=== PATIENT | female | born 1945 | race African-American/Black ===

== ENCOUNTER 2018-03-06 11:39 | Emergency (ER) | payer OTHER ==
[2018-03-06 12:44] LABS: Absolute Lymphocytes (CBC) 1.6 K/uL (0.7-4.9); Absolute Monocytes 0.7 K/uL (0.1-1.3); Basophils % 0.6 % (0-1.3); Eosinophils % 3.5 % (0-4.4); Lymphocytes % 23.9 % (15.3-44.8); Monocytes % 10.2 % (3.3-12.3)
[2018-03-06 13:08] LABS: ALT/SGPT 16 U/L (12-78); AST/SGOT 17 U/L (15-37); Albumin 3.7 g/dL (3.4-5.0); Alkaline Phosphatase 89 U/L (45-117); BUN Blood Urea Nitrogen 9 mg/dL (7-18); Bicarbonate 26 mmol/L (21-32); Bilirubin Direct < 0.1 mg/dL (0-0.2); Bilirubin Total 0.2 mg/dL (0.2-1.0); Glucose Level 124 mg/dL (74-106); Lipase 131 U/L (73-393); Potassium 3.3 mmol/L (3.5-5.1); Protein, Total 7.4 g/dL (6.4-8.2); Sodium Level 142 mmol/L (136-145)
[2018-03-06 13:52] LABS: Urine Blood NEGATIVE (NEG); Urine Glucose NEGATIVE (NEG); Urine Protein TRACE (NEG)
[2018-03-06 14:03] LABS: Urine Amorphous Sediment 2+ /HPF (NONE SEEN); Urine Bacteria NONE SEEN /HPF (<20); Urine Culture Reflex Order NOT NEEDED; Urine Mucus MOD /HPF (NONE SEEN); Urine RBC NONE SEEN /HPF (NONE SEEN)
--- NOTE | 2018-03-06 14:09 | EDPHYS ---
Physician Documentation [facility] Name: Caroline Cortes Age: 72 yrs Sex: Female : 1945 Arrival Date: 03/06/2018 Time: 11:44 Bed 8 Private MD: ED Physician Wes Ballesteros HPI: 03/06 12:58 This 72 yrs old Black Female presents to ER via Ambulatory with complaints of warm rn feeling. 12:58 Reports began yesterday with a "warm feeling throughout" her body, no pain, no rn headache, daughter reports seems anxious. Also has history of low sodium, her doctor took her off HCTZ and her salt pills, has been doing ok. + hx of stress and anxiety. NO trauma. No fever/cough/sob. . Historical: - Allergies: 11:52 No Known Allergies; aj1 - Home Meds: 11:52 paroxetine HCl 10 mg oral tab 1 tab once daily [Active]; gabapentin 300 mg oral cap 1 aj1 cap once daily [Active]; amlodipine 10 mg tab 1 tab once daily [Active]; citalopram 10 mg tab 1 tab once daily [Active]; losartan 25 mg oral tab 1 tab once daily [Active]; metformin 500 mg Oral tr24 1 tab once daily [Active]; - PMHx: 11:52 Hypertension; Diabetes - NIDDM; Anxiety; hyponatremia; aj1 - Immunization history:: Flu vaccine is not up to date. - Social history:: Smoking status: Patient/guardian denies using tobacco. - Ebola Screening: : Patient denies travel to an Ebola-affected area in the 21 days before illness onset. ROS: 13:08 Constitutional: Negative for fever, chills, and weight loss, Eyes: Negative for injury, rn pain, redness, and discharge, Neck: Negative for injury, pain, and swelling, Cardiovascular: Negative for chest pain, palpitations, and edema, Respiratory: Negative for shortness of breath, cough, wheezing, and pleuritic chest pain, Abdomen/GI: Negative for abdominal pain, nausea, vomiting, diarrhea, and constipation, MS/Extremity: Negative for injury and deformity, Skin: Negative for injury, rash, and discoloration, Neuro: Negative for headache, weakness, numbness, tingling, and seizure. Exam: 13:08 Constitutional: This is a well developed, well nourished patient who is awake, alert, rn and in no acute distress. Head/Face: Normocephalic, atraumatic. Eyes: Pupils equal round and reactive to light, extra-ocular motions intact. Lids and lashes normal. Conjunctiva and sclera are non-icteric and not injected. Cornea within normal limits. Periorbital areas with no swelling, redness, or edema. ENT: MMM Cardiovascular: Regular rate and rhythm. No pulse deficits. Respiratory: Lungs have equal breath sounds bilaterally, clear to auscultation. No increased work of breathing, no retractions or nasal flaring. Abdomen/GI: soft, non-tender Skin: Warm, dry with normal turgor. Normal color with no rashes, no lesions, and no evidence of cellulitis. MS/ Extremity: Pulses equal, no cyanosis. Neurovascular intact. Full, normal range of motion. Equal circumference. Neuro: Awake and alert, GCS 15, oriented to person, place, time, and situation. Cranial nerves II-XII grossly intact. Motor strength 5/5 in all extremities. Sensory grossly intact. Cerebellar exam normal. Normal gait. Vital Signs: 11:52 BP 134 / 78; Pulse 76; Resp 18; Temp 98.2; Pulse Ox 99% on R/A; Weight 71.21 kg (R); aj1 Height 5 ft. 1 in. (154.94 cm) (R); Pain 0/10; 11:52 Body Mass Index 29.66 (71.21 kg, 154.94 cm) aj1 MDM: 11:53 Patient medically screened. rn 14:06 Differential Diagnosis hyponatremia, UTI, dehydration, stress reaction, anxiety. Data rn reviewed: vital signs, nurses notes, lab test result(s), and as a result, I will discharge patient. Counseling: I had a detailed discussion with the patient and/or guardian regarding: the historical points, exam findings, and any diagnostic results supporting the discharge/admit diagnosis, lab results, the need for outpatient follow up, to return to the emergency department if symptoms worsen or persist or if there are any questions or concerns that arise at home. Special discussion: I discussed with the patient/guardian in detail that at this point there is no indication for admission to the hospital. It is understood, however, that if the symptoms persist or worsen the patient needs to return immediately for re-evaluation. 03/06 11:55 Order name: Urine Microscopic Only rn 03/06 11:55 Order name: Urine Microscopic Only EDMS 03/06 12:08 Order name: CBC with Diff; Complete Time: 13:25 rn 03/06 12:08 Order name: Basic Metabolic Panel; Complete Time: 13:25 rn 03/06 12:08 Order name: LFT's; Complete Time: 13:25 rn 03/06 12:08 Order name: Lipase; Complete Time: 13:25 rn 03/06 11:55 Order name: Urine Dipstick-Ancillary (obtain specimen); Complete Time: 13:42 rn 03/06 12:08 Order name: IV Start; Complete Time: 12:37 rn 03/06 13:41 Order name: Urine Dipstick--Ancillary (enter results) ms Administered Medications: No medications were administered Disposition: 03/06/18 14:08 Discharged to Home. Impression: Anxiety disorder, unspecified, Person with feared health complaint in whom no diagnosis is made. - Condition is Stable. - Medication Reconciliation Form, Thank You Letter, Antibiotic Education, Prescription Opioid Use form. - Follow up: Private Physician; When: As needed; Reason: Recheck today's complaints, Re-evaluation by your physician. - Problem is new. - Symptoms have improved. Signatures: Dispatcher [employer] Melanie Arce RN RN aj1 Ariadne Baptiste ms, Roman, MD MD furniture arranger: (The following items were deleted from the chart) 14:36 14:08 03/06/2018 14:08 Discharged to Home. Impression: Anxiety disorder, unspecified; ms Person with feared health complaint in whom no diagnosis is made. Condition is Stable. Forms are Medication Reconciliation Form, Thank You Letter, Antibiotic Education, Prescription Opioid Use. Follow up: Private Physician; When: As needed; Reason: Recheck today's complaints, Re-evaluation by your physician. Problem is new. Symptoms have improved. rn
--- NOTE | 2018-03-06 14:09 | ER ---
Nurse's Notes [facility] Name: Caroline Cortes Age: 72 yrs Sex: Female : 1945 Arrival Date: 03/06/2018 Time: 11:44 Bed 8 Private MD: Diagnosis: Anxiety disorder, unspecified;Person with feared health complaint in whom no diagnosis is made Presentation: 03/06 11:47 Presenting complaint: Patient states: "I feel jittery and I feel hot inside." Patient aj1 also reports anxiety and states that she feels "a little foggy" when she is feeling anxious. Patient's daughter state that she is concerned because she was taking salt tablets because her sodium levels were low, but recently they were back to normal so she stopped taking them about 2 weeks ago, and she is concerned that her sodium level may be low again. Transition of care: patient was not received from another setting of care. Onset of symptoms was March 05, 2018. Risk Assessment: Do you want to hurt yourself or someone else? Patient reports no desire to harm self or others. Initial Sepsis Screen: Does the patient meet any 2 criteria? No. Patient's initial sepsis screen is negative. Does the patient have a suspected source of infection? No. Patient's initial sepsis screen is negative. Care prior to arrival: None. 11:47 Method Of Arrival: Ambulatory aj 11:47 Acuity: SUSAN 3 aj1 Triage Assessment: 11:52 General: Appears in no apparent distress. comfortable, Behavior is calm, cooperative, aj1 appropriate for age. Pain: Denies pain. Neuro: Level of Consciousness is awake, alert, obeys commands. Cardiovascular: Patient's skin is warm and dry. Respiratory: Airway is patent Respiratory effort is even, unlabored, Respiratory pattern is regular, symmetrical. Historical: - Allergies: 11:52 No Known Allergies; aj1 - Home Meds: 11:52 paroxetine HCl 10 mg oral tab 1 tab once daily [Active]; gabapentin 300 mg oral cap 1 aj1 cap once daily [Active]; amlodipine 10 mg tab 1 tab once daily [Active]; citalopram 10 mg tab 1 tab once daily [Active]; losartan 25 mg oral tab 1 tab once daily [Active]; metformin 500 mg Oral tr24 1 tab once daily [Active]; - PMHx: 11:52 Hypertension; Diabetes - NIDDM; Anxiety; hyponatremia; aj1 - Immunization history:: Flu vaccine is not up to date. - Social history:: Smoking status: Patient/guardian denies using tobacco. - Ebola Screening: : Patient denies travel to an Ebola-affected area in the 21 days before illness onset. Screenin:08 Abuse screen: Denies threats or abuse. Denies injuries from another. Nutritional sg screening: No deficits noted. Tuberculosis screening: No symptoms or risk factors identified. Never had TB. Fall Risk None identified. Assessment: 12:10 Reassessment: Patient and/or family updated on plan of care and expected duration. Pain sg level reassessed. Patient is alert, oriented x 3, equal unlabored respirations, skin warm/dry/pink. Neuro: Level of Consciousness is awake, alert, obeys commands, Oriented to person, place, time, situation, Toolroom Keeper are equal bilaterally Moves all extremities. Full function Speech is normal, Facial symmetry appears normal, Pupils are PERRLA. 13:05 General: Appears in no apparent distress. comfortable, well groomed, well developed, sg well nourished, Behavior is calm, cooperative, appropriate for age. Pain: Denies pain. Neuro: Level of Consciousness is awake, alert, obeys commands, Oriented to person, place, time, situation, Toolroom Keeper are equal bilaterally Moves all extremities. Full function Gait is steady, Speech is normal, Facial symmetry appears normal, Pupils are PERRLA, Intact reports feeling warm inside her body. Cardiovascular: Patient's skin is warm and dry. Chest pain is denied. Respiratory: Airway is patent Respiratory effort is even, unlabored, Respiratory pattern is regular, symmetrical. GI: Abdomen is round non-distended, Reports normal bowel habits, tolerance of fluids, tolerance of food. : No signs and/or symptoms were reported regarding the genitourinary system. EENT: No signs and/or symptoms were reported regarding the EENT system. Derm: Skin is intact, is healthy with good turgor, Skin is dry, Skin is normal, Skin temperature is warm. Musculoskeletal: No signs and/or symptoms reported regarding the musculoskeletal system. Vital Signs: 11:52 BP 134 / 78; Pulse 76; Resp 18; Temp 98.2; Pulse Ox 99% on R/A; Weight 71.21 kg (R); aj1 Height 5 ft. 1 in. (154.94 cm) (R); Pain 0/10; 11:52 Body Mass Index 29.66 (71.21 kg, 154.94 cm) aj ED Course: 11:44 Patient arrived in ED. mr 11:50 Triage completed. aj1 11:52 Arm band placed on Patient placed in an exam room. aj1 11:53 Wes Ballesteros MD is Attending Physician. rn 12:15 Warm blanket given. Head of bed elevated. sg 12:24 Leidy Rodas RN is Primary Nurse. ph 12:37 Initial lab(s) drawn, by nv, sent to lab. Inserted saline lock: 20 gauge in right em1 forearm, using aseptic technique. Blood collected. 12:58 Adan Spear RN is Primary Nurse. sg 13:08 Patient has correct armband on for positive identification. Call light in reach. Side sg rails up X2. quality assurance monitor body on. Pulse ox on. NIBP on. 14:30 No provider procedures requiring assistance completed. IV discontinued, intact, sg bleeding controlled, No redness/swelling at site. Pressure dressing applied. Administered Medications: No medications were administered Outcome: 14:08 Discharge ordered by MD. rn 14:30 Discharged to home ambulatory, with family. sg 14:30 Condition: good 14:30 Discharge instructions given to patient, Instructed on discharge instructions, follow up and referral plans. safety practices, Demonstrated understanding of instructions, follow-up care. 14:36 Patient left the ED. ms Signatures: Melanie Meehan RN RN [facility] Adan Spear RN RN sg Rivera, Caroline mr BaptisteAriadne ms Wes Ballesteros MD MD rn Martinez, Eric [facility] Leidy Rodas RN RN ph
== END 2018-03-06 14:36 | disposition home or self-care (01) ==
LOC: ER 11:39
DX: Z71.1 Person with feared health complaint in whom no diagnosis is made (principal); I10 Essential (primary) hypertension; E11.9 Type 2 diabetes mellitus without complications; E87.1 Hypo-osmolality and hyponatremia
CPT/HCPCS: 36415; 80048; 80076; 81003; 81015; 83690; 85025; 99284

== ENCOUNTER 2018-11-08 11:48 | Observation (INO) | payer OTHER ==
[2018-11-08 12:41] VITALS: BMI 29.0
[2018-11-08] MEDS ORDERED: ALBUTEROL 2.5 MG/3 ML NEB SOL IH PRN (13:17)
[2018-11-08 13:39] LABS: Absolute Lymphocytes (CBC) 1.6 K/uL (0.7-4.9); Basophils % 0.5 % (0-1.3); Hematocrit 24.9 % (36.0-45.0); Lymphocytes % 15.3 % (15.3-44.8); MPV 7.7 fL (7.6-11.3); RBC Red Blood Cell Count 2.96 M/uL (3.86-4.86)
[2018-11-08] MEDS ORDERED: POLYETHYL GLY 3350 17 GM/DOSE PO PRN (14:00)
[2018-11-08] MEDS ORDERED: ONDANSETRON 4 MG/2 ML VIAL IV PRN (14:00)
[2018-11-08] MEDS ORDERED: DIPHENHYDRAMINE 25 MG TAB/CAP PO PRN (14:00)
[2018-11-08] MEDS ORDERED: ONDANSETRON 4 MG (ODT) TAB PO PRN (14:00)
[2018-11-08] MEDS ORDERED: VANCOMYCIN 1.75 GM in NA CHLORIDE 0.9% 500 ML IVPB ONE (14:00)
[2018-11-08] MEDS ORDERED: NACHLORIDE 0.45% 1,000 ML IV SCH (14:00)
[2018-11-08] MEDS ORDERED: LOPERAMIDE HCL 2 MG CAPSULE PO PRN (14:00)
[2018-11-08 14:07] LABS: Blood Morphology Comment NOT SEEN (NOT SEEN); Platelet Estimate ADEQ; Urine White Blood Cell Casts OK
[2018-11-08 14:48] LABS: ALT/SGPT 27 U/L (12-78); AST/SGOT 27 U/L (15-37); Albumin 3.4 g/dL (3.4-5.0); Alkaline Phosphatase 77 U/L (45-117); BUN Blood Urea Nitrogen 16 mg/dL (7-18); Bicarbonate 24 mmol/L (21-32); Bilirubin Direct 0.3 mg/dL (0-0.2); Bilirubin Total 0.7 mg/dL (0.2-1.0); Glucose Level 126 mg/dL (74-106); Magnesium 1.9 mg/dL (1.8-2.4); Phosphorus 2.8 mg/dL (2.5-4.9); Potassium 3.7 mmol/L (3.5-5.1); Protein, Total 6.5 g/dL (6.4-8.2); Sodium Level 131 mmol/L (136-145); Thyroid Stimulating Hormone 0.662 uIU/mL (0.360-3.740)
[2018-11-08] MEDS: ACETAMINOPHEN 325 MG TABLET PO PRN ×2 (14:58→22:15)
[2018-11-08] MEDS ORDERED: PIPER/TAZO/NS 3.375gm 3.375 GM/100 ML BAG IV SCH (15:00)
[2018-11-08 15:38] LABS: Urine Appearance CLEAR; Urine Bilirubin NEGATIVE (NEG); Urine Blood TRACE (NEG); Urine Color YELLOW; Urine Glucose NEGATIVE (NEG); Urine Protein NEGATIVE (NEG)
[2018-11-08] MEDS: IPRATROPIUM BROM 0.5MG/2.5ML IH SCH ×2 (15:44→20:00)
[2018-11-08] MEDS: LEVALBUTEROL 1.25 MG/3 ML NEB IH SCH ×2 (15:44→20:00)
--- NOTE | 2018-11-08 15:48 | RAD REPORT ---
EXAM DESCRIPTION: CT - Chest For Pe Angio - 11/08/2018 3:28 pm CLINICAL HISTORY: Chest pain COMPARISON: None. TECHNIQUE: Dynamically enhanced axial 3 mm thick images of the chest were obtained during administra tion of <100> mL Isovue 370 IV contrast. Coronal and oblique reconstruction images were generated and reviewed. Exam utilizes a protocol for optimal evaluation of pulmonary arterial tree. Maximum intensity projections 3D imaging was utilized All CT scans are performed using dose optimization technique as appropriate and may include automated exposure control or mA/KV adjustment according to patient size. FINDINGS: Thrombus is present within segmental and subsegmental right upper lobe, right middle and right lower lobe pulmonary arteries. No thrombus is seen within the main pulmonary and left pulmonary arteries. No thrombus within the main pulmonary and left pulmonary arteries. . A thoracic aortic aneurysm is not noted. Moderate left pleural effusion with left basilar atelectasis A small pericardial effusion . Postsurgical changes are present IMPRESSION: Right pulmonary emboli Moderate left pleural effusion with atelectasis Dr Smith notified 3:40 p.m. November 08, 2018 .
[2018-11-08 16:02] LABS: Urine Microscopic Reflex ORDER UMIC
[2018-11-08 16:03] LABS: Urine Bacteria <20 /HPF (<20); Urine Culture Reflex Order REFLEXED; Urine RBC <5 /HPF (NONE SEEN)
[2018-11-08 16:09] VITALS: O2SAT 98
[2018-11-08] MEDS: METHYLPREDNISOLONE 40 MG INJ IV SCH (17:54)
[2018-11-08] MEDS: RIVAROXABAN 15 MG TABLET PO SCH (17:54)
[2018-11-08] MEDS ORDERED: VANCOMYCIN 1.25 GM in NA CHLORIDE 0.9% 250 ML IVPB SCH (18:00)
[2018-11-08] MEDS ORDERED: GABAPENTIN 300 MG CAP PO SCH (21:00)
[2018-11-08] MEDS ORDERED: MIRTAZAPINE 15 MG TAB PO SCH (21:00)
[2018-11-08] MEDS ORDERED: ATORVASTATIN 40 MG TAB PO SCH (21:00)
[2018-11-08] MEDS ORDERED: GLUCAGON 1 MG/VIAL IM PRN (21:06)
[2018-11-08] MEDS ORDERED: D50W 25 GM/50 ML SYRINGE IV PRN (21:06)
[2018-11-08 21:08] LABS: MPV 7.6 fL (7.6-11.3)
[2018-11-08 21:09] LABS: Platelet Estimate ADEQ
[2018-11-08] MEDS: METOPROLOL TAR 50 MG TAB PO SCH (21:25)
[2018-11-08] MEDS: METFORMIN ER 500 MG TAB PO SCH (21:25)
[2018-11-08] MEDS: SERTRALINE HCL 50 MG TAB PO SCH (21:26)
[2018-11-08] MEDS: INSULIN -REGULAR HUMAN 50 UNIT/0.5 ML ML SQ SCH (21:26)
[2018-11-09] MEDS: METHYLPREDNISOLONE 40 MG INJ IV SCH ×2 (00:12→05:47)
[2018-11-09] MEDS: IPRATROPIUM BROM 0.5MG/2.5ML IH SCH ×2 (02:00→08:00)
[2018-11-09] MEDS: LEVALBUTEROL 1.25 MG/3 ML NEB IH SCH ×2 (02:00→08:00)
[2018-11-09 04:31] LABS: Absolute Lymphocytes (CBC) 0.7 K/uL (0.7-4.9); Basophils % 0.1 % (0-1.3); Hematocrit 25.7 % (36.0-45.0); Lymphocytes % 8.7 % (15.3-44.8); MPV 7.7 fL (7.6-11.3); RBC Red Blood Cell Count 3.08 M/uL (3.86-4.86)
[2018-11-09 04:33] LABS: Magnesium 2.4 mg/dL (1.8-2.4); Potassium 4.5 mmol/L (3.5-5.1)
[2018-11-09 05:06] LABS: Blood Morphology Comment NOTED (NOT SEEN); Platelet Estimate ADEQ
[2018-11-09 05:07] LABS: Polychromasia 1+
[2018-11-09] MEDS: INSULIN -REGULAR HUMAN 50 UNIT/0.5 ML ML SQ SCH (07:30)
[2018-11-09] MEDS: METFORMIN ER 500 MG TAB PO SCH (08:22)
[2018-11-09] MEDS: RIVAROXABAN 15 MG TABLET PO SCH (08:22)
[2018-11-09] MEDS: SERTRALINE HCL 50 MG TAB PO SCH (08:24)
[2018-11-09] MEDS: METOPROLOL TAR 50 MG TAB PO SCH (08:24)
[2018-11-09 08:25] VITALS: BP 158/86
[2018-11-09] MEDS ORDERED: POTASSIUM CL SA 10 MEQ TAB PO SCH (09:00)
[2018-11-09] MEDS ORDERED: CLOPIDOGREL 75 MG TABLET PO SCH (09:00)
[2018-11-09] MEDS ORDERED: LOSARTAN POTASSIUM 50 MG TABLET PO SCH (09:00)
[2018-11-09] MEDS ORDERED: FUROSEMIDE 40 MG TABLET PO SCH (09:00)
[2018-11-09] MEDS ORDERED: PANTOPRAZOLE 40MG TABLET PO SCH (09:00)
[2018-11-09] MEDS ORDERED: ENOXAPARIN 40 MG/0.4 ML SQ SCH (09:00)
[2018-11-09 09:38] VITALS: TEMP 98.7
[2018-11-09] MEDS ORDERED: VANCOMYCIN 1.25 GM in NA CHLORIDE 0.9% 250 ML IVPB SCH (14:00)
--- NOTE | 2018-11-09 21:50 | P.DS ---
Admission Date: 11/08/18 Discharge Date: 11/09/18 Disposition: ROUTINE DISCHARGE Discharge Condition: FAIR Hospital Course: MRS. DENISE WAS SLIGHTLY DYSPNEIC AND HAS L SIDE MOD PL. EFFUSION. SHE ALSO HAS PE ON CT SCAN THAT IS MODERATE. SHE IS CLINICALLY STABLE TO BE HOME. SHE IS GIVEN XARELTO BID FOR PE AND AFTER 3 WEEKS I WILL CHANGE TO 20 MG DAILY. Vital Signs/Physical Exam: Temp Pulse Resp BP Pulse Ox 98.7 F 79 18 158/86 H 97 11/09/18 08:00 11/09/18 08:24 11/09/18 08:00 11/09/18 08:24 11/09/18 08:00 Laboratory Data at Discharge: WBC 8.6 K/uL (4.3-10.9) D 11/09/18 03:34 Hgb 8.8 g/dL (12.0-15.0) L 11/09/18 03:34 Hct 25.7 % (36.0-45.0) L 11/09/18 03:34 Plt Count 296 K/uL (152-406) 11/09/18 03:34 APTT 26.4 SECONDS (24.3-36.9) 11/08/18 13:20 Sodium 139 mmol/L (136-145) 11/09/18 03:34 Potassium 4.5 mmol/L (3.5-5.1) 11/09/18 03:34 BUN 16 mg/dL (7-18) 11/09/18 03:34 Creatinine 0.86 mg/dL (0.55-1.3) 11/09/18 03:34 Glucose 142 mg/dL (74-106) H 11/09/18 03:34 Phosphorus 2.8 mg/dL (2.5-4.9) 11/08/18 13:20 Magnesium 2.4 mg/dL (1.8-2.4) D 11/09/18 03:34 Total Bilirubin 0.7 mg/dL (0.2-1.0) 11/08/18 13:20 AST 27 U/L (15-37) 11/08/18 13:20 ALT 27 U/L (12-78) 11/08/18 13:20 Alkaline Phosphatase 77 U/L (45-117) 11/08/18 13:20 Home Medications: Atorvastatin Calcium 1 tab PO BEDTIME 11/08/18 Clopidogrel Bisulfate [Plavix*] 1 tab PO DAILY 11/08/18 Furosemide 1 tab PO DAILY 11/08/18 Gabapentin 1 cap PO BEDTIME 11/08/18 Losartan Potassium 1 tab PO DAILY 11/08/18 Metformin ER [Glucophage ER*] 1 tab PO BID 11/08/18 Metoprolol Tartrate 1 tab PO Q12H 11/08/18 Mirtazapine 1 tab PO BEDTIME 11/08/18 Pantoprazole Sodium 1 tab PO DAILY 11/08/18 Potassium Chloride 1 tab PO DAILY 11/08/18 Sertraline [Zoloft*] 1 tab PO BID 11/08/18 Rivaroxaban [Xarelto*] 15 mg PO BIDWM #40 tablet 11/09/18 New Medications: Rivaroxaban [Xarelto*] 15 mg PO BIDWM #40 tablet Diet: AHA Followup: Clyde Smith MD [Primary Care Provider] - (call to schedule appointment)
== END 2018-11-09 10:20 | disposition home or self-care (01) ==
LOC: 4TH 11:48 → INTOOBSV 11:48
PROVIDERS: ADMIT Internal Medicine; ATTEND Internal Medicine
DX: I26.99 Other pulmonary embolism without acute cor pulmonale (principal); J90 Pleural effusion, not elsewhere classified
CPT/HCPCS: 87088; 87070; 85025 ×2; 87086; 80048 ×2; 36415 ×2; 83735 ×2; 87205; 84100; 85049; 82962 ×3; 80076; 85730; 84443; 87077; 87186; 82607; 82306; 71275; 94640; Q9967; G0379; J2920 ×3; G0378 ×3; 81003; 81015; J2543

== ENCOUNTER 2018-11-10 17:24 | Observation (INO) | payer OTHER ==
[2018-11-10] MEDS ORDERED: ALBUTEROL 2.5 MG/3 ML NEB SOL IH PRN (17:53)
[2018-11-10] MEDS ORDERED: DIPHENHYDRAMINE 25 MG TAB/CAP PO PRN (18:00)
[2018-11-10] MEDS ORDERED: POLYETHYL GLY 3350 17 GM/DOSE PO PRN (18:00)
[2018-11-10] MEDS ORDERED: ONDANSETRON 4 MG/2 ML VIAL IV PRN (18:00)
[2018-11-10] MEDS ORDERED: ONDANSETRON 4 MG (ODT) TAB PO PRN (18:00)
[2018-11-10] MEDS ORDERED: PNEUMOCOCCAL VACCINE 0.5 ML IMVAC ONE (18:00)
[2018-11-10] MEDS ORDERED: LOPERAMIDE HCL 2 MG CAPSULE PO PRN (18:00)
[2018-11-10] MEDS ORDERED: INFLUENZA VACCINE (for 3y+) 0.5 ML DOSE IMVAC ONE (18:00)
[2018-11-10 19:05] LABS: Absolute Lymphocytes (CBC) 2.7 K/uL (0.7-4.9); Basophils % 0.6 % (0-1.3); Lymphocytes % 19.5 % (15.3-44.8); MPV 7.3 fL (7.6-11.3); RBC Red Blood Cell Count 3.19 M/uL (3.86-4.86)
[2018-11-10 19:47] LABS: Albumin 3.6 g/dL (3.4-5.0); Bilirubin Direct 0.2 mg/dL (0-0.2); Bilirubin Total 0.6 mg/dL (0.2-1.0); Magnesium 2.2 mg/dL (1.8-2.4); Phosphorus 2.6 mg/dL (2.5-4.9); Protein, Total 7.2 g/dL (6.4-8.2); Thyroid Stimulating Hormone 0.298 uIU/mL (0.360-3.740)
[2018-11-10] MEDS: LEVALBUTEROL 1.25 MG/3 ML NEB IH SCH (20:00)
[2018-11-10] MEDS: IPRATROPIUM BROM 0.5MG/2.5ML IH SCH (20:00)
[2018-11-10 20:19] LABS: Protime INR 2.21
[2018-11-10 20:22] LABS: Anisocytosis 1+; Blood Morphology Comment NOT SEEN (NOT SEEN); Platelet Estimate INCR
[2018-11-10 20:23] LABS: Ovalocytes 1+
[2018-11-10] MEDS: FUROSEMIDE 20 MG/ 2ML VIAL IV SCH (22:04)
[2018-11-10] MEDS ORDERED: D50W 25 GM/50 ML SYRINGE IV PRN (22:29)
[2018-11-10] MEDS ORDERED: GLUCAGON 1 MG/VIAL IM PRN (22:29)
[2018-11-10] MEDS ORDERED: RIVAROXABAN 10 MG TABLET ONE (23:10)
[2018-11-10] MEDS ORDERED: GABAPENTIN 300 MG CAP ONE (23:11)
[2018-11-10] MEDS ORDERED: MELOXICAM 7.5 MG TAB ONE (23:11)
[2018-11-10] MEDS ORDERED: SERTRALINE HCL 50 MG TAB ONE (23:11)
[2018-11-10] MEDS: METOPROLOL TAR 50 MG TAB PO SCH (23:30)
[2018-11-10] MEDS: ACETAMINOPHEN 325 MG TABLET PO PRN (23:30)
[2018-11-10 23:52] LABS: Urine Appearance CLEAR; Urine Bilirubin NEGATIVE (NEG); Urine Blood 1+ (NEG); Urine Color YELLOW; Urine Glucose NEGATIVE (NEG); Urine Protein NEGATIVE (NEG); Urine pH 6.5 (5.0-7.0)
[2018-11-10 23:56] LABS: Urine Microscopic Reflex ORDER UMIC
[2018-11-11 00:12] LABS: UR MICROALBUMIN 0.7 mg/dL (< 1.9)
[2018-11-11 00:22] LABS: Urine Bacteria <20 /HPF (<20); Urine Culture Reflex Order REFLEXED; Urine RBC <5 /HPF (NONE SEEN)
[2018-11-11] MEDS: IPRATROPIUM BROM 0.5MG/2.5ML IH SCH ×3 (02:00→13:35)
[2018-11-11] MEDS: LEVALBUTEROL 1.25 MG/3 ML NEB IH SCH ×3 (02:00→13:35)
[2018-11-11 06:06] VITALS: BMI 29.6
[2018-11-11 06:26] LABS: Absolute Lymphocytes (CBC) 2.9 K/uL (0.7-4.9); Basophils % 0.6 % (0-1.3); Hematocrit 25.2 % (36.0-45.0); Lymphocytes % 22.9 % (15.3-44.8); MPV 6.9 fL (7.6-11.3); RBC Red Blood Cell Count 3.01 M/uL (3.86-4.86)
[2018-11-11 06:34] LABS: Magnesium 2.3 mg/dL (1.8-2.4); Potassium 3.8 mmol/L (3.5-5.1)
[2018-11-11] MEDS: INSULIN -REGULAR HUMAN 50 UNIT/0.5 ML ML SQ SCH ×3 (07:30→16:30)
[2018-11-11] MEDS ORDERED: RIVAROXABAN 15 MG TABLET PO SCH (08:00)
[2018-11-11] MEDS ORDERED: POTASSIUM 25 MEQ EFFERV TAB PO ONE ×2 (09:00)
[2018-11-11] MEDS ORDERED: POTASSIUM CL SA 10 MEQ TAB PO SCH (09:00)
--- NOTE | 2018-11-11 09:40 | ECHO ---
HEIGHT: 5 ft 1 in WEIGHT: 157 lb 0 oz DATE OF STUDY: 11/11/[address]: Clyde Smith MD 2-DIMENSIONAL: YES M.MODE: YES DOPPLER: YES COLOR FLOW: YES TDS: PORTABLE: DEFINITY: BUBBLE STUDY: DIAGNOSIS: DYSPNEA CARDIAC HISTORY: CATHERIZATION: SURGERY: PROSTHETIC VALVE: PACEMAKER: MEASUREMENTS (cm) DIASTOLIC (NORMALS) SYSTOLIC (NORMALS) IVSd 1.3 (0.6-1.2) LA Diam (1.9-4.0) LVEF 60-69% LVIDd 3.3 (3.5-5.7) LVIDs 1.6 (2.0-3.5) %FS 51% LVPWd 1.2 (0.6-1.2) Ao Diam 3.1 (2.0-3.7) 2 DIMENSIONAL ASSESSMENT: RIGHT ATRIUM: NORMAL LEFT ATRIUM: DILATED RIGHT VENTRICLE: NORMAL LEFT VENTRICLE: LEFT VENTRICULAR HYPERTROPHY TRICUSPID VALVE: NORMAL MITRAL VALVE: NORMAL PULMONIC VALVE: NORMAL AORTIC VALVE: NORMAL PERICARDIAL EFFUSION: NONE AORTIC ROOT: NORMAL LEFT VENTRICULAR WALL MOTION: NORMAL DOPPLER/COLOR FLOW: PHYSIOLOGICAL TRICUSPID REGURGITATION. NORMAL RIGHT VENTRICULAR SYSTOLIC PRESSURE. IMPAIRED LEFT VENTRICULAR RELAXATION. COMMENTS: NORMAL LEFT VENTRICULAR EJECTION FRACTION. DILATED LEFT ATRIUM. LEFT VENTRICULAR HYPERTROPHY. IMPAIRED LEFT VENTRICULAR RELAXATION. TECHNOLOGIST: SUSIE SILVA
[2018-11-11] MEDS: FUROSEMIDE 20 MG/ 2ML VIAL IV SCH (10:13)
[2018-11-11] MEDS: METOPROLOL TAR 50 MG TAB PO SCH (10:13)
[2018-11-11] MEDS: ACETAMINOPHEN 325 MG TABLET PO PRN (10:19)
--- NOTE | 2018-11-11 12:11 | RAD REPORT ---
EXAM DESCRIPTION: RAD CHEST TWO-VIEW CLINICAL HISTORY: Pleural effusion, shortness of breath. COMPARISON: Ct chest November 08, 2018, Two-view chest November 08, 2018 TECHNIQUE: PA and lateral views of the chest were obtained. FINDINGS: A moderately large left pleural effusion and left base atelectasis are stable. Cardiac silhouette remains enlarged. No new right lung field or upper left lung field finding. Upper lobe vasculature is within normal limits. No acute bone finding since prior imaging. No pneumothorax. No acute aortic finding. IMPRESSION: Moderately enlarged left pleural effusion and left base atelectasis stable from November 08, 2018 imaging.
[2018-11-11] MEDS ORDERED: ALPRAZOLAM 0.25 MG TABLET PO PRN (13:20)
[2018-11-11 16:07] VITALS: O2SAT 94
[2018-11-11 16:31] VITALS: BP 106/58; TEMP 97.3
[2018-11-11] MEDS ORDERED: MIRTAZAPINE 15 MG TAB PO SCH (21:00)
[2018-11-11] MEDS ORDERED: SERTRALINE HCL 50 MG TAB PO SCH (21:00)
[2018-11-11] MEDS ORDERED: GABAPENTIN 300 MG CAP PO SCH (21:00)
--- NOTE | 2018-11-11 21:15 | P.DS ---
Admission Date: 11/10/18 Discharge Date: 11/11/18 Disposition: ROUTINE DISCHARGE Discharge Condition: FAIR Brief History of Present Illness: MS. DENISE IS VERY COMOFORTABLE. SHE HAS NO DYSPNEA TODAY. ONCE FAMILY CALLED SHE HAD PANIC ATTACK BUT LATER FOUND SHE HAD GAS, GOOD BM AND ALL SYMPTOMS WENT AWAY. SHE IS GIVEN XANAX PRN IN CASE SHE GETS ANXIOUS. SHE IS GIVEN LEVAQUIN SHE HAS MILD HIGH WBC THAT MAY OR MAY NOT BE INFECTION. SHE WILL SEE HER SURGEON SOON. Vital Signs/Physical Exam: Temp Pulse Resp BP Pulse Ox 97.3 F 75 18 106/58 L 95 11/11/18 16:00 11/11/18 16:00 11/11/18 16:00 11/11/18 16:00 11/11/18 16:00 Laboratory Data at Discharge: WBC 12.7 K/uL (4.3-10.9) H 11/11/18 05:56 Hgb 8.7 g/dL (12.0-15.0) L 11/11/18 05:56 Hct 25.2 % (36.0-45.0) L 11/11/18 05:56 Plt Count 431 K/uL (152-406) H 11/11/18 05:56 PT 25.3 SECONDS (9.5-12.5) H 11/10/18 19:51 INR 2.21 11/10/18 19:51 APTT 34.0 SECONDS (24.3-36.9) 11/10/18 19:51 Sodium 138 mmol/L (136-145) 11/11/18 05:56 Potassium 3.8 mmol/L (3.5-5.1) 11/11/18 05:56 BUN 22 mg/dL (7-18) H 11/11/18 05:56 Creatinine 0.87 mg/dL (0.55-1.3) 11/11/18 05:56 Glucose 111 mg/dL (74-106) H 11/11/18 05:56 Phosphorus 2.6 mg/dL (2.5-4.9) 11/10/18 18:40 Magnesium 2.3 mg/dL (1.8-2.4) 11/11/18 05:56 Total Bilirubin 0.6 mg/dL (0.2-1.0) 11/10/18 18:40 AST 35 U/L (15-37) 11/10/18 18:40 ALT 36 U/L (12-78) 11/10/18 18:40 Alkaline Phosphatase 92 U/L (45-117) 11/10/18 18:40 Home Medications: Atorvastatin Calcium 1 tab PO BEDTIME 11/08/18 Clopidogrel Bisulfate [Plavix*] 1 tab PO DAILY 11/08/18 Furosemide 1 tab PO DAILY 11/08/18 Gabapentin 1 cap PO BEDTIME 11/08/18 Losartan Potassium 1 tab PO DAILY 11/08/18 Metformin ER [Glucophage ER*] 1 tab PO BID 11/08/18 Metoprolol Tartrate 1 tab PO Q12H 11/08/18 Mirtazapine 1 tab PO BEDTIME 11/08/18 Pantoprazole Sodium 1 tab PO DAILY 11/08/18 Potassium Chloride 1 tab PO DAILY 11/08/18 Sertraline [Zoloft*] 1 tab PO BID 11/08/18 Rivaroxaban [Xarelto*] 15 mg PO BIDWM #40 tablet 11/09/18 ALPRAZolam [Xanax] 0.25 mg PO Q8HP PRN #40 tab 11/11/18 levoFLOXacin [Levaquin] 250 mg PO DAILY #7 tab 11/11/18 New Medications: ALPRAZolam [Xanax] 0.25 mg PO Q8HP PRN #40 tab PRN Reason: Anxiety levoFLOXacin [Levaquin] 250 mg PO DAILY #7 tab Patient Discharge Instructions: TAKE XANAX NEEDED FOR ANXIETY ATTACK. LEVAQUIN FOR 7 DAYS. GO SEE SURGEON ON WEDNESDAY. TAKE XARELTO LIKE YOU HAVE BEEN. Followup: Clyde Smith MD [Primary Care Provider] - If your Condition Changes
--- NOTE | 2018-11-12 17:04 | RAD REPORT ---
EXAM DESCRIPTION: US - Abdomen Exam Complete - 11/11/2018 7:03 pm CLINICAL HISTORY: ABD PAIN COMPARISON: Chest For Pe Angio dated 11/08/2018 FINDINGS: Gallbladder size is normal. Multiple gallstones are present filling the lumen of the gallb ladder. No wall thickening or pericholecystic fluid. Common bile duct is normal with no common duct s tone identified. The liver and spleen show no suspicious findings. The pancreas is normal. No hydronephrosis or suspicious mass in either kidney. Proximal aorta is partially obscured. Distal aorta shows no dilatation. No IVC abnormality. No ascite s or bulky lymphadenopathy. IMPRESSION: Multi stone cholelithiasis without evidence for acute cholecystitis. No duct stone or biliary tree dilatation. Due to prolonged technical difficulties with the PACs game programmer systems, final written report was delayed.
== END 2018-11-11 17:45 | disposition home or self-care (01) ==
LOC: 4TH 17:24
PROVIDERS: ADMIT Internal Medicine; ATTEND Internal Medicine
DX: F41.0 Panic disorder [episodic paroxysmal anxiety] (principal); D72.829 Elevated white blood cell count, unspecified; I10 Essential (primary) hypertension; E11.9 Type 2 diabetes mellitus without complications
CPT/HCPCS: 93306; 87088; 85025 ×2; 87086; 80048 ×2; 36415 ×2; 83735 ×2; 84100; 85610; 82962 ×4; 80076; 85730; 84443; 87077 ×2; 87186 ×2; 83036; 82570; 82607; 82306; 83880; 82043; 71046; 76700; 94640; G0379; J1940 ×2; G0378 ×3; 81003; 81015

== ENCOUNTER 2019-10-13 15:46 | Observation (INO) | payer OTHER ==
--- OUTSIDE RECORDS SUMMARY | 2019-10-13 15:50 | XMS REPORT | Continuity of Care Document ---
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 ACUTE HYPONATREMIA, Active 01/17/20 [facility] TREMOR, LEG CRAMPING [address] [place] [address] ANXIETY Active 01/17/20 [facility] 18 [place] Anemia, unspecified 08/10/2018 [facility] Hypocalcemia 08/10/2018 [facility] Type 2 diabetes 08/10/2018 [facility] mellitus without complications Other disorders of 08/10/2018 [facility] electrolyte and fluid balance, not elsewhere classified Anxiety disorder, 08/10/2018 [facility] unspecified Essential (primary) 08/10/2018 [facility] hypertension Adverse effect of 08/10/2018 [facility] carbonic-anhydrase inhibitors, benzothiadiazides and other diuretics, initial encounter Adverse effect of 08/10/2018 [facility] selective serotonin reuptake inhibitors, initial encounter Cough 08/10/2018 [facility] nd Cramp and spasm 08/10/2018 [facility] Tremor, unspecified 08/10/2018 [facility] half-way (current) 08/10/2018 [facility] use of insulin HYPO-OSMOLALITY AND Active [facility] HYPONATREMIA Cy TREMOR, UNSPECIFIED Active [facility] CRAMP AND SPASM Active Albino rial Cy UNSTABLE ANGINA Active [place] DEHYDRATION Active [facility] Medications Medication Details Route Status Patient Ordering Order Source Instructions Provider Date thrombin topical Notes: "blood Inactive [place] human 5000 intl product 2019 [place] units powder for derivative" reconstitution Melatonin Notes: (Same No Longer Bridgette cesar as: Melatonin) Active [address] [facility] amLODIPine 5 mg 5 mg = 1 tab, Active [place] oral tablet PO, Daily, 0 2019 [place] Refill(s) atorvastatin 40 mg 40 mg = 1 tab, Active [place] oral tablet PO, Bedtime, # 2019 [place] 30 tab, 0 Refill(s), Pharmacy: [facility] clopidogrel 75 mg 75 mg = 1 tab, Active [place] oral tablet PO, Daily, # 30 [place] tab, 0 Refill(s), Pharmacy: [facility] metoprolol 12.5 mg = 0.5 Active [place] tartrate 25 mg tab, PO, Q12H, 2018 [place] oral tablet # 30 tab, 0 Refill(s), Pharmacy: [facility] Plavix Notes: (Same No Longer [place] As: Plavix) Active [address] [facility] Norvasc Notes: (Same No Longer Sugar as: Norvasc) Active [address] [facility] metoprolol Notes: (Same No Longer Sug ar tartrate as: Lopressor) Active [address] [facility] atorvastatin Notes: (Same No Longer S ugar as: Lipitor) Active [address] [facility] Saline Flush 0.9% Notes: (Same No Longer Sugar as: BD Active [address] [facility] Posiflush) Ondansetron Notes: (Same No Longer [place] as: Zofran) Active [address] [facility] MEDICATION WASTE Product Size: 4 mg Product Wasted: ___ mg atorvastatin Notes: (Same Inactive [place] as: Lipitor) [address] [facility] Sodium Chloride 250 mL, 250 No Longer [place] 0.9% (Bolus) IV ml/hr, Infuse Active 2018 [place] Over: 1 hr, Route: IV, 250, Drug form: INJ, ONCALL, Priority: Routine, Dosing Weight 70.938 kg, Start date: 10/14/18 10:00:00 CDT, Duration: 1 doses or times, 0 Sodium Chloride 750 mL, Rate: No Longer Sugar 0.9% IV 750 mL 75 ml/hr, Active [address] [facility] Infuse over: 10 hr, Route: IV, Dosing Weight 70.938 kg, Total Volume: 750, Start date: 10/14/18 9:42:00 CDT, Duration: 24 hr, Stop date: 10/15/18 9:41:00 CDT, 1.77, m2, 0 Saline Flush 0.9% Notes: (Same No Longer [place] as: BD Active 2019 [place] Posiflush) Aspirin 81 MG Notes: Do not No Longer [place] Enteric Coated crush or chew. Active 2018 [place] Tablet (Same As: Ecotrin) Sertraline Notes: (Same No Longer Sug ar as: Zoloft) Active 2018 [place] gabapentin 300 MG Notes: (Same No Longer [place] Oral Capsule as: Neurontin) Active 2018 [place] Saline Flush 0.9% Notes: (Same No Longer [place] as: BD Active 2018 [place] Posiflush) Amlodipine Notes: (Same No Longer Sug ar as: Norvasc) Active 2018 [place] Enoxaparin Notes: Nurse to Inactive S julieth ensure 2019 [place] documentation of patient education per anticoagulation policy. (Same as: Lovenox) Dextrose 50% 12.5 gm, 25 mL, No Longer H [place] Syringe Route: IVP, Active 2018 [place] Drug Form: INJ, Dosing Weight 70.938, kg, PRN, PRN Blood Glucose Results, Start date: 10/14/18 4:39:00 CDT, Duration: 30 day, Stop date: 11/13/18 4:38:00 CDT, 0 Glucagon 1 mg, Route: No Longer [place] IM, Drug form: Active 2018 [place] PDR/INJ, PRN, Dosing Weight 70.938, kg, PRN Blood Glucose Results, Start date: 10/14/18 4:39:00 CDT, Duration: 30 day, Stop date: 11/13/18 4:38:00 CDT, 0 Insulin Lispro Notes: (Same No Longer [place] as: Humalog) Active 2018 [place] Roll in palms of hands gently; Do not shake vigorously. WASTE: F/P - Black; E - Municipal Trash Bin Stable for 28 days at room temperature. Expires in days from D ate Acetaminophen Notes: Do not No Longer [place] exceed 4 Active 2018 [place] gm/day. (Same as: Tylenol) Morphine 2 mg, 1 mL, No Longer Sugar Route: IVP, Active [address] [facility] Drug form: SOLN, Q4H, Dosing Weight 70.938, kg, PRN Pain Score 7-10, Start date: 10/14/18 4:38:00 CDT, Duration: 30 day, Stop date: 11/13/18 4:37:00 CDT, 0 Ondansetron 2 Notes: (Same No Longer [place] MG/ML Injectable as: Zofran) Active 2018 [facility] [Zofran] MEDICATION WASTE Product Size: 4 mg Product Wasted: ___ mg Hydralazine Notes: (Same No Longer [place] as: Apresoline) Active 2018 [place] Push over 5 minutes Dextrose 5% with 1,000 mL, Rate: No Longer 10/14 [place] 0.45% NaCl IV 100 ml/hr, Active 2018 [place] 1,000 mL Infuse over: 10 hr, Route: IV, Dosing Weight 70.938 kg, Total Volume: 1,000, Start date: 10/14/18 4:36:00 CDT, Duration: 30 day, Stop date: 11/13/18 4:35:00 CDT, 1.77, m2, 0 Nitroglycerin Notes: (Same No Longer [place] as:Nitroquick, Active 2018 [place] Nitrostat) "Do Not Crush" Sublingual tablet Saline Flush 0.9% Notes: (Same No Longer [place] as: BD Active 2018 [place] Posiflush) clopidogrel Notes: ( Same Inactive [place] as: Plavix) 2019 [place] Metformin 500 mg = 1 tab, Active [place] ar hydrochloride 500 PO, Daily, take 2019 [place] MG Oral Tablet with a meal, # 30 tab, 1 Refill(s) amLODIPine 10 mg 10 mg = 1 tab, No Longer [place] oral tablet PO, Daily, # 30 Active 2018 [place] tab, 0 Refill(s) gabapentin 300 MG 300 mg = 1 cap, Active [place] Oral Capsule PO, Daily, 0 2019 [place] Refill(s) sertraline 50 mg 50 mg = 1 tab, Active [place] oral tablet PO, Daily, # 30 2019 [place] tab, 0 Refill(s) losartan 25 mg 25 mg = 1 tab, No Longer [place] oral tablet PO, Daily, # 30 Active 2019 [place] tab, 0 Refill(s) Sodium Chloride 2 gm = 2 tab, Active 1000 MG Oral PO, BID, # 120 2018 [place] Tablet tab, 0 Refill(s) losartan 100 mg 100 mg = 1 tab, Inactive oral tablet PO, Daily, # 30 2018 [place] tab, 2 Refill(s) Sodium Chloride 2 gm, 2 tab, Inactive 1000 MG Oral Route: PO, Drug 2018 [place] Tablet form: TAB, BID, Dosing Weight 75.2, kg, Start date: 01/21/18 9:00:00 STAFFING ASSOCIATE, Duration: 30 day, Stop date: 02/19/18 17:00:00 STAFFING ASSOCIATE Benadryl 25 mg, 1 tab, Inactive Route: PO, Drug 2018 [place] form: TAB, ONCE, Dosing Weight 75.2, kg, Start date: 01/20/18 20:22:00 STAFFING ASSOCIATE, Stop date: 01/20/18 20:22:00 STAFFING ASSOCIATE Artificial Tears Notes: (Same No Longer as: Puralube) Active 2018 [place] Amlodipine Notes: (Same No Longer as: Norvasc) Active 2018 [place] Aspirin 81 MG Notes: Do not No Longer Enteric Coated crush or chew. Active 2018 [place] Tablet (Same As: Ecotrin) Sodium Chloride 1 gm, 1 tab, No Longer H 1000 MG Oral Route: PO, Drug Active 2018 [place] Tablet form: TAB, Q8H, Dosing Weight 75.2, kg, Start date: 01/20/18 0:00:00 STAFFING ASSOCIATE, Duration: 30 day, Stop date: 02/18/18 16:00:00 STAFFING ASSOCIATE Insulin Lispro Notes: (Same No Longer as: Humalog ) Active 2018 [place] Roll in palms of hands gently; Do not shake `vigorously. "Single Patient Use Only " WASTE: F/P - Black; E - Municipal Trash Bin Stable for 28 days at room temperature. Expires in days from D ate Glucagon 1 mg, Route: No Longer IM, Drug form: Active 2018 [place] PDR/INJ, PRN, Dosing Weight 75.2, kg, PRN Blood Glucose Results, Start date: 01/19/18 20:10:00 STAFFING ASSOCIATE, Duration: 30 day, Stop date: 02/18/18 20:09:00 STAFFING ASSOCIATE Dextrose 50% 12.5 gm, 25 mL, No Longer 01/20/ H Syringe Route: IVP, Active 2018 [place] Drug Form: INJ, Dosing Weight 75.2, kg, PRN, PRN Blood Glucose Results, Start date: 01/19/18 20:10:00 STAFFING ASSOCIATE, Duration: 30 day, Stop date: 02/18/18 20:09:00 STAFFING ASSOCIATE D5W 300 mL 300 mL, Rate: Inactive 300 ml/hr, 2018 [place] Infuse over: 1 hr, Route: IV, Dosing Weight 75.2 kg, Total Volume: 300, Start date: 01/19/18 8:13:00 STAFFING ASSOCIATE, Duration: 1 doses or times, Stop date: 01/19/18 9:12:00 STAFFING ASSOCIATE, 1.83, m2 D50W (bolus) IV 150 gm, 300 mL, Inactive Route: IV, Drug 2018 [place] Form: INJ, Dosing Weight 75.2, kg, ONCE, NOW, Start date: 01/19/18 8:01:00 STAFFING ASSOCIATE, Stop date: 01/19/18 8:01:00 STAFFING ASSOCIATE sodium chloride 1 2 gm, 2 tab, No Longer gm oral tablet Route: PO, Drug Active 2017 [place] form: TAB, Q6H, Dosing Weight 75.2, kg, Start date: 01/18/18 21:00:00 STAFFING ASSOCIATE, Duration: 30 day, Stop date: 02/17/18 21:00:00 STAFFING ASSOCIATE Benzocaine 15 MG / Notes: Same as: No Longer Menthol 3.6 MG Cepacol Active 2018 [place] Lozenge [Cepacol Sore Throat Pain Relief 15/3.6] Sodium Chloride 2 gm, 2 tab, Inactive 1000 MG Oral Route: PO, Drug 2017 [place] Tablet form: TAB, Q6H, Dosing Weight 75.2, kg, Start date: 01/18/18 12:00:00 STAFFING ASSOCIATE, Duration: 30 day, Stop date: 02/17/18 6:00:00 STAFFING ASSOCIATE Sodium Chloride 3% Notes: Inactive (Hypertonic) IV "Administer by 2018 [place] 250 mL central venous catheter or a peripherally inserted central catheter (PICC) line. 3% Sodium Chloride may be infused via peripheral administration into large vein (antecubital) only in the case of emergency for short term use until a central line can be inserted" (Same as: Hypertonic Saline 3%) concentration = 0.513 mEq/mL Zofran Notes: (Same No Longer as: Zofran) Active 2017 [place] MEDICATION WASTE Product Size: 4 mg Product Wasted: ___ mg Melatonin Notes: (Same No Longer as: Melatonin) Active 2017 [place] Sodium Chloride 3% 100 mL, IV, 180 No Longer IV ml/hr, ONCE, Active 2017 [place] Start date: 01/17/18 17:30:00 STAFFING ASSOCIATE, 100 ml Sodium Chloride 3% Notes: Inactive (Hypertonic) IV concentration = 2017 [place] 100 mL 0.513 mEq/mL heparin Notes: porcine No Longer heparin Active 2017 [place] Sodium Chloride 3% Notes: Inactive (Hypertonic) IV "Administer by 2017 [place] 150 mL central venous catheter or a peripherally inserted central catheter (PICC) line. 3% Sodium Chloride may be infused via peripheral administration into large vein (antecubital) only in the case of emergency for short term use until a central line can be inserted" (Same as: Hypertonic Saline 3%) concentration = 0.513 mEq/mL Ativan Notes: (Same No Longer as: Ativan) Active 2017 [place] Hydralazine 50 mg, 1 tab, Inactive Hydrochloride 50 Route: PO, Drug 2018 [place] MG Oral Tablet form: TAB, Q8H, Dosing Weight 75.2, kg, Priority: NOW, Start date: 01/17/18 12:24:00 STAFFING ASSOCIATE, Duration: 30 day, Stop date: 02/16/18 8:00:00 STAFFING ASSOCIATE Sodium Chloride 2 gm, 2 tab, No Longer 12/10/ H 1000 MG Oral Route: PO, Drug Active 2017 [place] Tablet form: TAB, Q8H, Dosing Weight 75.2, kg, Priority: NOW, Start date: 01/17/18 10:00:00 STAFFING ASSOCIATE, Duration: 30 day, Stop date: 02/16/18 8:00:00 STAFFING ASSOCIATE normal saline 0.9% 1,000 mL, Rate: Inactive 01/08 0/ MH IV 1,000 mL 100 ml/hr, 2018 [place] Infuse over: 10 hr, Route: IV, Dosing Weight 75.2 kg, Total Volume: 1,000, Start date: 01/17/18 1:29:00 STAFFING ASSOCIATE, Duration: 30 day, Stop date: 02/16/18 1:29:00 STAFFING ASSOCIATE, 1.83, m2 Hydrochlorothiazid 1 tab, PO, No Longer e 25 MG / Losartan Daily, # 30 Active 2018 [place] Potassium 100 MG tab, 0 Oral Tablet Refill(s) amLODIPine 5 mg 5 mg = 1 tab, Active oral tablet PO, Daily, # 30 2018 [place] tab, 0 Refill(s) Aspirin 81 MG 81 mg = 1 tab, Active Enteric Coated PO, Daily, # 90 2018 [place] Tablet tab, 3 Refill(s) Tylenol Extra 1 tab, PO, PRN, Active Strength PM Rapid 0 Refill(s) 2018 [place] Release citalopram 10 mg 10 mg = 1 tab, No Longer oral tablet PO, Daily, # 30 Active 2018 [place] tab, 0 Refill(s) omeprazole 20 mg 20 mg = 1 cap, Active oral delayed PO, Daily, # 30 2018 [place] release capsule cap, 0 Refill(s) Sulfamethoxazole 1 tab, PO, BID, No Longer 01/17 800 MG / # 14 tab, 0 Active 2018 [place] Trimethoprim 160 Refill(s) MG Oral Tablet Saline Flush 0.9% Notes: (Same No Longer as: BD Active 2018 [place] Posiflush) Calcium Carbonate Notes: (Same No Longer 500 MG Chewable As: Tums) Active 2017 [facility] nd Tablet Calcium Carbonate 500 mg = 200 mg elemental calcium Dose = mg calcium carbonate ( mg elemental calcium) Calcium Gluconate Notes: WASTE: No Longer F/P - Sink; E - Active 2017 [place] GeriJoy Trash Bin Potassium Chloride Notes: (Same No Longer as: K-Dur 20) Active 2017 [place] "Do Not Crush" Give with food and full glass of water For patients unable to swallow tablet, dissolve in one half glass of water. Allow about 2 minutes for the tablets to disintegrate. Stir before giving to prepare slurry and administer. Please exclude Patient’s with feeding tube less than 14 [place] (Dobhoff, J-tube etc) and pediatric and patients. sodium phosphate Notes: Infuse No Longer over 4 hour. Do Active 2017 [place] not infuse phosphorous concurrently in the same line as TPN or IVF that contains calcium. For double lumen central lines, phosphorous may be infused in a separate lumen from TPN. potassium Notes: (Same No Longer phosphate as: K Active 2017 [place] Phosphate.) Do not infuse phosphorous concurrently in the same line as TPN or IVF that contains calcium. For double lumen central lines, phosphorous may be infused in a separate lumen from TPN. 1 mMol phoshate has 1.47 mEq potassium Infuse over 4 hours Magnesium Oxide Notes: (Same No Longer 01/17/ H as: Mag-Ox 400) Active 2017 [place] Magnesium oxide [id number] elemental magnesium Dose=____mg magnesium oxide (___mg elemental magnesium) potassium Notes: (Same No Longer phosphate-sodium as: Phos-NaK) Active 2017 [place] phosphate 250 Each 1.5 gm pkt mg-280 mg-160 mg has 250mg oral powder for phosphorous. reconstitution Mix w/2.5oz water and stir. Magnesium Sulfate Notes: WASTE: No Longer F/P - Sink; E - Active 2017 [place] GeriJoy Trash Bin Saline Flush 0.9% Notes: (Same No Longer as: BD Active 2017 [place] Posiflush) Nystatin 100 Notes: (Same No Longer UNT/MG Topical as:Mycostatin, Active 2017 Abdoulaye p[place]man Powder Nilstat) For external use only. Ativan 0.5 mg, Route: Inactive PO, Drug form: 2018 [place] TAB, ONCE, Dosing Weight 74.545, kg, Start date: 01/16/18 18:20:00 STAFFING ASSOCIATE, Stop date: 01/16/18 18:20:00 STAFFING ASSOCIATE Ativan 1 mg, Route: Inactive PO, Drug form: 2017 [place] TAB, ONCE, Dosing Weight 74.545, kg, Priority: STAT, Start date: 01/16/18 18:19:00 STAFFING ASSOCIATE, Stop date: 01/16/18 18:19:00 STAFFING ASSOCIATE Saline Flush 0.9% Notes: (Same No Longer as: BD Active 2017 [place] Posiflush) Sodium Chloride 1,000 mL, 1000 Inactive 0.9% (Bolus) IV ml/hr, Infuse 2017 Abdoulaye pittman Over: 1 hr, Route: IV, 1,000, Drug form: INJ, ONCE, Priority: STAT, kg, Start date: 01/16/18 18:01:00 STAFFING ASSOCIATE, Stop date: 01/16/18 18:01:00 STAFFING ASSOCIATE Allergies, Adverse Reactions, Alerts Substance Category Reaction Severity Reaction Status Date Comments S ource type Reported No Known Assertion Drug MH Medication allergy [place] Allergies [place] Immunizations Immunization Date Given Site Status Last Comments Source Updated pneumococcal 10/19/2018 Left deltoid completed Jason [place] 13-valent vaccine [place] Results Order Name Results Value Reference Date Interpretation Comments Jessica rce Range CARDIAC Troponin-I 0.08 0.00 - 10/19 [place] ENZYMES 0.40 [place] CHEM PANEL Glucose Lvl 129 70 - 99 10/18 [place] CHEM PANEL BUN 11 7 - 22 10/18 [place] CHEM PANEL Creatinine 0.74 0.50 - 10/18 [place] Lvl 1.40 [place] CHEM PANEL Sodium Lvl 138 135 - 145 10/18 [place] CHEM PANEL Potassium 3.9 3.5 - 5.1 10/18 [place] Lvl [place] CHEM PANEL Chloride Lvl 105 95 - 109 10/18 [place] /2019 [place] CHEM PANEL CO2 26 24 - 32 10/18 MH [place] /[address] [facility] CHEM PANEL Calcium Lvl 8.8 8.5 - 10.5 10/18 [place] ar /[address] [facility] CHEM PANEL eGFR 94 10/18 [facility] Comment: The [facility] eGFR is calculated using the CKD-EPI formula. In most young, healthy individuals the eGFR will be >90 mL/min/1.73m2 . The eGFR declines with age. An eGFR of 60-89 may be normal in some populations, particularly the elderly, for whom the CKD-EPI formula has not been extensively validated. Use of the eGFR is not recommended in the following populations:< br/>
Alyson viduals with unstable creatinine concentration s, including patients and those with serious co-morbid conditions.<b r/>
Patie nts with extremes in muscle mass or diet.

The data above are obtained from the National Kidney Disease Education Program (NKDEP) which additionally recommends that when the eGFR is used in patients with extremes of body mass index for purposes of drug dosing, the eGFR should be multiplied by the estimated BMI. CHEM PANEL AGAP 10.9 10.0 - 09 [place] 20.0 /[address] [facility] HEMATOLOGY Segs 60.8 45.0 - 10 [place] 75.0 /2019 [place] HEMATOLOGY Lymphocytes 23.1 20.0 - 0910 [place] 40.0 /[address] [facility] HEMATOLOGY Monocytes 11.9 2.0 - 12.0 / [place] /2019 [place] HEMATOLOGY Eosinophils 3.6 0.0 - 4.0 / [place] /2019 [place] HEMATOLOGY Basophils 0.6 0.0 - 1.0 /10 [place] /2019 [place] HEMATOLOGY Neutrophils 3.5 1.5 - 8.1 / [place] # /2019 [place] HEMATOLOGY Lymphocytes 1.3 1.0 - 5.5 09/10 [place] # /2019 [place] HEMATOLOGY Monocytes # 0.7 0.0 - 0.8 /10 [place] /2019 [place] HEMATOLOGY Eosinophils 0.2 0.0 - 0.5 /10 [place] # /2019 [place] HEMATOLOGY WBC 5.8 3.7 - 10.4 09/10 [place] /2019 [place] HEMATOLOGY RBC 3.21 4.20 - 09/10 [place] 5.40 /2019 [place] HEMATOLOGY Hgb 9.0 12.0 - / MH [place] 16.0 /2019 [place] HEMATOLOGY Hct 26.5 36.0 - / MH [place] 48.0 /2019 [place] HEMATOLOGY MCV 82.7 80.0 - /10 MH [place] 98.0 /2018 [place] HEMATOLOGY MCH 28.1 27.0 - 09 MH [place] 31.0 /2018 [place] HEMATOLOGY MCHC 34.0 32.0 - 10/18 MH [place] 36.0 /2018 [place] HEMATOLOGY RDW 19.2 11.5 - 10 MH [place] 14.5 /2019 [place] HEMATOLOGY Platelet 196 133 - 450 09/ MH [place] /2019 [place] HEMATOLOGY MPV 8.0 7.4 - 10.4 09/ MH [place] /2019 [place] ELECTROLYTE AGAP 10.2 10.0 - 10/17 MH [place] S 20.0 [place] ELECTROLYTE Glucose Lvl 106 70 - 99 10/17 [place] S [place] ELECTROLYTE BUN 10 7 - 22 10/17 [place] S [place] ELECTROLYTE Creatinine 0.78 0.50 - 10/17 [place] S Lvl 1.40 [place] ELECTROLYTE Sodium Lvl 140 135 - 145 10/17 [place] ELECTROLYTE Potassium 4.2 3.5 - 5.1 10/17 [place] S Lvl /2018 [place] ELECTROLYTE Chloride Lvl 107 95 - 109 10/17 [place] S [place] ELECTROLYTE CO2 27 24 - 32 10/17 [place] S /2018 [place] ELECTROLYTE Calcium Lvl 9.2 8.5 - 10.5 10/17 [place] S [place] ELECTROLYTE eGFR 88 10/17 Result [place] S Comment: The [place] eGFR is calculated using the CKD-EPI formula. In most young, healthy individuals the eGFR will be >90 mL/min/1.73m2 . The eGFR declines with age. An eGFR of 60-89 may be normal in some populations, particularly the elderly, for whom the CKD-EPI formula has not been extensively validated. Use of the eGFR is not recommended in the following populations:< br/>
Alyson viduals with unstable creatinine concentration s, including patients and those with serious co-morbid conditions.<b r/>
Patie nts with extremes in muscle mass or diet.

The data above are obtained from the National Kidney Disease Education Program (NKDEP) which additionally recommends that when the eGFR is used in patients with extremes of body mass index for purposes of drug dosing, the eGFR should be multiplied by the estimated BMI. HEMATOLOGY WBC 6.7 3.7 - 10.4 09/09 MH [place] /2019 [place] HEMATOLOGY RBC 3.33 4.20 - 09/ [place] 5.40 /2018 [place] HEMATOLOGY Hgb 9.4 12.0 - 09 MH [place] 16.0 /2019 [place] HEMATOLOGY Hct 28.0 36.0 - 09/09 [place] 48.0 /2019 [place] HEMATOLOGY MCV 84.1 80.0 - 09/09 [place] 98.0 /2019 [place] HEMATOLOGY MCH 28.1 27.0 - 09/09 [place] 31.0 /2019 [place] HEMATOLOGY MCHC 33.5 32.0 - 09/09 [place] 36.0 /2018 [place] HEMATOLOGY RDW 19.0 11.5 - 09 [place] 14.5 /2019 [place] HEMATOLOGY Platelet 185 133 - 450 10/17 /2018 [place] HEMATOLOGY MPV 8.1 7.4 - 10.4 10/17 [place] /2018 [place] HEMATOLOGY Segs 68.8 45.0 - 09/09 [place] 75.0 /2019 [place] HEMATOLOGY Lymphocytes 17.8 20.0 - 09 [place] 40.0 /2018 [place] HEMATOLOGY Monocytes 10.4 2.0 - 12.0 / [place] /2018 [place] HEMATOLOGY Eosinophils 2.6 0.0 - 4.0 / [place] /2018 [place] HEMATOLOGY Basophils 0.4 0.0 - 1.0 / /2018 [place] HEMATOLOGY Neutrophils 4.6 1.5 - 8.1 10/17 [place] # /2019 [place] HEMATOLOGY Lymphocytes 1.2 1.0 - 5.5 10/17 [place] # /2019 [place] HEMATOLOGY Monocytes # 0.7 0.0 - 0.8 09/ [place] /2019 [place] HEMATOLOGY Eosinophils 0.2 0.0 - 0.5 / [place] # /2018 [place] HEMATOLOGY Hgb 9.6 12.0 - 0908 [place] 16.0 /2019 [place] HEMATOLOGY Hct 28.6 36.0 - 09/08 [place] 48.0 /2019 [place] ELECTROLYTE AGAP 11.8 10.0 - 09 [place] S 20.0 /2018 [place] ELECTROLYTE Glucose Lvl 94 70 - 99 09 [place] S [place] ELECTROLYTE BUN 10 7 - 22 10/15 [place] S [place] ELECTROLYTE Creatinine 0.90 0.50 - 10/15 [place] S Lvl 1.40 /2018 [place] ELECTROLYTE Sodium Lvl 141 135 - 145 10/15 [place] ELECTROLYTE Potassium 3.8 3.5 - 5.1 10/15 [place] S Lvl /2018 [place] ELECTROLYTE Chloride Lvl 110 95 - 109 10/15 [place] S [place] ELECTROLYTE CO2 23 24 - 32 10/15 [place] S [place] ELECTROLYTE Calcium Lvl 8.6 8.5 - 10.5 10/15 [place] ELECTROLYTE eGFR 75 10/15 Result [place] S Comment: The [place] eGFR is calculated using the CKD-EPI formula. In most young, healthy individuals the eGFR will be >90 mL/min/1.73m2 . The eGFR declines with age. An eGFR of 60-89 may be normal in some populations, particularly the elderly, for whom the CKD-EPI formula has not been extensively validated. Use of the eGFR is not recommended in the following populations:< br/>
Alyson viduals with unstable creatinine concentration s, including patients and those with serious co-morbid conditions.<b r/>
Patie nts with extremes in muscle mass or diet.

The data above are obtained from the National Kidney Disease Education Program (NKDEP) which additionally recommends that when the eGFR is used in patients with extremes of body mass index for purposes of drug dosing, the eGFR should be multiplied by the estimated BMI. HEMATOLOGY Segs 59.7 45.0 - 10/15 [place] 75.0 [place] HEMATOLOGY Lymphocytes 25.7 20.0 - 10/15 [place] 40.0 2019 [place] HEMATOLOGY Monocytes 11.3 2.0 - 12.0 10/15 [place] HEMATOLOGY Eosinophils 2.7 0.0 - 4.0 10/15 [place] /2018 [place] HEMATOLOGY Basophils 0.6 0.0 - 1.0 10/15 [place] HEMATOLOGY Neutrophils 3.5 1.5 - 8.1 10/15 [place] # /2018 [place] HEMATOLOGY Lymphocytes 1.5 1.0 - 5.5 10/15 [place] # /2019 [place] HEMATOLOGY Monocytes # 0.7 0.0 - 0.8 09/ MH [place] /2018 [place] HEMATOLOGY Eosinophils 0.2 0.0 - 0.5 / [place] # /2018 [place] HEMATOLOGY WBC 5.9 3.7 - 10.4 / MH [place] /2019 [place] HEMATOLOGY RBC 3.72 4.20 - / MH [place] 5.40 /2018 [place] HEMATOLOGY MCV 82.8 80.0 - / [facility] [place] 98.0 /2018 [place] HEMATOLOGY MCH 27.6 27.0 - 09 [place] 31.0 /2018 [place] HEMATOLOGY MCHC 33.3 32.0 - 09 [facility] [place] 36.0 /2018 [place] HEMATOLOGY RDW 19.6 11.5 - 09 [place] 14.5 /2018 [place] HEMATOLOGY Platelet 196 133 - 450 10/15 [facility] [place] /2018 [place] HEMATOLOGY MPV 7.8 7.4 - 10.4 10/15 [place] /2018 [place] CARDIAC CK MB Index 1.1 0.0 - 2.5 10/14 [facility] [place] ENZYMES /2018 [place] CARDIAC Troponin-I 0.13 0.00 - 09 [place] ENZYMES 0.40 /2018 [place] CARDIAC Total CK 174 12 - 191 10/14 [facility] [place] ENZYMES /2019 [place] CARDIAC CK MB 1.9 0.5 - 3.6 10/14 [facility] [place] ENZYMES /2019 [place] CARDIAC Troponin-I 0.13 0.00 - 10/14 [place] ENZYMES 0.40 /2018 [place] CARDIAC Total CK 178 12 - 191 10/14 [facility] [place] ENZYMES /2018 [place] CARDIAC CK MB 1.9 0.5 - 3.6 10/14 [facility] [place] ENZYMES /2019 [place] CARDIAC CK MB Index 1.1 0.0 - 2.5 10/14 [facility] [place] ENZYMES /2019 [place] CARDIAC Total CK 190 12 - 191 10/14 [facility] [place] ENZYMES /2019 [place] CARDIAC CK MB 1.9 0.5 - 3.6 10/14 [facility] [place] ENZYMES /2019 [place] CARDIAC CK MB Index 1.0 0.0 - 2.5 10/14 [facility] [place] ENZYMES /2019 [place] CHEM PANEL Total 7.0 6.4 - 8.4 10/14 [facility] [place] Protein [place] CHEM PANEL Albumin Lvl 3.4 3.5 - 5.0 10/14 [facility] [place] /2018 [place] CHEM PANEL Globulin 3.6 2.7 - 4.2 09/06 [facility] [place] CHEM PANEL A/G Ratio 0.9 0.7 - 1.6 10/14 [place] CHEM PANEL ALT 14 0 - 65 10/14 [facility] [place] CHEM PANEL AST 16 0 - 37 10/14 [facility] [place] CHEM PANEL Alk Phos 94 39 - 136 10/14 [place] CHEM PANEL Bili Total 0.2 0.2 - 1.3 10/14 [place] CHEM PANEL Bili Direct <0.1 0.0 - 0.3 10/14 [place] /2018 [place] CHEM PANEL Bili Unable to 0.0 - 1.0 10/14 [place] Indirect Calculate /2018 [place] CHEM PANEL Magnesium 2.3 1.8 - 2.4 10/14 [place] Lvl /2018 [place] CHEM PANEL Phosphorus 3.7 2.5 - 4.5 10/14 [place] HEMATOLOGY INR 0.94 0.85 - 10/14 [place] 1.17 [place] HEMATOLOGY PT 12.4 12.0 - 10/14 [place] 14.7 [place] HEMATOLOGY PTT 30.7 22.9 - 10/14 [place] 35.8 [place] LIPIDS CHD Risk 3.67 3.90 - 10/14 [place] 5.80 /2018 [place] LIPIDS Trig 61 <=149 10/14 [place] mg/dL /2018 [place] LIPIDS Chol 257 <=199 10/14 [place] mg/dL [place] LIPIDS HDL 70 >=61 mg/dL 10/14 [place] LIPIDS LDL 175 <=99 mg/dL 10/14 [place] (Calculated) [place] LIPIDS VLDL 12 10/14 [place] SPECIAL Hgb A1C 6.1 <=5.6 % 10/14 [place] CHEMISTRY [place] CHEM PANEL Calcium Lvl 8.8 8.5 - 10.5 01/21 [place] CHEM PANEL AGAP 12.3 10.0 - 01/21 MH 20.0 [place] CHEM PANEL Chloride Lvl 95 95 - 109 01/21 [place] CHEM PANEL CO2 26 24 - 32 01/21 [place] CHEM PANEL eGFR 95 01/21 Result Comment: The [place] eGFR is calculated using the CKD-EPI formula. In most young, healthy individuals the eGFR will be >90 mL/min/1.73m2 . The eGFR declines with age. An eGFR of 60-89 may be normal in some populations, particularly the elderly, for whom the CKD-EPI formula has not been extensively validated. Use of the eGFR is not recommended in the following populations:< br/>
Alyson viduals with unstable creatinine concentration s, including patients and those with serious co-morbid conditions.<b r/>
Patie nts with extremes in muscle mass or diet.

The data above are obtained from the National Kidney Disease Education Program (NKDEP) which additionally recommends that when the eGFR is used in patients with extremes of body mass index for purposes of drug dosing, the eGFR should be multiplied by the estimated BMI. CHEM PANEL Creatinine 0.74 0.50 - 01/21 MH Lvl 1.40 [place] CHEM PANEL Sodium Lvl 129 135 - 145 01/21 [place] CHEM PANEL Glucose Lvl 96 70 - 99 01/21 [place] CHEM PANEL BUN 9 7 - 22 01/21 [place] CHEM PANEL Potassium 4.3 3.5 - 5.1 01/21 [place] CHEM PANEL BUN 11 7 - 22 01/21 [place] CHEM PANEL Glucose Lvl 129 70 - 99 01/21 [place] CHEM PANEL Creatinine 0.74 0.50 - 01/21 MH Lvl 1.40 [place] CHEM PANEL Sodium Lvl 129 135 - 145 01/21 [place] CHEM PANEL Potassium 4.3 3.5 - 5.1 01/21 [place] CHEM PANEL Chloride Lvl 96 95 - 109 01/21 [place] CHEM PANEL CO2 25 24 - 32 01/21 [place] CHEM PANEL Calcium Lvl 8.7 8.5 - 10.5 01/21 [place] CHEM PANEL AGAP 12.3 10.0 - 01/21 MH 20.0 [place] CHEM PANEL eGFR 95 01/21 Result Comment: The [place] eGFR is calculated using the CKD-EPI formula. In most young, healthy individuals the eGFR will be >90 mL/min/1.73m2 . The eGFR declines with age. An eGFR of 60-89 may be normal in some populations, particularly the elderly, for whom the CKD-EPI formula has not been extensively validated. Use of the eGFR is not recommended in the following populations:< br/>
Alyson viduals with unstable creatinine concentration s, including patients and those with serious co-morbid conditions.<b r/>
Patie nts with extremes in muscle mass or diet.

The data above are obtained from the National Kidney Disease Education Program (NKDEP) which additionally recommends that when the eGFR is used in patients with extremes of body mass index for purposes of drug dosing, the eGFR should be multiplied by the estimated BMI. CHEM PANEL eGFR 104 01/20 Comment: The [place] eGFR is calculated using the CKD-EPI formula. In most young, healthy individuals the eGFR will be >90 mL/min/1.73m2 . The eGFR declines with age. An eGFR of 60-89 may be normal in some populations, particularly the elderly, for whom the CKD-EPI formula has not been extensively validated. Use of the eGFR is not recommended in the following populations:< br/>
Alyson viduals with unstable creatinine concentration s, including patients and those with serious co-morbid conditions.<b r/>
Patie nts with extremes in muscle mass or diet.

The data above are obtained from the National Kidney Disease Education Program (NKDEP) which additionally recommends that when the eGFR is used in patients with extremes of body mass index for purposes of drug dosing, the eGFR should be multiplied by the estimated BMI. CHEM PANEL Glucose Lvl 108 70 - 99 01/20 [place] CHEM PANEL BUN 11 7 - 22 01/20 [place] CHEM PANEL Creatinine 0.65 0.50 - 01/20 MH Lvl 1.40 [place] CHEM PANEL AGAP 12.3 10.0 - 01/20 MH 20.0 /2018 [place] CHEM PANEL Potassium 4.3 3.5 - 5.1 01/20 Lvl [place] CHEM PANEL Chloride Lvl 95 95 - 109 01/20 [place] CHEM PANEL Sodium Lvl 129 135 - 145 01/20 [place] CHEM PANEL CO2 26 24 - 32 01/20 [place] CHEM PANEL Calcium Lvl 8.7 8.5 - 10.5 01/20 [place] URINE CHEM U Chloride 87 01/20 [place] URINE CHEM U Sodium 64 01/20 [place] URINE CHEM U Potassium 40.0 01/20 [place] URINE CHEM U Osmolality 532 300 - 800 01/20 [place] URINE CHEM U Osmolality 362 300 - 800 01/19 [place] HEMATOLOGY Lymphocytes 1.7 1.0 - 5.5 01/19 MH # /2018 [place] HEMATOLOGY Monocytes # 0.9 0.0 - 0.8 01/19 [place] HEMATOLOGY Neutrophils 1.9 1.5 - 8.1 01/19 MH # /2017 [place] HEMATOLOGY Basophils 0.6 0.0 - 1.0 01/19 [place] HEMATOLOGY Eosinophils 0.1 0.0 - 0.5 01/19 MH # /2017 [place] HEMATOLOGY Monocytes 19.0 2.0 - 12.0 01/19 [place] HEMATOLOGY Eosinophils 1.1 0.0 - 4.0 01/19 [place] HEMATOLOGY Segs 41.5 45.0 - 12 MH 75.0 /2017 [place] HEMATOLOGY Lymphocytes 37.8 20.0 - 12 MH 40.0 /2017 [place] HEMATOLOGY MCV 85.7 80.0 - 01/19 MH 98.0 [place] HEMATOLOGY Hct 29.8 36.0 - 12 MH 48.0 [place] HEMATOLOGY MCH 30.5 27.0 - 12 MH 31.0 [place] HEMATOLOGY Hgb 10.6 12.0 - 01/19 MH 16.0 [place] HEMATOLOGY RBC 3.47 4.20 - 12 MH 5.40 /2017 [place] HEMATOLOGY WBC 4.5 3.7 - 10.4 01/19 [place] HEMATOLOGY MPV 7.5 7.4 - 10.4 01/19 [place] HEMATOLOGY Platelet 211 133 - 450 01/19 [place] HEMATOLOGY RDW 14.1 11.5 - 01/19 MH 14.5 [place] HEMATOLOGY MCHC 35.6 32.0 - 12 MH 36.0 [place] URINE CHEM U Osmolality 331 300 - 800 01/19 [place] URINE CHEM U Chloride 36 01/19 [place] URINE CHEM U Sodium 30 12 [place] URINE CHEM U Potassium 28.5 01/19 [place] URINE CHEM U Potassium 60.8 01/18 [place] URINE CHEM U Chloride 113 01/18 [place] URINE CHEM U Sodium 71 01/18 [place] CHEM PANEL Uric Acid 1.8 2.5 - 7.0 01/17 [place] CHEM PANEL ADH Lvl 1.5 0.0 - 4.7 01/17 Result Comment: [place]
Results of this test are labeled for research purposes only
by the assay's first front ventilator. The performance<b r/>characteri stics of this assay have not been established by
the first front ventilator. The result should not be used for
treat ment or for diagnostic purposes without confirmation< br/>of the diagnosis by another medically established<b r/>diagnostic product or procedure. The performance<b r/>characteri stics were determined by [employer].
Performed At: [facility]
[address] [place], [place] [id number]<br/ >David De La O MD Ph:[phone] BACTERIAL - MRSA by PCR Negative 01/17 SEROLOGY (01/16/18 8:56 PM) So and LIPIDS VLDL 20 01/17 [place] LIPIDS LDL 75 <=99 mg/dL 01/17 (Calculated) [place] LIPIDS Trig 102 <=149 01/17 mg/dL [place] LIPIDS Chol 132 <=199 01/17 mg/dL [place] LIPIDS HDL 37 >=61 mg/dL 01/17 [place] LIPIDS CHD Risk 3.57 3.90 - 01/17 5.80 /2017 [place] URINE AND UA Blood Trace Negative 01/17 STOOL *ABN* /2017 [place] (01/16/18 8:56 PM) URINE AND UA Bili Negative Negative 01/17 STOOL *NA* /2017 [place] (01/16/18 8:56 PM) URINE AND UA Ketones Negative Negative 01/17 STOOL *NA* /2017 [place] (01/16/18 8:56 PM) URINE AND UA Leuk Est Negative Negative 01/17 [facility] (01/16/18 8:56 PM) /2017 [place] URINE AND UA Nitrite Negative Negative 01/17 STOOL (01/16/18 8:56 PM) [place] URINE AND UA 1.0 0.1 - 1.0 01/17 STOOL Urobilinogen /2017 [place] URINE AND UA Glucose Negative Negative 01/17 [facility] (01/16/18 8:56 PM) [place] URINE AND UA Protein Negative Negative 01/17 [facility] (01/16/18 8:56 PM) [place] URINE AND UA Turbidity Clear Clear 01/17 [facility] (01/16/18 8:56 PM) [place] URINE AND UA Spec Grav 1.015 <=1.030 01/17 STOOL [place] URINE AND UA pH 6.5 5.0 - 8.0 01/17 STOOL [place] URINE AND UA Color Yellow Yellow 01/17 STOOL *NA* /2017 [place] (01/16/18 8:56 PM) URINE AND UA Mucus Few /LPF None Seen 01/17 STOOL /LPF /2017 [place] URINE AND UA RBC 1 0 - 2 01/17 STOOL [place] URINE AND UA Sq Epi Occasional Few /LPF 01/17 STOOL /LPF [place] URINE AND UA WBC <1 0 - 5 01/17 STOOL [place] URINE CHEM U Eos None Seen None Seen 01/17 (01/16/18 8:56 PM) [place] URINE CHEM U Protein 19.8 01/17 [place] URINE CHEM U Prot/Creat 0.34 01/17 [place] URINE CHEM U Creatinine 58.90 01/17 [place] CARDIAC Total CK 309 12 - 191 01/17 ENZYMES [place] CARDIAC Troponin-I 0.32 0.00 - 01/17 ENZYMES 0.40 2018 [place] CHEM PANEL Total 7.1 6.4 - 8.4 01/17 Protein [place] CHEM PANEL A/G Ratio 1.0 0.7 - 1.6 01/17 [place] CHEM PANEL Albumin Lvl 3.6 3.5 - 5.0 01/17 [place] CHEM PANEL Globulin 3.5 2.7 - 4.2 01/17 [place] CHEM PANEL B/C Ratio 10 6 - 25 01/17 [place] CHEM PANEL Alk Phos 69 39 - 136 01/17 [place] CHEM PANEL Bili Total 0.4 0.2 - 1.3 01/17 [place] CHEM PANEL ALT 58 0 - 65 01/17 [place] CHEM PANEL AST 52 0 - 37 01/17 [place] HEMATOLOGY Platelet 166 133 - 450 01/17 [place] HEMATOLOGY MPV 7.9 7.4 - 10.4 01/17 [place] HEMATOLOGY MCH 30.0 27.0 - 12 MH 31.0 [place] HEMATOLOGY MCV 85.4 80.0 - 01/17 MH 98.0 [place] HEMATOLOGY Hct 35.4 36.0 - 01/17 MH 48.0 [place] HEMATOLOGY RDW 13.9 11.5 - 01/17 MH 14. [place] HEMATOLOGY MCHC 35.1 32.0 - 01/17 MH 36.0 [place] HEMATOLOGY WBC 4.2 3.7 - 10.4 01/17 [place] HEMATOLOGY RBC 4.15 4.20 - 01/17 MH 5.40 [place] HEMATOLOGY Hgb 12.4 12.0 - 01/17 MH 16.0 [place] HEMATOLOGY Eosinophils 0.2 0.0 - 0.5 01/17 MH # /2017 [place] HEMATOLOGY Monocytes # 0.8 0.0 - 0.8 01/17 [place] HEMATOLOGY Lymphocytes 1.6 1.0 - 5.5 01/17 /2017 [place] HEMATOLOGY Basophils 1.0 0.0 - 1.0 01/17 [place] HEMATOLOGY Eosinophils 3.6 0.0 - 4.0 01/17 [place] HEMATOLOGY Neutrophils 1.6 1.5 - 8.1 01/17 MH # /2017 [place] HEMATOLOGY Monocytes 18.9 2.0 - 12.0 01/17 [place] HEMATOLOGY Lymphocytes 38.4 20.0 - 12 MH 40.0 [place] HEMATOLOGY Segs 38.1 45.0 - 01/17 MH 75.0 2018 [place] Pathology Reports No Data Provided for This Section Diagnostic Reports Report Value Date Source Chest 2 views DX EXAM: XR CHEST 2 VIEWS 12/08/2018 [facility] DATE: 12/08/2018 at 0857 hours C enter INDICATION: -Status post thoracentesis, eval pl eural effusion COMPARISON: 12/07/2018 at 1043 hours TECHNIQUE: PA and lateral chest radiographs. FINDINGS: Lines, tubes and hardware: T he median sternotomy wires are intact and unchanged in position or alignment. Lungs and pleura: A small to moderate left pleural effusion and patchy left retrocardiac opacity persist. The right lung and left upper lung are clear. Mild bilateral platelike atelectasis of the lower lungs. No pneumothorax. Heart and mediastinum: The p ostoperative cardiomediastinal silhouette is enlarged, but unchanged. Vascular calcifications are present at the aortic arch. Bones, soft tissues: Unchanged. IMPRESSION: 1. Persistent small to moderate left pleural ef fusion. 2. Left retrocardiac opacit y likely represents layering pleural effusion with compressive atelectasis versus pneumonia or aspiration. 3. Stable enlarged cardiom ediastinal silhouette status post thoracic surgery. Chest 2 views DX EXAM: XR CHEST 2 VIEWS 12/07/2018 [facility] DATE: 12/07/2018 9:25 CDT Center INDICATION: - f/u pleural effusion, s/p thorace nthesis COMPARISON: Chest radiograph 12/06/2018 TECHNIQUE: PA and lateral chest radiographs. FINDINGS: Lines, tubes and hardware: Sternotomy wires are intact. Lungs and pleura: Stable sma ll to moderate left pleural effusion. Left retrocardiac opacities remain. There is bibasilar subsegmental atelectasis at both lung bases. The right costophrenic sulcus is sharp. No pneumothorax. Heart and mediastinum: The h eart size is normal. Vascular calcifications are present at the aorta. Bones, soft tissues: No acute abnormality. IMPRESSION: 1. Stable small to moderate left pleural effusi on. 2. Left retrocardiac opacit y may represent consolidation, subsegmental atelectasis or a layering effusion. 3. Bibasilar subsegmental atelectasis. Chest 2 views DX EXAM: XR CHEST 2 VIEWS 12/06/2018 [facility] DATE: 12/06/2018 5:[address] INDICATION: - f/u pleural effusion, s/p thorace nthesis ADDITIONAL INFORMATION: None. COMPARISON: Chest x-ray 12/05/2018 TECHNIQUE: PA and lateral chest radiographs. Num prince of images: 2 FINDINGS: Lines, tubes and hardware: Sternotomy wires. Lungs/Pleura: There is mode rate left pleural effusion that is unchanged. There is retrocardiac opacification. The lungs are otherwise clear. Pneumothorax: None Vascularity: Normal pulmonary vascularity. Heart size: Mildly enlarged.. The mediastinal contours are normal. Bones: No acute bony abnormality is identified. Soft Tissues: Unremarkable. IMPRESSION: 1. Stable moderate left pleural effusion. 2. Retrocardiac opacification may repre sent atelectasis and/or consolidation. 3. Mild cardiomegaly. 4. Line(s), tube(s) and hardware as above. Chest 2 views DX EXAM: XR CHEST 2 VIEWS 12/05/2018 [facility] DATE: 12/05/2018 10:22 CDT Cente INDICATION: - Please evaluate L pleural effusio n COMPARISON: 12/04/2018 TECHNIQUE: PA and lateral chest radiographs. ADDITIONAL INFORMATION: The patient underwent coronary artery bypass graft in October 2018. FINDINGS: Lines, tubes and hardware: T he median sternotomy wires are intact and unchanged in position or alignment. Lungs and pleura: The modera te-sized left pleural effusion and patchy left retrocardiac opacity are unchanged. The right lung and left upper lung are clear. The right costophrenic sulcus is sharp. No pneumothorax is seen. Heart and mediastinum: The c ardiomediastinal silhouette is enlarged, but unchanged. Vascular calcifications are seen within the aortic knob. The thoracic aorta is tortuous. Bones, soft tissues: Unchanged. IMPRESSION: 1. Unchanged moderate-sized left pleural effusi on. 2. Unchanged patchy left re trocardiac opacity likely represents pleural effusion and compressive atelectasis versus pneumonia or aspiration. 3. Stable enlarged cardiomediastinal si lhouette status post thoracic surgery. Chest 2 views DX EXAM: XR CHEST 2 VIEWS 12/04/2018 [facility] DATE: 12/04/2018 5:13 CDT Center INDICATION: - f/u post thoracentesis COMPARISON: 12/02/2018 TECHNIQUE: PA and lateral chest radiographs IMPRESSION: 1. Stable enlarged postoper ative cardiomediastinal silhouette. The aortic knob is calcified and thoracic aorta is tortuous. 2. Persistent moderate left pleural effusion with left lower lobe compressive atelectasis, with or without superimposed pneumonia. 3. Residual left suprahilar opacities. 4. No definite pneumothorax. 5. Unchanged skeletal struc tures with diffuse age-related degenerative changes. Chest 1view DX EXAM: XR CHEST 1 VIEW 12/02/2018 [facility] DATE: 12/02/2018 17:51 CDT Cente r INDICATION: - post thoracentesis COMPARISON: Chest radiograph 12/01/2018 TECHNIQUE: AP chest FINDINGS: Unchanged sternoto my wires. Decrease in the moderate left pleural effusion. No pneumothorax identified. Unchanged left basilar atelectasis. Right lung is clear. Unchanged cardiomegaly and tortuous aorta. IMPRESSION: Decrease in mod erate left pleural effusion post thoracentesis with no pneumothorax identified. Chest 2 views DX EXAM: XR CHEST 2 views 12/01/2018 [facility] DATE: 12/01/2018 10:43 CDT Cente r INDICATION: - Please evalua te for L pleural effusion as seen on imaging by OSH COMPARISON: 11/23/2018 TECHNIQUE: AP and lateral view of the chest. IMPRESSION: Stable enlarged cardiomedias tinal silhouette and postsurgical changes following median sternotomy. Atherosclerotic changes in the aorta. There is interval increase in volume of moderate dependent left p leural effusion associated w ith compressive atelectasis of the adjacent left lung parenchyma. Superimposed infection cannot be excluded. Left retrocardiac opacities, likely left pleural effusion with or without consolidation or at electasis, unchanged. Right infrahilar platelike atelectasis. No pneumothorax. CONCLUSION: 1. There is interval increa se in volume of moderate dependent left pleural effusion. Other findings are stable as described above. Chest Pulmonary Radiation Dose CTDIVOL = 0 (mGy): DLP = 782.54 (mGy-cm) 11/24/2018 [facility] CTA PROCEDURE INFORMATION: Exam: CT Angiography Chest With Contrast Exam date and time: 11/24/2018 6:12 PM Clinical history: 73 years old, female; Shortnes s of breath; Additional info: /sob TECHNIQUE: Imaging protocol: Computed tomographic angiograp hy of the chest with intravenous contrast. 3D rendering: MIP reconstructed images were crea ashanti and reviewed. Total DLP: 782.54 mGy-cm Radiation optimization: All CT scans at this facility use at least one of these dose optimization techniques: automated exposure control; mA and/or kV adjustment per patient size (includes targeted e xams where dose is matched to clinical indication); or iterative reconstructio n. Contrast material: VISIPAQUE 320; Contra st volume: 100 ml; Contrast route: IV; COMPARISON: CHEST 2 VIEWS DX 11/23/2018 9:12 AM FINDINGS: Pulmonary arteries: Filling defects in the right lower lobe posterior segmental pulmonary arteries (series 2 image 68 and image 71. Aorta: Unremarkable. No aortic aneurysm. No aort ic dissection. Lungs: Unremarkable. No consolidation. No masses . Pleural space: Large left pleural effusion with compressive left lower lobe atelectasis. Heart: There is moderate cardiomegaly. Small per icardial effusion. 3 vessel coronary artery calcifications. Postoperative ch anges from CABG and Lymph nodes: Unremarkable. No enlarged lymph nod es. Bones/joints: Vertebral hemangioma at the T3 iraida tebral body. Mild spondylosis and facet arthropathy in the spine. Soft tissues: Unremarkable. IMPRESSION: 1. Acute subsegmental pulmonary emboli in the ri ght lower lobe. 2. Large left pleural effusion with compressive left lower lobe atelectasis. 3. Moderate cardiomegaly with small pericardial effusion. Findings were discussed with nurse Felisa Mane at 11/24/2018 7:41 PM CDT. Kp Bentley MD On 11/24/2018 19:42:43; [id number] Ext Lower Venous PROCEDURE INFORMATION: 11/24/2018 [facility] Doppler [facility] US Exam: US Duplex Lower Extremity Veins Exam date and time: 11/24/2018 10:14 AM Clinical history: 73 years o ld, female; Pain; Leg, lower; Bilateral; Additional info: /edema TECHNIQUE: Imaging protocol: Real-time duplex ultrasound of the Lower Extremities with 2-D castillo scale, color Doppler flow and spectral wave form analysis with image documentation. Complete exam focused on the bila teral lower extremity veins. COMPARISON: No relevant prior studies available. FINDINGS: Right deep veins: The common femoral, femoral, p roximal profunda femoral and popliteal veins are patent without thrombus. Nor mal Doppler waveforms. Normal compressibility and/or augmentation response. Right superficial veins: Saphenofemoral junction is patent without thrombus. Left deep veins: The common femoral, femoral, pr oximal profunda femoral and popliteal veins are patent without thrombus. Nor mal Doppler waveforms. Normal compressibility and/or augmentation response. Left superficial veins: Saphenofemoral junction is patent without thrombus. Soft tissues: Unremarkable. IMPRESSION: No acute findings. No evidence of deep vein thro mbosis. Joshua Dooley MD On 11/24/2018 11:41:17; NAYLAJNG [id number] GI Bleed NM PROCEDURE INFORMATION: 11/24/2018 [facility] Exam: NM Acute GI Blood Loss Imaging Exam date and time: 11/24/2018 12:44 PM Clinical history: 73 years old, female; Symptoms : Bloody stool and vaginal bleeding; Additional info: /negative upper and l ower endoscopy TECHNIQUE: Imaging protocol: Acute gastrointestinal (GI) bl ood loss imaging with radiolabeled red blood cells (RBCs). Views: Dynamic and delayed planar imaging of the abdomen and pelvis were obtained following the injection of radiolabeled red blood cells. Contrast route: IV; Radiopharmaceutical: 25 mCi of technetium 99m la beled RBCs. Injection site: Right antecubital fossa COMPARISON: No relevant prior studies available. FINDINGS: No foci of abnormal activity within the abdomen or pelvis. Normal activity within the liver spleen, and vasculature appeare d IMPRESSION: No evidence of active GI bleeding. Milo Lafleur MD On 11/24/2018 13:06:52; [id number] Chest 2 views DX PROCEDURE INFORMATION: 11/23/2018 [facility] Exam: XR Chest, 2 Views Exam date and time: 11/23/2018 9:12 AM Clinical history: 73 years old, female; Condi tion or disease; Additional info: /pleural effsuion TECHNIQUE: Imaging protocol: XR of the chest Views: 2 views. COMPARISON: CHEST 1VIEW DX 11/05/2018 6:10 AM Findings: Small left pleural effusion and left l florentino base opacification, subsegmental atelectasis versus consolid ation. The right lung is clear. Stable moderate cardiomegaly. Prior median sternotomy. No acute osseous abnormality. Impression: 1. Small left pleural effusion and left lung bas e opacification, atelectasis versus consolidation. Jake Hi MD On 11/23/2018 10:02:15; BEBE [id number] Chest 1view DX Study: Chest 1view DX portable 11/05/2018 0610 hours 11/05/2018 [facility] Clinical Indication: s/p CABG - Comparison: Chest 11/04/2018 FINDINGS: The patient is rotated towards the right. The cardiac silhouette is mo derately enlarged, post sternotomy. The thoracic aorta is ectatic. The lungs are incompletely inflated and diaphrag matic motion is noted. Ill-defined left perihilar opacities have develo ped. No gross vascular congestion or significant pleu ral effusion is seen. SL: [id number] Chest 1view DX Portable chest: The left ple ural drain has been removed since previous day. The right jugular sheath remains in place. There is no visible pneumothorax or significant effusion. There is mild bibasilar s 11/04/2018 [facility] ubsegmental atelectasis. The lungs and pleural spaces are otherwise clear. The cardiac silhouette is enlarged without pulmonary venous congestion. There is no other significant change. DLAWRENCE-PC Chest 1view DX Portable chest: The [place]-Hu z catheter has been removed since previous day. The right jugular sheath and left pleural drain remain in place. There is no visible pneumothorax or significant effusion. The 11/03/2018 [facility] re is better expansion of henrik ngs with improvement in bibasilar subsegmental atelectasis. The lungs and pleural spaces are otherwise clear. The cardiac silhouette is enlarged without pulmonary venous congestion. There is no other significant change. DLAWRENCE-PC Chest 1view DX Portable chest: The endotrac heal tube and nasogastric tube have been removed since previous day. The mediastinal and pleural drains remain in satisfactory position. The [place]-Chet catheter tip is in the 11/02/2018 [facility] main pulmonary artery. There is no visible pneumothorax or significant effusion. Mild bibasilar subsegmental atelectasis is noted developing since the previous day. The lungs are otherwise clear. There is no other significant change. [id number] Chest 1view DX Clinical Indication: Respiratory distress - s/p CABG 11/01/2018 [facility] Comparison: 10/31/2018 FINDINGS: The ET tube projects 5.2 cm from the kay. A right IJ approach [place]-Ceht catheter tip projects in the main pulmonary artery. An OG tube courses below the diaphragms and off the plane of view. A left-s ided thoracostomy tube projects at the left pulm onary apex. The frontal chest radiograph shows normal lung volumes without interstitial or airspace opacities, pleural effusions or pneumothorax. The cardiomediastinal contou rs are normal. Median sternotomy wires are noted. The trachea is midline. There are no clinically significant osseous abno rmalities noted. IMPRESSION: 1. No chest radiographic evidence of acute card iopulmonary disease. 2. Left support lines positioned as described a nancy SL: CSMITH-M Chest 1view DX Clinical Indication: Arrhythmias - pre-op 2018 [facility] Comparison: Comparison is ne de to chest radiograph examination dated 01/16/2018. FINDINGS: The cardiac silhouette appea rs borderline enlarged. The superior mediastinal contours are within normal limits for appearance. The thoracic aorta appears tortuous. There is mild pulmonary hyperexpansion . No focal pulmonary consolidation, pneumothora x or large pleural effusion. IMPRESSION: 1. Mild pulmonary hyperexpan masha with borderline cardiomegaly. No focal pulmonary consolidation SL: [id number] Abdomen Soft Tissue US ULTRASOUND SOFT TISSUE OF RIGHT GROIN , 10/19/2018 10/19/2018 [facility] HISTORY: Post thrombin injec tion of right femoral artery pseudoaneurysm on 10/18/2018. The previously described rig ht femoral pseudoaneurysm treated by ultrasound- guided thrombin injection on 10/18/2018 with thrombosis of the pseudoaneurysm is again noted to be completely thrombosed. Several fluid collections in the right groin, most likely related to residual soft tissue hematomas, with echogenic surrounding soft tissues again seen, unchanged. IMPRESSION: Thrombosis of right superfic ial femoral artery pseudoaneurysm following ultrasound-guided thrombin injection on 10/18/2018 with no evidence of pseudoaneurysm recurrence on today's exam. Aspiration w PROCEDURE: Image-guided thrombin injecti on, pseudoaneurysm repair 10/18/2018 [facility] ultrasound guide US Procedural Personnel Attending physician(s): MD Bk Salazar MD Fellow physician(s): None Resident physician(s): None Advanced practice provider(s): None Pre-procedure diagnosis: Right femoral pseudoane urysm Post-procedure diagnosis: Same Indication: As above Previous biopsy of same target (QCDR): No Additional clinical history: None Complications: No immediate complications. IMPRESSION: Image-guided thrombin inject ion into a right femoral pseudoaneurysm. Adequate thrombosis of the pseudoaneurysm. Plan: Specimen(s) sent for evaluation. PROCEDURE SUMMARY: - Percutaneous ultrasound-gu ided right femoral pseudoaneurysm thrombin injection - Additional procedure(s): None PROCEDURE DETAILS: Pre-procedure Reference imaging for biopsy target: None Consent: Informed consent fo r the procedure including risks, benefits and alternatives was obtained and time-out was performed prior to the procedure. Preparation: The site was pr epared and draped using maximal sterile barrier technique including cutaneous antisepsis. Anesthesia/sedation Level of anesthesia/sedation: Local lidocaine, 1 %, 10 mL Biopsy Local anesthesia was adminis tered. Under imaging guidance as stated in the procedure summary, the spinal needle 21-gauge was advanced to the pseudoaneurysm, and thrombin was injected. There is immediate cessation of color Doppler flow. The needle was then removed. Contrast Contrast agent: None Contrast volume (mL): 0 Radiation Dose 0 Additional Details Additional description of procedure: None Equipment details: None Specimens removed: Biopsy samples as detailed ab ove Estimated blood loss (mL): Less than 10 Standardized report: [email or web address] Attestation Signer name: Lyle Patterson MD I attest that I was present for the entire procedure. I reviewed the stored images and agree with the report as written. Ext Lower Arterial Addendum: 10/17/2018 [facility] Doppler unil US Report called to Dr. Cabrera's voicemail. RIGHT LOWER EXTREMITY ARTERIAL DOPPLER, 019 HISTORY: Right femoral treasure ry pseudoaneurysm. Compared to ultrasound soft tissue of right groin dated 10/15/2018. 2.0 x 1.8 x 1.8 cm right ant erior proximal superficial femoral artery pseudoaneurysm again seen, unchanged in size. Skin thickening with subcutaneous edema/fluid and 6.4 x 1.6 cm adjacent deep soft tiss ue hematoma located adjacent to the pseudoaneury sm again noted. No evidence of high-grade st enosis or occlusive disease in the right lower extremity. Degree of stenosis assessed using criteria developed by SRU consensus conference on duplex ultrasound. Vidales scale, spectral and color flow Doppler were utilized. IMPRESSION: Stable 2 cm right anterior proximal SFA pseudoan eurysm. Ext Lower limited non CLINICAL HISTORY: - right groin hematoma 10/15/2018 [facility] vascular US AGE: 73 years GENDER: Female TECHNIQUE: Targeted grayscal e, color and spectral Doppler imaging of the right groin was performed.. COMPARISON: None FINDINGS: Note is made of a narrow nec k 2.0 x 1.6 x 1.8 cm pseudoaneurysm arising from the right proximal femoral artery distance distal to the common femoral artery bifurcation. Ill-defined intermediate ech ogenicity 7.1 cm elongated fluid collection in the superficial subcutaneous soft tissues of the right groin consistent with soft tissue hematoma. IMPRESSION: 2 cm pseudoaneurysm rising from the proximal rig ht femoral artery. Ill-defined 7.1 cm soft tissue hematoma the righ t groin. These findings were discusse d with Keesha, the covering RN, on 10/15/2018 12:45 CDT via telephone. Chest 1 v for CHEST SINGLE VIEW 01/16/2018 [facility] nn Placement DX HISTORY: Line placement. Comparison made to prior chest x-ray dated 01/16, 1857 hours. FINDINGS: The lungs are clear. The hea rt size and pulmonary vascularity are stable. Bony thorax shows no acute abnormality. Interval placement of right IJ central venous catheter, tip overlies the lower 3rd of the SVC. No pneumothorax. IMPRESSION: 1. Interval placement of rig ht IJ central venous catheter in good position, no pneumothorax. 2. Otherwise stable chest. SL: KASH-Uli Chest 2 views DX Clinical Indication: Weakness. 01/16/2018 [facility] Comparison: None FINDINGS: PA and lateral views of the chest have been prov ided. Lungs are clear. Heart size is normal. Centra l pulmonary vasculature appears normal. Tortuous aorta. No effusion. No pneumothorax. No radiographically apparent acute osseous abnor mality. IMPRESSION: 1. No radiographically apparent acute cardiopulm onary process. SL: [id number] Consultation Notes No Data Provided for This Section Discharge Summaries No Data Provided for This Section History and Physicals No Data Provided for This Section Vital Signs Vital Sign Value Date Comments Source Temperature Oral (F) 97.9 F 10/19/2018 [facility] Heart Rate 52 10/19/2018 [facility] Respitory Rate 16 10/19/2018 [facility] Systolic (mm Hg) 114 10/19/2018 [facility] [place] Diastolic (mm Hg) 70 10/19/2018 [facility] Temperature Oral (F) 98 F 10/19/2018 [facility] [place] Heart Rate 58 10/19/2018 [facility] Respitory Rate 18 10/19/2018 [facility] Systolic (mm Hg) 111 10/19/2018 [facility] [place] Diastolic (mm Hg) 68 10/19/2018 [place] [facility] Temperature Oral (F) 98.2 F 10/19/2018 [place] Heart Rate 58 10/19/2018 [facility] Respitory Rate 18 10/19/2018 [facility] Systolic (mm Hg) 130 10/19/2018 [facility] [place] Diastolic (mm Hg) 69 10/19/2018 [place] [facility] Height 154.94 cm 10/14/2018 [facility] BMI Calculated 29.55 10/14/2018 [facility] Height 154.94 cm 10/14/2018 [facility] Height 154.94 cm 10/14/2018 [facility] Weight 70.938 10/14/2018 [facility] BMI Calculated 29.55 10/14/2018 [facility] Respitory Rate 17 01/21/2018 [place] Systolic (mm Hg) 149 01/21/2018 [facility] Diastolic (mm Hg) 81 01/21/2018 [place] Temperature Oral (F) 98.2 F 01/21/2018 [place] Heart Rate 75 01/21/2018 [facility] Respitory Rate 17 01/21/2018 [facility] [place] Systolic (mm Hg) 154 01/21/2018 [facility] [place] Diastolic (mm Hg) 83 01/21/2018 [place] Heart Rate 79 01/21/2018 [facility] [place] Temperature Oral (F) 98.4 F 01/21/2018 [facility] [place] Heart Rate 76 01/21/2018 [facility] [place] Temperature Oral (F) 98.5 F 01/21/2018 [facility] [place] Systolic (mm Hg) 160 01/21/2018 [facility] [place] Diastolic (mm Hg) 89 01/21/2018 [facility] [place] Respitory Rate 16 01/21/2018 [facility] Height 154.94 cm 01/17/2018 [facility] BMI Calculated 31.32 01/17/2018 [facility] [place] Weight 75.2 01/17/2018 [facility] BMI Calculated 31.32 01/17/2018 [facility] Weight 75.2 01/17/2018 [facility] Height 154.94 cm 01/17/2018 [facility] Weight 74.545 01/16/2018 [facility] BMI Calculated 31.05 01/16/2018 [facility] Height 154.94 cm 01/16/2018 [facility] Encounters Location Location Encounter Encounter Reason Attending ADM DC Stat us Source Details Type Number For Provider Date Date [facility] [id number] [place] 01[facility]16 01/21 [facility]2017 [facility] In[facility] [id number] [place] 10/14 10/19 [facility]2018 [facility] Procedures No Data Provided for This Section Assessment and Plan Assessment and Plan Date Source Extracted from:Title: Cardiology progress note 10/19/2018 [facility] Author: Leroy Beaulieu MD Date: 10/19/18 Chief Complaint: chest discomfort Subjective: No c/o chest pain, palpitations or shortness of breath mild Right groin pain Objective: Sinus rhythm on telemetry Physical Exam Gen: Comfortable, no acute distress Head: Normocephalic Neck: Supple, full ROM , no carotid bruit Chest: No deformities, rises and falls symmetrically with br eathing Respiratory: Non labored breathing, Bonita r to auscultation, no wheezing, rales or rhonchi Cardiac: JVD appears flat, normal HJR, R RR, Normal S1 and S2, no apparent S3 or S4, no rubs, gallops, or murmurs Gastrointestinal: Soft, non tender,BS present Musculoskeletal: Warm to the touch, no appreciable edema Neuro: Alert, no focal defecits, co-ordination normal Psy: cooperative Labs AGAP: 10.9 mEq/L (10/18/18 05:31:00) Chloride Lvl: 105 mEq/L (10/18/18 05:31:00) CO2: 26 mEq/L (10/18/18 05:31:00) Potassium Lvl: 3.9 mEq/L (10/18/18 05:31:00) Sodium Lvl: 138 mEq/L (10/18/18 05:31:00) A/G Ratio: 0.9 (10/14/18 04:44:00) Albumin Lvl: 3.4 g/dL Low (10/14/18 04:44:00) Alk Phos: 94 unit/L (10/14/18 04:44:00) ALT: 14 unit/L (10/14/18 04:44:00) AST: 16 unit/L (10/14/18 04:44:00) Bili Total: 0.2 mg/dL (10/14/18 04:44:00) BUN: 11 mg/dL (10/18/18 05:31:00) Calcium Lvl: 8.8 mg/dL (10/18/18 05:31:00) Creatinine Lvl: 0.74 mg/dL (10/18/18 05:31:00) eGFR: 94 mL/min/1.73m2 (10/18/18 05:31:00) Globulin: 3.6 g/dL (10/14/18 04:44:00) Glucose Lvl: 129 mg/dL High (10/18/18 05:31:00) Total Protein: 7 g/dL (10/14/18 04:44:00) Assessment/Plan: -NSTEMI . Continue to trend troponin and CK, CK-MB. Coronary angiogram today showed: significant three vessel di sease RCA: Mid 100% : right to left collateral to RCA: RPDA LAD mid [employer] but well developed septal and diagonals. Cx: ostial 70-80% Om1: ostial 60%, mid Cx: [employer]ENCE [employer]CTOR: left to left collateral filing OM2. I am going to keep her on aspirin Developed hematoma and small pseudoaneur ysm: s/p thrombin injection in pseudoaneurysm Hb stable. -Hypertension Metoprolol Amlodipine 5mg po daily -Diabetes mellitus. Check A1c and lipid panel. Insulin sliding scale ordered. -Dyslipidemia LDL 170mg/dl: Started on Lipitor Detailed discussion with pt and daughter. Once OK from vascular surgery she can be discharged. i will follow in clinic in 2 weeks and then plan for CABG as opt Extracted from:Title: History and Physical Author: Bk Salazar MD Date: 10/14/18 -NSTEMI . Continue to trend troponin and CK, CK-MB. . Aspirin 325 mg already given at outsid e ER. Will add Plavix 300 mg p.o. x1. Start full dose Lovenox for ACS protocol. . Cribbing Setter consulted. . Echocardiogram. Monitor on telemetry. . N.p.o. IV fluids. . Check A1c and lipid panel. -Hypertension . Uncontrolled. Resume amlodipine. PRN IV hydralazine ordere d. -Diabetes mellitus. . Check A1c and lipid panel. . Insulin sliding scale ordered. -Dyslipidemia . Check lipid panel. Patient is not on any statins at home. -Patient is on sertraline. SCDs. already fully anticoagulated for ACS. Home when medically cleared. Addendum by Bk Salazar MD on 10/14/2018 05:36 CDT Wood back from Dr. Beaulieu. Recommended t o stop lovenox and given 1 dose of 600 mg plavix PO. So I have changed the orders. Patient did not receive lovenox as per APR. Extracted from:Title: Nephrology progress note 01/21/2018 [facility] Author: Alan Mehta MD Date: 01/21/18 Impression and Plan 72 yo female with history of hypertensio n, diabetes, presented to emergency room complaining of anxiety. Found hyponatremia. 1. Hyponatremia. 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 Contritubuting factors: HCTZ, SSRI. Contributing factors: Use of Celexa, HCTZ. Normal TSH. Low uric acid. U osm: 470 Seems chronic, no neurologic symptoms. Sodium on admission: 113 Current sodium 129 2. Hypochloremia. 3. Hypertension. 4. Diabetes mellitus type 2. 5. Anxiety. Recommendation: Limit free water to 1 L a day. Salt tb 2 g bid. Patient can be discharged from renal standpoint. Follow up in renal clinic in 3 weeks (Office [phone]). Any question, please call [phone] Extracted from:Title: ICU consult note Author: Sohan Tomlinson MD Date: 01/17/18 Pulmonary and Critical Care Consult Note Sohan Tomlinson MD Reason for consult: Severe hyponatremia HPI: Patient is a 72-year-old Afro-Turkmen f emale with past medical history of hypertension, diabetes, anxiety who presented with family due to mild confusion and gait ataxia over the last 1-2 weeks. Patie nt recently seen by a primary care physi yue who started her on citalopram. Patient had decreased p.o. intake during this time as well. Patient had some nausea and vomiting prior to presentation. No longer present. Patient denies any rece nt illness cough or sputum production. No dyspnea. No weight loss or weight gain. Compliance with medications. Patient on SSRI and hydrochlorothiazide. No nu mbness or tingling or changes in sensati on. No prior history of seizures. No dysphagia or dysarthria. Patient with intermittent mild confusion Review of systems: 14 point review of systems negative except as per HPI Allergies Allergies (1) Active Reaction NKDA None documented Procedure History No qualifying data available Past Medical History No qualifying data available Family History No qualifying data available Social history Tobacco Details: Use: Never smoker. Tobacco smo ke exposure: None. Did the Patient Smoke Cigarettes Anytime During the Last 365 Days? No. Cessation Counseling Provided? No. Home Meds Home Medications (7) Active amLODIPine 5 mg oral tablet 5 mg = 1 tab, PO, Daily aspirin 81 mg tablet, enteric coated 81 mg = 1 tab, PO, Nazario y citalopram 10 mg oral tablet 10 mg = 1 tab, PO, Daily hydrochlorothiazide-losartan 25 mg-100 mg oral tablet 1 tab, PO, Daily omeprazole 20 mg oral delayed release capsule 20 mg = 1 cap, PO, Daily sulfamethoxazole-trimethoprim DS 800 mg-160 mg oral tablet 1 tab, PO, BID Tylenol Extra Strength PM Rapid Release 1 tab, PO, PRN Scheduled Meds (1): 01/16/18 sodium chloride (Saline Flush 0.9%) 10 ml IVP Q12H Continuous Infusions (1): 01/17/18 Sodium Chloride 0.9% IV 1,000 m L (normal saline 0.9% IV 1,000 mL) 1,000 mL 100 ml/hr Labs (Last four charted values) WBC 4.2 (JAN 16) Hgb 12.4 (JAN 16) Hct L 35.4 (JAN 16) Plt 166 (JAN 16) Na C 116 (JAN 17 ) C 116 (JAN 17) C 117 (JAN 16) C 113 (JAN 16) K 4.1 (JAN 17) 4.0 (JAN 17) 3.9 (JAN 16) 3.9 (JAN 16) CO2 26 (JAN 17) 26 (JAN 17) 24 (JAN 16) 24 (JAN 16) Cl L 83 (JAN 17) L 82 (JAN 17) L 84 (JAN 16) L 78 (JAN 16) Cr 0.54 (JAN 17) 0.58 (JAN 17) 0.62 (JAN 16) 0.79 (JAN 16) BUN 7 (JAN 17) 7 (JAN 17) 8 (JAN 16) 8 (JAN 16) Glucose Random H 110 (JAN 17 ) H 113 (JAN 17) H 125 (JAN 16) H 151 (JAN 16) Ca L 7.8 (JAN 17 ) L 7.9 (JAN 17) L 7.7 (JAN 16) L 8.2 (JAN 16) Troponin 0.32 (JAN 16) Total CK H 309 (JAN 16) All imaging reviewed. Objective: I&O Record In Out Bal 01/16 24hr Tot 1418 1300 118 01/15 24hr Tot 0 0 0 Lines, Tubes, and Drains: 01/16/2018 21:50 Central Lines: Internal jugular, right Non-tunneled (most common) 01/16/2018 21:43 Peripheral Lines: Antec ubital Left 20 gauge Over the needle catheter 01/16/2018 20:45 Indwelling Urinary Cath eter: Urethral 12 [place] Indwelling/Continuous 01/17/2018 07:00 SpO2 percent 98 Vital Signs (last 24 hrs) Last Charted Temp Oral 98.7 DegF (JAN 17 04:00) Heart Rate Apical 67 bpm (JAN 17 07:00) Resp Rate 17 BRMIN (JAN 17 07:00) SBP H 154mmHg (JAN 17 07:00) DBP 77 mmHg (JAN 17 07:00) SpO2 98 % (JAN 17:) Weight 75.2 kg (JAN 16:) Height 154.94 cm (JAN 16) BMI 31.32 (JAN 16) Exam: General: Ill-appearing, resting in bed HEENT: no pallor, anicteric sclera Cardiovascular: regular, no murmur Respiratory: CTA no rhonchi rales or wheezes Abdomen: soft, non-tender, +BS Extremities: no edema, no cyanosis Neurologic: Awake, Nonfocal Skin: no breakdown Problems: Severe hyponatremia Diabetes Anxiety Hypocalcemia Hypertension Plan: Urine studies consistent with increased antidiuretic hormone with elevated urine osmolality Neurochecks, slow increase in serum sod ium desired no greater than 4-6 mEq. Frequent BMP every 3 hours Increased urine tonicity such that norm al saline is in fact providing free water. 1 L free water restriction. Nephrology consulted and following patient, appreciate dash mmendations Patient with recent initiation of SSRI which has been implicated in SIADH. Hold for now. Patient also on hydrochlorothiazide of which urine studies as in this patient can also be consistent. Hold on MRI for now, reevaluate following sodium correction . Insulin sliding scale and Accu-Cheks. Patient with a symptomatic hyponatremia during the course of the afternoon. Sodium recheck with sodium of 115 and was having nausea and vomiting. Discussed with nephrology and bolused 3% hypertonic sa line 150 cc over 20 minutes. A repeat b asic metabolic panel thereafter with sodium of 118, a further 100 cc of 3% saline was administered. Repeat basic metabolic panel pending. No seizure activity. Patient remains oriented to person and place. Further follow-up sodium now 120. Nause a and vomiting have resolved. Continue fluid restriction. Frequent basic metabolic panel checks ordered. Prophylaxis: DVT: Heparin GI: Not indicated Nutrition: N.p.o./fluid restrict. Code Status: Full code Disposition: ICU I spent 63 min of Critical care time , i n reviewing, laboratory and radiographic data,in direct management of patient at bedside as well as coordination. Time spent does not include time spent by any o ther provider or time spent in doing pro cedure. Patient required critical care due to the acute impairment of vital organ systems and a high probability of imminent and life threatening deterioration. Sohan Tomlinson MD Pulmonary and Critical Care Extracted from:Title: UO History and Physical Author: Yojana Colindres MD Date: 01/16/18 Impression and Plan Pt is a 72 y/o female with pmhx of HTN, DM, anxiety presents with complaints of weakness, mild confusion, and dysequilibrium Hyponatremia multifactorial; low solute intake, siadh, hctz use, citalopram use. TSH normal. Tremors Anxiety Hypochloremia Hypocalcemia HTN DM Plan BMP Q 4 HR. S/P 1l bolus, Corrected to 1 17 will follow levels and adjust accordingly. Possibility for over correction if indeed so, will give d5w, and possibly ddavp Ativan po prn for anxiety Will obtain MRI of the brain to rule ou t intracranial pathology contributing to siadh or causing dysequilibrium Strict i/o. 1L fludi restriction BMP Q 3HR until sodium >120 Daily urine lytes and urine osmolality Hold HCTZ. Once volume replete will asse ss for continued presence of siadh, if still present will most likely benefit from salt tabs Nephrology consulted, Sliding scale insulin. Hold home metformin Resume home BP meds except for HCTZ. On discharge consider lasix as alternative. Plan of Care No Data Provided for This Section Social History Social History Date Source Social History TypeResponse 10/14/2018 [facility] [facility] Smoking Status Never smoker; Exposure to Tobacco Smoke None; Cigarette Smoking Last 365 Days No; Reg Smoking Cessation Counseling No entered on: 10/14/18 Social History TypeResponse 01/17/2018 [facility] Smoking Status Never smoker; Exposure to Tobacco Smoke None; Cigarette Smoking Last 365 Days No; Reg Smoking Cessation Counseling No entered on: 01/16/18 Family History No Data Provided for This Section Advance Directives No Data Provided for This Section Functional Status No Data Provided for This Section
--- OUTSIDE RECORDS SUMMARY | 2019-10-13 15:52 | XMS REPORT | Continuity of Care Document ---
:1945 Author Organization [facility] t Address [address] [place] [address] Care Team Providers Name Role Phone CHELSEY Attending Clinician Unavailable BALJEET Attending Clinician Unavailable Stefanie Salazar Attending Clinician Brannon Attending Clinician Stefanie Salazar Admitting Clinician Brannon Admitting Clinician Problems Condition Condition Condition Status Onset Resolution Last Treating Co mments Source Name Details Category Date Date Treatment Clinician Date GI BLEED Diagnosis Active 2018-022019-01-20 M emoria 0- 08:37:00 l GI BLEED 00:00: Yoel n 00 Active 11/25/2018 [facility] ORTHOSTATI Diagnosis Active 2018-022019-01-20 Memoria C 0 08:45:00 l HYPOTENSIO 08:50: Yoel n N ORTHOSTATI 00 C HYPOTENSIO N Active 11/22/2018 [facility] CAD WITH Diagnosis Active 2019-01-20 emoria ANGINA 10-31 08:46:00 l CAD WITH 00:00: Yoel n ANGINA 00 Active 10/31/2018 [place] NSTEMI Diagnosis Active 2019-01-20 Mem oria 10-14 08:48:00 l NSTEMI 00:00: Cy 00 Active 10/14/2018 [place] ACUTE Diagnosis Active 2017-022018-08-17 Mem oria HYPONATREM 03-19 12:31:00 l [place], ACUTE 00:00: Cy TREMOR, HYPONATREM 00 LEG IA, CRAMPING TREMOR, LEG CRAMPING Active 01/16/2018 [facility] ANXIETY Diagnosis Active 2017-022018-01-16 Me moria 03-19 18:47:00 l ANXIETY 00:00: Cy 00 Active 01/16/2018 [facility] CAD CAD Problem Active [facility] (coronary (coronary ity of artery artery [place] disease) disease) Physic i ans Irregular Irregular Problem Active Uni vers bleeding bleeding ity of [place] Physici ans Post-menop Post-menop Problem Active U nivers ausal ausal ity of bleeding bleeding [place] Physici ans Encounter Encounter Problem Active Uni vers for for ity of routine routine [place] gynecologi gynecologi Ph ysici shelby shelby ans examinatio examinatio n n Irregular Irregular Problem Active Uni vers Length Of Length Of ity of Menstrual Menstrual [place] Periods Periods Physici ans Anemia, Problem 2018-08-10 Albino juan unspecifie 14:19:56 l d Anemia, [place] unspecifie d 08/10/2018 [facility] 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 14:19:56 l Cy Hypocalcem ia 08/10/2018 [facility] Type 2 Problem 2018-08-10 Memor ia diabetes 14:19:56 l mellitus Type 2 Yoel n without diabetes complicati mellitus ons without complicati ons 08/10/2018 [facility] Other Problem 2018-08-10 Memor ia disorders 14:19:56 l of Other Cy electrolyt disorders e and of fluid electrolyt balance, e and not fluid elsewhere balance, classified not elsewhere classified 08/10/2018 [facility] Anxiety Problem 2018-08-10 Albino juan disorder, 14:19:56 l unspecifie Anxiety Her alanis d disorder, unspecifie d 08/10/2018 [facility] Essential Problem 2018-08-10 Me moria (primary) 14:19:56 l hypertensi Yoel n on Essential (primary) hypertensi on 08/10/2018 [facility] Adverse Problem 2018-08-10 Albino juan effect of 14:19:56 l carbonic-a Adverse Her alanis nhydrase effect of inhibitors carbonic-a , nhydrase benzothiad inhibitors iazides , and other benzothiad diuretics, iazides initial and other encounter diuretics, initial encounter 08/10/2018 [facility] Adverse Problem 2018-08-10 Albino juan effect of 14:19:56 l selective Adverse Herm dea serotonin effect of reuptake selective inhibitors serotonin , initial reuptake encounter inhibitors , initial encounter 08/10/2018 [facility] Cough Problem 2018-08-10 Memor ia 14:19:56 l Cough Cy 08/10/2018 [facility] Cramp and Problem 2018-08-10 Me moria spasm 14:19:56 l Cramp Cy and spasm 08/10/2018 [facility] Tremor, Problem 2018-08-10 Albino juan unspecifie 14:19:56 l d Tremor, [place] unspecifie d 08/10/2018 [facility] FDC Problem 2018-08-10 Me moria (current) 14:19:56 l use of Long Cy insulin term (current) use of insulin 08/10/2018 [facility] HYPO-OSMOL Diagnosis Active 2018-08-17 Memoria ALITY AND 12:31:00 l HYPONATREM Yoel n IA HYPO-OSMOL ALITY AND HYPONATREM IA [facility] TREMOR, Diagnosis Active 2018-08-17 Me moria UNSPECIFIE 12:31:00 l D TREMOR, Cy UNSPECIFIE D Active [facility] CRAMP AND Diagnosis Active 2018-08-17 Memoria SPASM 12:31:00 l CRAMP Cy AND SPASM Active [facility] [place] UNSTABLE Diagnosis Active 2019-01-20 M emoria ANGINA 08:46:00 l UNSTABLE Yoel n ANGINA Active [place] DEHYDRATIO Diagnosis Active 2019-01-20 Memoria N 08:45:00 l [place] DEHYDRATIO N Active [facility] [place] Syndrome Problem 2017-2018-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 2018-08-10 Memoria of 2-20 14:19:56 14:19:56 l 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 01/27/2018 08/10/2018 [facility] Allergies, Adverse Reactions, Alerts Allergy Allergy Status Severity Reaction(s) Onset Inactive Treating Comm ents Source Name Type Date Date Clinician No Known No Known Active Memori a Medicati Medicati l on on [place] Allergie Allergie s s Family History Family Member Diagnosis Comments Start Date Stop Date Source natural son Family history of [facility] [place] hypertension Physicians natural son Family history of [facility] [place] diabetes mellitus Physici ans Sister Family history of [facility] hypertension Physicians Sister [facility] diabetes mellitus Physici ans Social History Smoking Status Start Date Stop Date Source Social History [facility] [place] Medications Ordered Filled Start Stop Current Ordering Indication Dosage Frequency Signature Comments Components Source Medication Medication Date Date Medication? Clinician (SIG) Name Name thrombin No Notes: Memoria topical 10-18 "blood l human 5000 17:35: product Herm dea intl units 00 derivative powder for " reconstitut ion Melatonin No Notes: Memori a 10-17 (Same as: l 08:50: Melatonin) amLODIPine Yes 5 mg = 1 Mem oria 5 mg oral 10-15 tab, PO, l tablet 17:10: Daily, 0 [place] 00 Refill(s) atorvastati Yes 40 mg = 1 M emoria n 40 mg 10-15 tab, PO, l oral tablet 17:10: Bedtime, # [place] 00 30 tab, 0 Refill(s), Pharmacy: [place] [id number] clopidogrel Yes 75 mg = 1 M emoria 75 mg oral 10-15 tab, PO, l tablet 17:10: Daily, # Cy 00 30 tab, 0 Refill(s), Pharmacy: [place] [id number] metoprolol Yes 12.5 mg = Me moria tartrate 25 10-15 0.5 tab, l mg oral 17:10: PO, Q12H, Taya nn tablet 00 # 30 tab, 0 Refill(s), Pharmacy: [place] [id number] Plavix No Notes: Memoria 10-15 (Same As: l 14:00: Plavix) Norvasc No Notes: Memoria 10-15 (Same as: l 14:00: Norvasc) metoprolol No Notes: Memor ia tartrate 10-15 (Same as: l 02:00: Lopressor) atorvastati No Notes: Albino juan n 10-15 (Same as: l 02:00: Lipitor) Saline No Notes: Memoria Flush 0.9% 10-15 (Same as: l 02:00: BD Posiflush) Ondansetron No Notes: Albino juan 10-14 (Same as: l 20:35: Zofran) MEDICATION WASTE Product Size: 4 mg Product Wasted: ___ mg atorvastati No Notes: Albino juan n 10-14 (Same as: l 15:19: Lipitor) Cy 00 Sodium No 250 mL, Memoria Chloride 10-14 250 ml/hr, l 0.9% 15:00: Infuse [place] (Bolus) IV 00 Over: 1 hr, Route: IV, 250, Drug form: INJ, ONCALL, Priority: Routine, Dosing Weight 70.938 kg, Start date: 10/14/18 10:00:00 CDT, Duration: 1 doses or times, 0 Sodium No 750 mL, Memoria Chloride 10-14 Rate: 75 l 0.9% IV 750 14:42: ml/hr, Herm dea mL 00 Infuse over: 10 hr, Route: IV, Dosing Weight 70.938 kg, Total Volume: 750, Start date: 10/14/18 9:42:00 CDT, Duration: 24 hr, Stop date: 10/15/18 9:41:00 CDT, 1.77, m2, 0 Saline No Notes: Memoria Flush 0.9% 10-14 (Same as: l 14:42: BD Cy Posiflush) Aspirin 81 No Notes: Do Me moria MG Enteric 10-14 not crush l Coated 14:00: or chew. [place] Tablet (Same As: Ecotrin) Sertraline No Notes: Memor ia 10-14 (Same as: l 14:00: Zoloft) Cy gabapentin No Notes: Memor ia 300 MG Oral 10-14 (Same as: l Capsule 14:00: Neurontin) Herm dea 00 Saline No Notes: Memoria Flush 0.9% 10-14 (Same as: l 14:00: BD [place] 00 Posiflush) Amlodipine No Notes: Memor ia 10-14 (Same as: l 14:00: Norvasc) [place] Enoxaparin No Notes: Memor ia 10-14 Nurse to l 10:00: ensure Cy documentat ion of patient education per anticoagul ation policy. (Same as: Lovenox) Dextrose No 12.5 gm, Memor ia 50% Syringe 10-14 25 mL, l 09:39: Route: [place] 00 IVP, Drug Form: INJ, Dosing Weight 70.938, kg, PRN, PRN Blood Glucose Results, Start date: 10/14/18 4:39:00 CDT, Duration: 30 day, Stop date: 11/13/18 4:38:00 CDT, 0 Glucagon 2019 No 1 mg, Memoria 10-14 Route: IM, l 09:39: Drug form: [place] 00 PDR/INJ, PRN, Dosing Weight 70.938, kg, PRN Blood Glucose Results, Start date: 10/14/18 4:39:00 CDT, Duration: 30 day, Stop date: 11/13/18 4:38:00 CDT, 0 Insulin No Notes: Memoria Lispro 10-14 (Same as: l 09:39: Humalog) Roll in palms of hands gently; Do not shake vigorously . WASTE: F/P - Black; E - Municipal Trash Bin Stable for 28 days at room temperatur e. Expires in days from ____Date Acetaminoph No Notes: Do M emoria en 10-14 not exceed l 09:38: 4 gm/day. Cy 00 (Same as: Tylenol) Morphine No 2 mg, 1 Memori a 10-14 mL, Route: l 09:38: IVP, Drug form: SOLN, Q4H, Dosing Weight 70.938, kg, PRN Pain Score 7-10, Start date: 10/14/18 4:38:00 CDT, Duration: 30 day, Stop date: 11/13/18 4:37:00 CDT, 0 Ondansetron 0 No Notes: Albino juan 2 MG/ML 10-14 (Same as: l Injectable 09:38: Zofran) Herm dea Solution [Zofran] MEDICATION WASTE Product Size: 4 mg Product Wasted: ___ mg Hydralazine No Notes: Albino jaun 10-14 (Same as: l 09:38: Apresoline Cy ) Push over 5 minutes Dextrose 5% No 1,000 mL, M emoria with 0.45% 10-14 Rate: 100 l NaCl IV 09:36: ml/hr, Cy 1,000 mL 00 Infuse over: 10 hr, Route: IV, Dosing Weight 70.938 kg, Total Volume: 1,000, Start date: 10/14/18 4:36:00 CDT, Duration: 30 day, Stop date: 11/13/18 4:35:00 CDT, 1.77, m2, 0 Nitroglycer No Notes: Albino juan in 10-14 (Same l 09:36: as:Nitroqu ick, Nitrostat) "Do Not Crush" Sublingual tablet Saline No Notes: Memoria Flush 0.9% 10-14 (Same as: l 09:36: BD Posiflush) clopidogrel No Notes: ( Me moria 10-14 Same as: l 09:34: Plavix) Metformin Yes 500 mg = 1 Me moria hydrochlori 10-14 tab, PO, l de 500 MG 08:39: Daily, Yoel n Oral Tablet 00 take with a meal, # 30 tab, 1 Refill(s) amLODIPine No 10 mg = 1 Me moria 10 mg oral 06 tab, PO, l tablet 08:39: Daily, # Cy 00 30 tab, 0 Refill(s) gabapentin Yes 300 mg = 1 M emoria 300 MG Oral 10-14 cap, PO, l Capsule 08:39: Daily, 0 Yoel n 00 Refill(s) sertraline Yes 50 mg = 1 Me moria 50 mg oral -06 tab, PO, l tablet 08:39: Daily, # [place] 00 30 tab, 0 Refill(s) losartan 25 No 25 mg = 1 M emoria mg oral 06 tab, PO, l tablet 08:39: Daily, # Cy 00 30 tab, 0 Refill(s) Sodium 2017-02 Yes 2 gm = 2 Memoria Chloride 2-14 tab, PO, l 1000 MG 17:35: BID, # 120 Herm dea Oral Tablet 00 tab, 0 Refill(s) losartan 2017-02 No 100 mg = 1 Mem oria 100 mg oral 2-14 tab, PO, l tablet 17:29: Daily, # Cy 00 30 tab, 2 Refill(s) Sodium 2017-02 No 2 gm, 2 Memoria Chloride 2-14 tab, l 1000 MG 15:00: Route: PO, Herm dea Oral Tablet 00 Drug form: TAB, BID, Dosing Weight 75.2, kg, Start date: 01/21/18 9:00:00 ENVIRONMENTAL WEB CRAWLER, Duration: 30 day, Stop date: 02/19/18 17:00:00 ENVIRONMENTAL WEB CRAWLER Benadryl 2017-02 No 25 mg, 1 Memor ia 2-14 tab, l 02:22: Route: PO, Cy 00 Drug form: TAB, ONCE, Dosing Weight 75.2, kg, Start date: 01/20/18 20:22:00 ENVIRONMENTAL WEB CRAWLER, Stop date: 01/20/18 20:22:00 ENVIRONMENTAL WEB CRAWLER Artificial 2017-02 No Notes: Memor ia Tears 2-13 (Same as: l 19:49: Puralube) Amlodipine 2017-02 No Notes: Memor ia 2-13 (Same as: l 15:00: Norvasc) Aspirin 81 2017-02 No Notes: Do Me moria MG Enteric 2-13 not crush l Coated 15:00: or chew. [place] Tablet (Same As: Ecotrin) Sodium 2017-02 No 1 gm, 1 Memoria Chloride 2-13 tab, l 1000 MG 06:00: Route: PO, Herm dea Oral Tablet 00 Drug form: TAB, Q8H, Dosing Weight 75.2, kg, Start date: 01/20/18 0:00:00 ENVIRONMENTAL WEB CRAWLER, Duration: 30 day, Stop date: 02/18/18 16:00:00 ENVIRONMENTAL WEB CRAWLER Insulin 2017-02 No Notes: Memoria Lispro 2-13 (Same as: l 02:10: Humalog ) Roll in palms of hands gently; Do not shake `vigorousl y. "Single Patient Use Only " WASTE: F/P - Black; E - Municipal Trash Bin Stable for 28 days at room temperatur e. Expires in days from ____Date Glucagon 2017-02 No 1 mg, Memoria 2-13 Route: IM, l 02:10: Drug form: Cy PDR/INJ, PRN, Dosing Weight 75.2, kg, PRN Blood Glucose Results, Start date: 01/19/18 20:10:00 ENVIRONMENTAL WEB CRAWLER, Duration: 30 day, Stop date: 02/18/18 20:09:00 ENVIRONMENTAL WEB CRAWLER Dextrose 2017- No 12.5 gm, Memor ia 50% Syringe 2-13 25 mL, l 02:10: Route: Cy IVP, Drug Form: INJ, Dosing Weight 75.2, kg, PRN, PRN Blood Glucose Results, Start date: 01/19/18 20:10:00 ENVIRONMENTAL WEB CRAWLER, Duration: 30 day, Stop date: 02/18/18 20:09:00 ENVIRONMENTAL WEB CRAWLER D5W 300 mL 2017- No 300 mL, Albino juan 2-12 Rate: 300 l 14:13: ml/hr, [place] 00 Infuse over: 1 hr, Route: IV, Dosing Weight 75.2 kg, Total Volume: 300, Start date: 01/19/18 8:13:00 ENVIRONMENTAL WEB CRAWLER, Duration: 1 doses or times, Stop date: 01/19/18 9:12:00 ENVIRONMENTAL WEB CRAWLER, 1.83, m2 D50W 2017- No 150 gm, Memoria (bolus) IV 2-12 300 mL, l 14:01: Route: IV, Cy Drug Form: INJ, Dosing Weight 75.2, kg, ONCE, NOW, Start date: 01/19/18 8:01:00 ENVIRONMENTAL WEB CRAWLER, Stop date: 01/19/18 8:01:00 ENVIRONMENTAL WEB CRAWLER sodium 2017-02 No 2 gm, 2 Memoria chloride 1 2-12 tab, l gm oral 03:00: Route: PO, Herm dea tablet 00 Drug form: TAB, Q6H, Dosing Weight 75.2, kg, Start date: 01/18/18 21:00:00 ENVIRONMENTAL WEB CRAWLER, Duration: 30 day, Stop date: 02/17/18 21:00:00 ENVIRONMENTAL WE[employer] CRAWLER Benzocaine 2017- No Notes: Memor ia 15 MG / 2-12 Same as: l Menthol 3.6 00:13: Cepacol Her alanis MG Lozenge 00 [Cepacol Sore Throat Pain Relief 15/3.6] Sodium 2017-02 No 2 gm, 2 Memoria Chloride 2-11 tab, l 1000 MG 18:00: Route: PO, Herm dea Oral Tablet 00 Drug form: TAB, Q6H, Dosing Weight 75.2, kg, Start date: 01/18/18 12:00:00 ENVIRONMENTAL WEB CRAWLER, Duration: 30 day, Stop date: 02/17/18 6:00:00 ENVIRONMENTAL WEB CRAWLER Sodium 2017-02 No Notes: Memoria Chloride 3% 2-11 "Administe l (Hypertonic 08:26: r by Yoel n ) IV 250 mL 00 central venous catheter or a peripheral ly inserted central catheter (PICC) line. 3% Sodium Chloride may be infused via peripheral administra tion into large vein (antecubit al) only in the case of emergency for short term use until a central line can be inserted" (Same as: Hypertonic Saline 3%) concentra tion = 0.513 mEq/mL Zofran 2017-02 No Notes: Memoria 2-11 (Same as: l 07:19: Zofran) [place] 00 MEDICATION WASTE Product Size: 4 mg Product Wasted: ___ mg Melatonin 2017-02 No Notes: Memori a 2-11 (Same as: l 05:59: Melatonin) Cy Sodium 2017-02 No 100 mL, Memoria Chloride 3% 2-10 IV, 180 l IV 23:30: ml/hr, Cy 00 ONCE, Start date: 01/17/18 17:30:00 ENVIRONMENTAL WEB CRAWLER, 100 ml Sodium 2017-02 No Notes: Memoria Chloride 3% 2-10 concentrat l (Hypertonic 22:57: ion = Taya nn ) IV 100 mL 00 0.513 mEq/mL heparin 2017-02 No Notes: Memoria 2-10 porcine l 22:00: heparin Cy Sodium 2017-02 No Notes: Memoria Chloride 3% 2-10 "Administe l (Hypertonic 21:14: r by Yoel n ) IV 150 mL 00 central venous catheter or a peripheral ly inserted central catheter (PICC) line. 3% Sodium Chloride may be infused via peripheral administra tion into large vein (antecubit al) only in the case of emergency for short term use until a central line can be inserted" (Same as: Hypertonic Saline 3%) concentra tion = 0.513 mEq/mL Ativan 2017-02 No Notes: Memoria 2-10 (Same as: l 18:24: Ativan) Cy Hydralazine 2017-02 No 50 mg, 1 Me moria Hydrochlori 2-10 tab, l de 50 MG 18:24: Route: PO, Her alanis Oral Tablet 00 Drug form: TAB, Q8H, Dosing Weight 75.2, kg, Priority: NOW, Start date: 01/17/18 12:24:00 ENVIRONMENTAL WEB CRAWLER, Duration: 30 day, Stop date: 02/16/18 8:00:00 ENVIRONMENTAL WEB CRAWLER Sodium 2017-02 No 2 gm, 2 Memoria Chloride 2-10 tab, l 1000 MG 16:00: Route: PO, Herm dea Oral Tablet 00 Drug form: TAB, Q8H, Dosing Weight 75.2, kg, Priority: NOW, Start date: 01/17/18 10:00:00 ENVIRONMENTAL WEB CRAWLER, Duration: 30 day, Stop date: 02/16/18 8:00:00 ENVIRONMENTAL WEB CRAWLER normal 2017-02 No 1,000 mL, Memori a saline 0.9% 2-10 Rate: 100 l IV 1,000 mL 07:29: ml/hr, Herm dea 00 Infuse over: 10 hr, Route: IV, Dosing Weight 75.2 kg, Total Volume: 1,000, Start date: 01/17/18 1:29:00 ENVIRONMENTAL WEB CRAWLER, Duration: 30 day, Stop date: 02/16/18 1:29:00 ENVIRONMENTAL WEB CRAWLER, 1.83, m2 Hydrochloro 2017-02 No 1 tab, PO, Memoria thiazide 25 2-10 Daily, # l MG / 05:29: 30 tab, 0 Cy Losartan 00 Refill(s) Potassium 100 MG Oral Tablet amLODIPine 2017-02 Yes 5 mg = 1 Mem oria 5 mg oral 2-10 tab, PO, l tablet 05:29: Daily, # [place] 00 30 tab, 0 Refill(s) Aspirin 81 2017-02 Yes 81 mg = 1 Me moria MG Enteric 2-10 tab, PO, l Coated 05:29: Daily, # [place] Tablet 00 90 tab, 3 Refill(s) Tylenol 2017-02 Yes 1 tab, PO, Albino juan Extra 2-10 PRN, 0 l Strength PM 05:29: Refill(s) H ermann Rapid 00 Release citalopram 2017-02 No 10 mg = 1 Me moria 10 mg oral 2-10 tab, PO, l tablet 05:29: Daily, # Cy 00 30 tab, 0 Refill(s) omeprazole 2017-02 Yes 20 mg = 1 Me moria 20 mg oral 2-10 cap, PO, l delayed 05:29: Daily, # Yoel n release 00 30 cap, 0 capsule Refill(s) Sulfamethox 2017-02 No 1 tab, PO, Memoria azole 800 2-10 BID, # 14 l MG / 05:29: tab, 0 [place] Trimethopri 00 Refill(s) m 160 MG Oral Tablet Saline 2017-02 No Notes: Memoria Flush 0.9% 2-10 (Same as: l 03:00: BD [place] 00 Posiflush) Calcium 2017-02 No Notes: Memoria Carbonate 2-10 (Same As: l 500 MG 01:42: Tums) [place] Chewable 00 Calcium Tablet Carbonate 500 mg = 200 mg elemental calcium Dose = mg calcium carbonate ( mg elemental calcium) Calcium 2017-02 No Notes: Memoria Gluconate 2-10 WASTE: F/P l 01:42: - Sink; E [place] 00 - Municipal Trash Bin Potassium 2017-02 No Notes: Memori a Chloride 2-10 (Same as: l 01:42: K-Dur 20) "Do Not Crush" Give with food and full glass of water For patients unable to swallow tablet, dissolve in one half glass of water. Allow about 2 minutes for the tablets to disintegra te. Stir before giving to prepare slurry and administer . Please exclude Patient s with feeding tube less than 14 Y[place] (Dobhoff, J-tube etc) and pediatric and patients. sodium 2017-02 No Notes: Memoria phosphate 2-10 Infuse l 01:42: over 4 Cy 00 hour. Do not infuse phosphorou s concurrent ly in the same line as TPN or IVF that contains calcium. For double lumen central lines, phosphorou s may be infused in a separate lumen from TPN. potassium 2017-02 No Notes: Memori a phosphate 2-10 (Same as: l 01:42: K Cy 00 Phosphate. ) Do not infuse phosphorou s concurrent ly in the same line as TPN or IVF that contains calcium. For double lumen central lines, phosphorou s may be infused in a separate lumen from TPN. 1 mMol phoshate has 1.47 mEq potassium Infuse over 4 hours Magnesium 2017-02 No Notes: Memori a Oxide 2-10 (Same as: l 01:42: Mag-Ox Cy 00 400) Magnesium oxide [id number] g elemental magnesium Dose=____m g magnesium oxide (___mg elemental magnesium) potassium 2017-02 No Notes: Memori a phosphate-s 2-10 (Same as: l odium 01:42: Phos-NaK) [place] phosphate 00 Each 1.5 250 mg-280 gm pkt has mg-160 mg 250mg oral powder phosphorou for s. Mix reconstitut w/2.5oz ion water and stir. Magnesium 2017-02 No Notes: Memori a Sulfate 2-10 WASTE: F/P l 01:42: - Sink; E [place] 00 - Municipal Trash Bin Saline 2017-02 No Notes: Memoria Flush 0.9% 2-10 (Same as: l 01:42: BD [place] 00 Posiflush) Nystatin 2017-02 No Notes: Memoria 100 UNT/MG 2-10 (Same l Topical 01:42: as:Mycosta Herm dea Powder 00 tin, Nilstat) For external use only. Ativan 2017-02 No 0.5 mg, Memoria 2-10 Route: PO, l 00:20: Drug form: Cy 00 TAB, ONCE, Dosing Weight 74.545, kg, Start date: 01/16/18 18:20:00 ENVIRONMENTAL WEB CRAWLER, Stop date: 01/16/18 18:20:00 ENVIRONMENTAL WEB CRAWLER Ativan 2017-02 No 1 mg, Memoria 2-10 Route: PO, l 00:19: Drug form: Cy 00 TAB, ONCE, Dosing Weight 74.545, kg, Priority: STAT, Start date: 01/16/18 18:19:00 ENVIRONMENTAL WEB CRAWLER, Stop date: 01/16/18 18:19:00 ENVIRONMENTAL WEB CRAWLER Saline 2017-02 No Notes: Memoria Flush 0.9% 2-10 (Same as: l 00:01: BD [place] 00 Posiflush) Sodium 2017-02 No 1,000 mL, Memori a Chloride 2-10 1000 l 0.9% 00:01: ml/hr, Cy (Bolus) IV 00 Infuse Over: 1 hr, Route: IV, 1,000, Drug form: INJ, ONCE, Priority: STAT, kg, Start date: 01/16/18 18:01:00 ENVIRONMENTAL WEB CRAWLER, Stop date: 01/16/18 18:01:00 ENVIRONMENTAL WEB CRAWLER Atorvastati Atorvastati Yes M.A. U nivers n Calcium n Calcium ity o f 10 MG Oral 10 MG Oral Michael as Tablet Tablet Physici ans Aspirin EC Aspirin EC Yes M.A. Uni vers 81 MG Oral 81 MG Oral ity of Tablet Tablet [place] Delayed Delayed Physici Release Release ans Lisinopril Lisinopril Yes M.A. Uni vers 10 MG Oral 10 MG Oral ity of Tablet Tablet [place] Physici ans metFORMIN metFORMIN Yes .A. Unive rs HCl ER 500 HCl ER 500 ity of MG Oral MG Oral [place] Tablet Tablet Physici Extended Extended ans Release 24 Release 24 Hour Hour Metoprolol Metoprolol Yes M.A. Uni vers Tartrate 50 Tartrate 50 i ty of MG Oral MG Oral [place] Tablet Tablet Physici ans Omeprazole Omeprazole Yes M.A. Uni vers 40 MG Oral 40 MG Oral ity of Capsule Capsule [place] Delayed Delayed Physici Release Release ans Potassium Potassium Yes .[facility] Ch[facility] 20 Chloride 20 i ty of MEQ/15ML MEQ/15ML [place] (10%) LIQD (10%) LIQD Phy sici ans Sertraline Sertraline Yes M.A. Uni vers HCl - 50 MG HCl - 50 MG i ty of Oral Tablet Oral Tablet [place] Physici ans Lovenox 60 Lovenox 60 Yes .A. Uni vers MG/0.6ML MG/0.6ML ity of Subcutaneou Subcutaneou [place] s Solution s Solution Phy sici ans Vital Signs Vital Name Observation Time Observation Value Comments Source BP Systolic 2019-01-13 173 mm[Hg] Location: [facility] :23:00 Position: [place] Physician s Sitting BP Diastolic 2019-01-13 90 mm[Hg] Location: [facility] 11:23:00 Position: [place] Physician s Sitting Height 2019-01-13 61 [in_us] [facility] 11:23:00 [place] Physician s Weight 2019-01-13 148 [lb_av] [facility] 11:23:00 [place] Physician s Body Mass Index 2019-01-13 27.96 kg/m2 University o f Calculated 11:23:00 [place] Physician s Heart Rate 2019-01-13 64 /min [facility] 11:23:00 [place] Physician s Temperature 2019-01-13 98.2 [degF] Method: Oral [facility] of 11:23:00 [place] Physician s BP Systolic 2018-12-16 148 mm[Hg] Location: [facility]; [facility] 09:26:00 Position: [place] Physician s Sitting BP Diastolic 2018-12-16 86 mm[Hg] Location: [facility]; [facility] 09:26:00 Position: [place] Physician s Sitting Height 2018-12-16 61 [in_us] [facility] 09:26:00 [place] Physician s Weight 2018-12-16 147.375 [lb_av] [facility] o 09:26:00 [place] Physician s Body Mass Index 2018-12-16 27.85 kg/m2 University o Calculated 09:26:00 [place] Physician s Temperature 2018-12-16 98.2 [degF] Method: Oral [facility] of 09:26:00 [place] Physician s Heart Rate 2018-12-16 66 /min [facility] 09:26:00 [place] Physician s BP Systolic 2018-11-14 94 mm[Hg] University 12:11:00 [place] Physician s BP Diastolic 2018-11-14 68 mm[Hg] [facility] 12:11:00 [place] Physician s Height 2018-11-14 61 [in_us] [place] of 12:11:00 [place] Physician s Temperature Oral 2018-10-19 97.9 F [facility] (F) 20:54:00 Heart Rate 2018-10-19 [facility] Yoel n 20:54:00 Respitory Rate 2018-10-19 [facility] Herm dea 20:54:00 Systolic (mm Hg) 2018-10-19 [facility] He rmann 20:54:00 Diastolic (mm Hg) 2018-10-19 [facility] 20:54:00 Temperature Oral 2018-10-19 98 F [facility] (F) 17:29:00 Heart Rate 2018-10-19 [facility] 17:29:00 Respitory Rate 2018-10-19 [facility] 17:29:00 Systolic (mm Hg) 2018-10-19 [facility] 17:29:00 Diastolic (mm Hg) 2018-10-19 [facility] 17:29:00 Temperature Oral 2018-10-19 98.2 F [facility] (F) 12:16:00 Heart Rate 2018-10-19 [facility] 12:16:00 Respitory Rate 2018-10-19 [facility] 12:16:00 Systolic (mm Hg) 2018-10-19 [facility] 12:16:00 Diastolic (mm Hg) 2018-10-19 [facility] 12:16:00 Height 2018-10-14 154.94 cm [facility] 11:41:00 BMI Calculated 2018-10-14 [facility] 09:36:00 Height 2018-10-14 154.94 cm [facility] 08:46:00 Height 2018-10-14 154.94 cm [facility] 08:27:00 Weight 2018-10-14 [facility] 08:27:00 BMI Calculated 2018-10-14 [facility] 08:27:00 Respitory Rate 2018-01-21 [facility] 17:27:00 Systolic (mm Hg) 2018-01-21 [facility] 17:27:00 Diastolic (mm Hg) 2018-01-21 [facility] 17:27:00 Temperature Oral 2018-01-21 98.2 F [facility] (F) 17:27:00 Heart Rate 2018-01-21 [facility] 17:27:00 Respitory Rate 2018-01-21 [facility] 14:08:00 Systolic (mm Hg) 2018-01-21 [facility] 14:08:00 Diastolic (mm Hg) 2018-01-21 [facility] 14:08:00 Heart Rate 2018-01-21 [facility] 14:08:00 Temperature Oral 2018-01-21 98.4 F [facility] (F) 14:08:00 Heart Rate 2018-01-21 [facility] 10:19:00 Temperature Oral 2018-01-21 98.5 F [facility] (F) 10:19:00 Systolic (mm Hg) 2018-01-21 [facility] 10:19:00 Diastolic (mm Hg) 2018-01-21 [facility] 10:19:00 Respitory Rate 2018-01-21 [facility] 10:19:00 Height 2018-01-17 154.94 cm [facility] 04:27:00 BMI Calculated 2018-01-17 [facility] 04:27:00 Weight 2018-01-17 [facility] 04:27:00 BMI Calculated 2018-01-17 [facility] 04:23:00 Weight 2018-01-17 [facility] 04:23:00 Height 2018-01-17 154.94 cm [facility] 04:23:00 Weight 2018-01-16 [facility] 23:59:00 BMI Calculated 2018-01-16 [facility] 23:59:00 Height 2018-01-16 154.94 cm [facility] 23:59:00 Procedures Procedure Date / Time Performing Clinician Source Performed . [facility] - PAP 2018-12-16 00:00:00 [facility] US Pelvis with Pelvis 2018-12-16 00:00:00 [facility] Transvaginal [id number] Physicians History of Coronary [facility] artery bypass graft Physicians Encounters Start End Encounter Admission Attending Care Care Encounter Source Date/Time Date/Time Type Type Clinicians Facility Department ID 2018-11-25 Inpatient U [facility] MED [id number] [facility] H 09:35:00 2018-10-31 Inpatient U [facility] MED [id number] MH 11:41:[address] [facility] 2018-10-14 Inpatient U [facility] MED [id number] MHF B 03:17:00 2018-01-16 Inpatient E [facility]BL MED [id number] MHB L 19:08:00 2019-01-13 2019-01-13 [facility]ESMOND [facility] [id number] [facility] 11:15:00 11:15:00 t; [facility] 2018-12-16 2018-12-16 Appointmen DESMOND BARBOSA [facility] [id number] Univers 09:45:00 09:45:00 t; ALIZ[facility] 2018-11-22 2018-11-22 Inpatient U [facility] MED [id number] MHBL 08:29:00 20:46:00 2018-11-14 2018-11-14 Appointmen DESMOND DELONG [facility] [id number] Univers 11:30:00 11:30:00 t; MALIKA DELONG M.D. [facility] ans 2018-10-14 2018-10-19 Outpatient NAKUL Salazar [facility] [id number] 03:17:00 17:59:[place] 2018-01-16 2018-01-21 Outpatient LILLIE [place] [facility] [id number] 17:47:00 13:38:00 Peter 00 Results Test Description Test Test Results Result Source Time Comments Comments US Pelvis with 2018-12- PROCEDURE [facility] 20 INFORMATION:[place] 14:00:00 Pelvis Complete, Physic ians [id number] Transabdominal and US Pelvis, TransvaginalExam date and time: 12/28/2018 2:31 PMAge: 73 years oldClinical history: Postmenopausal bleeding; Additional info: /post menopausalbleedingTECHN IQUE:Imaging protocol: Real-time transabdominal and transvaginal pelvic ultrasound(complete) with image documentation. Transvaginal imaging was used for betterevaluation of the endometrium and adnexa.COMPARISON:No relevant prior studies available.FINDINGS: The uterus measures 6.6 x 5.5 x 4.5 cm. Multiple fibroids are noted includingintramural fibroid measuring 3.4 x 3.5 x 3.9 cm, a subserosal fibroid measuring2.4 x 2.5 x 3.0 cm and a smaller subserosal fibroid measuring 2.0 x 1.6 x 2.5cm. Endometrial stripe not clearly visualized. There appears to be an endocervicalmass that measures 1.9 x 1.5 x 3.0 cm. The ovaries are not seen. No adnexal masses. No free pelvic fluid.IMPRESSION:1. Fibroid uterus.2. Nonvisualized endometrium or ovaries.3. Endocervical mass may represent a polyp, submucosal fibroid, or malignancy.Recommend correlation with direct inspection and histologic sampling.Mk Fiore MD On 12/28/2018 18:10:20; [id number]--Moav by: Mk Fiore MDDictated Date/time: 12/28/18 18:10Electronically Signed by: Mk Fiore MD 12/28/1917:10FINAL REPORT CARDIAC ENZYMES 0.[address] 16:00:00 CHEM PANEL 2019-09- 129 [facility] [place] 10:31:00 CHEM PANEL [facility] [place] 10:31:00 CHEM PANEL 0.74 [facility] [place] 10:31:00 CHEM PANEL [facility] 10:31:00 CHEM PANEL 2018-10-11.9 [facility] [place] 10:31:00 CHEM PANEL [facility] 10:31:00 CHEM PANEL [facility] [place] 10:31:00 CHEM PANEL 2018-10-16.8 [facility] 10:31:00 CHEM PANEL [facility] 10:31:00 CHEM PANEL .9 [facility] [place] 10:31:00 HEMATOLOGY .8 [facility] [place] 10:31:00 HEMATOLOGY .1 [facility] [place] 10:31:00 HEMATOLOGY .9 [facility] [place] 10:31:00 HEMATOLOGY 2018-10-11.6 [facility] [place] 10:31:00 HEMATOLOGY .6 [facility] [place] 10:31:00 HEMATOLOGY 2018-10-11.5 [facility] [place] 10:31:00 HEMATOLOGY 1.3 [facility] [place] 10:31:00 HEMATOLOGY .7 [facility] 10:31:00 HEMATOLOGY .2 [facility] 10:31:00 HEMATOLOGY 2018-10-13.8 [facility] [place] 10:31:00 HEMATOLOGY 2018-10-11.21 [facility] 10:31:00 HEMATOLOGY 2018-10-17.0 [facility] 10:31:00 HEMATOLOGY .5 [facility] [place] 10:31:00 HEMATOLOGY .7 [facility] 10:31:00 HEMATOLOGY 2018-10-18 10:31:00 Test Item Value Reference Range Interpretation Comme nts MCH (test code = MCH) 28.1 pg 27.0-31.0 [facility] KlznpbyNWOZSQJGYN7158-40-04 10:31:0034.0[facility] 2018-10-18 10:31:0019.2[facility] TecaesaKPNWDMEODO6254-30-84 10:31:29502Hwqseejo XhhasoaUNOZKVESBJ0680-43-60 10:31:008.0[facility] XkihkqxLBRIKHGIHYWD4542-48-64 17:47:0010.2[facility] RfgputnYYZQMEKQRVLP6455-18-29 17:47:63697Frugswyy Cy KXLCHPGFPOGY3499-26-97 17:47:0010[facility] WusfgulLYEWDVPPPCIP1732-12-99 17:47:00 0.78[facility] ZndalbfKWFAYRASMVDY7957-81-02 17:47:83131Drawruvu Cy PDWHZFJASNLW3249-36-16 17:47:004.2[facility] AckujkqJFXJBBQZUZYD6213-48-14 17:47:81807Oikqaudl OvzhgujQJOCYRSEIRBO9364-03-49 17:47:0027[facility] QMXVTWEZWNBC2994-02-65 17:47:009.2[facility] EfmkambELVPQPPAKQEY2254-24-55 17:47:0088[facility] SfalwhfMGWQJQFEDQ5092-48-98 17:47:006.7[facility] LLQINROWPY3387-74-54 17:47:003.33[facility] YhuhihkVDBORMAPQE6068-32-17 17:47:00 9.4[facility] KagyrydDMGOXJQJSV9666-14-69 17:47:0028.0[facility]ann[facility]MATOLOG[facility] 2018-10-17 17:47:0084.1[facility] NdjdlyrWWKZPYVQPO8364-11-29 17:47:00 Test Item Value Reference Range Interpretation Comments MCH (test code = MCH) 28.1 pg 27.0-31.0 [facility] ZpjyiihPVQMUWOEYI0773-21-69 17:47:0033.5[facility]annHEMATOLOGY 2018-10-17 17:47:0019.0[facility] AwwawoxQNUDVEDRXV4748-37-58 17:47:34646Bgfpkeea BsnjqswSGECZEXOPA0764-39-22 17:47:008.1[facility] TrnmxkpBRAKXYDTEY4092-08-51 17:47:0068.8[facility] AhdpreqQOXBEVXOVD1021-54-05 17:47:0017.8[facility] QGNIMBXMYF8329-82-31 17:47:0010.4[facility] ZfhyuccUBQQRWLXHQ9951-84-59 17:47:00 2.6[facility] OemervyHKTKBBZFMM3850-04-05 17:47:000.4[facility]annHEMATOLOGY 2018-10-17 17:47:004.6[facility] UrgrwpzGRBWIVOXNX6037-32-72 17:47:001.2[facility] DmvqkquFMWHDXICOR5683-17-07 17:47:000.7[facility] NvafzekYHZJQDCAIZ0901-89-52 17:47:000.2[facility] GbmobpmIXEHYZTSRS5337-39-96 03:10:009.6[facility] NMYCWBZUQW4559-45-26 03:10:0028.6[facility] RmoelhyBDGBGQUABBUE9985-88-29 11:39:00 11.8[facility] BhdpndtUQRQFUYAIJUC2860-74-94 11:39:0094[facility] DIPJHNVXOFNF7400-61-13 11:39:0010[facility] MjheihjRYHGZPECLNDG2996-73-25 11:39:00 0.90[facility] StgcxwiLUTJYAAFVALT5747-41-81 11:39:32349Pkxwoeqs Cy HJIIHCGGWAAE8945-88-00 11:39:003.8[facility] LxkakafWVEHYZHUCPAQ1693-64-48 11:39:96418Kuwbknvo BnyrqfgECRBRPEZUKVM7414-93-24 11:39:0023[facility] [place] OPRJRLRRHDHH0007-58-26 11:39:008.6[facility] ZjssmaxTKISPDMNWSOO7638-22-77 11:39:0075[facility] IvjplatGNLUBCSMJH5506-94-93 11:39:0059.7[facility] LRKFBADCPQ4492-92-80 11:39:0025.7[facility] FzhjxyfYVCLOQBBLM2498-47-55 11:39:00 11.3[facility] TszpazkXOANAUFXQF3969-98-36 11:39:002.7[facility]annHEMATOLOGY 2018-10-15 11:39:000.6[facility] PgfpvdjQEKVUXLIZO6446-79-06 11:39:003.5[facility] SutiuwuTAYBBUWDBV3142-61-25 11:39:001.5[facility] OzudyouUXXSVNAZGL5365-15-08 11:39:000.7[facility] GrkdgavRIIMRVVXUE3909-36-77 11:39:000.2[facility] PDVGLJDKLV1467-58-51 11:39:005.9[facility] GpiicbuLNHEHDOMHN6316-14-75 11:39:00 3.72[facility] OushaocRBPKRRRWVQ9340-66-30 11:39:0082.8[facility]annHEMATOLOGY 2018-10-15 11:39:00 Test Item Value Reference Range Interpretation Comments MCH (test code = MCH) 27.6 pg 27.0-31.0 [facility] JyuwwoaAHZIBIJXGQ3633-30-29 11:39:0033.3[facility]annHEMATOLOGY 2018-10-15 11:39:0019.6[facility] UvbjyhzSECZDIZQNY9753-44-42 11:39:66709Rddogxoe EufmopmXPKJEWDXZC3331-08-16 11:39:007.8[facility]annCARDIAC DYIXQKH0320-06-99 18:24:00 Test Item Value Reference Range Interpretation Comments CK MB Index (test code = CK MB Index) 1.1 1 <=2.5 [facility] MPYODNN1031-42-22 18:24:000.13[facility]annCARDIAC CVKATAK0296-89-00 18:24:89834Jiweaozz HermannCARDIAC MGWNSUY7627-03-04 18:24:00 1.9[facility]annCARDIAC NLAIENM3547-77-40 14:32:000.13[facility]annCARDIAC DLVEGNK3343-25-41 14:32:97155Wdbqsxir HermannCARDIAC BFFVTXK8265-89-51 14:32:00 1.9[facility]annCARDIAC ZDMAMIW5722-03-93 14:32:00 Test Item Value Reference Range Interpretation Comments CK MB Index (test code = CK MB Index) 1.1 1 <=2.5 [facility] GOAHJWI8257-25-44 09:44:20005Bljnyzbm HermannCARDIAC NCZBLPW3386-68-79 09:44:001.9[facility]annCARDIAC HPNHNDD0205-84-65 09:44:00 Test Item Value Reference Range Interpretation Comments CK MB Index (test code = CK MB Index) 1.0 1 <=2.5 [facility]annCHEM GQJVC7146-44-10 09:44:007.0[facility]annCHEM PANEL 2018-10-14 09:44:003.4[facility]annCHEM WLULJ7186-13-51 09:44:003.6[facility]annCHEM JQDEP4471-06-64 09:44:00 Test Item Value Reference Range Interpretation Comments A/G Ratio (test code = A/G Ratio) 0.9 1 0.7-1.6 [facility]annCHE[facility] ZFQAK0864-58-44 09:44:0014[facility]annCHEM PANEL 2018-10-14 09:44:0016[facility]annCHEM TWSFU1197-15-81 09:44:0094[facility]annCHEM TYPCM9321-22-08 09:44:000.2[facility]annCHEM RGRSG9147-33-60 09:44:00<0.1[facility]annCHEM HKAZS7373-29-50 09:44:002.3[facility] [place] CHEM BTTGZ0115-94-34 09:44:003.7[facility] UclcannLKLMDCQJTW0823-87-51 09:44:00 Test Item Value Reference Range Interpretation Comments INR (test code = INR) 0.94 1 0.85-1.17 [facility] RskzdmiWWDEEZJMUU3680-65-36 09:44:00 Test Item Value Reference Range Interpretation Comments PT (test code = PT) 12.4 s 12.0-14.7 [facility] TwfqiftFLFJXNCQYQ3576-97-14 09:44:00 Test Item Value Reference Range Interpretation Comments PTT (test code = PTT) 30.7 s 22.9-35.8 [facility] HvwocgcSCKMJF3624-55-97 09:44:00 Test Item Value Reference Range Interpretation Comments CHD Risk (test code = CHD Risk) 3.67 1 3.90-5.80 [facility] BxbftwmNKLTST4544-62-27 09:44:0061[facility] VtzzgckVGVJDB6184-87-16 09:44:47871Wxwprgdz YrqkxxlERMLWU2454-38-02 09:44:0070[facility] HermannLIPIDS 2018-10-14 09:44:25597Itjmeopa DkpilarJNEDUV7967-21-47 09:44:00 Test Item Value Reference Range Interpretation Comments VLDL (test code = VLDL) 12 1 [facility]annSPECIAL HGNZERSOM8374-10-25 09:44:006.1[facility] HermannCHEM EMOTH6199-90-60 10:00:008.8[facility]annCHEM SQOXN3829-46-08 10:00:0012.3 [facility]annCHEM EZRFF9351-63-00 10:00:0095[facility]annCHEM PANEL 2018-01-21 10:00:0026[facility]annCHEM GGXAO0517-67-63 10:00:0095[facility]annCHEM WTLIU1686-49-54 10:00:000.74[facility]annCHEM MOMOO9063-14-62 10:00:44042Wukqhunc HermannCHEM KSDLC5395-28-50 10:00:0096[facility]annCHEM TVDJG2199-93-13 10:00:009[facility]annCHEM XGLPT5407-96-00 10:00:004.3 [facility]annCHEM CPKTA6550-46-72 00:26:0011[facility]annCHEM PANEL 2018-01-21 00:26:75930Qoxacrzs HermannCHEM JJHTX4875-69-47 00:26:000.74[facility]annCHEM BKWNI8530-71-20 00:26:60515Tnwxoqez HermannCHEM PDZYB8953-86-77 00:26:004.3[facility]annCHEM EHARS9831-42-66 00:26:0096[facility]annCHEM BIPCR4377-04-74 00:26:0025[facility]annCHEM VZUGG1737-92-54 00:26:008.7 [facility]annCHE[facility] WOTPQ8944-38-36 00:26:0012.3[facility]annCHEM PANEL 2018-01-21 00:26:0095[facility]annCHEM AUPNE8877-02-11 18:35:92236Gfkcphpr HermannCHEM CZVTS9777-61-44 18:35:28400Pvmrlbvm HermannCHEM DTGLV7724-74-94 18:35:0011[facility]annCHEM SUKQA9585-27-32 18:35:000.65[facility]annCHEM GRGWK8173-10-44 18:35:0012.3[facility]annCHEM PXUBQ2634-22-83 18:35:004.3 [facility]annCHEM AZPJB1028-51-90 18:35:0095[facility]annCHEM PANEL 2018-01-20 18:35:59551Isjqbuoq HermannCHEM XWUPC4497-48-52 18:35:0026[facility]annCHEM EBAEG3847-98-28 18:35:008.7[facility]annURINE CLFS8699-63-64 17:02:0087[facility]annURINE ZRVM1058-95-66 17:02:0064[facility]annURINE RMXD0181-19-01 17:02:0040.0[facility]annURINE ASTD6687-67-45 17:02:52109 [facility]annUR[facility] SOTZ5717-57-65 16:48:28765Eehhegbp HermannHEMATOLOGY 2018-01-19 06:36:001.7[facility] GhpktpuEXWCDHXGIS6686-09-32 06:36:000.9[facility] EdsxrmwIUZEGHQZSH7857-83-60 06:36:001.9[facility] UlkzjxeUZZFAUZBXA0259-62-56 06:36:000.6[facility] WhryrzoKJHJBMNIVG4381-37-41 06:36:000.1[facility] [place] EHWQPOIHCS9238-27-62 06:36:0019.0[facility] CdibmqrNWZDEFTYIW1046-91-69 06:36:00 1.1[facility] OjflzcfXVRDYLDTQM1489-29-26 06:36:0041.5[facility] HermannHEMATOLOGY 2018-01-19 06:36:0037.8[facility] OnihaliWOZIJHWTGW6517-07-86 06:36:0085.7[facility] BuiyqhgEAINPUDWEI4708-98-14 06:36:0029.8[facility] CqellihRWIQZISIDK5885-10-30 06:36:00 Test Item Value Reference Range Interpretation Comments MCH (test code = MCH) 30.5 pg 27.0-31.0 [facility] DirvmaiSJWWAYRLHU6054-68-96 06:36:0010.6[facility]annHEMATOLOGY 2018-01-19 06:36:003.47[facility] PzopzdqPZLDZWQWAL0602-13-90 06:36:004.5[facility] XconjiiVYZTVCBPGB0736-62-30 06:36:007.5[facility] SlmrfbfCPXAIGHVAD9683-84-20 06:36:50188Dfsvphoq TofhsuvHGHVHNRVEE1240-60-21 06:36:0014.1[facility] Cy WEGFJJETVY2450-48-34 06:36:0035.6[facility]annURINE GMDG2267-09-00 06:29:00 331[facility]annURINE TEPU6017-16-78 06:29:0036[facility]UR[facility] CHEM 2018-01-19 06:29:0030[facility]annURINE IGKH8559-15-55 06:29:0028.5[facility]annURINE BZEH0826-70-24 22:03:0060.8[facility]annURINE CMKV2578-98-98 22:03:21343Tyedpnof HermannURINE TZHM8737-59-66 22:03:0071[facility] HermannCHEM JEVLV0502-81-33 03:01:001.8[facility] HermannCHEM EFNVK8730-50-17 03:01:001.5 [facility] HermannBACTERIAL - RCVUASTU5101-66-75 02:56:00Negative (01/16/18 8:56 PM)[facility] KtdbdycSNTADJ8134-81-46 02:56:00 Test Item Value Reference Range Interpretation Comments VLDL (test code = VLDL) 20 1 [facility] MhtduouQMQQPC8706-07-27 02:56:0075[facility] OdlkokuLYBFYC3260-06-62 02:56:64757Txufkjha TllxofaJDCMNX0503-41-33 02:56:70876Qcymgzsm HermannLIPIDS 2018-01-17 02:56:0037[facility] SklcdwpJNMTTI0329-90-95 02:56:00 Test Item Value Reference Range Interpretation Comments CHD Risk (test code = CHD Risk) 3.57 1 3.90-5.80 [facility] AND UMXSB5798-66-59 02:56:00Trace *ABN*(01/16/18 8:56 PM) [facility] LLADZ3757-39-26 02:56:00Negative *NA*(01/16/18 8:56 PM) [facility] XSFQI9978-86-65 02:56:00Negative *NA*(01/16/18 8:56 PM) [facility] JVZHL1545-91-51 02:56:00Negative (01/16/18 8:56 PM) [facility] ZPXOJ3138-89-25 02:56:00Negative (01/16/18 8:56 PM) [facility] AND UWFEL7862-06-44 02:56:001.0[facility]UR[facility] AND JGAPB6753-21-68 02:56:00Negative (01/16/18 8:56 PM)[facility] AND WZDUT9239-74-33 02:56:00Negative (01/16/18 8:56 PM)[facility] AND NAXTL9011-57-39 02:56:00Clear (01/16/18 8:56 PM)[facility] AND STOOL 2018-01-17 02:56:00 Test Item Value Reference Range Interpretation Comments UA Spec Grav (test code = UA Spec 1.015 1 Grav) [facility] AND KSFIS2559-49-12 02:56:00 Test Item Value Reference Range Interpretation Comments UA pH (test code = UA pH) 6.5 1 5.0-8.0 [facility] AND BSGNM5885-14-56 02:56:00Yellow *NA*(01/16/18 8:56 PM) [facility] UOQAV9013-47-79 02:56:001[facility] AND RGKCL4872-09-18 02:56:00<1[facility] IKFR5557-60-19 02:56:00None Seen (01/16/18 8:56 PM)[facility] GMXU5632-67-94 02:56:0019.8[facility]annURINE MXIS0299-03-48 02:56:00 Test Item Value Reference Range Interpretation Comments U Prot/Creat (test code = U 0.34 1 Prot/Creat) [facility] DOED2287-56-09 02:56:0058.90[facility]annCARDIAC ORBMQWL0223-98-55 00:21:12806Dciqcxjf HermannCARDIAC TAIVIBN7723-90-28 00:21:00 0.32[facility] HermannCHEM ZQAVD1284-06-30 00:21:007.1[facility] HermannCHEM PANEL 2018-01-17 00:21:00 Test Item Value Reference Range Interpretation Comments A/G Ratio (test code = A/G Ratio) 1.0 1 0.7-1.6 [facility]annCHEM AKRDD0654-81-12 00:21:003.6[facility] HermannCHEM PANEL 2018-01-17 00:21:003.5[facility] HermannCHEM YDJBK7106-84-31 00:21:00 Test Item Value Reference Range Interpretation Comments B/C Ratio (test code = B/C Ratio) 10 1 6-25 [facility]annCHEM OBGJT1110-15-61 00:21:0069[facility] HermannCHEM PANEL 2018-01-17 00:21:000.4[facility] HermannCHEM TVFLS2605-44-41 00:21:0058[facility] HermannCHEM OYUUR7797-74-65 00:21:0052[facility] YfhjbudYWJLFEVBKF9574-59-77 00:21:72186Artfymja EekzhlsQRNRWSBMOB3434-78-05 00:21:007.9[facility] ZBUJIJXELV3840-58-46 00:21:00 Test Item Value Reference Range Interpretation Comments MCH (test code = MCH) 30.0 pg 27.0-31.0 [facility] JcdqmpsSUCWKNVVPX7386-16-34 00:21:0085.4[facility] HermannHEMATOLOGY 2018-01-17 00:21:0035.4[facility] ObbulefFJBARTYWMH4558-41-81 00:21:0013.9[facility] AnoslfxOLVCZNFCAG2486-00-84 00:21:0035.1[facility] MztujloPVWKZSZUCN4567-40-43 00:21:004.2[facility] BgqaoweAUBFYCEKRR2744-35-12 00:21:004.15[facility] Cy EQKEYMXHZK1647-04-87 00:21:0012.4[facility] UisaivbOKFFTPDEWI5311-74-58 00:21:00 0.2[facility] ScnjsgcJXMBKAOTTP8900-48-57 00:21:000.8[facility] HermannHEMATOLOGY 2018-01-17 00:21:001.6[facility] OutpxwyBMFEKJHCMC7572-78-34 00:21:001.0[facility] QehxjtwIHYWTYCMFC1049-31-64 00:21:003.6[facility] DexiyskHSXSFWXAJK7429-19-14 00:21:001.6[facility] NgqkaqrSSFJFEDYRE7166-85-39 00:21:0018.9[facility] Cy TWPYTUWDFL3818-89-10 00:21:0038.4[facility] WgrxvemFQAHTPBQXV1940-96-08 00:21:00 38.1[facility]
[2019-10-13 16:19] VITALS: BMI 28.3
[2019-10-13] MEDS ORDERED: D50W 25 GM/50 ML SYRINGE/VIAL IV PRN (16:20)
[2019-10-13] MEDS ORDERED: GLUCAGON 1 MG/VIAL IM PRN (16:20)
[2019-10-13] MEDS ORDERED: ACETAMINOPHEN 325 MG TABLET PO PRN (16:28)
[2019-10-13] MEDS: INSULIN -REGULAR HUMAN 50 UNIT/0.5 ML ML SQ SCH ×2 (16:30→20:33)
[2019-10-13] MEDS ORDERED: LOPERAMIDE HCL 2 MG CAPSULE PO PRN (16:32)
[2019-10-13] MEDS ORDERED: SODIUM CHLORIDE 0.9% 10ML INJ IV PRN (16:32)
[2019-10-13] MEDS ORDERED: ONDANSETRON 4 MG/2 ML VIAL IV PRN ×2 (16:32→16:58)
[2019-10-13] MEDS ORDERED: POLYETHYL GLY 3350 17 GM/DOSE PO PRN (16:32)
[2019-10-13] MEDS ORDERED: DIPHENHYDRAMINE 25 MG TAB/CAP PO PRN (16:32)
[2019-10-13] MEDS ORDERED: NACHLORIDE 0.45% 1,000 ML IV SCH (17:00)
--- NOTE | 2019-10-13 17:12 | RAD REPORT ---
EXAM DESCRIPTION: Layo Lebron (2 Views)10/13/2019 4:55 pm CLINICAL HISTORY: Hypertension blood transfusion COMPARISON: 2012 FINDINGS: The lungs appear clear of acute infiltrate. The heart is mildly to moderately enlarged. A sravani is tortuous/ectatic. Post surgical changes involve the chest IMPRESSION: No acute abnormalities displayed
[2019-10-13] MEDS: PANTOPRAZOLE 40 MG INJ IVP SCH (19:59)
[2019-10-13] MEDS: METOPROLOL TAR 50 MG TAB PO SCH (20:01)
[2019-10-13] MEDS ORDERED: ATORVASTATIN 40 MG TAB PO SCH ×3 (21:00)
[2019-10-13] MEDS ORDERED: METOPROLOL TAR 50 MG TAB PO SCH ×2 (21:00)
[2019-10-13] MEDS ORDERED: METFORMIN ER 500 MG TAB PO SCH (21:00)
[2019-10-13 21:27] VITALS: O2SAT 96
[2019-10-13] MEDS: FUROSEMIDE 20 MG/ 2ML VIAL IV SCH (21:43)
[2019-10-14] MEDS: FUROSEMIDE 20 MG/ 2ML VIAL IV SCH (03:08)
[2019-10-14 04:56] LABS: Absolute Lymphocytes (CBC) 1.8 K/uL (0.7-4.9); Basophils % 0.7 % (0-1.3); Hematocrit 29.5 % (36.0-45.0); Lymphocytes % 20.6 % (15.3-44.8); MPV 8.8 fL (7.6-11.3); RBC Red Blood Cell Count 4.07 M/uL (3.86-4.86)
[2019-10-14 05:00] LABS: Magnesium 2.1 mg/dL (1.8-2.4); Potassium 3.8 mmol/L (3.5-5.1)
[2019-10-14 06:39] LABS: Blood Morphology Comment NOTED (NOT SEEN); Platelet Estimate ADEQ; White Blood Cell Scan OK (OK)
[2019-10-14 06:41] LABS: Anisocytosis 2+; Poikilocytosis 1+
[2019-10-14 06:42] LABS: Elliptocytes 1+
[2019-10-14] MEDS: INSULIN -REGULAR HUMAN 50 UNIT/0.5 ML ML SQ SCH (07:30)
[2019-10-14] MEDS ORDERED: METFORMIN ER 500 MG TAB PO SCH ×2 (08:00)
[2019-10-14] MEDS: PANTOPRAZOLE 40 MG INJ IVP SCH (08:33)
[2019-10-14] MEDS: METOPROLOL TAR 50 MG TAB PO SCH (08:34)
[2019-10-14] MEDS ORDERED: HOME MED 1 EA UNK (Losartan Potassium [Losartan Potassium] 100 MG) PO SCH (09:00)
[2019-10-14] MEDS ORDERED: ASPIRIN 81 MG CHEWABLE TABLET PO SCH (09:00)
[2019-10-14] MEDS ORDERED: LOSARTAN POTASSIUM 50 MG TABLET PO SCH ×2 (09:00)
[2019-10-14] MEDS ORDERED: ASPIRIN 81 MG EC TABLET PO SCH (09:00)
[2019-10-14] MEDS ORDERED: SERTRALINE HCL 50 MG TAB PO SCH ×3 (09:00)
[2019-10-14] MEDS ORDERED: FAMOTIDINE 20 MG TAB PO SCH (09:00)
[2019-10-14 10:00] VITALS: BP 173/78; TEMP 97.9
--- NOTE | 2019-10-14 12:01 | P.SSS ---
Patient History Date of Service: 10/14/19 Reason for admission: FATIGUE AND LOW HG History of Present Illness: MIREYA HAS ANEMIA WITH HG DOWN TO 7.4 ON LAB YEST AM. I CALLED HER TO GET ADMITED AND GET TRANSFUSED SHE IS A CARDIAC PATIENT. SHE HAS NO CHEST PAIN OR DYSPNEA. Allergies No Known Allergies Allergy (Verified 11/08/18 12:38) Home Medications: Atorvastatin Calcium 1 tab PO BEDTIME 11/08/18 Losartan Potassium 100 mg PO DAILY 11/08/18 Metformin ER [Glucophage ER*] 1 tab PO BID 11/08/18 Metoprolol Tartrate 1 tab PO Q12H 11/08/18 Sertraline [Zoloft*] 1 tab PO DAILY 11/08/18 Aspirin [Low Dose Aspirin EC] 81 mg PO DAILY 10/13/19 Famotidine [Pepcid*] 20 mg PO DAILY 10/13/19 - Past Medical/Surgical History Has patient received pneumonia vaccine in the past: Yes Diabetic: Yes -: DM -: HTN -: HLD -: Heart Bypass 11/01/18 -: Tubal Ligation- 38 yrs ago - Social History Smoking Status: Never smoker Alcohol use: No CD- Drugs: No Caffeine use: Yes Place of Residence: Home Review of Systems 10-point ROS is otherwise unremarkable General: Weakness, Malaise Physical Examination - Vital Signs Temperature: 97.9 F Blood Pressure: 173/78 Pulse: 58 Respirations: 18 Pulse Ox (%): 98 - Physical Exam General: Oriented x3, Mild distress HEENT: Atraumatic, PERRLA, Mucous membr. moist/pink, EOMI, Sclerae nonicteric Neck: Supple, 2+ carotid pulse no bruit, No LAD, Without JVD or thyroid abnorma lity Respiratory: Clear to auscultation bilaterally, Normal air movement Cardiovascular: Regular rate/rhythm, Normal S1 S2 Gastrointestinal: Normal bowel sounds, No tenderness Musculoskeletal: No tenderness Integumentary: No rashes Neurological: Normal gait, Normal speech, Normal strength at 5/5 x4 extr, Normal tone, Normal affect Lymphatics: No axilla or inguinal lymphadenopathy - Studies Laboratory Data (last 24 hrs) 10/14/19 04:40: Sodium 142, Potassium 3.8, BUN 16, Creatinine 1.09, Glucose 100, Magnesium 2.1 10/14/19 04:40: WBC 8.9 D, Hgb 10.0 L D, Hct 29.5 L D, Plt Count 253 10/13/19 20:15: Plt Count Cancelled Microbiology Data (last 24 hrs): 10/13/19 17:35 Nasopharnyx Coronavirus COVID-19 PCR - Final - Diagnosis (Problem(s)) (1) Severe anemia Status: Acute Plan: TRANSFUSED TWO UNITS. SHE HAS APT WITH DR. FUENTES FOR EGD AND CRC. (2) Coronary artery disease due to type 2 diabetes mellitus Status: Chronic Plan: A1C IS GOOD. SHE GOES TO DR BO FOR CAD. (3) Major depression in remission Status: Chronic Plan: STABLE ANXIETY AND DEP ON MEDICINE CELEXA. - Disposition Disposition: ROUTINE DISCHARGE Condition: FAIR Patient Discharge Instructions: Go back to Dr. Fuentes for recurring anemia.
== END 2019-10-14 10:47 | disposition home or self-care (01) ==
LOC: 2ND 15:46
PROVIDERS: ADMIT Internal Medicine; ATTEND Internal Medicine
DX: D64.9 Anemia, unspecified (principal); Z20.828 Contact with and (suspected) exposure to other viral communicable diseases; E11.9 Type 2 diabetes mellitus without complications; I10 Essential (primary) hypertension; I25.10 Atherosclerotic heart disease of native coronary artery without angina pectoris; E78.5 Hyperlipidemia, unspecified; F32.5 Major depressive disorder, single episode, in full remission; F41.9 Anxiety disorder, unspecified; Z79.84 Long term (current) use of oral hypoglycemic drugs; Z79.82 Long term (current) use of aspirin; Z79.899 Other long term (current) drug therapy; Z95.1 Presence of aortocoronary bypass graft
CPT/HCPCS: 36430 ×2; 87040; 85025; 80048; 36415; 86900; 83735; 86850; 86901; 82947 ×3; 71046; U0002; J1940 ×2; C9113 ×2; G0378 ×2; P9016 ×2; G0379

== ENCOUNTER 2020-07-05 14:44 | Emergency (ER) | payer OTHER ==
--- OUTSIDE RECORDS SUMMARY | 2020-07-05 14:54 | XMS REPORT | Continuity of Care Document ---
:1945 Author Organization [facility] t Address [address] [place] [address] Care Team Providers Name Role Phone Shahram Sarabia Attending Clinician Anh Attending Clinician Chon Attending Clinician CHELSEY Attending Clinician Unavailable Gunnar Gama Attending Clinician Kandis Ball Attending Clinician Khari Santos Attending Clinician BALJEET Attending Clinician Unavailable Stefanie Salazar Attending Clinician Brannon Attending Clinician Shahram Sarabia Admitting Clinician Chon Admitting Clinician Marcelo Benson Admitting Clinician Khari Santos Admitting Clinician Stefanie Salazar Admitting Clinician Brannon Admitting Clinician Payers Payer Name Policy Type Policy Number Effective Date Expiration Date S ource Problems Condition Condition Condition Status Onset Resolution Last Treating Co mments Source Name Details Category Date Date Treatment Clinician Date NSTEMI Diagnosis Active 2019-022019-12-24 Mem oria 02-22 08:14:00 l NSTEMI 00:00: Cy 00 Active 12/24/2019 [facility], [place] NON-ST Diagnosis Active 2019-022020-04-18 Mem oria ELEVATION 1-15 14:10:00 l MT NON-ST 00:00: Cy (NSTEMI) ELEVATION 00 MT (NSTEMI) Active 12/24/2019 [facility] ANEMIA Diagnosis Active 2019-022019-11-16 Mem oria 0-05 12:53:00 l ANEMIA 00:00: Cy 00 Active 11/13/2019 [facility] LEFT SIDE Diagnosis Active 2019-10-29 Memoria PAIN 10-27 00:49:00 l LEFT 00:00: [place] SIDE PAIN 00 Active 10/28/2019 [facility] ANEMIA, HX Diagnosis Active 2019-10-30 Memoria OF CABG, 10-27 15:51:00 l ACUTE ANEMIA, 00:00: [place] UTI,ABD HX OF 00 LYMPHA CABG, ACUTE UTI,ABD LYMPHA Active 10/28/2019 [facility] Cy N92.6 - Diagnosis Active 2018-022019-01-12 Me moria IRREGULAR 02-15 14:31:00 l MENSTRUATI N92.6 - 00:01: Her alanis ON, UNSPEC IRREGULAR 00 N MENSTRUATI ON, UNSPEC N Active 12/16/2018 [facility] [place] GI BLEED Diagnosis Active 2018-022019-01-20 M emoria 0-18 08:37:00 l GI BLEED 00:00: Yoel n 00 Active 11/25/2018 [facility] ORTHOSTATI Diagnosis Active 2018-022019-01-20 Memoria C 0-15 08:45:00 l HYPOTENSIO 08:50: Yoel n N ORTHOSTATI 00 C HYPOTENSIO N Active 11/22/2018 [facility] Cy R06.02 - Diagnosis Active 2018-022018-11-18 M emoria SHORTNESS 0-11 14:31:00 l OF BREATH R06.02 - 00:01: Her alanis SHORTNESS 00 OF BREATH Active 11/18/2018 [facility] [place] CAD WITH Diagnosis Active 2019-01-20 M emoria ANGINA 10-31 08:46:00 l CAD WITH 00:00: Yoel n ANGINA 00 Active 10/31/2018 [facility] ACUTE Diagnosis Active 2017-022018-08-17 Mem oria HYPONATREM 03-19 12:31:00 l IA, ACUTE 00:00: [place] TREMOR, HYPONATREM 00 LEG IA, CRAMPING TREMOR, LEG CRAMPING Active 01/16/2018 [facility] ANXIETY Diagnosis Active 2017-2018-01-16 Il moria - 18:47:00 l ANXIETY 00:00: [place] 00 Active 01/16/2018 [facility] [place] Anemia, Problem 2018-08-10 Albino juan unspecifie 14:19:56 l d Anemia, [place] unspecifie d 08/10/2018 [facility] 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 14:19:56 l Cy Hypocalcem ia 08/10/2018 [facility] Type 2 Problem 2018-08-10 Memor ia diabetes 14:19:56 l mellitus Type 2 Yoel n without diabetes complicati mellitus ons without complicati ons 08/10/2018 [facility] Other Problem 2018-08-10 Memor ia disorders 14:19:56 l of Other [place] electrolyt disorders e and of fluid electrolyt balance, e and not fluid elsewhere balance, classified not elsewhere classified 08/10/2018 [facility] Anxiety Problem 2018-08-10 Albino juan disorder, 14:19:56 l unspecifie Anxiety Her alanis d disorder, unspecifie d 08/10/2018 [facility] Essential Problem 2018-08-10 Me moria (primary) 14:19:56 l hypertensi Yoel n on Essential (primary) hypertensi on 08/10/2018 [facility] Adverse Problem 2018-08-10 Alb[place] juan effect of 14:19:56 l carbonic-a Adverse Her alanis nhydrase effect of inhibitors carbonic-a , nhydrase benzothiad inhibitors iazides , and other benzothiad diuretics, iazides initial and other encounter diuretics, initial encounter 08/10/2018 [facility] Adverse Problem 2018-08-10 Alb[place] juan effect of 14:19:56 l selective Adverse Herm dea serotonin effect of reuptake selective inhibitors serotonin , initial reuptake encounter inhibitors , initial encounter 08/10/2018 [facility] Cough Problem 2018-08-10 Memor ia 14:19:56 l Cough [place] 08/10/2018 [facility] Cramp and Problem 2018-08-10 Me moria spasm 14:19:56 l Cramp [place] and spasm 08/10/2018 [facility] Tremor, Problem 2018-08-10 Albino juan unspecifie 14:19:56 l d Tremor, [place] unspecifie d 08/10/2018 [facility] [employer] Problem 2018-08-10 Me moria (current) 14:19:56 l use of Long Cy insulin term (current) use of insulin 08/10/2018 [facility] Dehydratio Problem 2018-11-27 M emoria n 21:08:52 l [place] Dehydratio n 11/27/2018 [facility] Non-ST Problem 2019-12-28 Memor ia elevation 23:42:34 l (NSTEMI) Non-ST Yoel n myocardial elevation infarction (NSTEMI) myocardial infarction 12/28/2019 [facility] Diabetes Problem Resolve 2019-12-28 Me moria mellitus d 23:42:34 l (disorder) Diabetes He rmann mellitus (disorder) Resolved Problem 12/28/2019 [facility] Hyperlipid Problem Resolve 2019-12-28 Memoria emia d 23:42:34 l (disorder) Yoel n Hyperlipid emia (disorder) Resolved Problem 12/28/2019 [facility] Hypertensi Problem Resolve 2019-12-28 Memoria ve d 23:42:34 l disorder, Cy systemic Hypertensi arterial ve (disorder) disorder, systemic arterial (disorder) Resolved Problem 12/28/2019 [facility] Coronary Problem Active 2019-12-28 Mem oria arterioscl 23:42:34 l erosis Coronary Yoel n (disorder) arterioscl erosis (disorder) Active Problem 12/28/2019 [facility] Anemia of Problem Active 2019-12-28 Me moria chronic 23:42:34 l disorder Anemia Yoel n (disorder) of chronic disorder (disorder) Active Problem 12/28/2019 [facility] Leukemia, Problem Active 2019-12-28 Me moria disease 23:42:34 l (disorder) Yoel n Leukemia, disease (disorder) Active Problem 12/28/2019 [facility] Diabetes Problem Active 2019-12-28 Mem oria mellitus 23:42:34 l type 2 Diabetes Yoel n (disorder) mellitus type 2 (disorder) Active Problem 12/28/2019 [facility] HYPO-OSMOL Diagnosis Active 2018-08-17 Memoria ALITY AND 12:31:00 l HYPONATREM Yoel n IA HYPO-OSMOL ALITY AND HYPONATREM IA [facility] TREMOR, Diagnosis Active 2018-08-17 Me moria UNSPECIFIE 12:31:00 l D TREMOR, Cy UNSPECIFIE D Active [facility] [place] CRAMP AND Diagnosis Active 2018-08-17 Memoria SPASM 12:31:00 l CRAMP [place] AND SPASM Active [facility] UNSTABLE Diagnosis Active 2019-01-20 M emoria ANGINA 08:46:00 l UNSTABLE Yo[place] n ANGINA Active [facility] DEHYDRATIO Diagnosis Active 2019-01-20 Memoria N 08:45:00 l Cy DEHYDRATIO N Active [facility] ANEMIA, Diagnosis Active 2019-10-30 Me moria UNSPECIFIE 15:51:00 l D ANEMIA, [place] UNSPECIFIE D Active [facility] Cy PRESENCE Diagnosis Active 2019-10-30 M emoria OF 15:51:00 l AORTOCORON PRESENCE He rmann ZOIE BYPASS OF GRAFT AORTOCORON ZOIE BYPASS GRAFT Active [facility] URINARY Diagnosis Active 2019-10-30 Me moria TRACT 15:51:00 l INFECTION, URINARY Her alanis SITE NOT TRACT SPECIF INFECTION, SITE NOT SPECIF Active [facility] NON-ST Diagnosis Active 2020-04-18 Mem oria ELEVATION 14:10:00 l (NSTEMI) NON-ST Yoel n MYOCARDIAL ELEVATION INF (NSTEMI) MYOCARDIAL INF Active [facility] Irregular Irregular Problem Active [facility] bleeding bleeding [facility] [place] [facility] Post-menop Post-menop Problem Active U nivers ausal ausal ity of bleeding bleeding [place] [facility] Encounter Encounter Problem Active [facility] for for ity of routine routine [place] gynecolog[facility] gynecologi Ph ysici shelby shelby ans examinatio examinatio n n Irregular Irregular Problem Active [facility] Length Of Length Of ity of [place]al Menstrual [place] Periods Periods Physici ans History of Past Illness Condition Condition Condition Status Onset Resolution Last Treating Co mments Source Name Details Category Date Date Treatment Clinician Date Syndrome Problem 2017-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 2018-08-10 Memoria of 2-20 14:19:56 14:19:56 l 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 01/27/2018 08/10/2018 [facility] Allergies, Adverse Reactions, Alerts Allergy Allergy Status Severity Reaction(s) Onset Inactive Treating Comm ents Source Name Type Date Date Clinician No Known DA Active U 2019-02 [facility] Allergie 0-01 Clear s 00:00: [facility] 00 [facility] No Known No Known Active Memori a Medicati Medicati l on on [place] Allergie Allergie s s Family History Family Member Diagnosis Comments Start Date Stop Date Source natural son [facility] natural son Family history of [facility] diabetes mellitus Physici ans Sister Family history of [facility] hypertension Physicians Sister Family history of [facility] diabetes mellitus Physici ans Social History Social Habit Start Date Stop Date Quantity Comments Source [facility] History 2018[facility]11[facility]23 [facility] Smoking Status Start Date Stop Date Source Social History [facility] Medications Ordered Filled Start Stop Current Ordering Indication Dosage Frequency Signature Comments Components Source Medication Medication Date Date Medication? Clinician (SIG) Name Name Losartan 2019-02 No Notes: Memoria 1-18 (Same as: l 15:00: Cozaar) Cy 00 atorvastati 2019-02 No Notes: Alb[place] juan n 1-18 (Same as: l 03:00: Lipitor) [place] 00 Aspirin 81 2019-02 Yes 81 mg = 1 Me moria MG Enteric 1-17 tab, PO, l Coated 20:11: Daily, # Cy Tablet 00 30 tab, 11 Refill(s) atorvastati 2019-02 Yes 40 mg = 1 M emoria n 40 mg 1-17 tab, PO, l oral tablet 20:11: Bedtime, # Cy 00 30 tab, 11 Refill(s) losartan 2019-02 Yes 100 mg = 1 Mem oria 100 mg oral 1-17 tab, PO, l tablet 20:11: Daily, # Cy 00 30 tab, 0 Refill(s) metoprolol 2019-02 Yes 50 mg = 1 Me moria tartrate 50 1-17 tab, PO, l mg oral 20:11: Q12H, # 60 Herm dea tablet 00 tab, 11 Refill(s) clopidogrel 2019-02 Yes 75 mg = 1 M emoria 75 mg oral 1-17 tab, PO, l tablet 20:11: Daily, # Cy 00 30 tab, 0 Refill(s) Sodium 2019-02 No 750 mL, Memoria Chloride -16 Rate: 75 l 0.9% IV 750 16:03: ml/hr, Herm dea mL 00 Infuse over: 10 hr, Route: IV, Dosing Weight 76.005 kg, Total Volume: 750, Start date: 12/25/19 10:03:00 SLIP LASTER, Duration: 10 hr, Stop date: 12/25/19 20:02:00 SLIP LASTER, 1.84, m2, 0 Ondansetron 2019-02 No 4 mg, Memor ia 16 Route: l 16:03: IVP, Q8H, Cy 00 Dosing Weight 76.005, kg, PRN Nausea & Vomiting, Start date: 12/25/19 10:03:00 SLIP LASTER, Duration: 30 day, Stop date: 01/24/20 10:02:00 SLIP LASTER Acetaminoph 2019-02 No Notes: Do M emoria en 1-16 not exceed l 16:03: 4 gm/day. [place] (Same as: Tylenol) acetaminoph 2019-02 No Notes: Do M emoria en-codeine 1-16 not exceed l #3 16:03: 4gm/day of [place] acetaminop hen. (Same as: Tylenol with Codeine # 3) atorvastati 2019-02 No Notes: Albino juan n -16 (Same as: l 03:00: Lipitor) Cy Tylenol 2019-02 No Notes: Do Memor ia 1-16 not exceed l 02:34: 4 gm/day. Cy (Same as: Tylenol) Lactulose 2019-02 No Notes: Memori a 667 MG/ML -16 (Same l Oral 01:14: as:Chronul [place] Solution 00 ac) Docusate 2019-02 No Notes: Memoria Sodium 100 -15 (Same as: l MG Oral 23:00: Colace) Cy Capsule (Do Not [Colace] Crush) clopidogrel 2019-02 No Notes: Albino juan 1-15 (Same As: l 15:12: Plavix) [place] 00 Losartan 2019-02 No Notes: Memoria 1-15 (Same as: l 15:00: Cozaar) metoprolol 2019-02 No metoprolol M emoria tartrate 50 1-15 tartrate l mg oral 15:00: 50 mg oral Herm dea tablet 00 tablet, 50 mg, Drug form: TAB, Route: PO, Q12H, 12/24/19 9:00:00 SLIP LASTER, Duration: 30 day, Stop date: 01/22/20 21:00:00 SLIP LASTER Omeprazole 2019-02 No 40 mg, 1 Mem oria 1-15 cap, l 15:00: Route: PO, [place] 00 Drug form: DRC, Daily, Dosing Weight 76.005, kg, Start date: 12/24/19 9:00:00 SLIP LASTER, Duration: 30 day, Stop date: 01/22/20 9:00:00 SLIP LASTER Protonix 2019-02 No Notes: Memoria 1-15 Tablet l 15:00: should not Cy 00 be chewed or crushed. (Same as: Protonix) metoprolol 2019-02 No Notes: Memor ia 1-15 (Same as: l 15:00: Lopressor) Hydralazine 2019-02 No Notes: Albino juan 1-15 (Same as: l 12:02: Apresoline Cy ) Push over 5 minutes Acetaminoph 2019-02 No Notes: Do M emoria en 300 MG / 1-15 not exceed l Codeine 12:01: 4gm/day of Herm dea Phosphate 00 acetaminop 30 MG Oral hen. Tablet (Same as: [Tylenol Tylenol with with Codeine #3] Codeine # 3) Aspirin 81 2019-02 No Notes: Memor ia MG Chewable 1-15 Take with l Tablet 12:00: food. [place] acalabrutin 2019-02 Yes 100 mg = 1 Memoria ib 100 MG 1-15 cap, PO, l Oral 11:55: Q12H, 0 Cy Capsule 00 Refill(s) [Calquence] Acetaminoph 2019-02 Yes 1 tab, PO, Memoria en 300 MG / 1-15 Q4H, PRN l Codeine 11:55: Pain, # 42 Herm dea Phosphate 00 tab, 0 30 MG Oral Refill(s) Tablet [Tylenol with Codeine #3] Heparin 60 2019-02 No Route: Memor ia unit/kg 1-15 IVP, PRN, l Bolus 11:34: 3,500 Cy (Heparin 00 unit, 3.5 Dosing mL, Drug Weight) form: INJ, PRN, Heparin Protocol, Start date: 12/24/19 5:34:00 SLIP LASTER Stop date: 01/23/20 5:33:00 SLIP LASTER, 30 day, 0 Heparin 30 2019-02 No Route: Memor ia unit/kg 1-15 IVP, PRN, l Bolus 11:34: 1,800 [place] (Heparin 00 unit, 1.8 Dosing mL, Drug Weight) form: INJ, PRN, Heparin Protocol, Start date: 12/24/19 5:34:00 SLIP LASTER Stop date: 01/23/20 5:33:00 SLIP LASTER, 30 day, 0 heparin 2019-02 No Notes: Memoria additive 1-15 Total l 25,000 unit 11:34: Concentrat [place] [12 00 ion = 50 unit/kg/hr] unit/ ml + Premix Total Diluent volume = Sodium 500 ml Chloride Send Med 0.45% 500 Request 2 mL hours prior to next bag Dextrose 2019-02 No 12.5 gm, Memor ia 50% Syringe 1-15 25 mL, l (D50W) 11:34: Route: Cy 00 IVP, Drug Form: INJ, Dosing Weight 75, kg, PRN, PRN Blood Glucose Results, Start date: 12/24/19 5:34:00 SLIP LASTER, Duration: 30 day, Stop date: 01/23/20 5:33:00 SLIP LASTER, 0 Glucagon 2019-02 No 1 mg, Memoria 1-15 Route: IM, l 11:34: Drug form: [place] 00 PDR/INJ, PRN, Dosing Weight 75, kg, PRN Blood Glucose Results, Start date: 12/24/19 5:34:00 SLIP LASTER, Duration: 30 day, Stop date: 01/23/20 5:33:00 SLIP LASTER, 0 Insulin 2019-02 No Notes: Memoria Lispro 1-15 (Same as: l 11:34: Humalog) Cy 00 Roll in palms of hands gently; Do not shake vigorously . WASTE: F/P - Black; E - Municipal Trash Bin Stable for 28 days at room temperatur e. Expires in days from ____Date Nitroglycer 2019-02 No Notes: Albino juan in 02-22 (Same l 11:32: as:Nitroqu ick, Nitrostat) "Do Not Crush" Sublingual tablet Ondansetron 2019-02 No Notes: Albino juan 02-22 (Same as: l 11:32: Zofran) MEDICATION WASTE Product Size: 4 mg Product Wasted: ___ mg losartan 2019-02 Yes 100 mg = 1 Mem oria 100 mg oral 0-08 tab, PO, l tablet 18:07: Daily, # [place] 00 30 tab, 0 Refill(s) Cefuroxime Yes 500 mg = 1 M emoria 500 MG Oral 9-21 tab, PO, l Tablet 18:19: [id number], X Taya nn 00 5 day, # 10 tab, 0 Refill(s), Pharmacy: [facility], 154.94, cm, 10/29/19 1:46:00 CDT, Height, 74, kg, 10/29/19 1:46:00 CDT, Weight Fentanyl No 100 Memoria - microgram, l 16:30: Route: IV, ONCE, Dosing Weight 74, kg, Start date: 10/30/19 11:30:00 CDT, Stop date: 10/30/19 11:30:00 CDT Versed No 2 mg, Memoria 10-29 Route: IV, l 16:30: ONCE, Dosing Weight 74, kg, Start date: 10/30/19 11:30:00 CDT, Stop date: 10/30/19 11:30:00 CDT Sertraline No Notes: Memor ia 10-29 (Same as: l 14:00: Zoloft) Aspirin 81 No Notes: Do Me moria MG Enteric 10-29 not crush l Coated 14:00: or chew. Tablet (Same As: Ecotrin) atorvastati 2020-0 No Notes: Albino juan n 9-21 (Same as: l 02:00: Lipitor) heparin No Notes: Memoria 9-21 porcine l 02:00: heparin metoprolol No Notes: Memor ia tartrate -20 (Same as: l 15:00: Lopressor) Cefuroxime No Notes: (Do M emoria 500 MG Oral - Not Crush) l Tablet 15:00: With food. (Same As: Ceftin) Tylenol No Notes: Do Memor ia -20 not exceed l 14:13: 4 gm/day. (Same as: Tylenol) Zofran No Notes: Memoria -20 (Same as: l 14:13: Zofran) MEDICATION WASTE Product Size: 4 mg Product Wasted: ___ mg Tessalon No Notes: Memoria Perles -20 (Same As: l 14:13: Tessalon Perles) "Do Not Crush" sennosides, No Notes: Albino juan RESIDENTIAL 8.6 MG - (Same as: l Oral Tablet 14:13: Senokot) He Docusate No Notes: Memoria -20 (Same as: l 14:00: Colace) (Do Not Crush) Dextrose No 12.5 gm, Memor ia 50% Syringe 10-28 25 mL, l (D50W) 09:13: Route: IVP, Drug Form: INJ, Dosing Weight 74, kg, PRN, PRN Blood Glucose Results, Start date: 10/29/19 4:13:00 CDT, Duration: 30 day, Stop date: 11/28/19 4:12:00 CDT, 0 Glucagon No 1 mg, Memoria 10-28 Route: IM, l 09:13: Drug form: PDR/INJ, PRN, Dosing Weight 74, kg, PRN Blood Glucose Results, Start date: 10/29/19 4:13:00 CDT, Duration: 30 day, Stop date: 11/28/19 4:12:00 CDT, 0 Insulin 2020-0 No Notes: Memoria Lispro -20 (Same as: l 09:13: Humalog) Roll in palms of hands gently; Do not shake vigorously . WASTE: F/P - Black; E - Municipal Trash Bin Stable for 28 days at room temperatur e. Expires in days from ____Date Hydralazine 2019-0 No Notes: Albino juan 9-20 (Same as: l 09:13: Apresoline ) Push over 5 minutes Dextrose 2020-0 No 12.5 gm, Memor ia 50% Syringe 10-28 25 mL, l (D50W) 05:51: Route: IVP, Drug Form: INJ, Dosing Weight 74.003, kg, PRN, PRN Blood Glucose Results, Start date: 10/29/19 0:51:00 CDT, Duration: 30 day, Stop date: 11/28/19 0:50:00 CDT, 0 Glucagon 2020-0 No 1 mg, Memoria 10-28 Route: IM, l 05:51: Drug form: PDR/INJ, PRN, Dosing Weight 74.003, kg, PRN Blood Glucose Results, Start date: 10/29/19 0:51:00 CDT, Duration: 30 day, Stop date: 11/28/19 0:50:00 CDT, 0 Ondansetron 2019-0 No Notes: Albino juan 9-20 (Same as: l 05:51: Zofran) MEDICATION WASTE Product Size: 4 mg Product Wasted: ___ mg Rocephin + 2020-0 No Notes: Memor ia sterile - (Same As: l water 10 mL 03:57: Rocephin). Use with 100 mL NS and infuse over 30 min MEDICATION WASTE Product Size: 1000 mg Product Wasted: ___ mg Sodium 2020-0 No 250 mL, Memoria Chloride -20 Rate: To l 0.9% 03:45: prime line Cy (titrate) 00 and flush 250 mL remaining blood products., Dosing Weight 74.003, kg, Route: IV, Total Volume: 250, Start Date: 10/28/19 22:45:00 CDT, Duration: 1 day, Stop date: 10/29/19 22:44:00 CDT, Replace Every: 24 hr, 0 Saline No Notes: Memoria Flush 0.9% 9-20 (Same as: l 03:17: BD Cy 00 Posiflush) enoxaparin 2018-02 Yes 60 mg = Albino juan 60 mg/0.6 0-31 0.6 mL, l mL 15:40: SUB-Q, Cy subcutaneou 00 [id number], s solution X 30 day, # 36 mL, 1 Refill(s) enoxaparin 2018-02 No 60 mg = Albino juan 60 mg/0.6 0-31 0.6 mL, l mL 15:22: SUB-Q, [place] subcutaneou 00 [id number], s solution X 30 day, # 36 mL, 0 Refill(s), other lisinopril 2018-02 Yes 30 mg = 3 Me moria 10 mg oral 0-31 tab, PO, l tablet 15:22: Daily, # [place] 00 90 tab, 0 Refill(s) Lisinopril 2018-02 No Notes: Memor ia 0-31 (Same as: l 14:00: Prinivil, Cy 00 Zestril) Lisinopril 2018-02 No Notes: Memor ia 0-30 (Same as: l 20:30: Prinivil, [place] 00 Zestril) Lisinopril 2018-02 No 10 mg, Memor ia 0-30 Route: PO, l 19:12: Drug form: Cy 00 TAB, Daily, Dosing Weight 67.818, kg, Start date: 12/07/18 14:12:00 CDT, Duration: 30 day, Stop date: 01/06/19 9:00:00 SLIP LASTER Lovenox 2018-02 No 60 mg, Memoria 0-30 Route: l 18:02: SUB-Q, [place] 00 Drug form: INJ, ONCE, Dosing Weight 67.818, kg, Priority: STAT, Start date: 12/07/18 13:02:00 CDT, Stop date: 12/07/18 13:02:00 CDT Lovenox 2018-02 No Notes: Memoria 0-30 Nurse to l 06:00: ensure [place] 00 documentat ion of patient education per anticoagul ation policy. (Same as: Lovenox) Lovenox 2018-02 No Notes: Memoria 0-29 (Same as: l 18:00: Lovenox) Cy 00 Lovenox 2018-02 No Notes: Memoria 0-29 (Same as: l 14:34: Lovenox) [place] 00 pantoprazol 2018-02 No Notes: Albino juan e 0-29 Tablet l 12:30: should not be chewed or crushed. (Same as: Protonix) Lovenox 2018-02 No 40 mg, 0.4 Albino juan 0-29 mL, Route: l 03:00: SUB-Q, Drug form: INJ, [id number], Dosing Weight 67.818, kg, Start date: 12/05/18 22:00:00 CDT, Duration: 30 day, Stop date: 01/03/19 22:00:00 SLIP LASTER, 0 Lisinopril 2018-02 No Notes: Memor ia 0-28 (Same as: l 14:00: Prinivil, [place] 00 Zestril) Aspirin 2018-02 No 81 mg, 1 Memori a 0-27 tab, l 14:00: Route: PO, Drug form: ECTAB, Daily, Dosing Weight 67.818, kg, Start date: 12/04/18 9:00:00 CDT, Duration: 30 day, Stop date: 01/02/19 9:00:00 SLIP LASTER, 0 Lisinopril 2018-02 No Notes: Memor ia 0-27 (Same as: l 14:00: Prinivil, [place] 00 Zestril) Lovenox 2018-02 No Notes: Memoria 0-27 (Same as: l 02:00: Lovenox) [place] 00 Lisinopril 2018-02 No Notes: Memor ia 0-26 (Same as: l 17:54: Prinivil, Cy Zestril) Tylenol 2018-02 No Notes: Do Memor ia 0-26 not exceed l 15:20: 4 gm/day. Cy 00 (Same as: Tylenol) Warfarin 2018-02 No 5 mg, Memoria 0-26 Route: PO, l 00:00: Drug form: [place] 00 TAB, Q5PM, Dosing Weight 67.818, kg, Start date: 12/02/18 19:00:00 CDT, Duration: 1 doses or times, Stop date: 12/02/18 19:00:00 CDT Warfarin 2018-02 No Notes: Memoria 0-25 Nurse to l 22:00: ensure [place] 00 documentat ion of patient education per anticoagul ation policy. Avoid large intake of vitamin-K containing foods diet. WASTE: F/P - P Waste Black; E - P Waste Black (Same As: Coumadin) Tylenol 2018-02 No Notes: Do Memor ia 0-25 not exceed l 15:35: 4 gm/day. [place] (Same as: Tylenol) Warfarin 2018-02 No Notes: Memoria 0-24 Nurse to l 22:00: ensure Cy 00 documentat ion of patient education per anticoagul ation policy. Avoid large intake of vitamin-K containing foods diet. WASTE: F/P - P Waste Black; E - P Waste Black (Same As: Coumadin) Lisinopril 2018-02 No Notes: Memor ia 0-22 (Same as: l 16:54: Prinivil, [place] 00 Zestril) Amlodipine 2018-02 No Notes: Memor ia 0-22 (Same as: l 14:00: Norvasc) Cy 00 Benzocaine 2018-02 No Notes: Memor ia 200 MG/ML 0-22 (Same As: l Mucosal 13:39: Hurricaine Herm dea [place] ) WASTE: [Hurricaine F/P - ] Black; E - Municipal Trash Bin FOR ORAL USE Heparin 80 2018-02 No Route: Memor ia unit/kg 0-21 IVP, PRN, l Bolus 23:08: 4,500 Cy (Heparin 00 unit, 4.5 Dosing mL, Drug Weight) form: INJ, PRN, Heparin Protocol, Start date: 11/28/18 18:08:00 CDT Stop date: 12/28/18 17:07:00 SLIP LASTER, 30 day, 0 Heparin 40 2018-02 No Route: Memor ia unit/kg 0-21 IVP, PRN, l Bolus 23:08: 2,200 Cy (Heparin 00 unit, 2.2 Dosing mL, Drug Weight) form: INJ, PRN, Heparin Protocol, Start date: 11/28/18 18:08:00 CDT Stop date: 12/28/18 17:07:00 SLIP LASTER, 30 day, 0 heparin 2018- No Notes: Memoria additive 0-21 Total l 25,000 unit 23:08: Concentrat Cy [18 00 ion = 50 unit/kg/hr] unit/ ml + Premix Total Diluent volume = Sodium 500 ml Chloride Send Med 0.45% 500 Request 2 mL hours prior to next bag Acetaminoph 2018- No 1,000 mg, M emoria en 0-21 Route: PO, l 17:55: Drug form: [place] 00 TAB, ONCE, Dosing Weight 67.818, kg, PRN Pain Score 1-3, Start date: 11/28/18 12:55:00 CDT Oxycodone 2018-02 No 2.5 mg, Memor ia 0-21 Route: PO, l 17:55: Drug form: [place] 00 LIQ, Q4H, Dosing Weight 67.818, kg, PRN Pain Score 4-6, Start date: 11/28/18 12:55:00 CDT, Duration: 30 day, Stop date: 12/28/18 12:54:00 SLIP LASTER Flumazenil 2018-02 No 0.2 mg, Alb[place] juan 0- Route: l 17:55: IVP, PRN, Cy 00 Dosing Weight 67.818, kg, PRN Benzodiaze pine Reversal, Initial dose, Start date: 11/28/18 12:55:00 CDT, Duration: 30 day, Stop date: 12/28/18 11:54:00 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 Naloxone 2018-02 No 0.4 mg, Memori a 0- Route: l 17:55: IVP, Cy 00 Q2MIN, Dosing Weight 67.818, kg, PRN Narcotic Reversal, Start date: 11/28/18 12:55:00 CDT, Duration: 8 doses or times, Stop date: Limited # of times Ondansetron 2018-02 No 4 mg, Memor ia 0-21 Route: l 17:55: IVP, ONCE, Cy 00 Dosing Weight 67.818, kg, PRN Nausea & Vomiting, Start date: 11/28/18 12:55:00 CDT Golytely 2018-02 No Notes: Memoria 0-20 (polyethyl l 22:00: preston glycol electrolyt e solution 4 Liter bottle) (Same as: Golytely, Colyte) K-Dur 20 2018-02 No Notes: Memoria 0-20 (Same as: l 15:00: K-Dur 20) "Do Not Crush" Give with food and full glass of water For patients unable to swallow tablet, dissolve in one half glass of water. Allow about 2 minutes for the tablets to disintegra te. Stir before giving to prepare slurry and administer . Please exclude Patient s with feeding tube less than 14 Swedish (Dobhoff, J-tube etc) and pediatric and patients. metoprolol 2018-02 No Notes: Memor ia tartrate 0-20 (Same as: l 14:00: Lopressor) potassium 2018-02 No 40 mEq, 2 Mem oria chloride 20 0-20 tab, l mEq oral 14:00: Route: PO, Her alanis tablet, 00 Drug form: extended ERTAB, release Daily, Dosing Weight 67.818, kg, Start date: 11/27/18 9:00:00 CDT, Duration: 30 day, Stop date: 12/26/18 9:00:00 SLIP LASTER pantoprazol 2018-02 No Notes: For Memoria e 0-20 IV push l 02:00: reconstitu te with 10 ml 0.9% sodium chloride and push over 2 minutes. (Same as: Protonix) Sertraline 2018-02 No Notes: Memor ia 0-19 (Same as: l 14:00: Zoloft) metoprolol 2018-02 No Notes: Memor ia tartrate 0-19 (Same as: l 14:00: Lopressor) Mirtazapine 2018-02 No 15 mg, 1 Me moria 0-19 tab, l 02:00: Route: PO, Cy 00 Drug form: TAB, Bedtime, Dosing Weight 67.818, kg, Start date: 11/25/18 21:00:00 CDT, Duration: 30 day, Stop date: 12/24/18 21:00:00 SLIP LASTER, 0 atorvastati 2018-02 No Notes: Albino juan n 0-19 (Same as: l 02:00: Lipitor) [place] 00 Metformin 2018-02 Yes 500 mg = 1 Me moria hydrochlori 0-18 tab, PO, l de 500 MG 21:40: QAM, # 90 Her alanis Oral Tablet 00 tab, 0 Refill(s) omeprazole 2018-02 Yes 40 mg = 1 Me moria 40 mg oral 0-18 cap, PO, l delayed 21:05: Daily, # Yoel n release 00 90 cap, 0 capsule Refill(s) MethylPREDN 2018-02 No See Memori a ISolone 0-18 Instructio l Dose Pack 4 21:05: ns, PO, Her alanis mg oral 00 Daily, Use tablet as directed on label., # 1 Pack, 0 Refill(s) Alprazolam 2018-02 Yes 0.25 mg = Me moria 0.25 MG 0-18 1 tab, PO, l Oral Tablet 21:05: Q8H, Her alanis 00 NEEDED FOR ANXIETY, # 40 tab, 0 Refill(s) rivaroxaban 2018-02 No 15 mg = 1 M emoria 15 MG Oral 0-18 tab, PO, l Tablet 21:05: BID-Meals, Taya nn [Xarelto] 00 AFTER 20 DAYS WILL CHANGE TO 20MG DAILY, 0 Refill(s) Furosemide 2018-02 No 40 mg = 1 Me moria 40 MG Oral 0-18 tab, PO, l Tablet 21:05: Daily, # [place] 00 90 tab, 0 Refill(s) potassium 2018-02 Yes 20 mEq = 1 Me moria chloride 20 0-18 tab, PO, l mEq oral 21:05: Daily, # Taya nn tablet, 00 90 tab, 0 extended Refill(s) release amLODIPine 2018-02 No 10 mg = 1 Me moria 10 mg oral 0-18 tab, PO, l tablet 21:05: Daily, # [place] 00 90 tab, 0 Refill(s) Aspirin 81 2018-02 No Notes: Do Me moria MG Enteric 0-18 not crush l Coated 17:30: or chew. Cy Tablet 00 (Same As: Ecotrin) metoprolol 2018-02 No Notes: Memor ia tartrate 0-18 (Same as: l 17:27: Lopressor) Cy 00 pantoprazol 2018-02 No Notes: Albino juan e 0-18 Tablet l 17:00: should not [place] 00 be chewed or crushed. (Same as: Protonix) Dextrose 2018-02 No 12.5 gm, Memor ia 50% Syringe 0-18 25 mL, l 16:45: Route: [place] 00 IVP, Drug Form: INJ, Dosing Weight 66.392, kg, PRN, PRN Blood Glucose Results, Start date: 11/25/18 11:45:00 CDT, Duration: 30 day, Stop date: 12/25/18 10:44:00 SLIP LASTER, 0 Glucagon 2018-02 No 1 mg, Memoria 0-18 Route: IM, l 16:45: Drug form: Cy 00 PDR/INJ, PRN, Dosing Weight 66.392, kg, PRN Blood Glucose Results, Start date: 11/25/18 11:45:00 CDT, Duration: 30 day, Stop date: 12/25/18 10:44:00 SLIP LASTER, 0 Insulin 2018-02 No Notes: Memoria regular 0-18 (Same as: l 16:45: Humulin R) Cy 00 Roll in palms of hands gently; Do not shake vigorously . WASTE: F/P - Black; E - Municipal Trash Bin Stable for 31 days at room temperatur e Expires in days from ____Date Potassium 2018-02 No Notes: Memori a Chloride 0-18 (Same as: l 16:41: K-Dur 20) Cy 00 "Do Not Crush" Give with food and full glass of water For patients unable to swallow tablet, dissolve in one half glass of water. Allow about 2 minutes for the tablets to disintegra te. Stir before giving to prepare slurry and administer . Please exclude Patient s with feeding tube less than 14 Swedish (Dobhoff, J-tube etc) and pediatric and patients. Heparin - 2018-02 No 4,400 Memoria one time 0-18 unit, 4.4 l bolus for 16:35: mL, Route: He rmann DVT/PE 00 IVP, Drug form: INJ, ONCE, Dosing Weight 66.392, kg, Priority: STAT, Start date: 11/25/18 11:35:00 CDT, Stop date: 11/25/18 11:35:00 CDT, 0 Heparin 80 2018-02 No Route: Memor ia unit/kg 0-18 IVP, PRN, l Bolus 16:35: 4,400 Cy (Heparin 00 unit, 4.4 Dosing mL, Drug Weight) form: INJ, PRN, Heparin Protocol, Start date: 11/25/18 11:35:00 CDT Stop date: 11/28/18 6:00:00 CDT, 0 Heparin 40 2018-02 No Route: Memor ia unit/kg 0-18 IVP, PRN, l Bolus 16:35: 2,200 Cy (Heparin 00 unit, 2.2 Dosing mL, Drug Weight) form: INJ, PRN, Heparin Protocol, Start date: 11/25/18 11:35:00 CDT Stop date: 11/28/18 6:00:00 CDT, 0 heparin 2018-02 No Notes: Memoria additive 0-18 Total l 44436 unit 16:35: Concentrat H ermann [18 00 ion = 50 unit/kg/hr] unit/ ml + Premix Total Diluent volume = Sodium 500 ml Chloride Send Med 0.45% 500 Request 2 mL hours prior to next bag heparin 2018-02 No 4,400 Memoria 0-18 unit, 4.4 l 16:30: mL, Route: Cy 00 IVP, Drug form: INJ, PRN, Dosing Weight 66.392, kg, PRN Heparin Protocol, Start date: 11/25/18 11:30:00 CDT, Duration: 30 day, Stop date: 12/25/18 10:29:00 SLIP LASTER Dextrose 2018-02 No 12.5 gm, Memor ia 50% Syringe 0-18 25 mL, l 15:52: Route: Cy 00 IVP, Drug Form: INJ, Dosing Weight 66.392, kg, PRN, PRN Blood Glucose Results, Start date: 11/25/18 10:52:00 CDT, Duration: 30 day, Stop date: 12/25/18 9:51:00 SLIP LASTER, 0 Glucagon 2018-02 No 1 mg, Memoria 0-18 Route: IM, l 15:52: Drug form: [place] 00 PDR/INJ, PRN, Dosing Weight 66.392, kg, PRN Blood Glucose Results, Start date: 11/25/18 10:52:00 CDT, Duration: 30 day, Stop date: 12/25/18 9:51:00 SLIP LASTER, 0 heparin 2018-02 No 2,200 unit Albino juan 1000 0-18 = 2.2 mL, l units/mL 12:10: IVP, PRN, Herm dea injectable 00 PRN solution Heparin Protocol, 0 Refill(s) pantoprazol 2018-02 No 40 mg = 1 M emoria e 40 mg 0-18 tab, PO, l oral 12:10: BID, 0 Cy enteric 00 Refill(s) coated tablet Mirtazapine 2018-02 No Notes: Albino juan 0-18 (Same l 06:14: as:Remeron [place] 00 ) Mirtazapine 2018-02 Yes 7.5 mg = 1 Memoria 7.5 MG Oral 0-18 tab, PO, l Tablet 05:26: Bedtime, 0 Taya nn 00 Refill(s) heparin 2018-02 No 500 mL, Memoria additive 0-17 Rate: l 25,000 unit 22:00: 19.89 Taya nn [18 00 ml/hr, unit/kg/hr] Infuse + Premix over: 25.1 Diluent hr, Route: Dextrose 5% IV, Dosing 500 mL Weight 55.24 kg, Total Volume: 500 mL, Start date: 11/24/18 17:00:00 CDT, Stop date: 12/25/18 3:06:00 SLIP LASTER, 1.56, m2, 0 Heparin 80 2018-02 No Route: Memor ia unit/kg 0-17 IVP, PRN, l Bolus 14:53: 4,400 [place] (Heparin 00 unit, 4.4 Dosing mL, Drug Weight) form: INJ, PRN, Heparin Protocol, Start date: 11/24/18 9:53:00 CDT Stop date: 12/24/18 8:52:00 SLIP LASTER, 30 day, 0 Heparin 40 2018-02 No Route: Memor ia unit/kg 0-17 IVP, PRN, l Bolus 14:53: 2,200 Cy (Heparin 00 unit, 2.2 Dosing mL, Drug Weight) form: INJ, PRN, Heparin Protocol, Start date: 11/24/18 9:53:00 CDT Stop date: 12/24/18 8:52:00 SLIP LASTER, 30 day, 0 heparin 2018-02 No 500 mL, Memoria additive 0-17 Rate: 23.9 l 25,000 unit 14:53: ml/hr, Herm dea [18 00 Infuse unit/kg/hr] over: 20.9 + Premix hr, Route: Diluent IV, Dosing Dextrose 5% Weight 500 mL 66.392 kg, Total Volume: 500 mL, Start date: 11/24/18 9:53:00 CDT, Stop date: 12/24/18 17:00:00 SLIP LASTER, 1.71, m2 Sodium 2018-02 No 1,000 mL, Memori a Chloride 0-17 Infuse l 0.9% 14:00: Over: 1 [place] (Bolus) IV 00 hr, Route: IV, PRE OP, Dosing Weight 66.392 kg, Start date: 11/24/18 9:00:00 CDT, Duration: 1 doses or times, Bolus Aspirin 81 2018-02 No Notes: Do Me moria MG Enteric 0-17 not crush l Coated 14:00: or chew. Cy Tablet 00 (Same As: Ecotrin) Metformin 2018-02 No Notes: Memori a hydrochlori 0-17 (Same as: l de 500 MG 14:00: Glucophage He rmann Oral Tablet 00 ) Take with meal Xarelto 2018-02 No Notes: Memoria 0-17 (Same as: l 14:00: Xarelto) [place] Sertraline 2018-02 No Notes: Memor ia 0-17 (Same as: l 14:00: Zoloft) Cy 00 Zofran 2018-02 No Notes: Memoria 0-17 (Same as: l 05:10: Zofran) [place] MEDICATION WASTE Product Size: 4 mg Product Wasted: ___ mg Morphine 2018-02 No 2 mg, 1 Memori a 0-17 mL, Route: l 03:31: IVP, Drug Cy form: SOLN, ONCE, Dosing Weight 66.392, kg, Start date: 11/23/18 22:31:00 CDT, Stop date: 11/23/18 22:31:00 CDT, 0 atorvastati 2018-02 No Notes: Albino juan n 0-17 (Same as: l 02:00: Lipitor) [place] 00 metoprolol 2018-02 No 50 mg, Memor ia tartrate 0-17 Route: PO, l 02:00: Drug form: Cy 00 TAB, Q12H, Dosing Weight 66.392, kg, Start date: 11/23/18 21:00:00 CDT, Duration: 30 day, Stop date: 12/23/18 9:00:00 SLIP LASTER Xarelto 2018-02 No Notes: Memoria 0-16 (Same as: l 22:15: Xarelto) Cy 00 Protonix 2018-02 No Notes: Memoria 0-16 Tablet l 22:00: should not [place] 00 be chewed or crushed. (Same as: Protonix) magnesium 2018-02 No Notes: Memori a citrate 0-16 (Same as: l 58.2 MG/ML 17:08: Citrate of H ermann Oral 00 Magnesia) Solution Concentrat ion: 1.745 gm / 30 mL Golytely 2018-02 No Notes: Memoria 0-16 (Same as: l 17:07: Nulytely) [place] 00 Dulcolax 2018-02 No Notes: Memoria Laxative 0-16 (Same As: l 17:07: Dulcolax, Cy 00 Correctol) (Do Not Crush) "Do Not Crush" Sodium 2018-02 No 250 mL, Memoria Chloride 0-16 Rate: To l 0.9% 13:24: prime line [place] (titrate) 00 and flush 250 mL remaining blood products., Dosing Weight 66.392, kg, Route: IV, Total Volume: 250, Priority: Routine, Start Date: 11/23/18 8:24:00 CDT, Duration: 1 day, Stop date: 11/24/18 8:23:00 CDT, Replace Every: 24 hr, 0 Sodium 2018-02 No 250 mL, Memoria Chloride 0-16 Rate: To l 0.9% 13:23: prime line Cy (titrate) 00 and flush 250 mL remaining blood products., Dosing Weight 66.392, kg, Route: IV, Total Volume: 250, Start Date: 11/23/18 8:23:00 CDT, Duration: 1 day, Stop date: 11/24/18 8:22:00 CDT, Replace Every: 24 hr, 0 Xarelto 2018-02 No 20 mg, PO, Albino juan 0-16 Daily, 0 l 02:33: Refill(s) potassium 2018-02 No 20 mEq = 2 Me moria chloride 10 0-16 tab, PO, l mEq oral 02:33: Daily, 0 Taya nn tablet, 00 Refill(s) extended release NS 1,000 mL 2018-02 No 1,000 mL, M emoria 0-15 Rate: 75 l 18:16: ml/hr, Infuse over: 13.3 hr, Route: IV, Dosing Weight 71.318 kg, Total Volume: 1,000, Start date: 11/22/18 13:16:00 CDT, Duration: 30 day, Stop date: 12/22/18 13:15:00 SLIP LASTER, 1.78, m2, 0 Dextrose 2018-02 No 12.5 gm, Memor ia 50% Syringe 0-15 25 mL, l 18:11: Route: IVP, Drug Form: INJ, Dosing Weight 71.318, kg, PRN, PRN Blood Glucose Results, Start date: 11/22/18 13:11:00 CDT, Duration: 30 day, Stop date: 12/22/18 12:10:00 SLIP LASTER, 0 Glucagon 2018-02 No 1 mg, Memoria 015 Route: IM, l 18:11: Drug form: PDR/INJ, PRN, Dosing Weight 71.318, kg, PRN Blood Glucose Results, Start date: 11/22/18 13:11:00 CDT, Duration: 30 day, Stop date: 12/22/18 12:10:00 SLIP LASTER, 0 thrombin No Notes: Memoria topical 10-18 "blood l human 5000 17:35: product Herm dea intl units 00 derivative powder for " reconstitut ion Melatonin No Notes: Memori a 10-17 (Same as: l 08:50: Melatonin) amLODIPine Yes 5 mg = 1 Mem oria 5 mg oral 10-15 tab, PO, l tablet 17:10: Daily, 0 Refill(s) atorvastati Yes 40 mg = 1 M emoria n 40 mg 10-15 tab, PO, l oral tablet 17:10: Bedtime, # [place] 00 30 tab, 0 Refill(s), Pharmacy: [facility] clopidogrel Yes 75 mg = 1 M emoria 75 mg oral 07 tab, PO, l tablet 17:10: Daily, # Cy 00 30 tab, 0 Refill(s), Pharmacy: [facility] metoprolol Yes 12.5 mg = Me moria tartrate 25 07 0.5 tab, l mg oral 17:10: PO, Q12H, Taya nn tablet 00 # 30 tab, 0 Refill(s), Pharmacy: [facility] Plavix No Notes: Memoria 10-15 (Same As: [...] n 10-14 (Same as: l 15:19: Lipitor) Sodium No 250 mL, Memoria Chloride 10-14 250 ml/hr, l 0.9% 15:00: Infuse [place] (Bolus) IV 00 Over: 1 hr, Route: [...] 0.9% 10-14 (Same as: l 14:42: BD [place] Posiflush) Aspirin 81 No Notes: Do Me moria MG Enteric 10-14 not crush l Coated 14:00: or chew. [place] Tablet (Same As: Ecotrin) Sertraline No Notes: Memor ia 10-14 (Same as: l 14:00: Zoloft) Cy gabapentin No Notes: Memor ia 300 MG Oral 10-14 (Same as: l Capsule 14:00: Neurontin) Herm dea 00 Saline No Notes: Memoria Flush 0.9% 10-14 (Same as: l 14:00: BD [place] Posiflush) Amlodipine No Notes: Memor ia 10-14 (Same as: l 14:00: Norvasc) Cy 00 Enoxaparin No Notes: Memor ia 10-14 Nurse to l 10:00: ensure [place] 00 documentat ion of patient education per anticoagul ation policy. (Same as: Lovenox) Dextrose No 12.5 gm, Memor ia 50% Syringe 10-14 25 mL, l 09:39: Route: Cy 00 IVP, Drug Form: INJ, Dosing Weight 70.938, kg, PRN, PRN Blood Glucose Results, Start date: 10/14/18 4:39:00 CDT, Duration: 30 day, Stop date: 11/13/18 4:38:00 CDT, 0 Glucagon No 1 mg, Memoria 10-14 Route: IM, l 09:39: Drug form: [place] PDR/INJ, PRN, Dosing Weight 70.938, kg, PRN [...] 10-14 not exceed l 09:38: 4 gm/day. [place] (Same as: Tylenol) Morphine No 2 mg, 1 Memori a 10-14 mL, Route: l 09:38: IVP, Drug form: SOLN, Q4H, Dosing Weight 70.938, kg, PRN Pain Score 7-10, Start date: 10/14/18 4:38:00 CDT, Duration: 30 day, Stop date: 11/13/18 4:37:00 CDT, 0 Ondansetron No Notes: Albino juan 2 MG/ML 10-14 (Same as: l Injectable 09:38: Zofran) Herm dea Solution [Zofran] MEDICATION WASTE Product Size: 4 mg Product Wasted: ___ mg Hydralazine No Notes: Albino juan 10-14 (Same as: l 09:38: Apresoline ) Push over 5 minutes Dextrose 5% No 1,000 mL, Uli cagleria with 0.45% 10-14 Rate: 100 l NaCl IV 09:36: ml/hr, Yc 1,000 mL 00 Infuse over: 10 hr, [...] = 1 Me moria 10 mg oral 10-14 tab, PO, l tablet 08:39: Daily, # Cy 00 30 tab, 0 Refill(s) gabapentin Yes 300 mg = 1 M emoria 300 MG Oral 10-14 cap, PO, l Capsule 08:39: Daily, 0 Yoel n 00 Refill(s) sertraline Yes 50 mg = 1 Me moria 50 mg oral 10-14 tab, PO, l tablet 08:39: Daily, # Cy 00 30 tab, 0 Refill(s) losartan 25 No 25 mg = 1 M emoria mg oral 06 tab, PO, l tablet 08:39: Daily, # [place] 00 30 tab, 0 Refill(s) Sodium 2017-02 [...] Weight 75.2, kg, Start date: 01/21/18 9:00:00 SLIP LASTER, Duration: 30 day, Stop date: 02/19/18 17:00:00 SLIP LASTER Benadryl 2017-02 No 25 mg, 1 Memor ia 2-14 tab, l 02:22: Route: PO, Cy 00 Drug form: TAB, ONCE, Dosing Weight 75.2, kg, Start date: 01/20/18 20:22:00 SLIP LASTER, Stop date: 01/20/18 20:22:00 SLIP LASTER Artificial 2017-02 No Notes: Memor ia Tears 2-13 (Same as: l 19:49: Puralube) Amlodipine 2017-02 No Notes: Memor ia 2-13 (Same as: l 15:00: Norvasc) Aspirin 81 2017-02 No Notes: Do Me moria MG Enteric 2-13 not crush l Coated 15:00: or chew. Cy Tablet 00 (Same As: Ecotrin) Sodium 2017-02 No 1 gm, 1 Memoria Chloride 2-13 tab, l 1000 MG 06:00: Route: PO, Herm dea Oral Tablet 00 Drug form: TAB, Q8H, Dosing Weight 75.2, kg, Start date: 01/20/18 0:00:00 SLIP LASTER, Duration: 30 day, Stop date: 02/18/18 16:00:00 SLIP LASTER Insulin 2017-02 No Notes: Memoria Lispro 2-13 [...] Blood Glucose Results, Start date: 01/19/18 20:10:00 SLIP LASTER, Duration: 30 day, Stop date: 02/18/18 20:09:00 SLIP LASTER Dextrose 2017-02 No 12.5 gm, Memor ia 50% Syringe 2-13 25 mL, l 02:10: Route: [place] IVP, Drug Form: INJ, Dosing Weight 75.2, kg, PRN, PRN Blood Glucose Results, Start date: 01/19/18 20:10:00 SLIP LASTER, Duration: 30 day, Stop date: 02/18/18 20:09:00 SLIP LASTER D5W 300 mL 2017- No 300 mL, Albino juan 2-12 Rate: 300 l 14:13: ml/hr, [place] Infuse over: 1 hr, Route: IV, Dosing Weight 75.2 kg, Total Volume: 300, Start date: 01/19/18 8:13:00 SLIP LASTER, Duration: 1 doses or times, Stop date: 01/19/18 9:12:00 SLIP LASTER, 1.83, m2 D50W 2017- No 150 gm, Memoria (bolus) IV 2-12 300 mL, l 14:01: Route: IV, Cy 00 Drug Form: INJ, Dosing Weight 75.2, kg, ONCE, NOW, Start date: 01/19/18 8:01:00 SLIP LASTER, Stop date: 01/19/18 8:01:00 SLIP LASTER sodium 2017- No 2 gm, 2 Memoria chloride 1 2-12 tab, l gm oral 03:00: Route: PO, Herm dea tablet 00 Drug form: TAB, Q6H, Dosing Weight 75.2, kg, Start date: 01/18/18 21:00:00 SLIP LASTER, Duration: 30 day, Stop date: 02/17/18 21:00:00 SLIP LASTER Benzocaine 2017-02 No Notes: Memor ia 15 MG / 2-12 Same as: l Menthol 3.6 00:13: Cepacol Her alanis MG Lozenge 00 [Cepacol Sore Throat Pain Relief 15/3.6] Sodium 2017-02 No 2 gm, 2 Memoria Chloride 2-11 tab, l 1000 MG 18:00: Route: PO, Herm dea Oral Tablet 00 Drug form: TAB, Q6H, Dosing Weight 75.2, kg, Start date: 01/18/18 12:00:00 SLIP LASTER, Duration: 30 day, Stop date: 02/17/18 6:00:00 SLIP LASTER Sodium 2018- No Notes: Memoria Chloride 3% 2-11 "Administe l (Hypertonic 08:26: r by Yoel castro ) IV 250 mL 00 central venous [...] Memoria 2-11 (Same as: l 07:19: Zofran) MEDICATION WASTE Product Size: 4 mg Product Wasted: ___ mg Melatonin 2017-02 No Notes: Memori a 2-11 (Same as: l 05:59: Melatonin) Sodium 2017-02 No 100 mL, Memoria Chloride 3% 2-10 IV, 180 l IV 23:30: ml/hr, ONCE, Start date: 01/17/18 17:30:00 SLIP LASTER, 100 ml Sodium 2017-02 No Notes: Memoria Chloride 3% 2-10 concentrat l (Hypertonic 22:57: ion = Taya nn ) IV 100 mL 00 0.513 mEq/mL heparin 2017-02 No Notes: Memoria 2-10 porcine l 22:00: heparin Sodium 2017-02 No Notes: Memoria Chloride 3% [...] Memoria 2-10 (Same as: l 18:24: Ativan) Hydralazine 2017-02 No 50 mg, 1 Me moria Hydrochlori 2-10 tab, l de 50 MG 18:24: Route: PO, Her alanis Oral Tablet 00 Drug form: TAB, Q8H, Dosing Weight 75.2, kg, Priority: NOW, Start date: 01/17/18 12:24:00 SLIP LASTER, Duration: 30 day, Stop date: 02/16/18 8:00:00 SLIP LASTER Sodium 2017-02 No 2 gm, 2 Memoria Chloride 2-10 tab, l 1000 MG 16:00: Route: PO, Herm dea Oral Tablet 00 Drug form: TAB, Q8H, Dosing Weight 75.2, kg, Priority: NOW, Start date: 01/17/18 10:00:00 SLIP LASTER, Duration: 30 day, Stop date: 02/16/18 8:00:00 SLIP LASTER normal 2017-02 No 1,000 mL, Memori a saline 0.9% 2-10 Rate: 100 l IV 1,000 mL 07:29: ml/hr, Herm dea 00 Infuse over: 10 hr, Route: IV, Dosing Weight 75.2 kg, Total Volume: 1,000, Start date: 01/17/18 1:29:00 SLIP LASTER, Duration: 30 day, Stop date: 02/16/18 1:29:00 SLIP LASTER, 1.83, m2 Hydrochloro 2017-02 No 1 tab, PO, Memoria thiazide 25 2-10 Daily, # l MG / 05:29: 30 tab, 0 [place] Losartan 00 Refill(s) Potassium 100 MG Oral Tablet amLODIPine 2017-02 Yes 5 mg = 1 Mem oria 5 mg oral 2-10 tab, PO, l tablet 05:29: Daily, # Cy 00 30 tab, 0 Refill(s) Aspirin 81 2017-02 Yes 81 mg = 1 Me moria MG Enteric 2-10 tab, PO, l Coated 05:29: Daily, # Cy Tablet 00 90 tab, 3 Refill(s) Tylenol 2017-02 Yes 1 tab, PO, Albino juan Extra 2-10 PRN, 0 l Strength PM 05:29: Refill(s) H ermann Rapid 00 Release citalopram 2017-02 No 10 mg = 1 Me moria 10 mg oral 2-10 tab, PO, l tablet 05:29: Daily, # [place] 00 30 tab, 0 Refill(s) omeprazole 2017-02 Yes 20 mg = 1 Me moria 20 mg oral 2-10 cap, PO, l delayed 05:29: Daily, # Yoel n release 00 30 cap, 0 capsule Refill(s) Sulfamethox 2017-02 No 1 tab, PO, Memoria azole 800 2-10 BID, # 14 l MG / 05:29: tab, 0 Cy Trimethopri 00 Refill(s) m 160 MG Oral Tablet Saline 2017-02 No Notes: Memoria Flush 0.9% 2-10 (Same as: l 03:00: BD [place] 00 Posiflush) Calcium 2017-02 No Notes: Memoria Carbonate 2-10 (Same As: l 500 MG 01:42: Tums) Cy Chewable 00 Calcium Tablet Carbonate 500 mg = 200 mg elemental calcium Dose = mg calcium carbonate ( mg elemental calcium) Calcium 2017-02 No Notes: Memoria Gluconate 2-10 WASTE: F/P l :42: - Sink; E Cy 00 - [facility] Trash Bin Potassium 2017-02 No Notes: Memori a Chloride 2-10 (Same as: l :42: K-Dur 20) Cy 00 "Do Not Crush" Give with food and full glass of water For patients unable to swallow tablet, dissolve in one half glass of water. Allow about 2 minutes for the tablets to disintegra te. Stir before giving to prepare slurry and administer . Please exclude Patient s with feeding tube less than 14 Swedish (Dobhoff, J-tube etc) and pediatric and patients. sodium 2017-02 No Notes: Memoria phosphate 2-10 Infuse l 01:42: over 4 [place] 00 hour. Do not infuse phosphorou s concurrent ly in the same line as TPN or IVF that contains calcium. For double lumen central lines, phosphorou s may be infused in a separate lumen from TPN. potassium 2017-02 No Notes: Memori a phosphate 2-10 (Same as: l :42: K [place] 00 Phosphate. ) Do not infuse phosphorou s concurrent ly in the same line as TPN or IVF that contains calcium. For double lumen central lines, phosphorou s may be infused in a separate lumen from TPN. 1 mMol phoshate has 1.47 mEq potassium Infuse over 4 hours Magnesium 2017-02 No Notes: Memori a Oxide 2-10 (Same as: l :42: Mag-Ox [place] 00 400) Magnesium oxide 220ts=899r g elemental magnesium Dose=____m g magnesium oxide (___mg elemental magnesium) potassium 2017-02 No Notes: Memori a phosphate-s 2-10 (Same as: l odium 01:42: Phos-NaK) [place] phosphate 00 Each 1.5 250 mg-280 gm pkt has mg-160 mg 250mg oral powder phosphorou for s. Mix reconstitut w/2.5oz ion water and stir. Magnesium 2017-02 No Notes: Memori a Sulfate 2-10 WASTE: F/P l 01:42: - Sink; E [place] 00 - Municipal Trash Bin Saline 2017-02 No Notes: Memoria Flush 0.9% 2-10 (Same as: l 01:42: BD [place] Posiflush) Nystatin 2017-02 No Notes: Memoria 100 UNT/MG 2-10 (Same l Topical 01:42: as:Mycosta Herm dea Powder 00 tin, Nilstat) For external use only. Ativan 2017-02 No 0.5 mg, Memoria 2-10 Route: PO, l 00:20: Drug form: [place] 00 TAB, ONCE, Dosing Weight 74.545, kg, Start date: 01/16/18 18:20:00 SLIP LASTER, Stop date: 01/16/18 18:20:00 SLIP LASTER Ativan 2017-02 No 1 mg, Memoria 2-10 Route: PO, l 00:19: Drug form: [place] 00 TAB, ONCE, Dosing Weight 74.545, kg, Priority: STAT, Start date: 01/16/18 18:19:00 SLIP LASTER, Stop date: 01/16/18 18:19:00 SLIP LASTER Saline 2017-02 No Notes: [facility] Flush 0.9% 2-10 (Same as: l 00:01: BD [place] Posiflush) Sodium 2017-02 No 1,000 mL, Memori a Chloride 2-10 1000 l 0.9% 00:01: ml/hr, [place] (Bolus) IV 00 Infuse Over: 1 hr, Route: IV, 1,000, Drug form: INJ, ONCE, Priority: STAT, kg, Start date: 01/16/18 18:01:00 SLIP LASTER, Stop date: 01/16/18 18:01:00 SLIP LASTER Atorvastati Atorvastati Yes M.A. U nivers n Calcium n Calcium ity o f 10 MG Oral 10 MG Oral Michael as Tablet Tablet Physici ans Aspirin EC Aspirin EC Yes M.A. Uni vers 81 MG Oral 81 MG Oral ity of Tablet Tablet [place] Delayed Delayed Physici Release Release ans Lisinopril Lisinopril Yes M.A. Uni vers 10 MG Oral 10 MG Oral ity of Tablet Tablet [place] Physici ans metFORMIN metFORMIN Yes M.A. Unive rs HCl ER 500 HCl ER [...] Physici Release Release ans Potassium Potassium Yes M.A. Unive rs Chloride 20 Chloride 20 i ty of MEQ/15ML MEQ/15ML [place] (10%) LIQD (10%) LIQD Phy sici ans Sertraline Sertraline Yes M.A. Uni vers HCl - 50 MG HCl - 50 MG i ty of Oral Tablet Oral Tablet [place] Physici ans Lovenox 60 Lovenox 60 Yes M.A. Uni vers MG/0.6ML MG/0.6ML ity of Subcutaneou Subcutaneou [place] s Solution s Solution Phy sici ans Vital Signs Vital Name Observation Time Observation Value Comments Source Temperature Oral 2019-12-26 98.7 F [facility] rmann (F) 18:30:00 [facility] Sy[facility] (mm Hg) 2019-12-26 [facility] rmann 18:30:00 Diastolic (mm Hg) 2019-12-26 [facility] ermann 18:30:00 Temperature Oral 2019-12-26 98.4 F [facility] rmann (F) 14:42:00 [facility] Systolic (mm Hg) 2019-12-26 [facility] rmann 14:42:00 Diastolic (mm Hg) 2019-12-26 [facility] ermann 14:42:00 Temperature Oral 2019-12-26 98.8 F [facility] rmann (F) 10:28:00 Systolic (mm Hg) 2019-12-26 [facility] rmann 10:28:00 Diastolic (mm Hg) 2019-12-26 [facility] ermann 10:28:00 Respitory Rate 2019-12-26 [facility] dea 03:00:00 Respitory Rate 2019-12-26 [facility] dea 02:00:00 Respitory Rate 2019-12-26 [facility] dea 01:00:00 Height 2019-12-24 154.94 cm [facility] 11:33:00 Weight 2019-12-24 [facility] 11:33:00 BMI Calculated 2019-12-24 [facility] 11:33:00 Height 2019-11-16 154.94 cm [facility] 18:06:00 Weight 2019-11-16 [facility] 18:06:00 BMI Calculated 2019-11-16 [facility] dea 18:06:00 Systolic (mm Hg) 2019-10-30 [facility] 16:10:00 Diastolic (mm Hg) 2019-10-30 [facility] 16:10:00 Heart Rate 2019-10-30 [facility] 16:10:00 Respitory Rate 2019-10-30 [facility] dea 16:10:00 Systolic (mm Hg) 2019-10-30 [facility] 13:18:00 Diastolic (mm Hg) 2019-10-30 [facility] 13:18:00 Heart Rate 2019-10-30 [facility] 13:18:00 Temperature Oral 2019-10-30 98.7 F [facility] (F) 13:18:00 Respitory Rate 2019-10-30 [facility] dea 13:18:00 Temperature Oral 2019-10-30 98.4 F [facility] (F) 08:56:00 Heart Rate 2019-10-30 [facility] 08:56:00 Respitory Rate 2019-10-30 [facility] dea 08:56:00 Systolic (mm Hg) 2019-10-30 [facility] 08:56:00 Diastolic (mm Hg) 2019-10-30 [facility] 08:56:00 Systolic (mm Hg) 2019-10-30 [facility] 05:52:00 Diastolic (mm Hg) 2019-10-30 [facility] 05:52:00 Respitory Rate 2019-10-30 [facility] dea 05:52:00 Heart Rate 2019-10-30 [facility] 05:52:00 Temperature Oral 2019-10-30 98.8 F [facility] (F) 05:52:00 Systolic (mm Hg) 2019-10-30 [facility] 00:10:00 Diastolic (mm Hg) 2019-10-30 [facility] 00:10:00 Temperature Oral 2019-10-30 98.5 F [facility] (F) 00:10:00 Heart Rate 2019-10-30 [facility] 00:10:00 Respitory Rate 2019-10-30 [facility] dea 00:10:00 Height 2019-10-29 154.94 cm [facility] 06:46:00 Weight 2019-10-29 [facility] 06:46:00 BMI Calculated 2019-10-29 [facility] dea 06:46:00 Weight 2019-10-29 [facility] 02:40:00 BP Systolic 2019-01-13 173 mm[Hg] Location: [facility]; [facility] 11:23:00 Position: [place] [facility] BP Diastolic 2019-01-13 90 mm[Hg] Location: [facility]; [facility] 11:23:00 Position: [place] [facility] Height 2019-01-13 61 [in_us] [facility] 11:23:00 [place] [facility] Weight 2019-01-13 148 [lb_av] [facility] 11:23:00 [place] [facility] Body Mass Index 2019-01-13 27.96 kg/m2 University o f Calculated 11:23:00 [place] [facility] Heart Rate 2019-01-13 64 /min [facility] 11:23:00 [place] [facility] Temperature 2019-01-13 98.2 [degF] Method: Oral [facility] of 11:23:00 [place] [facility] BP Systolic 2018-12-16 148 mm[Hg] Location: [facility]; [facility] 09:26:00 Position: [place] [facility] BP Diastolic 2018-12-16 86 mm[Hg] Location: [facility]; [facility] 09:26:00 Position: [place] [facility] Height 2018-12-16 61 [in_us] [facility] 09:26:00 [place] [facility] Weight 2018-12-16 147.375 [lb_av] [facility] o f 09:26:00 [place] [facility] Body Mass Index 2018-12-16 27.85 kg/m2 University o f Calculated 09:26:00 [place] [facility] Temperature 2018-12-16 98.2 [degF] Method: Oral [facility] of 09:26:00 [place] [facility] Heart Rate 2018-12-16 66 /min [facility] 09:26:00 [place] [facility] Temperature Oral 2018-12-08 97.2 F [facility] Jose L pat (F) 13:10:00 Heart Rate 2018-12-08 [facility] 13:10:00 Respitory Rate 2018-12-08 [facility] 13:10:00 Systolic (mm Hg) 2018-12-08 [facility] 13:10:00 Diastolic (mm Hg) 2018-12-08 [facility] 13:10:00 Systolic (mm Hg) 2018-12-08 [facility] 09:47:00 Diastolic (mm Hg) 2018-12-08 [facility] 09:47:00 Temperature Oral 2018-12-08 98.8 F [facility] r[facility] (F) 09:28:00 Heart Rate 2018-12-08 [facility] 09:28:00 Respitory Rate 2018-12-08 [facility] 09:28:00 Systolic (mm Hg) 2018-12-08 [facility] 09:28:00 Diastolic (mm Hg) 2018-12-08 [facility] 09:28:00 Temperature Oral 2018-12-08 98.1 F [facility] (F) 05:09:00 Heart Rate 2018-12-08 [facility] 05:09:00 Respitory Rate 2018-12-08 [facility] 05:09:00 Height 2018-11-25 154.94 cm [facility] 17:49:00 Weight 2018-11-25 [facility] 17:49:00 BMI Calculated 2018-11-25 [facility] 17:49:00 Temperature Oral 2018-11-25 98.3 F [facility] (F) 13:44:00 Heart Rate 2018-11-25 [facility] 13:44:00 Respitory Rate 2018-11-25 [facility] 13:44:00 Systolic (mm Hg) 2018-11-25 [facility] 13:44:00 Diastolic (mm Hg) 2018-11-25 [facility] 13:44:00 Temperature Oral 2018-11-25 98.1 F [facility] (F) 08:17:00 Systolic (mm Hg) 2018-11-25 [facility] 08:17:00 Diastolic (mm Hg) 2018-11-25 [facility] 08:17:00 Temperature Oral 2018-11-25 98.6 F [facility] (F) 03:05:00 Systolic (mm Hg) 2018-11-25 [facility] 03:05:00 Diastolic (mm Hg) 2018-11-25 [facility] 03:05:00 Respitory Rate 2018-11-24 [facility] 22:23:00 Heart Rate 2018-11-24 [facility] 15:59:00 Respitory Rate 2018-11-24 [facility] 15:59:00 Heart Rate 2018-11-24 [facility] 14:18:00 Height 2018-11-23 154.94 cm [facility] Yoel n 02:12:00 Weight 2018-11-23 [facility] Yoel n 02:12:00 BMI Calculated 2018-11-23 [facility] 02:12:00 BP Systolic 2018-11-14 94 mm[Hg] [facility] 12:11:00 [place] [facility] BP Diastolic 2018-11-14 68 mm[Hg] [facility] 12:11:00 [place] [facility] Height 2018-11-14 61 [in_us] [facility] 12:11:00 [place] [facility] Temperature Oral 2018-10-19 97.9 F [facility] (F) 20:54:00 Heart Rate 2018-10-19 [facility] [...] rmann (F) 12:16:00 Heart Rate 2018-10-19 [facility] 12:16:00 Respitory Rate 2018-10-19 [facility] 12:16:00 Systolic (mm Hg) 2018-10-19 [facility] 12:16:00 Diastolic (mm Hg) 2018-10-19 [facility] 12:16:00 Height 2018-10-14 154.94 cm [facility] Yoel n 11:41:00 BMI Calculated 2018-10-14 [facility] [...] - PAP 2018-12-16 00:00:00 [facility] [place] [facility] US Pelvis with Pelvis 2018-12-16 00:00:00 [facility] Transvaginal [id number] Physicians CABG x 4 - Coronary [facility] artery bypass grafts x 4 Tubal ligation [facility] Coronary [facility] [place] artery bypass graft Physicians Encounters Start End Encounter Admission Attending Care Care Encounter Source Date/Time Date/Time Type Type Clinicians Facility Department ID 2019-12-24 Inpatient E MHSE MED [id number] MH 05:27:[address] [facility] 2018-11-25 Inpatient U MHHH MED [id number] MHH H 09:35:00 2018-10-31 Inpatient U MHSE MED [id number] MH 11:41:[address] [facility] [address] [facility] 2018-10-14 Inpatient U MHFB MED [id number] MHF B 03:17:00 2018-01-16 Inpatient E MHBL MED [id number] MHB L 19:08:00 2019-12-24 2019-12-26 Outpatient Jose Daniel Sarabiaun MHSE MHSE [id number] 05:27:00 17:36:00 Thalakulath 20 u 2019-11-16 2019-11-16 Outpatient Meerasahib, MHSE MHSE [id number] 12:39:00 23:59:00 Filippo 2019-11-16 2019-11-16 Outpatient MHSE MHSE [id number] MH 12:39:00 12:39:00 [facility] 2019-10-28 2019-10-30 Outpatient Sajja, MHPL MHPL [id number] 21:35:26 14:23:00 [place] 2019-10-28 2019-10-28 Outpatient Sajja, MHPL MHPL [id number] 21:35:26 21:35:26 [place] 2019-01-13 2019-01-13 [facility] [id number] [facility] 11:15:00 11:15:00 tALIZA CURIEL M.D. [facility] Nicki ABRAMS M.D. [facility] ans 2018-12-28 2018-12-28 Outpatient Aliza Gama MHOIP MHOIP [id number] 13:07:00 23:59:00 [place] 2018-12-16 2018-12-16 [facility] [id number] 09:45:00 09:45:00 t; ALIZA GAMA M.D. Center - ity of ALIZA [facility] 2018-11-25 2018-12-08 Outpatient [facility] [id number] 09:35:00 12:30:00 Nakia 91 W 2018-11-22 2018-11-25 Outpatient LILLIE Santos MHPL [id number] 08:29:00 07:30:00 Ar 88 [facility] 2018-11-22 2018-11-22 Inpatient U MHBL MED [id number] MHBL 08:29:00 20:46:00 2018-11-18 2018-11-18 Outpatient WENCESLAO SantosOIP MHOIP [id number] 14:21:00 23:59:00 Ar 00 [facility] 2018-11-14 2018-11-14 [facility] DESMOND DELONG [facility] [id number] [facility] 11:30:00 11:30:00 t; MALIKA DELONG M.D. cic & ity of MALIKA [facility] 2018-10-14 2018-10-19 Outpatient NAKUL Salazar [facility] [id number] 03:17:00 17:59:00 Bk Faustinqaan 2018-01-16 2018-01-[address] [id number] 17:47:00 13:38:00 Peter 00 Results Test Description Test Time Test Comments Results Result Comments Source CHEM PANEL 2019-12-25 117 [facility] 11:22:00 CHEM PANEL 2019-12-25 11 [facility] 11:22:00 CHEM PANEL 2019-12-25 1.03 [facility] 11:22:00 CHEM PANEL 2019-12-25 140 [facility] 11:22:00 CHEM PANEL 2019-12-25 3.8 [facility] 11:22:00 CHEM PANEL 2019-12-25 108 [facility] 11:22:00 CHEM PANEL 2019-12-25 24 [facility] 11:22:00 CHEM PANEL 2019-12-25 9.5 [facility] 11:22:00 CHEM PANEL 2019-12-25 11.8 [facility] 11:22:00 CHEM PANEL 2019-12-25 63 [facility] 11:22:00 HEMATOLOGY 2019-12-25 11:22:00 Test Item Value Reference Range Interpretation Comme nts PTT (test code = PTT) 75.3 s 22.9-35.8 [facility] PvpitdyFYKPPQCOXW1340-39-95 11:22:009.5[facility]ann[facility]MATOLOGY 2019-12-25 11:22:003.80[facility] QkkskevDVRFCIQWVW8584-67-51 11:22:009.6[facility] HebtpinFQLQLPFFOQ6052-33-48 11:22:0029.8[facility] YmljxdwJUTJAGVWIN6191-17-73 11:22:0078.4[facility] NrehchrKOGBDWZPWY2328-16-25 11:22:00 Test Item Value Reference Range Interpretation Comments MCH (test code = MCH) 25.2 pg 27.0-31.0 [facility] BeydsthOJFFOLDWBU4965-67-86 11:22:0032.1[facility] HermannHEMATOLOGY 2019-12-25 11:22:0027.5[facility] RyaxxowGGQTIIMMGA2017-37-65 11:22:36017Ddygyxbc BuralxeHHZJJHEYNQ7870-29-68 11:22:009.2[facility] LivvqfrVVWXQADLMU8072-88-79 11:22:0061.2[facility] JzsnghoBJRMUXRFSO2535-34-23 11:22:0031.7[facility] Cy PRZAKNWBCI5696-18-99 11:22:005.9[facility] WsqapblVWAYESNWFD4363-86-52 11:22:000.7 [facility] DpkbaopKPGNELSMIN4041-85-69 11:22:000.5[facility] HermannHEMATOLOGY 2019-12-25 11:22:005.8[facility] NdlqacuCRLPNQPWKD6152-78-79 11:22:003.0[facility] NhmzfkgQUEJABRMYK9846-49-57 11:22:000.6[facility] VuactsbTUEWJTNPPO8823-35-67 11:22:000.1[facility] XvavbstQCPIFKNFEV0266-39-08 11:22:001+ *ABN*(12/25/19 5:22 AM)[facility] JojcvahFHSEPCFURR3999-84-43 04:46:00 Test Item Value Reference Range Interpretation Comments PTT (test code = PTT) 87.7 s 22.9-35.8 [facility] RbmtwbaVNRVSTHFNB4115-08-64 21:07:00 Test Item Value Reference Range Interpretation Comments PTT (test code = PTT) 39.5 s 22.9-35.8 [facility] HermannCARDIAC MKGYGMX1596-51-86 18:27:007.40[facility] HermannCARDIAC HTNBJYF6113-74-04 12:08:37782Zgiffyyt HermannCARDIAC NVVWYRO9015-15-29 12:08:00 5.80[facility] HermannCHEM NHFUO5067-53-67 12:08:83095Osfnmqhx HermannCHEM PANEL 2019-12-24 12:08:0013[facility] HermannCHEM KFCTC9469-42-89 12:08:000.96[facility] HermannCHEM PGFAL7456-62-58 12:08:88188Fornwxxx HermannCHEM WDWYO3708-26-35 12:08:003.8[facility] HermannCHEM UDEIJ8655-67-76 12:08:57128Epkrnjdu HermannCHEM TUEVA0611-09-66 12:08:0027[facility] HermannCHEM XAVTC4431-49-51 12:08:009.4 [facility] HermannCHEM IRSDM1579-63-86 12:08:0010.8[facility] HermannCHEM PANEL 2019-12-24 12:08:0068[facility] SboihbhBXUCQBRUPG3965-41-58 12:08:00 Test Item Value Reference Range Interpretation Comments PT (test code = PT) 13.3 s 12.0-14.7 [facility] OnsknlnRMVBLZGIFC1196-93-94 12:08:00 Test Item Value Reference Range Interpretation Comments INR (test code = INR) 1.01 1 0.85-1.17 [facility] KyozwfeWBLSWVZRAP2477-85-74 12:08:005.7[facility] HermannHEMATOLOGY 2019-12-24 12:08:003.36[facility] UluxbvpRYVAVRSGNM6738-42-86 12:08:008.5[facility] LjgsbtiBMYONVFLUG8275-19-77 12:08:0026.5[facility] DglkiouBQCPTCXWRP9383-44-52 12:08:0079.0[facility] CjuxbflTEGIASSCZZ1865-99-17 12:08:00 Test Item Value Reference Range Interpretation Comments MCH (test code = MCH) 25.3 pg 27.0-31.0 [facility] MiktwobGSGRHXOILQ6376-55-05 12:08:0032.1[facility] HermannHEMATOLOGY 2019-12-24 12:08:0026.9[facility] ArbnncpACUMPTGVQG2335-06-47 12:08:03567Bkpoaczi RduheciFBJMATBSJT7592-75-66 12:08:008.9[facility] WdfyjrhEEEISPGHCP7886-27-92 12:08:00Normal (12/24/19 6:08 AM)[facility] OvawnqyBAJUARAFGJ1408-53-31 12:08:00 56.6[facility] JmagjujHZPFETFPKQ3864-74-72 12:08:0031.4[facility] HermannHEMATOLOGY 2019-12-24 12:08:008.3[facility] XipxgkkXPQXZXTRAA9293-88-24 12:08:002.8[facility] DmculaqIPMLBBCLQZ5026-16-54 12:08:000.9[facility] EdfluclLCESSMXIUZ2902-23-04 12:08:003.2[facility] BhoplbbLKLGGOTHAL9245-04-11 12:08:001.8[facility] Cy QAPLLENLBF9905-43-41 12:08:000.5[facility] WhikttqTDALKUTDFD2136-66-01 12:08:000.2 [facility] VsbbzkrROLFWQKXFK9976-44-88 12:08:000.1[facility] HermannHEMATOLOGY 2019-12-24 12:08:001+ *ABN*(12/24/19 6:08 AM)[facility]annHEMATOLOGY 2019-12-24 12:08:001+ *ABN*(12/24/19 6:08 AM)[facility]annHEMATOLOGY 2019-12-24 12:08:001+ (12/24/19 6:08 AM)[facility] HermannCBC W/MANUAL DIFF 2019-11-28 17:48:00 Test Item Value Reference Range Interpretation Comments WHITE BLOOD CELL (test code 5.4 x10 3/uL 4.5-11.0 N = WBC) RED BLOOD CELL (test code = 3.51 x10 6/uL 3.54-5.02 L RBC) HEMOGLOBIN (test code = 9.1 g/dL 11.0-15.0 L HGB) HEMATOCRIT (test code = 28.9 % 33.0-45.0 L HCT) MEAN CELL VOLUME (test code 82.3 fL 81.0-99.0 N = MCV) MEAN CELL HGB (test code = 25.9 pg 27.0-33.0 L MCH) MEAN CELL HGB CONCETRATION 31.5 g/dL 33.0-37.0 L (test code = MCHC) RED CELL DISTRIBUTION WIDTH 21.5 % 11.5-14.5 H CV (test code = RDW) RED CELL DISTRIBUTION WIDTH 63.4 fL 37.0-54.0 H SD (test code = RDW-SD) PLATELET COUNT (test code = 247 x10 3/uL 150-400 N PLT) MEAN PLATELET VOLUME (test 9.6 fL 7.0-9.0 H code = MPV) SEGMENTED NEUTROPHILS (test 54.6 % 37-69 N code = SEG) BAND NEUTROPHIL (test code 0.0 % 0.0-10.0 N = BAND) LYMPHOCYTE (test code = 34.5 % 23-55 N LYMPH) MONOCYTE (test code = MON) 8.2 % 0-10 N EOSINOPHIL (test code = 0.9 % 0.0-4.0 N EOS) BASOPHIL (test code = BASO) 1.8 % 0.0-2.0 N NUCLEATED RED BLOOD CELL 1.8 % (test code = NRBC) POIKILOCYTOSIS (test code = 2+ POIK) ANISOCYTOSIS (test code = 2+ ANISO) MICROCYTOSIS (test code = 2+ MICR) ELLIPTOCYTES (test code = 2+ ELL) ACANTHOCYTES (test code = FEW NONE ACAN) PLATELET ESTIMATE (test Adequate THOUSAND ADEQUATE code = PLTEST) PLATELET MORPHOLOGY (test LARGE PLATELETS code = PLTMORPH) CBC W/MANUAL [id number] 16:56:00 Test Item Value Reference Range Interpretation Comments WHITE BLOOD CELL (test code = 5.4 x10 3/uL 4.5-11.0 N WBC) RED BLOOD CELL (test code = 3.51 x10 6/uL 3.54-5.02 L RBC) HEMOGLOBIN (test code = HGB) 9.1 g/dL 11.0-15.0 L HEMATOCRIT (test code = HCT) 28.9 % 33.0-45.0 L MEAN CELL VOLUME (test code = 82.3 fL 81.0-99.0 N MCV) MEAN CELL HGB (test code = MCH) 25.9 pg 27.0-33.0 L MEAN CELL HGB CONCETRATION 31.5 g/dL 33.0-37.0 L (test code = MCHC) RED CELL DISTRIBUTION WIDTH CV 21.5 % 11.5-14.5 H (test code = RDW) RED CELL DISTRIBUTION WIDTH SD 63.4 fL 37.0-54.0 H (test code = RDW-SD) PLATELET COUNT (test code = 247 x10 3/uL 150-400 N PLT) MEAN PLATELET VOLUME (test code 9.6 fL 7.0-9.0 H = MPV) BAND NEUTROPHIL (test code = % 0.0-10.0 BAND) ANISOCYTOSIS (test code = ANISO) PLATELET ESTIMATE (test code = THOUSAND ADEQUATE PLTEST) CBC W/MANUAL [id number] 16:54:00 Test Item Value Reference Range Interpretation Comments WHITE BLOOD CELL (test code = x10 3/uL 4.5-11.0 WBC) RED BLOOD CELL (test code = RBC) x10 6/uL 3.54-5.02 HEMOGLOBIN (test code = HGB) g/dL 11.0-15.0 HEMATOCRIT (test code = HCT) % 33.0-45.0 MEAN CELL VOLUME (test code = fL 81.0-99.0 MCV) MEAN CELL HGB (test code = MCH) pg 27.0-33.0 MEAN CELL HGB CONCETRATION (test g/dL 33.0-37.0 code = MCHC) RED CELL DISTRIBUTION WIDTH CV % 11.5-14.5 (test code = RDW) PLATELET COUNT (test code = PLT) 247 x10 3/uL 150-400 N BAND NEUTROPHIL (test code = % 0.0-10.0 BAND) ANISOCYTOSIS (test code = ANISO) PLATELET ESTIMATE (test code = THOUSAND ADEQUATE PLTEST) FTMPOJZVRW9878-58-26 18:44:006.3[facility] HczsxckMMUBIRBDIY3809-14-26 18:44:00 3.43[facility] KzgnbsiVLCVZPFSXF3681-36-05 18:44:008.6[facility] HermannHEMATOLOGY 2019-11-16 18:44:0026.4[facility] RdzerumUAHKZVNXSU7288-00-40 18:44:0076.9[facility] RsxyqxmZFYCGBONZX6831-97-70 18:44:00 Test Item Value Reference Range Interpretation Comments MCH (test code = MCH) 25.1 pg 27.0-31.0 [facility] EzcqrlvAPEEERTJCP0315-18-20 18:44:0032.6[facility] HermannHEMATOLOGY 2019-11-16 18:44:0029.2[facility] IktuisyXGZIPOVOJH8347-76-00 18:44:37571Vgcjzedb HugalhyKEAXELCUBI9431-80-23 18:44:008.4[facility] CqenempLWTXLNSKDZ3146-02-02 18:44:001+ *ABN*(11/16/19 1:44 PM)[facility] YvmzvuwOXZSQCWKIA0299-77-46 18:44:00 Normal (11/16/19 1:44 PM)[facility] WrmyoknQCEJFRQKJB0966-79-71 18:44:0064.0 [facility] RurcgmrLEZMFMKQYV4819-68-15 18:44:0026.0[facility] HermannHEMATOLOGY 2019-11-16 18:44:009.0[facility] YoskwclQYNVFCLUWF4254-93-31 18:44:001.0[facility] SolpzulQCIYQKTOBP5824-12-89 18:44:004.0[facility] EbsdxksRDBNBYVWSI3412-57-77 18:44:001.6[facility] HvbyproHSVDEPSODS1568-31-01 18:44:000.6[facility] Cy IDSLDJJUNA8488-07-66 18:44:000.1[facility] CetubjuHZDHERGOIZ6571-74-00 18:44:004 [facility] QqjvqwyBPWQILDNLX3745-67-19 18:44:00 Test Item Value Reference Range Interpretation Comments Tot Cell Ct (test code = Tot Cell Ct) 100 1 [facility] BjradzfSSEFRFTMLA8551-34-24 18:44:002+ *ABN*(11/16/19 1:44 PM)[facility]YRQ8374[facility]93-82 18:44:001+ (11/16/19 1:44 PM)[facility]2020-10-08 18:44:001-3 per HPF (11/16/19 1:44 PM)[facility]2020-10-08 18:44:00Moderate *ABN*(11/16/19 1:44 PM)[place] 205540-10-08 18:44:00Moderate *ABN*(11/16/19 1:44 PM)[place] 205540-10-08 18:44:002.5[facility]UAL [id number] 18:55:00 Test Item Value Reference Range Interpretation Comments WHITE BLOOD CELL (test code 6.30 x10 3/uL 4.5-11.0 N = WBC) RED BLOOD CELL (test code = 3.59 x10 6/uL 3.54-5.02 N RBC) HEMOGLOBIN (test code = 9.1 g/dL 11.0-15.0 L HGB) HEMATOCRIT (test code = 28.7 % 33.0-45.0 L HCT) MEAN CELL VOLUME (test code 79.9 fL 81.0-99.0 L = MCV) MEAN CELL HGB (test code = 25.3 pg 27.0-33.0 L MCH) MEAN CELL HGB CONCETRATION 31.7 g/dL 33.0-37.0 L (test code = MCHC) RED CELL DISTRIBUTION WIDTH 25.2 % 11.5-14.5 H CV (test code = RDW) RED CELL DISTRIBUTION WIDTH 71.4 fL 37.0-54.0 H SD (test code = RDW-SD) PLATELET COUNT (test code = 222 x10 3/uL 150-400 N PLT) IMMATURE PLATELET FRACTION 1.7 % 0.9-11.2 N (test code = IPF) MEAN PLATELET VOLUME (test 9.4 fL 7.0-9.0 H code = MPV) SEGMENTED NEUTROPHILS (test 52.7 % 37-69 N code = SEG) BAND NEUTROPHIL (test code 0.0 % 0.0-10.0 N = BAND) LYMPHOCYTE (test code = 34.6 % 23-55 N LYMPH) MONOCYTE (test code = MON) 8.2 % 0-10 N EOSINOPHIL (test code = 2.7 % 0.0-4.0 N EOS) BASOPHIL (test code = BASO) 1.8 % 0.0-2.0 N NUCLEATED RED BLOOD CELL 7.3 % (test code = NRBC) POLYCHROMASIA (test code = 3+ POLC) POIKILOCYTOSIS (test code = 2+ POIK) ANISOCYTOSIS (test code = 2+ ANISO) MICROCYTOSIS (test code = 1+ MICR) ELLIPTOCYTES (test code = 3+ ELL) OVALOCYTES (test code = 2+ OVAL) SCHISTOCYTES (test code = 1+ GWENDOLYN) PLATELET ESTIMATE (test Adequate THOUSAND ADEQUATE code = PLTEST) CBC W/MANUAL [id number] 16:38:00 Test Item Value Reference Range Interpretation Comments WHITE BLOOD CELL (test code = 6.30 x10 3/uL 4.5-11.0 N WBC) RED BLOOD CELL (test code = 3.59 x10 6/uL 3.54-5.02 N RBC) HEMOGLOBIN (test code = HGB) 9.1 g/dL 11.0-15.0 L HEMATOCRIT (test code = HCT) 28.7 % 33.0-45.0 L MEAN CELL VOLUME (test code = 79.9 fL 81.0-99.0 L MCV) MEAN CELL HGB (test code = MCH) 25.3 pg 27.0-33.0 L MEAN CELL HGB CONCETRATION 31.7 g/dL 33.0-37.0 L (test code = MCHC) RED CELL DISTRIBUTION WIDTH CV 25.2 % 11.5-14.5 H (test code = RDW) RED CELL DISTRIBUTION WIDTH SD 71.4 fL 37.0-54.0 H (test code = RDW-SD) PLATELET COUNT (test code = 222 x10 3/uL 150-400 N PLT) IMMATURE PLATELET FRACTION 1.7 % 0.9-11.2 N (test code = IPF) MEAN PLATELET VOLUME (test code 9.4 fL 7.0-9.0 H = MPV) BAND NEUTROPHIL (test code = % 0.0-10.0 BAND) ANISOCYTOSIS (test code = ANISO) PLATELET ESTIMATE (test code = THOUSAND ADEQUATE PLTEST) CHEM [id number] 18:12:003.1[facility] XtntkhzGUWIYWTDLM1681-01-59 15:25:00 Test Item Value Reference Range Interpretation Comments PT (test code = PT) 13.6 s 12.0-14.7 [facility] OecbjfmFYHRPFPWBZ7699-86-89 15:25:00 Test Item Value Reference Range Interpretation Comments INR (test code = INR) 1.04 1 0.85-1.17 [facility] VzrnskjRLBDJJDTXG1523-18-32 15:25:00 Test Item Value Reference Range Interpretation Comments PTT (test code = PTT) 26.8 s 22.9-35.8 [facility] XpduvceULZIADPIRR3743-15-63 00:31:00Not Detected (10/29/19 7:31 PM) [facility] THFTM3248-64-51 23:22:97855Tclxfsaq HermannANEMIA STUDY 2019-10-29 23:22:0019.3[facility] HermannCHEM WCJXO9389-22-47 23:22:98512Tviaoezf HermannCHEM LFIJO6581-32-54 23:22:0075[facility] BreiuxiDFZJSOJAYE1646-99-95 23:22:008[facility] BstwwdoIQHDMIYTPT0658-97-13 23:22:00Negative *NA*(10/29/19 6:22 PM)[facility] JydtycgXVQPPTSKXD4551-53-50 23:22:00<1[facility] HermannIMMUNOLOGY 2019-10-29 23:22:0057.1[facility] LpnsdbqHRVTWJHEVT3425-94-88 23:22:005.0[facility] CpqwbzvJBUCMYITOV1212-39-45 23:22:007.9[facility] JvtqedyYXASAPGGET3379-11-61 23:22:009.1[facility] CzdjxtfFLWPLSBOEJ3273-68-61 23:22:0020.9[facility] Cy ZUVOHRNBKH9538-75-05 23:22:004.23[facility] EhscysqWYCEGPAVSI4922-96-52 23:22:00 0.37[facility] PbjnjozSMYYQSDIXL4320-99-94 23:22:000.58[facility] HermannIMMUNOLOGY 2019-10-29 23:22:000.67[facility] AouodwuJAZHLIMPWW4199-39-89 23:22:001.55[facility] TfnfotwHGFMSHPYMU3834-02-59 23:22:007.4[facility] FxdapjoWHTTPQXBDS2330-23-31 23:22:00 Test Item Value Reference Range Interpretation Comments Hep Signal to Cut-Off (test code = Hep 0.03 1 Signal to Cut-Off) [facility]annTUMOR NQXLVCB4654-05-43 23:22:001.1[facility]annANEMIA STUDY 2019-10-29 17:30:46464Dxuwdvct HermannANEMIA PULOE7092-03-04 17:30:13248Mkteqyqh HermannANEMIA ZZHTZ5083-16-11 17:30:77147Fosfhmdy HermannANEMIA DGXAP3080-22-49 17:30:0096[facility]AN[facility] VYVJK2972-03-75 17:30:81975Lxfipdnm Cy CHEM WKPTL4521-55-54 10:44:0092[facility]annCHEM AVPAD9131-54-70 10:44:0014 [facility]annCHEM TUTUB4855-42-15 10:44:000.82[facility]annCHEM PANEL 2019-10-29 10:44:34909Uqgzwmrm HermannCHEM BACTM1193-78-00 10:44:003.9[facility]annCHEM TQZGJ0388-51-81 10:44:04142Kggybusp HermannCHEM ZIFVH0080-24-68 10:44:0028[facility]annCHEM FCZSN1027-05-92 10:44:008.8[facility]annCHEM HCJRK3554-36-93 10:44:008.9[facility]annCHEM HCAUR7080-11-22 10:44:0083 [facility] EjzyddkLGFFFFCDCV7377-81-34 10:44:0055.4[facility]annHEMATOLOGY 2019-10-29 10:44:0028.9[facility] KknfusaGIERGZJVUW0711-34-38 10:44:0011.9[facility] XawehpoIZVIULEIQE0140-97-28 10:44:003.2[facility] WnoimreFVYMXMZMLG3835-12-42 10:44:000.6[facility] SgmcpaoBUDZESVYNT9527-91-45 10:44:004.4[facility] FALEFDQLGL9737-29-16 10:44:002.3[facility] MmlpqpdPHPMRXYXHQ8867-76-02 10:44:000.9 [facility] OaklphuYJRGDFIWTZ2676-56-35 10:44:000.3[facility] HermannHEMATOLOGY 2019-10-29 10:44:002+ *ABN*(10/29/19 5:44 AM)[facility] SjanfvyESSJXNECAV8667-16-76 10:44:007.9[facility] OjfuemaPTMBONPEZF0039-74-61 10:44:003.22[facility] ZQQAVKMPBJ7453-98-01 10:44:008.0[facility] VakzfepFDCVAQXOCZ2652-94-86 10:44:00 23.3[facility] IrtrfsbGJDEWTBMKU3959-78-24 10:44:0072.2[facility] HermannHEMATOLOGY 2019-10-29 10:44:00 Test Item Value Reference Range Interpretation Comments MCH (test code = MCH) 24.7 pg 27.0-31.0 [facility] KyspzveIKRLBCQRGX5204-72-30 10:44:0034.2[facility]annHEMATOLOGY 2019-10-29 10:44:0028.5[facility] KtvfvlbZGVXSNVZNU2360-87-98 10:44:84695Zwbmfidg IddeauxEVVAPZKTFN7415-40-75 10:44:008.3[facility]annBLOOD BANK RESULTS 2019-10-29 04:25:00Negative (10/28/19 11:25 PM)[facility]annCHEM PANEL 2019-10-29 04:25:001.0[facility]BL[facility] BANK YGZOXZZ7017-93-60 03:45:00 Product available (10/28/19 10:45 PM)[facility]annCARDIAC BGRGKYF6983-86-46 03:23:000.04[facility] HermannCHEM KSPQL2828-88-88 03:23:24287Wfzznqdb HermannCHEM CKFAN8549-42-15 03:23:0016[facility]annCHEM OOFKD5465-46-71 03:23:001.02 [facility]annCHEM VSKKP9263-51-84 03:23:49412Tinxwaoq HermannCHEM PANEL 2019-10-29 03:23:004.0[facility]annCHEM TXXRM6595-75-13 03:23:56621Wldntolv HermannCHEM FLRVS4170-27-95 03:23:0028[facility]annCHEM LEVJM3504-07-43 03:23:009.3[facility]annCHEM IQISS3336-43-00 03:23:007.4[facility]annCHEM YARES6932-76-62 03:23:003.6[facility]annCHEM VHWID4089-56-64 03:23:0012 [facility]annCHEM AWBIJ7103-54-56 03:23:0037[facility]annCHEM PANEL 2019-10-29 03:23:0082[facility]annCHEM XSNGJ5183-44-33 03:23:000.7[facility]annCHEM PLAYJ5471-93-37 03:23:007.0[facility]annCHEM BSANL7527-94-88 03:23:00 Test Item Value Reference Range Interpretation Comments B/C Ratio (test code = B/C Ratio) 16 1 6-25 [facility]annCHEM UKHVO8634-11-72 03:23:003.8[facility]annCHEM PANEL 2019-10-29 03:23:00 Test Item Value Reference Range Interpretation Comments A/G Ratio (test code = A/G Ratio) 0.9 1 0.7-1.6 [facility]annCHEM FSZVR3859-58-24 03:23:0064[facility]annHEMATOLOGY 2019-10-29 03:23:008.2[facility] VepsshySIXLRNWMKH4125-97-69 03:23:002.94[facility] IemvdafFDDETPRTST0846-73-66 03:23:007.2[facility] SezylgqQIOQALSTFK2128-64-42 03:23:0020.7[facility] RxpgigkXHWXKSSXLI5555-23-89 03:23:0070.3[facility] FGAPEUASMI6342-43-06 03:23:00 Test Item Value Reference Range Interpretation Comments MCH (test code = MCH) 24.5 pg 27.0-31.0 [facility] EymfteeGIADZMPDIA9657-94-41 03:23:0034.8[facility]annHEMATOLOGY 2019-10-29 03:23:0029.8[facility] YppsmlwKQVVQKDQRW4322-89-16 03:23:70531Lkzebswf BnqqsdoCAFFXHCNNU3209-09-22 03:23:008.2[facility] BxskccrXADXBEEYKF5535-61-04 03:23:00Normal (10/28/19 10:23 PM)[facility] WyhwavsCHWMIOTJGB7526-66-01 03:23:00 59.5[facility] TecmlikHWKRKVRKSM3529-98-76 03:23:0025.6[facility]annHEMATOLOGY 2019-10-29 03:23:0011.3[facility] XldjjxuYNZGMYPGQA7261-79-23 03:23:002.7[facility] WyyuvvwMENRUXUGQA2823-07-10 03:23:000.9[facility] VbcqbeePMKEYKYGRV3601-69-01 03:23:004.9[facility] QwhknakCXJRFJJHIL0626-62-09 03:23:002.1[facility] FPKUKTVMTN6705-60-06 03:23:000.9[facility] KoicaptFKWZVPLRLF5613-35-02 03:23:000.2 [facility] SrncvirERRPTEJSPO4858-05-52 03:23:000.1[facility]annHEMATOLOGY 2019-10-29 03:23:002+ *ABN*(10/28/19 10:23 PM)[facility]annHEMATOLOGY 2019-10-29 03:23:002+ *ABN*(10/28/19 10:23 PM)[facility]annHEMATOLOGY 2019-10-29 03:23:001+ (10/28/19 10:23 PM)[facility] UgvyqwuPGKMRHYFMT5075-28-58 03:23:001-3 per HPF (10/28/19 10:23 PM)[facility] BjuzajeHBJJTGAYQO8790-47-14 03:23:00Moderate *ABN*(10/28/19 10:23 PM)[facility]annURINE [facility] STOOL 2019-10-29 03:23:00Yellow *NA*(10/28/19 10:23 PM)[facility] ST[facility] 2019-10-29 03:23:00Clear (10/28/19 10:23 PM)[facility] ST[facility] 2019-10-29 03:23:00 Test Item Value Reference Range Interpretation Comments UA Spec Grav (test code = UA Spec 1.016 1 Grav) [facility] IGCMV9957-90-13 03:23:00 Test Item Value Reference Range Interpretation Comments UA pH (test code = UA pH) 5.0 1 5.0-8.0 [facility] NLUDD5534-89-81 03:23:00Negative *NA*(10/28/19 10:23 PM)[facility] SHPJV5165-55-09 03:23:00Negative (10/28/19 10:23 PM) [facility] STGLY0327-76-74 03:23:002.0[facility]UR[facility] AND YCQEC6718-26-49 03:23:00Negative (10/28/19 10:23 PM)[facility] UWQNL8609-92-01 03:23:00Large *ABN*(10/28/19 10:23 PM)[facility] CGVAP5656-82-15 03:23:0019[facility]UR[facility] AND NBMGR8992-09-85 03:23:003 [facility] JOYZT1592-04-08 03:23:005[facility] HermannUS Pelvis with Pelvis Transvaginal [id number] 14:00:00PROCEDURE INFORMATION:Exam: US Pelvis Complete, Transabdominal and US Pelvis, TransvaginalExam date and time: 12/28/2018 2:31 PMAge: 73 years oldClinical history: Postmenopausal bleeding; Additional info: /post menopausalbleedingTECHNIQUE:Imaging protocol: Real-time transabdominal and transvaginal pelvic ultrasound(complete) with image documentation. Transvaginal imaging was used for betterevaluationof the endometrium and adnexa.COMPARISON:No relevant prior studies [...] histologic sampling.Mk Fiore MD On 12/28/2018 18:10:20; [id number]--Ghty by: Mk Fiore MDDictated Date/time: 12/28/18 18:10Electronically Signed by: Mk Fiore MD 1 02/27/1917:10FINAL REPORTUn[facility] PhysiciansCHEM QAPOK7578-13-25 06:24:002.0[facility]annCHEM LFMKC4906-90-81 06:24:003.3[facility] ZPYVOTTPWESI2976-70-29 06:24:009.7[facility] HayenxuLTUEUUKOUUAK0590-94-60 06:24:12967Widqkmyw BtzxywpSDPZHKDQJPCN4108-39-11 06:24:009[facility] VYGNFICZIWMX8090-78-65 06:24:000.78[facility] UhwrgajNDWAZMIWMNLF8062-86-05 06:24:39459Zujqmyax CyhbeseSYISHQZLMECO5596-96-20 06:24:003.7[facility] YLGQZWOQBNNN2534-69-71 06:24:31028Svzmlnus RhqjpkpIGJDWZQMCQWC1058-33-60 06:24:0025[facility] OxqhdacYZCYRGGSWWCM5576-52-36 06:24:009.1[facility] BDWHUPEALYLT1435-30-88 06:24:0089[facility] AlezeiqCXPIQGNTDF0685-12-85 06:24:00 42.3[facility] HsmwzroQYLIZLMOXV6550-89-74 06:24:0027.0[facility]annHEMATOLOGY 2018-12-08 06:24:0010.6[facility] EdnswpmQFLOPNOWTR9236-69-47 06:24:0019.6[facility] JbdvrosUTNGUDFYLV8088-48-15 06:24:000.5[facility] UzgffjoTHLVYCCMUW7013-82-09 06:24:002.9[facility] WsxciqlKDGPNWDYOT5208-95-09 06:24:001.9[facility] Cy SEGIFKJFDF8910-37-34 06:24:000.7[facility] UfyjodmUCFGZYLWMV2921-35-01 06:24:001.4 [facility] EvawsoxFQBBZXPRTX6664-87-96 06:24:006.9[facility]annHEMATOLOGY 2018-12-08 06:24:003.34[facility] FaiuzcqXINLNFHXKG0350-83-82 06:24:009.7[facility] RvefxvnVJGGURAUYF4458-25-48 06:24:0029.1[facility] DonmfwlRMUVOJKBFA9345-77-97 06:24:0087.0[facility] BvqpphtSLYENACSPP2438-79-48 06:24:00 Test Item Value Reference Range Interpretation Comments MCH (test code = MCH) 28.9 pg 27.0-31.0 [facility] WndgtusSYWTHMTPYD0784-26-33 06:24:0033.2[facility]annHEMATOLOGY 2018-12-08 06:24:0019.emorial VveawvbFZKKVFDFOH2443-58-40 06:24:18659Gcrixvww TrxdaxnAAOWLRQCBZ3626-49-04 06:24:007.9[facility] HermannPARATHYROID PROFILE 2018-12-08 06:24:001.22[facility] HermannPARATHYROID IIFIPYP8988-32-94 06:24:00 1.24[facility] HermannCHEM OHZKF6260-01-53 10:14:003.6[facility]annCHEM PANEL 2018-12-07 10:14:002.1[facility] HermannCHEM OMYQX6731-65-90 10:14:0092[facility]annCHEM WULGC4719-33-55 10:14:007[facility]annCHEM TSHOJ3914-14-48 10:14:000.69[facility]annCHEM AQNSC5652-15-43 10:14:20374Axqnjzzn HermannCHEM KQQEL3261-00-86 10:14:003.5[facility]annCHEM VWREI9906-43-38 10:14:12217 [facility]annCHEM ACEUC5911-91-34 10:14:0026[facility]annCHEM PANEL 2018-12-07 10:14:009.1[facility] HermannCHEM LVXGW3908-52-06 10:14:0010.5[facility]annCHEM LSKKM9080-32-44 10:14:19498Ftsdzbxl JqohnkfZZPUNHUHAS3769-88-13 10:14:0042.9[facility] XegkqevESMLGJQGNT0674-73-80 10:14:0028.7[facility] Cy WOIJEIHYDQ6248-93-31 10:14:009.8[facility] EldxoexZBUVAHXKYH4769-69-37 10:14:00 18.3[facility] FelrmjoSTDGDAJBVP2172-49-94 10:14:000.3[facility]annHEMATOLOGY 2018-12-07 10:14:002.6[facility] TwowxebDWHEQTDYHP8794-35-87 10:14:001.8[facility] AugrpitVUPQJSILWU8061-55-66 10:14:000.6[facility] HskcnixBRZPLFKVON1036-24-36 10:14:001.1[facility] DxuqzqkIQCPTICLYD7221-57-06 10:14:006.2[facility] EUXVSHNUFB1998-48-28 10:14:003.36[facility] AcifjjrKHYURMDDSP6740-60-74 10:14:00 9.8[facility] IjzvszrPMVEFTSCLU8419-35-46 10:14:0029.5[facility]annHEMATOLOGY 2018-12-07 10:14:0087.8[facility] JqguomwXTDWTXRVLI3855-55-85 10:14:00 Test Item Value Reference Range Interpretation Comments MCH (test code = MCH) 29.1 pg 27.0-31.0 [facility] RrtwjyjSJKNDWSKFJ4535-89-85 10:14:0033.1[facility]annHEMATOLOGY 2018-12-07 10:14:0019.9[facility] XcuapiuPTRQTKFGZH1870-67-56 10:14:21451Gndhiwkn RgkmkzoZPPUDANVFA7931-76-47 10:14:008.0[facility] HermannPARATHYROID PROFILE 2018-12-07 10:14:001.23[facility] HermannPARATHYROID LJEKLKG2081-17-58 10:14:00 1.22[facility] OxlvuppACFTUNRJLH1516-11-33 03:49:00 Test Item Value Reference Range Interpretation Comments PT (test code = PT) 13.3 s 12.0-14.7 [facility] IkbwkmzZWINCYQDPF8987-89-80 03:49:00 Test Item Value Reference Range Interpretation Comments INR (test code = INR) 1.03 1 0.85-1.17 [facility] CfsggasAGMFZWMFLY5653-06-88 01:08:0010.3[facility]annHEMATOLOGY 2018-12-07 01:08:0031.4[facility] HermannCHEM YEUJT7048-68-89 08:54:002.0[facility] HermannCHEM UFWTA6816-37-37 08:54:004.2[facility] WcesksdRDFJFEFLRXLZ0811-95-26 08:54:0010.6[facility] XkrqdtwCKTQSLBYOUXS7367-75-36 08:54:40455Jfkvpzbr Cy QSYAKLCYMRHR6325-80-48 08:54:0011[facility] HjnginwUCDTFYCAHCEE3926-57-49 08:54:00 0.70[facility] QntuhhcJZLPREMJOGAX8031-36-82 08:54:93338Kskjxyxd [facility] VKBWMTEYBWOC5329-84-89 08:54:003.6[facility] HevdmgjFZHKEWUFAVXP8712-39-34 08:54:77018Ixkgkgsu PezvhdyLKVTCXCRPXET3550-66-90 08:54:0025[facility] ZCJFRRWWJKBY9507-40-23 08:54:009.2[facility] GivzpeuWBOJZZVRMDNY4897-75-46 08:54:16451Vkwmkrxa WlhmqxuVBPIIQFOZS6161-70-41 08:54:0047.0[facility] PBRZUXPRTW8556-53-23 08:54:0026.3[facility] XlutcazCOENBAIRCA5977-92-57 08:54:00 10.2[facility] LegpkklVEVIVEWLMG0501-62-42 08:54:0016.2[facility]annHEMATOLOGY 2018-12-06 08:54:000.3[facility] PxfyokvMTFBYDTTWJ6594-32-22 08:54:003.2[facility] AxqpruiNIEFHLXWVH2035-75-75 08:54:001.8[facility] WhukllcQQBADVLHDZ2666-77-41 08:54:000.7[facility] EotcaipWKSNQFSLYX0283-97-60 08:54:001.1[facility] Cy SQRUYEQMGP7337-68-62 08:54:006.8[facility] PalfqijPQQUOAAYLD9496-03-11 08:54:00 3.36[facility] FmehvibLKZPHCXLGA6461-56-52 08:54:0087.8[facility]annHEMATOLOGY 2018-12-06 08:54:00 Test Item Value Reference Range Interpretation Comments MCH (test code = MCH) 29.1 pg 27.0-31.0 [facility] YihccmlWXWUDOYPSJ3386-96-65 08:54:0033.1[facility]annHEMATOLOGY 2018-12-06 08:54:0020.1[facility] MrjjrkyXHXYAREWFN2188-00-80 08:54:29488Yxupcttu LsawdrfUVVHSXUQEF4255-09-44 08:54:007.9[facility]annPARATHYROID PROFILE 2018-12-06 08:54:001.17[facility] HermannPARATHYROID RYBSMSH6410-35-95 08:54:00 1.18[facility] BzbkczfNPRKDFFESN1113-26-38 10:16:00Normal (12/04/18 5:16 AM) [facility] HdywzuxPNLDDLFKPQ2952-91-17 10:16:001+ *ABN*(12/04/18 5:16 AM)[facility] NwczqxiELHAAPPIXC9954-05-14 10:16:00 Test Item Value Reference Range Interpretation Comments PT (test code = PT) 13.4 s 12.0-14.7 [facility] CyrjugsEHXDEALDLE8165-54-86 10:16:00 Test Item Value Reference Range Interpretation Comments INR (test code = INR) 1.04 1 0.85-1.17 [facility] HqcmykiOULVPQLALM7012-02-80 09:51:00 Test Item Value Reference Range Interpretation Comments PT (test code = PT) 13.5 s 12.0-14.7 [facility] XejydyxUAXQHCEGVO5104-38-23 09:51:00 Test Item Value Reference Range Interpretation Comments INR (test code = INR) 1.05 1 0.85-1.17 [facility]annBODY ULELYO9490-64-65 23:31:002.7[facility]annBODY FLUIDS 2018-12-02 23:31:00Pleural *NA*(12/02/18 6:31 PM)[facility]annBODY FLUIDS 2018-12-02 23:31:60488Pqfuagsq HermannBODY TDSNVD0305-17-66 23:31:00Pleural *NA*(12/02/18 6:31 PM)[facility]annBODY FAFMWF7227-91-48 23:31:12781Uiogqgqi HermannBODY GWWVHP9610-66-08 23:31:00Pleural *NA*(12/02/18 6:31 PM)[facility]annBODY UNBUOK0682-61-15 23:31:00Pleural (12/02/18 6:31 PM)[facility] BODY VVRSFZ2523-17-18 23:31:00 Test Item Value Reference Range Interpretation Comments pH BF (test code = pH BF) 8.00 1 [facility]annBODY UNXSDH0822-50-23 23:31:004.4[facility]annBODY FLUIDS 2018-12-02 23:31:00Pleural *NA*(12/02/18 6:31 PM)[facility]annBODY FLUIDS 2018-12-02 23:31:0021[facility]annBODY CFXVDQ1695-65-47 23:31:00Pleural *NA*(12/02/18 6:31 PM)[facility] HermannCHEM BJYGY7402-71-62 23:31:006.7[facility] HermannCHEM KNOEN3160-53-42 23:31:47216Jlasjuox SiocefrJOFYEHMTHY0691-36-43 23:31:00Normal (12/02/18 6:31 PM)[facility] JaigaghQZIWWASNSO6872-96-69 23:31:001+ *ABN*(12/02/18 6:31 PM)[facility]annBODY XZZCQQ1543-59-50 22:23:00Red *ABN*(12/02/18 5:23 PM)[facility]annBODY LYWYOS7660-90-50 22:23:00Marked *ABN*(12/02/18 5:23 PM)[facility]annBODY MKTTFD2490-11-34 22:23:00Red *ABN*(12/02/18 5:23 PM)[facility] NNMOOO4443-45-75 22:23:37919Hdkalsum HermannBODY GNJEND2116-97-30 22:23:98384747Ggkgjlox HermannBODY FLUIDS 2018-12-02 22:23:002[facility]annBODY MXXRGZ6834-16-87 22:23:0073[facility]annBODY WMCLFB5399-32-93 22:23:0024[facility]annBODY YEQSTT8688-83-32 22:23:001[facility]annBODY FKKBFM7060-16-88 22:23:00Pleural (12/02/18 5:23 PM)[facility]qppvotJQYVCOCKID2695-89-11 17:38:00 Test Item Value Reference Range Interpretation Comments PTT (test code = PTT) 87.6 s 22.9-35.8 [facility]bgiyjJXHCIEPFQZ5276-89-93 08:56:00Normal (12/01/18 3:56 AM)[facility] HospitalQhwszcvZYYCCGTHKR4431-80-48 08:56:001+ *ABN*(12/01/18 3:56 AM)[facility] PTGGKAIFFA9253-57-26 08:56:00Moderate *ABN*(12/01/18 3:56 AM)[facility] FIEUUTYXFG6725-54-05 08:56:00 Test Item Value Reference Range Interpretation Comments PTT (test code = PTT) 88.2 s 22.9-35.8 [facility] HospitalUgapsdsNQXTZIHYGU0738-88-80 10:30:00 Test Item Value Reference Range Interpretation Comments PTT (test code = PTT) 89.8 s 22.9-35.8 [facility] CenterErkzrxoXLJGFFKQKZ9651-62-40 10:30:001+ *ABN*(11/30/18 5:30 AM)[facility] IyzpfftJFRJTGYHBU8605-75-98 10:30:001-3 per HPF (11/30/18 5:30 AM)[facility]annSPECIAL YAYPCBYNM1747-01-76 06:06:004.9[facility]URINE AND STOOL 2018-11-25 18:08:00<1[facility]UR[facility] AND OJNMK6276-96-16 18:08:00<1 [facility] IIAAC0246-92-74 18:08:001[facility]UR[facility] AND XPXOU2240-12-41 18:08:00Yellow *NA*(11/25/18 1:08 PM)[facility] BPVMR9080-89-94 18:08:00Clear (11/25/18 1:08 PM)[facility] STOOL 2018-11-25 18:08:00 Test Item Value Reference Range Interpretation Comments UA Spec Grav (test code = UA Spec 1.010 1 Grav) [facility] UIVAC0868-80-43 18:08:00 Test Item Value Reference Range Interpretation Comments UA pH (test code = UA pH) 6.5 1 5.0-8.0 [facility] HEKTY3685-33-00 18:08:00Negative (11/25/18 1:08 PM) [facility] TKMYK4166-37-45 18:08:00Negative (11/25/18 1:08 PM) [facility] FAKTI0026-94-87 18:08:00Negative *NA*(11/25/18 1:08 PM)[facility] AND HZJVH4409-71-90 18:08:00Negative *NA*(11/25/18 1:08 PM)[facility] AND LNEWK6636-31-46 18:08:00Trace *ABN*(11/25/18 1:08 PM)[facility] AND EJTYP5265-63-37 18:08:000.2[facility] AND ATJQW9123-87-03 18:08:00Negative (11/25/18 1:08 PM)[facility] SLFCJ7799-26-22 18:08:00Negative (11/25/18 1:08 PM)[facility] AND MPAIO8146-06-69 18:08:00Performed (11/25/18 1:08 PM)[facility]annHEMATOLOGY 2018-11-25 11:57:00 Test Item Value Reference Range Interpretation Comments PT (test code = PT) 14.0 s 12.0-14.7 [facility] XlhxkrrZQGKTYAAPD9823-15-08 11:57:00 Test Item Value Reference Range Interpretation Comments INR (test code = INR) 1.10 1 0.85-1.17 [facility] VurqpzkQXNHRMPSFL4883-97-67 11:57:00 Test Item Value Reference Range Interpretation Comments PTT (test code = PTT) 125.0 s 22.9-35.8 [facility] NwvyxkuZQRQNIEOLJEZ8686-68-04 10:49:0010.4[facility] HermannELECTROLYTES 2018-11-25 10:49:58547Abesqvcb OscegdlMQEEVEBOXXYV0689-21-52 10:49:006[facility] GclyurlUUFKTYDTPBXV9706-87-15 10:49:000.70[facility] FgznpdyVDXVUUXJREYE7716-31-64 10:49:78356Oqfislva FjbffrgAHBFGVLKDEXI9058-41-52 10:49:003.4[facility] Cy IVHPFRBCANHA4917-43-62 10:49:67488Ksdodwlq StmxymaBJYHRBMQPQYQ4965-10-10 10:49:0027[facility] PhszoqcFTQQGAEVUEAU5511-07-72 10:49:008.6[facility] WICNHGOVXBUT5002-37-88 10:49:16081Fusnxriy TtunrptIKSJVCDTRW9598-52-87 10:49:00 62.7[facility] TyxinlkDHNFQSOFFR6812-79-86 10:49:0020.8[facility]annHEMATOLOGY 2018-11-25 10:49:009.1[facility] AyieccxABEQBPEEIP1144-49-59 10:49:006.8[facility] KntadloHZDERZLJXS5757-43-41 10:49:000.6[facility] CypquzeRMZOWOCAFG2229-64-51 10:49:005.4[facility] DcclijqPHQFBWKNYY1900-35-93 10:49:001.8[facility] SYNNSGFUFM4894-68-16 10:49:000.8[facility] AuhcrmeKBDZBWJBYJ4831-74-40 10:49:000.6 [facility] BjesznlFEVPMQWELQ3966-57-10 10:49:000.1[facility]annHEMATOLOGY 2018-11-25 10:49:00 Test Item Value Reference Range Interpretation Comments PTT (test code = PTT) 145.0 s 22.9-35.8 [facility] XpxxltgRUSVSLREDB6914-96-69 10:49:008.5[facility]annHEMATOLOGY 2018-11-25 10:49:003.01[facility] FjoetptKWDIJZDZOL5863-65-84 10:49:008.8[facility] TmogkwcZOMTIFLBRD0754-00-91 10:49:0025.5[facility] IjxlktuPQJALIZTJV5061-84-17 10:49:0084.7[facility] QmrquzsWOEMOSKGAV0638-43-95 10:49:00 Test Item Value Reference Range Interpretation Comments MCH (test code = MCH) 29.3 pg 27.0-31.0 [facility] RdkqamnHSWTNQBPHO8424-93-29 10:49:0034.5[facility] HermannHEMATOLOGY 2018-11-25 10:49:0018.9[facility] DesmqxwIXMMQEJUNP6383-04-45 10:49:88555Mybqxxbo RrugnloDICPNQFVDU8446-25-71 10:49:006.8[facility] TcqugtsJBKHPMMGRV6507-78-78 02:55:00 Test Item Value Reference Range Interpretation Comments PTT (test code = PTT) 58.3 s 22.9-35.8 [facility] HospitalElckhbpGUCBAJNKVE0403-54-99 15:14:00 Test Item Value Reference Range Interpretation Comments PT (test code = PT) 18.6 s 12.0-14.7 [facility] HospitalAeglvklVMEZCIJMUS7677-52-21 15:14:00 Test Item Value Reference Range Interpretation Comments INR (test code = INR) 1.59 1 0.85-1.17 [facility] HospitalWpidvllAVLAFJSLFX4948-31-71 15:14:006.9[facility]annHEMATOLOGY 2018-11-24 15:14:002.86[facility] AbqoeefTCPITZTDEE5377-54-18 15:14:008.4[facility] MgwhadrNCDYIXLYHC3278-76-02 15:14:0024.3[facility] AfpbbufBGLFEOEYNO0987-74-29 15:14:0085.0[facility] LzerrdgCAMRJZZKIX5287-14-51 15:14:00 Test Item Value Reference Range Interpretation Comments MCH (test code = MCH) 29.2 pg 27.0-31.0 [facility] AqtsspuUADMLKLRSA4903-10-94 15:14:0034.4[facility]annHEMATOLOGY 2018-11-24 15:14:0018.9[facility] NrbsdurVSURDUUYPE3017-75-27 15:14:38016Oqhjlcpk OykgzqwMHOBCBRDLJ7386-00-61 15:14:006.7[facility] SpckmicSCNRTPHNGP0183-71-30 15:14:00Normal (11/24/18 10:14 AM)[facility] OxsqrhlGMXJOUPFRS7840-11-89 15:14:00 67.7[facility] HswdyywKIQPNIMZDF0441-06-61 15:14:0018.5[facility] HermannHEMATOLOGY 2018-11-24 15:14:008.4[facility] YerjnkuQYYWICJBEF5017-81-35 15:14:004.9[facility] JvxwelyDVOUUGCKSP0571-56-88 15:14:000.5[facility] HtgdilbEJVYNTALSO9984-61-15 15:14:004.6[facility] NhlwmbeJMEROCWITO3910-83-13 15:14:001.3[facility] QIPOAEXZTO6510-33-82 15:14:000.6[facility] MoqciekHBVNEEWBDL1289-45-32 15:14:000.3 [facility] SzrhmhsVFXTTKTXWI4032-50-75 15:14:00Moderate *ABN*(11/24/18 10:14 AM) [facility] TssqgwkTFAFJSAEZP8259-36-54 15:14:001-3 per HPF (11/24/18 10:14 AM) [facility] QulqjuxOMYYLEMMMJ4006-92-90 08:45:0010.9[facility] HermannHEMATOLOGY 2018-11-24 08:45:003.21[facility] BshwjptZKJLRBTOOC7668-03-32 08:45:009.4[facility] CahmqkiLALUCTHYTJ5354-03-08 08:45:0027.8[facility] TqbmbzkRSDQXYMWTR9984-87-64 08:45:0086.6[facility] YxagyicWMBMHBGEMW3823-75-90 08:45:00 Test Item Value Reference Range Interpretation Comments MCH (test code = MCH) 29.2 pg 27.0-31.0 [facility] DkqilndTHMOXAOLNV0022-80-04 08:45:0033.7[facility] HermannHEMATOLOGY 2018-11-24 08:45:0018.1[facility] JojsbhhMANBEPGQJN4182-71-90 08:45:09307Mbutctgq WwcinzgGIXMMNXXPD0528-20-43 08:45:007.2[facility] HermannURINE AND ZZWRU6641-69-50 23:33:00Positive *ABN*(11/23/18 6:33 PM)[facility] HermannANEMIA SVRYY1668-37-84 23:28:41131Dthigzqk HermannANEMIA ULJDF3030-03-80 23:28:0014.9[facility] ANEMIA IHJPG9263-35-65 23:28:84204Acjzdguh HermannCHEM UNMLO3045-80-06 23:28:00 0.6[facility] HermannCHEM ZGZZX8852-80-43 23:28:000.2[facility] HermannCHEM PANEL 2018-11-23 23:28:000.4[facility]annBLOOD BANK HQFHYAM4190-87-03 13:39:00 Negative (11/23/18 8:39 AM)[facility] ZMFRHGJ9167-07-96 13:29:00 Product available 3(11/23/18 8:29 AM)[facility]BL[facility] BANK RESULTS 2018-11-23 13:26:00Product available 4(11/23/18 8:26 AM)[facility] HermannCHEM WOXXZ6506-75-38 02:17:06600Enyrieib ShndzzhPDYEKOHALTVD3717-67-06 02:17:0010.6 [facility] AvozlylNXNHEHELYGFA3876-59-98 02:17:06037Lcsmcprk HermannELECTROLYTES 2018-11-23 02:17:0028[facility] NhiapvxYXUDWWOMRMKG1025-52-29 02:17:001.05[facility] BnnbjilIEJPKGCYDPSP7717-84-54 02:17:17585Ahjytanf AmithqyVAJGCIZLLRQI8835-37-01 02:17:003.6[facility] MmmsjrgLMMBPULDLGAJ6248-20-33 02:17:68087Jjlpouet [facility] VAGPSULDRKQI2400-10-08 02:17:0025[facility] WjndfjwSKHNATSXOQJX2240-42-39 02:17:00 9.0[facility] KnohgmjLFMJKJZZCEOK0821-58-04 02:17:0062[facility]annHEMATOLOGY 2018-11-23 02:17:0063.6[facility] VhuiabkFRDIAIHDJQ7577-91-33 02:17:0022.3[facility] QbrfutaCCOJJFZLHJ1798-81-29 02:17:0010.3[facility] BvmzvwpZUOLZOHMYR4943-23-44 02:17:003.4[facility] GikborqGQHQABAFHX9990-92-38 02:17:000.4[facility] Cy PASYSQZYNT6436-07-46 02:17:007.1[facility] DfhgngqIBGVSVCGZV2901-84-01 02:17:002.5 [facility] WsxovktZAXSFZMUME1586-12-90 02:17:001.2[facility] HermannHEMATOLOGY 2018-11-23 02:17:000.4[facility] McpmwydAKCAIJPHRV8094-01-55 02:17:007.2[facility] HermannCARDIAC WMCEBDM1315-84-10 16:00:000.08[facility] HermannCHEM PANEL 2018-10-18 10:31:17837Imqkazoa HermannCHEM SDZRN8214-20-26 10:31:0011[facility] HermannCHEM NXAMX6611-03-86 10:31:000.74[facility] HermannCHEM UNJXY3970-97-29 10:31:86893Uyoubbie HermannCHEM DTHLK7882-37-39 10:31:003.9[facility] HermannCHEM UPBEY6278-90-80 10:31:37335Cfjbpajc HermannCHEM JSEGM4055-81-31 10:31:0026 [facility] HermannCHEM XHEIK0259-95-29 10:31:008.8[facility] HermannCHEM PANEL 2018-10-18 10:31:0094[facility] HermannCHEM OHOKT7720-21-15 10:31:0010.9[facility] RdaahtiGPNCIGNMRV6276-54-75 10:31:0060.8[facility] RhleyysPBVWFGGBUX4206-96-82 10:31:0023.1[facility] EsyyjyoPIFCNVWFDT3711-41-28 10:31:0011.9[facility] Cy BZKCPFTYOM2863-86-70 10:31:003.6[facility] RxtgbwzGPUFIENDEU6719-09-86 10:31:000.6 [facility] RaviywkNAFUFRRXTY4914-24-82 10:31:003.5[facility] HermannHEMATOLOGY 2018-10-18 10:31:001.3[facility] CvbgfpfPVPPASYXPF1567-19-04 10:31:000.7[facility] EjjgdorDACZFQGKNA1189-88-54 10:31:000.2[facility] ZyuomfzRCUEWGSMXA7220-60-79 10:31:005.8[facility] GwvoufbYFRVFXTEIW8191-78-35 10:31:003.21[facility] UGQNUEMYZV5188-38-49 10:31:009.0[facility] YltafizARRWZCCCRX0392-27-34 10:31:00 26.5[facility] FwhljgaIOEENYLJEH4973-67-77 10:31:0082.7[facility] HermannHEMATOLOGY 2018-10-18 10:31:00 Test Item Value Reference Range Interpretation Comments MCH (test code = MCH) 28.1 pg 27.0-31.0 [facility] ZtvltatIIVWKGPGFR3651-45-18 10:31:0034.0[facility] HermannHEMATOLOGY 2018-10-18 10:31:0019.2[facility] QadpoqtPNDNTXEJWS7723-79-58 10:31:74506Olhjhdug XutplnfNJBLPVIUFM0662-64-58 10:31:008.0[facility] SqpnuoxOGVSJHDULUBA7618-27-33 17:47:0010.2[facility] FfwbwlaUKMNINXSKZMC5449-08-92 17:47:24951Kmqpqpam Cy JRUKVKAGHPII9122-66-44 17:47:0010[facility] WnpgewgXHKXGQJHVZLZ4401-53-91 17:47:00 0.78[facility] RzmxnzvGUKDZCIUKUEI1513-27-22 17:47:21280Jzjquzjt [facility] FSBTGWABATLG2272-61-60 17:47:004.2[facility] GyzdxcdVGBHCXJEBNXN4605-73-41 17:47:56443Frsotdsd CrnoqwzPJWZFJMSTUZQ2597-47-13 17:47:0027[facility] SHDMQTTZEOOZ0691-07-37 17:47:009.2[facility] YomubbuMWQOAFGAZKVQ9261-94-20 17:47:0088[facility] SzdukqcHDCJZVTZCV4420-85-80 17:47:006.7[facility] Cy MDNOOFLXVD5095-63-26 17:47:003.33[facility] XcktetcBNDOPBOWFI3400-95-31 17:47:00 9.4[facility] BrcjbiiHOSTHATKZW2951-37-10 17:47:0028.0[facility] HermannHEMATOLOGY 2018-10-17 17:47:0084.1[facility] KuizdobJCBPOEKIQX4106-73-50 17:47:00 Test Item Value Reference Range Interpretation Comments MCH (test code = MCH) 28.1 pg 27.0-31.0 [facility] XotlswsPCDONVVGCS4554-19-97 17:47:0033.5[facility] HermannHEMATOLOGY 2018-10-17 17:47:0019.0[facility] QoxcxqxXZBVTZECHZ5566-22-30 17:47:80220Wlbkjprv AtdyrqjQEZBDRHENS4246-89-57 17:47:008.1[facility] GrphybpVHAYKWQSRY8709-71-40 17:47:0068.8[facility] NhnyowhUTOLRACDLN4709-93-65 17:47:0017.8[facility] WQRLGGOPVU2405-65-30 17:47:0010.4[facility] QroarhpUKZFEMTEXQ2052-22-95 17:47:00 2.6[facility] CgmyrniVVXLSTMEIG9421-80-59 17:47:000.4[facility] [facility] 2018-10-17 17:47:004.6[facility] BmcdypuSMQHCIUHCL9620-07-59 17:47:001.2[facility] JknslreXXLXMPQBOJ1576-34-12 17:47:000.7[facility] YsinfitSULHBFUZLF6889-65-44 17:47:000.2[facility] WtycojhZSASSKEDJJ4525-78-09 03:10:009.6[facility] TJCBOQKRHO7838-37-74 03:10:0028.6[facility] CiwvqycKQJAXSEVZDGI3257-02-51 11:39:00 11.8[facility] OwphyejHYJYOAVPBJGU2450-47-90 11:39:0094[facility] YMETGFRLVASC8549-04-13 11:39:0010[facility] DhqdlqoNGWNBLOUHNFZ5032-29-43 11:39:00 0.90[facility] NqpuzgaNNOGWMCZIKGI3408-55-11 11:39:86024Krlmowlx [place] QCIFVCGMREHS3642-04-34 11:39:003.8[facility] YvygkmpLOBPGKRMCTIS9374-00-52 11:39:66848Eocyhaui MfgrdvhHVPKSGYDWFMI3322-81-95 11:39:0023[facility] ZYGPQNEBERRU1488-61-08 11:39:008.6[facility] AdlbyyeVOAIQAKZUYYH3089-65-59 11:39:0075[facility] TvsoshqGBEUCUXMSD8399-83-01 11:39:0059.7[facility] [place] SILQNTWHUU9954-24-05 11:39:0025.7[facility] QzppxhsHFBFUHGTPU3942-25-87 11:39:00 11.3[facility] NxncbiaUKQXKWLXME1713-94-92 11:39:002.7[facility]annHEMATOLOGY 2018-10-15 11:39:000.6[facility] WiljfczLLKLFOXATY6091-61-83 11:39:003.5[facility] WoqwzwwDMOYDZEXBB3628-88-89 11:39:001.5[facility] MlyxmfaLSSDGRZYKJ2226-54-86 11:39:000.7[facility] RyioarvNUJPVUVMDN7091-90-57 11:39:000.2[facility] IVCNXJHPWP4061-40-03 11:39:005.9[facility] FgfrszcNQKMAIDSEE5657-81-88 11:39:00 3.72[facility] RpnwlbaTOVPAWIUQB8336-48-80 11:39:0082.8[facility]annHEMATOLOGY 2018-10-15 11:39:00 Test Item Value Reference Range Interpretation Comments MCH (test code = MCH) 27.6 pg 27.0-31.0 [facility] PsceloqYJOOXVAULA6816-18-79 11:39:0033.3[facility]annHEMATOLOGY 2018-10-15 11:39:0019.6[facility] IxorscaSRZTQSCZPF6735-54-40 11:39:36508Nuluvrhv ZcnodxkGIZDVIZCYF6709-32-99 11:39:007.8[facility] HermannCARDIAC BMTJRDT2768-28-82 18:24:00 Test Item Value Reference Range Interpretation Comments CK MB Index (test 1.1 1 See_Comment [Automate d message] The code = CK MB Index) system w [facility] generated this result transmit ashanti reference range : <=2.5. The reference range was not used to interpr et this result as will l/abnormal. [facility] HermannCARDIAC IOEIVQC9615-22-92 18:24:000.13[facility] HermannCARDIAC CRPPTLX6940-35-71 18:24:59234Liiklfyr HermannCARDIAC GLYZLXN8796-63-15 18:24:00 1.9[facility]annCARDIAC RPTODSV2515-80-88 14:32:000.13[facility] HermannCARDIAC WDLLNLZ8799-66-83 14:32:29747Jwsqaycd HermannCARDIAC PWECZVR8063-78-50 14:32:00 1.9[facility] HermannCARDIAC MWVZKLL7479-40-21 14:32:00 Test Item Value Reference Range Interpretation Comments CK MB Index (test 1.1 1 See_Comment [Automate d message] The code = CK MB Index) system w hich generated this result transmit ashanti reference range : <=2.5. The reference range was not used to interpr et this result as will l/abnormal. [facility]annCARDIAC VHANYHZ7097-13-79 09:44:57965Tzcixous HermannCARDIAC FTPUDLL3753-10-51 09:44:001.9[facility] HermannCARDIAC VEFJBYY1085-41-40 09:44:00 Test Item Value Reference Range Interpretation Comments CK MB Index (test 1.0 1 See_Comment [Automate d message] The code = CK MB Index) system [employer] generated this result transmit ashanti reference range : <=2.5. The reference range was not used to interpr et this result as will l/abnormal. [facility]annCHEM QMSPW8490-28-82 09:44:007.0[facility] HermannCHEM PANEL 2018-10-14 09:44:003.4[facility] HermannCHEM IWQMV4476-30-14 09:44:003.6[facility] HermannCHEM JDAJC5014-43-55 09:44:00 Test Item Value Reference Range Interpretation Comments A/G Ratio (test code = A/G Ratio) 0.9 1 0.7-1.6 [facility]annCHEM TSWEE5476-71-71 09:44:0014[facility] HermannCHEM PANEL 2018-10-14 09:44:0016[facility] HermannCHEM TZSRT4061-16-25 09:44:0094[facility] HermannCHEM PIFKW8530-86-99 09:44:000.2[facility] HermannCHEM JDEML0507-01-48 09:44:00<0.1[facility] HermannCHEM LGZEG3325-27-42 09:44:002.3[facility] Cy CHEM HDHQD9403-77-13 09:44:003.7[facility] JtlvhocMXQCPJOZMA2708-25-00 09:44:00 Test Item Value Reference Range Interpretation Comments INR (test code = INR) 0.94 1 0.85-1.17 [facility] HkmhsatFBOPQMSPAL2156-81-04 09:44:00 Test Item Value Reference Range Interpretation Comments PT (test code = PT) 12.4 s 12.0-14.7 [facility] AkdycshVTAUECBLXP4768-20-62 09:44:00 Test Item Value Reference Range Interpretation Comments PTT (test code = PTT) 30.7 s 22.9-35.8 [facility] MbteyvpAHMXAX4760-59-18 09:44:00 Test Item Value Reference Range Interpretation Comments CHD Risk (test code = CHD Risk) 3.67 1 3.90-5.80 [facility] AzleduqGRBPPQ9096-06-44 09:44:0061[facility] NctykowVUOFOB1220-26-75 09:44:04791Zvpusdwf CkkorcrJXUCBE1071-21-41 09:44:0070[facility] HermannLIPIDS 2018-10-14 09:44:03555Unjcgvoo NotmkwmIPJABN3953-87-08 09:44:00 Test Item Value Reference Range Interpretation Comments VLDL (test code = VLDL) 12 1 [facility] HermannSPECIAL FADFEQGHL2779-84-76 09:44:006.1[facility] HermannCHEM KBFIO0109-59-64 10:00:008.8[facility] HermannCHEM TLOKN4021-08-93 10:00:0012.3 [facility]annCHEM BBVUA2383-09-45 10:00:0095[facility] HermannCHEM PANEL 2018-01-21 10:00:0026[facility] HermannCHEM VYHZX9758-98-31 10:00:0095[facility] HermannCHEM AIUVW3876-37-92 10:00:000.74[facility] HermannCHEM UNWPW5026-45-13 10:00:93747Nemsykrt HermannCHEM SRLLT9797-85-80 10:00:0096[facility] HermannCHEM KCLON7668-43-98 10:00:009[facility] HermannCHEM RFHSH9170-67-51 10:00:004.3 [facility]annCHEM FBTSQ5752-82-29 00:26:0011[facility] HermannCHEM PANEL 2018-01-21 00:26:66793Qwzqyhbu HermannCHEM CBDWN0017-96-17 00:26:000.74[facility] HermannCHEM WXTVD0392-19-35 00:26:79022Donoizbh HermannCHEM XRMOQ8849-09-51 00:26:004.3[facility] HermannCHEM LVAXU9559-23-41 00:26:0096[facility] HermannCHEM UUBFW0349-33-60 00:26:0025[facility] HermannCHEM TPZPM4894-28-01 00:26:008.7 [facility]annCHEM LTXEC1127-92-13 00:26:0012.3[facility] HermannCHEM PANEL 2018-01-21 00:26:0095[facility] HermannCHEM CKNLJ0695-33-82 18:35:06489Wslbshgf HermannCHEM ILTTM8816-36-42 18:35:49724Jvxlfuaq HermannCHEM ITWIL5607-15-08 18:35:0011[facility] HermannCHEM QOBNK8975-77-45 18:35:000.65[facility] HermannCHEM NLQZN9637-53-99 18:35:0012.3[facility] HermannCHEM MPSCN2221-11-59 18:35:004.3 [facility]annCHEM TIBJX5915-98-30 18:35:0095[facility] HermannCHEM PANEL 2018-01-20 18:35:19847Frvnsbee HermannCHEM AMFAH0264-25-47 18:35:0026[facility] HermannCHEM SOCSM6426-82-16 18:35:008.7[facility] HermannURINE DJBU3147-02-03 17:02:0087[facility]annURINE BMZF8084-66-41 17:02:0064[facility]annURINE JTOW1780-44-69 17:02:0040.0[facility]ann[facility]INE BBEV0329-39-55 17:02:18182 [facility]ann[facility]INE ZCTI5165-52-14 16:48:27454Hrxcivch HermannHEMATOLOGY 2018-01-19 06:36:001.7[facility] KflundeCLCJNPYPCK0467-90-75 06:36:000.9[facility] HumdcqcFROMZZABIO4915-44-55 06:36:001.9[facility] XkwgvwiDZTDLMXPLK2317-07-95 06:36:000.6[facility] BpfsjynMTHMMMMQNB6663-03-76 06:36:000.1[facility] [place] WHIPXXAKJN2052-33-55 06:36:0019.0[facility] RakudaiIKTDGRKRCJ8924-52-58 06:36:00 1.1[facility] HopdljwJJDUWBUAFH5655-13-31 06:36:0041.5[facility] HermannHEMATOLOGY 2018-01-19 06:36:0037.8[facility] XsgjjwnQGWPQZZHIK4962-23-89 06:36:0085.7[facility] BqqwduoBCTPGOGAAH8982-47-34 06:36:0029.8[facility] PemigbiQQYEWHCWKT9629-97-38 06:36:00 Test Item Value Reference Range Interpretation Comments MCH (test code = MCH) 30.5 pg 27.0-31.0 [facility] DyrwqgnHTVEYFEMRG8231-54-48 06:36:0010.6[facility] HermannHEMATOLOGY 2018-01-19 06:36:003.47[facility] XqzafqfDCJVZROFGV5657-42-86 06:36:004.5[facility] ZoecidlZPZPYCXBJK5482-83-83 06:36:007.5[facility] DujkipnBFXCRJVJBF5090-33-70 06:36:03328Dzekfsiq WoqzzuqMTSCPAIVKQ4729-98-63 06:36:0014.1[facility] [place] SHNSEQJWAO6621-09-73 06:36:0035.6[facility] HermannURINE MEEW6463-28-77 06:29:00 331[facility]annURINE BKRR3446-98-89 06:29:0036[facility]ann[facility]INE CHEM 2018-01-19 06:29:0030[facility]annURINE GWOQ9492-62-84 06:29:0028.5[facility]annURINE ICWW2899-24-31 22:03:0060.8[facility] HermannURINE DIOX5818-00-18 22:03:50890Nzkyxoeo HermannURINE BTZP5533-80-72 22:03:0071[facility] HermannCHEM IUYJU8906-10-57 03:01:001.8[facility] HermannCHEM PILRM8522-24-06 03:01:001.5 [facility] OdpzudfWDDMXL0264-73-69 02:56:0075[facility] UmrkxxiQBWRRB4523-83-43 02:56:11030Erklnjwi RqhidswHGOZRR3816-52-85 02:56:28130Vnsjzisc HermannLIPIDS 2018-01-17 02:56:0037[facility] XkwpoarIYOXZR7044-87-03 02:56:00 Test Item Value Reference Range Interpretation Comments CHD Risk (test code = CHD Risk) 3.57 1 3.90-5.80 [facility] AND YSGSU9690-17-76 02:56:00Trace *ABN*(01/16/18 8:56 PM) [facility] YNBVH8884-18-46 02:56:00Negative *NA*(01/16/18 8:56 PM) [facility] ODBNV9050-97-68 02:56:00Negative *NA*(01/16/18 8:56 PM) [facility] AND AKZMI7254-01-11 02:56:00Negative (01/16/18 8:56 PM) [facility] AND MUALG0105-07-38 02:56:00Negative (01/16/18 8:56 PM) [facility] AND NDHRG9418-71-41 02:56:001.0[facility] AND PSBME5038-99-38 02:56:00Negative (01/16/18 8:56 PM)[facility] AND EBXHM1552-12-75 02:56:00Negative (01/16/18 8:56 PM)[facility] AND JNTKB4852-59-32 02:56:00Clear (01/16/18 8:56 PM)[facility] AND STOOL 2018-01-17 02:56:00 Test Item Value Reference Range Interpretation Comments UA Spec Grav (test code = UA Spec 1.015 1 Grav) [facility] AND PNUZX7027-23-46 02:56:00 Test Item Value Reference Range Interpretation Comments UA pH (test code = UA pH) 6.5 1 5.0-8.0 [facility] AND RZNTW7458-16-36 02:56:00Yellow *NA*(01/16/18 8:56 PM) [facility] CYAEA2120-25-80 02:56:001[facility] AND VQBCZ9592-19-00 02:56:00<1[facility] LVWD3522-91-38 02:56:00None Seen (01/16/18 8:56 PM)[facility] MFSZ4843-11-86 02:56:0019.8[facility]ann[facility]INE AIMQ5406-11-40 02:56:00 Test Item Value Reference Range Interpretation Comments U Prot/Creat (test code = U 0.34 1 Prot/Creat) [facility] WVDF0449-38-54 02:56:0058.90[facility] HermannBACTERIAL - QXPQDQLK9513-57-47 02:56:00Negative (01/16/18 8:56 PM)[facility] HermannLIPIDS 2018-01-17 02:56:00 Test Item Value Reference Range Interpretation Comments VLDL (test code = VLDL) 20 1 [facility]annCARDIAC NHDFLWA7477-81-33 00:21:27524Qcdwmscs HermannCARDIAC VSUGGJL1559-64-15 00:21:000.32[facility] HermannCHEM FXHRV1544-60-12 00:21:007.1 [facility] HermannCHEM RYLQP9228-61-63 00:21:00 Test Item Value Reference Range Interpretation Comments A/G Ratio (test code = A/G Ratio) 1.0 1 0.7-1.6 [facility]annCHEM JTVRM0521-81-91 00:21:003.6[facility] HermannCHEM PANEL 2018-01-17 00:21:003.5[facility] HermannCHEM SWHNR7535-82-56 00:21:00 Test Item Value Reference Range Interpretation Comments B/C Ratio (test code = B/C Ratio) 10 1 6-25 [facility] HermannCHEM PKAIF2345-64-93 00:21:0069[facility] HermannCHEM PANEL 2018-01-17 00:21:000.4[facility] HermannCHEM WVMGS8571-26-72 00:21:0058[facility] HermannCHEM ZITKZ8122-07-49 00:21:0052[facility] AtbkyqwGVLTTAXNKF9927-99-77 00:21:06562Xyymksln HfydfnhHQBIMCYCMA3275-14-06 00:21:007.9[facility] DATIJOFEFA4602-09-21 00:21:00 Test Item Value Reference Range Interpretation Comments MCH (test code = MCH) 30.0 pg 27.0-31.0 [facility] YqrkldbJSYFAERWCX2113-77-24 00:21:0085.4[facility] HermannHEMATOLOGY 2018-01-17 00:21:0035.4[facility] GdfnoezLUVRUZBDFZ1482-42-39 00:21:0013.9[facility] VxneajjKTZBPLXVFV1214-44-65 00:21:0035.1[facility] GylfsadKHCZTOVJUH6247-52-53 00:21:004.2[facility] UwsknbgIFIWLUZSDO2358-61-66 00:21:004.15[facility] ILGENIWTNH1400-38-16 00:21:0012.4[facility] NhgnywkPQQOFXVFAF8912-08-63 00:21:00 0.2[facility] TesufdaUCLPUEHQZR8738-69-42 00:21:000.8[facility] HermannHEMATOLOGY 2018-01-17 00:21:001.6[facility] AbdgxsmFQIJJKKHVC0278-74-01 00:21:001.0[facility] BoopfjzDLRNYUBHUG5673-18-53 00:21:003.6[facility] NvfsbwkKFHWCLJMGW1797-43-63 00:21:001.6[facility] EwlaqezWKNEJREPIH7201-68-88 00:21:0018.9[facility] OKDUVBXEMD4539-44-45 00:21:0038.4[facility] JivlztrEOKLLAPXTS3130-51-21 00:21:00 38.1[facility] Cy
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
[2020-07-05 16:07] VITALS: BP 157/89; TEMP 98.5; O2SAT 99
[2020-07-05] MEDS ORDERED: CYCLOBENZAPRINE 10 MG TAB ONE (16:11)
[2020-07-05] MEDS ORDERED: IBUPROFEN 400 MG TAB ONE (16:12)
[2020-07-05] MEDS ORDERED: ACETAMINOPHEN 325 MG TABLET ONE (16:16)
== END 2020-07-05 16:02 | disposition home or self-care (01) ==
LOC: ER 14:44
DX: S13.8XXA Sprain of joints and ligaments of other parts of neck, initial encounter (principal); S23.3XXA Sprain of ligaments of thoracic spine, initial encounter; V49.40XA Driver injured in collision with unspecified motor vehicles in traffic accident, initial encounter; I10 Essential (primary) hypertension
CPT/HCPCS: 99283

== ENCOUNTER 2020-07-16 14:47 | Emergency (ER) | payer OTHER ==
--- OUTSIDE RECORDS SUMMARY | 2020-07-16 14:55 | XMS REPORT | Continuity of Care Document ---
:1945 Author Organization [facility] t Address [address] [place] [address] Care Team Providers Name Role Phone Shahram [...] Details Category Date Date Treatment Clinician Date NON-ST Diagnosis Active 2019-022020-04-18 Mem oria ELEVATION 1-15 14:10:00 l MT NON-ST 00:00: [place] (NSTEMI) ELEVATION 00 MT (NSTEMI) Active 12/24/2019 [facility] NSTEMI Diagnosis Active 2019-022019-12-24 Mem oria 1-15 08:14:00 l NSTEMI 00:00: Cy 00 Active 12/24/2019 [facility] [place] ANEMIA Diagnosis Active 2019-022019-11-16 Mem oria 0-05 12:53:00 l ANEMIA 00:00: Cy 00 Active 11/13/2019 [facility] ANEMIA, HX Diagnosis Active 2019-10-30 Memoria OF CABG, 10-27 15:51:00 l ACUTE ANEMIA, 00:00: Cy UTI,ABD HX OF 00 LYMPHA CABG, ACUTE UTI,ABD LYMPHA Active 10/28/2019 [facility] LEFT SIDE Diagnosis Active 2019-10-29 Memoria PAIN 10-27 00:49:00 l LEFT 00:00: Cy SIDE PAIN 00 Active 10/28/2019 [facility] [place] N92.6 - Diagnosis Active 2018-022019-01-12 Me moria IRREGULAR 02-15 14:31:00 l MENSTRUATI N92.6 - 00:01: Her alanis ON, UNSPEC IRREGULAR 00 N MENSTRUATI ON, UNSPEC N Active 12/16/2018 [facility] [place] GI BLEED Diagnosis Active 2018-022019-01-20 M emoria 0-18 08:37:00 l GI BLEED 00:00: Yoel n 00 Active 11/25/2018 [facility] ORTHOSTATI Diagnosis Active 2018-022019-01-20 Memoria C 0-15 08:45:00 l HYPOTENSIO 08:50: Yoel n N ORTHOSTATI 00 C HYPOTENSIO N Active 11/22/2018 [facility] Cy R06.02 - Diagnosis Active 2018-022018-11-18 M emoria SHORTNESS 0-11 14:31:00 l OF BREATH R06.02 - 00:01: Her alanis SHORTNESS 00 OF BREATH Active 11/18/2018 [facility] [place] CAD WITH Diagnosis Active 2019-01-20 M emoria ANGINA 10-31 08:46:00 l CAD WITH 00:00: Yoel n ANGINA 00 Active 10/31/2018 [facility] ACUTE Diagnosis Active 2017-022018-08-17 Mem oria HYPONATREM 03-19 12:31:00 l IA, ACUTE 00:00: [place] TREMOR, HYPONATREM 00 LEG IA, CRAMPING TREMOR, LEG CRAMPING Active 01/16/2018 [facility] ANXIETY Diagnosis Active 2017-2018-01-16 Az moria - 18:47:00 l ANXIETY 00:00: [place] 00 Active 01/16/2018 [facility] [place] Anemia, Problem 2018-08-10 Albino juan unspecifie 14:19:56 l d Anemia, [place] unspecifie d 08/10/2018 [facility] 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 14:19:56 l Cy Hypocalcem ia 08/10/2018 [facility] Type 2 Problem 2018-08-10 Memor ia diabetes 14:19:56 l mellitus Type 2 Yoel n without diabetes complicati mellitus ons without complicati ons 08/10/2018 [facility] Other Problem 2018-08-10 Memor ia disorders 14:19:56 l of Other [place] electrolyt disorders e and of fluid electrolyt balance, e and not fluid elsewhere balance, classified not elsewhere classified 08/10/2018 [facility] Anxiety Problem 2018-08-10 Albino juan disorder, 14:19:56 l unspecifie Anxiety Her alanis d disorder, unspecifie d 08/10/2018 [facility] Essential Problem 2018-08-10 Me moria (primary) 14:19:56 l hypertensi Yoel n on Essential (primary) hypertensi on 08/10/2018 [facility] Adverse Problem 2018-08-10 Albino juan effect of 14:19:56 l carbonic-a Adverse Her alanis nhydrase effect of inhibitors carbonic-a , nhydrase benzothiad inhibitors iazides , and other benzothiad diuretics, iazides initial and other encounter diuretics, initial encounter 08/10/2018 [facility] Adverse Problem 2018-08-10 Albino juan effect of 14:19:56 l selective Adverse Herm dea serotonin effect of reuptake selective inhibitors serotonin , initial reuptake encounter inhibitors , initial encounter 08/10/2018 [facility] Cough Problem 2018-08-10 Memor ia 14:19:56 l Cough [place] 08/10/2018 [facility] Cramp and Problem 2018-08-10 Me moria spasm 14:19:56 l Cramp [place] and spasm 08/10/2018 [facility] Tremor, Problem 2018-08-10 Albino juan unspecifie 14:19:56 l d Tremor, [place] unspecifie d 08/10/2018 [facility] 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) 14:19:56 l use of Long Cy insulin term (current) use of insulin 08/10/2018 [facility] Non-ST Problem 2019-12-28 Memor ia elevation 23:42:34 l (NSTEMI) Non-ST Yoel n myocardial elevation infarction (NSTEMI) myocardial infarction 12/28/2019 [facility] Dehydratio Problem 2018-11-27 emoria n 21:08:52 l Cy Dehydratio n 11/27/2018 [facility] Diabetes Problem Resolve 2019-12-28 Me moria mellitus d 23:42:34 l (disorder) Diabetes He rmann mellitus (disorder) Resolved Problem 12/28/2019 [facility], [facility] [place] Hyperlipid Problem Resolve 2019-12-28 Memoria emia d 23:42:34 l (disorder) Yoel n Hyperlipid emia (disorder) Resolved Problem 12/28/2019 [facility], [place]LA[facility] [place] Hypertensi Problem Resolve 2019-12-28 Memoria ve d 23:42:34 l disorder, Cy systemic Hypertensi arterial ve (disorder) disorder, systemic arterial (disorder) Resolved Problem 12/28/2019 [facility], [facility], ADELAIDA [place] Anemia of Problem Active 2019-12-28 Me moria chronic 23:42:34 l disorder Anemia Yoel n (disorder) of chronic disorder (disorder) Active Problem 12/28/2019 [facility] Coronary Problem Active 2019-12-28 Mem oria arterioscl 23:42:34 l erosis Coronary Yoel n (disorder) arterioscl erosis (disorder) Active Problem 12/28/2019 [facility],M [facility], OP[facility] [place] Leukemia, Problem Active 2019-12-28 Me moria disease 23:42:34 l (disorder) Yoel n Leukemia, disease (disorder) Active Problem 12/28/2019 [facility] Diabetes Problem Active 2019-12-28 Mem oria mellitus 23:42:34 l type 2 Diabetes Yoel n (disorder) mellitus type 2 (disorder) Active Problem 12/28/2019 [facility] DEHYDRATIO Diagnosis Active 2019-01-20 Memoria N 08:45:00 l Cy DEHYDRATIO N Active [facility] Cy UNSTABLE Diagnosis Active 2019-01-20 M emoria ANGINA 08:46:00 l UNSTABLE Yoel n ANGINA Active [facility] HYPO-OSMOL Diagnosis Active 2018-08-17 Memoria ALITY AND 12:31:00 l HYPONATREM Yoel n IA HYPO-OSMOL ALITY AND HYPONATREM IA Active [facility] Cy TREMOR, Diagnosis Active 2018-08-17 Me moria UNSPECIFIE 12:31:00 l D TREMOR, Cy UNSPECIFIE D Active [facility] Cy CRAMP AND Diagnosis Active 2018-08-17 Memoria SPASM 12:31:00 l CRAMP [place] AND SPASM Active [facility] [place] NON-ST Diagnosis Active 2020-04-18 Mem oria ELEVATION 14:10:00 l (NSTEMI) NON-ST Yoel n MYOCARDIAL ELEVATION INF (NSTEMI) MYOCARDIAL INF Active [facility] ANEMIA, Diagnosis Active 2019-10-30 Me moria UNSPECIFIE 15:51:00 l D ANEMIA, Cy UNSPECIFIE D Active [facility] [place] PRESENCE Diagnosis Active 2019-10-30 M emoria OF 15:51:00 l AORTOCORON PRESENCE He rmann ZOIE BYPASS OF GRAFT AORTOCORON ZOIE BYPASS GRAFT Active [facility] [place] URINARY Diagnosis Active 2019-10-30 Az moria TRACT 15:51:00 l INFECTION, URINARY Her alanis SITE NOT TRACT SPECIF INFECTION, SITE NOT SPECIF Active [facility] Irregular Irregular Problem Active [facility] Post-menop Post-menop Problem Active [facility] n[facility] ausal ausal ity of bleeding bleeding [facility] Encounter Encounter Problem Active [facility] for for ity of routine routine [place] gynecologi gynecologi Ph ysici shelby shelby ans [...] hormone of antidiuret ic hormone 01/27/2018 08/10/2018 [facility] Allergies, Adverse Reactions, Alerts Allergy Allergy Status Severity Reaction(s) Onset Inactive Treating Comm ents Source Name Type Date Date Clinician No Known DA Active U 2019-02 [facility] Allergie 0-01 Clear s 00:00: Fre[place] 00 [facility] No Known No Known Active Memori a Medicati Medicati l on on [place] Allergie Allergie s s Family History Family Member Diagnosis Comments Start Date Stop Date Source natural son [facility] natural son Family history of [facility] diabetes mellitus Physici ans Sister Family history of [facility] hypertension Physicians Sister Family history of [facility] diabetes mellitus Physici ans Social History Social Habit Start Date Stop Date Quantity Comments Source Social History 2018-11[facility]23 [facility] 02:19:33 Smoking Status Start Date Stop Date Source Social History [facility] Medications Ordered Filled Start Stop Current Ordering Indication Dosage Frequency Signature Comments Components Source Medication Medication Date Date Medication? Clinician (SIG) Name Name Losartan 2019-02 No Notes: Memoria 1-18 (Same as: l 15:00: Cozaar) Cy 00 atorvastati 2019-02 No Notes: Albino juan n 1-18 (Same as: l 03:00: Lipitor) [place] 00 Aspirin 81 2019-02 Yes 81 mg [...] Total Volume: 750, Start date: 12/25/19 10:03:00 FIELDWORK COORDINATOR, Duration: 10 hr, Stop date: 12/25/19 20:02:00 FIELDWORK COORDINATOR, 1.84, m2, 0 Ondansetron 2019-02 No 4 mg, Memor ia 16 Route: l 16:03: IVP, Q8H, Cy 00 Dosing Weight 76.005, kg, PRN Nausea & Vomiting, Start date: 12/25/19 10:03:00 FIELDWORK COORDINATOR, Duration: 30 day, Stop date: 01/24/20 10:02:00 FIELDWORK COORDINATOR Acetaminoph 2019-02 No Notes: Do M emoria en 1-16 not exceed l 16:03: 4 gm/day. [place] (Same as: Tylenol) acetaminoph 2019-02 No Notes: Do M emoria en-codeine 1-16 not exceed l #3 16:03: 4gm/day of [place] acetaminop hen. (Same as: Tylenol with Codeine # 3) atorvastati 2019-02 No Notes: Albino juan n -16 (Same as: l 03:00: Lipitor) Cy Tylenol 2019-02 No Notes: Do Memor ia 1-16 not exceed l 02:34: 4 gm/day. Cy (Same as: Tylenol) Lactulose 2019-02 No Notes: Memori a 667 MG/ML -16 (Same l Oral 01:14: as:Chronul [place] Solution 00 ac) Docusate 2019-02 No Notes: Memoria Sodium 100 -15 (Same as: l MG Oral 23:00: Colace) Cy Capsule (Do Not [Colace] Crush) clopidogrel 2019-02 No Notes: Albino juan 1-15 (Same As: l 15:12: Plavix) [place] 00 Losartan 2019-02 No Notes: Memoria 1-15 (Same as: l 15:00: Cozaar) metoprolol 2019-02 No metoprolol M emoria tartrate 50 1-15 tartrate l mg oral 15:00: 50 mg oral Herm dea tablet 00 tablet, 50 mg, Drug form: TAB, Route: PO, Q12H, 12/24/19 9:00:00 FIELDWORK COORDINATOR, Duration: 30 day, Stop date: 01/22/20 21:00:00 FIELDWORK COORDINATOR Omeprazole 2019-02 No 40 mg, 1 Mem oria 1-15 cap, l 15:00: Route: PO, [place] 00 Drug form: DRC, Daily, Dosing Weight 76.005, kg, Start date: 12/24/19 9:00:00 FIELDWORK COORDINATOR, Duration: 30 day, Stop date: 01/22/20 9:00:00 FIELDWORK COORDINATOR Protonix 2019-02 No Notes: Memoria 1-15 Tablet [...] 1-15 Take with l Tablet 12:00: food. [place] acalabrutin 2019-02 Yes 100 mg = 1 [...] PRN, Heparin Protocol, Start date: 12/24/19 5:34:00 FIELDWORK COORDINATOR Stop date: 01/23/20 5:33:00 FIELDWORK COORDINATOR, 30 day, 0 Heparin 30 2019-02 No Route: Memor ia unit/kg 1-15 IVP, PRN, l Bolus 11:34: 1,800 [place] (Heparin 00 unit, 1.8 Dosing mL, Drug Weight) form: INJ, PRN, Heparin Protocol, Start date: 12/24/19 5:34:00 FIELDWORK COORDINATOR Stop date: 01/23/20 5:33:00 FIELDWORK COORDINATOR, 30 day, 0 heparin 2019-02 No Notes: Memoria additive 1-15 Total l 25,000 unit 11:34: Concentrat [place] [12 00 ion = 50 unit/kg/hr] unit/ [...] Blood Glucose Results, Start date: 12/24/19 5:34:00 FIELDWORK COORDINATOR, Duration: 30 day, Stop date: 01/23/20 5:33:00 FIELDWORK COORDINATOR, 0 Glucagon 2019-02 No 1 mg, Memoria 1-15 Route: IM, l 11:34: Drug form: [place] 00 PDR/INJ, PRN, Dosing Weight 75, kg, PRN Blood Glucose Results, Start date: 12/24/19 5:34:00 FIELDWORK COORDINATOR, Duration: 30 day, Stop date: 01/23/20 5:33:00 FIELDWORK COORDINATOR, 0 Insulin 2019-02 No Notes: Memoria Lispro [...] tab, PO, l tablet 18:07: Daily, # [place] 00 30 tab, 0 Refill(s) Cefuroxime Yes 500 mg = 1 M emoria 500 MG Oral 9-21 tab, PO, l Tablet 18:19: [id number], X Taya nn 00 5 day, # 10 tab, 0 Refill(s), Pharmacy: [facility], 154.94, cm, 10/29/19 1:46:00 CDT, Height, 74, [...] Not Crush" sennosides, No Notes: Albino juan SNF 8.6 MG - (Same as: l Oral [...] l mL 15:40: SUB-Q, Cy subcutaneou 00 [id number], s solution X 30 day, # 36 mL, 1 Refill(s) enoxaparin 2018-02 No 60 mg = Albino juan 60 mg/0.6 0-31 0.6 mL, l mL 15:22: SUB-Q, [place] subcutaneou 00 [id number], s solution X 30 day, # 36 mL, 0 Refill(s), other lisinopril 2018-02 Yes 30 mg = 3 Me moria 10 mg oral 0-31 tab, PO, l tablet 15:22: Daily, # [place] 00 90 tab, 0 Refill(s) Lisinopril 2018-02 No Notes: Memor ia 0-31 (Same as: l 14:00: Prinivil, Cy 00 Zestril) Lisinopril 2018-02 No Notes: Memor ia 0-30 (Same as: l 20:30: Prinivil, [place] 00 Zestril) Lisinopril 2018-02 No 10 mg, Memor ia 0-30 Route: PO, l 19:12: Drug form: Cy 00 TAB, Daily, Dosing Weight 67.818, kg, Start date: 12/07/18 14:12:00 CDT, Duration: 30 day, Stop date: 01/06/19 9:00:00 FIELDWORK COORDINATOR Lovenox 2018-02 No 60 mg, Memoria 0-30 Route: l 18:02: SUB-Q, [place] 00 Drug form: INJ, ONCE, Dosing Weight 67.818, kg, Priority: STAT, Start date: 12/07/18 13:02:00 CDT, Stop date: 12/07/18 13:02:00 CDT Lovenox 2018-02 No Notes: Memoria 0-30 Nurse to l 06:00: ensure [place] 00 documentat ion of patient education per anticoagul ation policy. (Same as: Lovenox) Lovenox 2018-02 No Notes: Memoria 0-29 (Same as: l 18:00: Lovenox) Cy 00 Lovenox 2018-02 No Notes: Memoria 0-29 (Same as: l 14:34: Lovenox) [place] 00 pantoprazol 2018-02 No Notes: Albino juan e 0-29 Tablet l 12:30: should not be chewed or crushed. (Same as: Protonix) Lovenox 2018-02 No 40 mg, 0.4 Albino juan 0-29 mL, Route: l 03:00: SUB-Q, Drug form: INJ, [id number], Dosing Weight 67.818, kg, Start date: 12/05/18 22:00:00 CDT, Duration: 30 day, Stop date: 01/03/19 22:00:00 FIELDWORK COORDINATOR, 0 Lisinopril 2018-02 No Notes: Memor ia 0-28 (Same as: l 14:00: Prinivil, [place] 00 Zestril) Aspirin 2018-02 No 81 mg, 1 Memori a 0-27 tab, l 14:00: Route: PO, Drug form: ECTAB, Daily, Dosing Weight 67.818, kg, Start date: 12/04/18 9:00:00 CDT, Duration: 30 day, Stop date: 01/02/19 9:00:00 FIELDWORK COORDINATOR, 0 Lisinopril 2018-02 No Notes: Memor ia 0-27 (Same as: l 14:00: Prinivil, [place] 00 Zestril) Lovenox 2018-02 No Notes: Memoria 0-27 (Same as: l 02:00: Lovenox) [place] 00 Lisinopril 2018-02 No Notes: Memor ia 0-26 (Same as: l 17:54: Prinivil, Cy Zestril) Tylenol 2018-02 No Notes: Do Memor ia 0-26 not exceed l 15:20: 4 gm/day. Cy 00 (Same as: Tylenol) Warfarin 2018-02 No 5 mg, Memoria 0-26 Route: PO, l 00:00: Drug form: [place] 00 TAB, Q5PM, Dosing Weight 67.818, kg, Start date: 12/02/18 19:00:00 CDT, Duration: 1 doses or times, Stop date: 12/02/18 19:00:00 CDT Warfarin 2018-02 No Notes: Memoria 0-25 Nurse to l 22:00: ensure [place] 00 documentat ion of patient education per anticoagul ation policy. Avoid large intake of vitamin-K containing foods diet. WASTE: F/P - P Waste Black; E - P Waste Black (Same As: Coumadin) Tylenol 2018-02 No Notes: Do Memor ia 0-25 not exceed l 15:35: 4 gm/day. [place] (Same as: Tylenol) Warfarin 2018-02 No Notes: Memoria 0-24 Nurse to l 22:00: ensure Cy 00 documentat ion of patient education per anticoagul ation policy. Avoid large intake of vitamin-K containing foods diet. WASTE: F/P - P Waste Black; E - P Waste Black (Same As: Coumadin) Lisinopril 2018-02 No Notes: Memor ia 0-22 (Same as: l 16:54: Prinivil, [place] 00 Zestril) Amlodipine 2018-02 No Notes: Memor ia 0-22 (Same as: l 14:00: Norvasc) Cy 00 Benzocaine 2018-02 No Notes: Memor ia 200 MG/ML 0-22 (Same As: l Mucosal 13:39: Hurricaine Herm dea [place] ) WASTE: [Hurricaine F/P - ] Black; E - Municipal Trash Bin FOR ORAL USE Heparin 80 2018-02 No Route: Memor ia unit/kg 0-21 IVP, PRN, l Bolus 23:08: 4,500 Cy (Heparin 00 unit, 4.5 Dosing mL, Drug Weight) form: INJ, PRN, Heparin Protocol, Start date: 11/28/18 18:08:00 CDT Stop date: 12/28/18 17:07:00 FIELDWORK COORDINATOR, 30 day, 0 Heparin 40 2018-02 No Route: Memor ia unit/kg 0-21 IVP, PRN, l Bolus 23:08: 2,200 Cy (Heparin 00 unit, 2.2 Dosing mL, Drug Weight) form: INJ, PRN, Heparin Protocol, Start date: 11/28/18 18:08:00 CDT Stop date: 12/28/18 17:07:00 FIELDWORK COORDINATOR, 30 day, 0 heparin 2018- No Notes: Memoria additive 0-21 Total l 25,000 unit 23:08: Concentrat Cy [18 00 ion = 50 unit/kg/hr] unit/ ml + Premix Total Diluent volume = Sodium 500 ml Chloride Send Med 0.45% 500 Request 2 mL hours prior to next bag Acetaminoph 2018- No 1,000 mg, M emoria en 0-21 Route: PO, l 17:55: Drug form: [place] 00 TAB, ONCE, Dosing Weight 67.818, kg, PRN Pain Score 1-3, Start date: 11/28/18 12:55:00 CDT Oxycodone 2018-02 No 2.5 mg, Memor ia 0-21 Route: PO, l 17:55: Drug form: [place] 00 LIQ, Q4H, Dosing Weight 67.818, kg, PRN Pain Score 4-6, Start date: 11/28/18 12:55:00 CDT, Duration: 30 day, Stop date: 12/28/18 12:54:00 FIELDWORK COORDINATOR Flumazenil 2018-02 No 0.2 mg, Albino juan 0- Route: l 17:55: IVP, PRN, Cy 00 Dosing Weight 67.818, kg, PRN Benzodiaze pine Reversal, Initial dose, Start date: 11/28/18 12:55:00 CDT, Duration: 30 day, Stop date: 12/28/18 11:54:00 FIELDWORK COORDINATOR Naloxone 2018-02 No 0.4 mg, Memori a [...] s with feeding tube less than 14 Ghanaian (Dobhoff, J-tube etc) and pediatric and patients. [...] Duration: 30 day, Stop date: 12/26/18 9:00:00 FIELDWORK COORDINATOR pantoprazol 2018-02 No Notes: For Memoria e [...] Duration: 30 day, Stop date: 12/24/18 21:00:00 FIELDWORK COORDINATOR, 0 atorvastati 2018-02 No Notes: Albino juan n 0-19 (Same as: l 02:00: Lipitor) [place] 00 Metformin 2018-02 Yes 500 mg = [...] tab, PO, l Tablet 21:05: Daily, # [place] 00 90 tab, 0 Refill(s) potassium 2018-02 Yes 20 mEq = 1 Me moria chloride 20 0-18 tab, PO, l mEq oral 21:05: Daily, # Taya nn tablet, 00 90 tab, 0 extended Refill(s) release amLODIPine 2018-02 No 10 mg = 1 Me moria 10 mg oral 0-18 tab, PO, l tablet 21:05: Daily, # [place] 00 90 tab, 0 Refill(s) Aspirin 81 2018-02 No Notes: Do Me moria MG Enteric 0-18 not crush l Coated 17:30: or chew. Cy Tablet 00 (Same As: Ecotrin) metoprolol 2018-02 No Notes: Memor ia tartrate 0-18 (Same as: l 17:27: Lopressor) Cy 00 pantoprazol 2018-02 No Notes: Albino juan e 0-18 Tablet l 17:00: should not [place] 00 be chewed or crushed. (Same as: Protonix) Dextrose 2018-02 No 12.5 gm, Memor ia 50% Syringe 0-18 25 mL, l 16:45: Route: [place] 00 IVP, Drug Form: INJ, Dosing Weight 66.392, kg, PRN, PRN Blood Glucose Results, Start date: 11/25/18 11:45:00 CDT, Duration: 30 day, Stop date: 12/25/18 10:44:00 FIELDWORK COORDINATOR, 0 Glucagon 2018-02 No 1 mg, Memoria 0-18 Route: IM, l 16:45: Drug form: Cy 00 PDR/INJ, PRN, Dosing Weight 66.392, kg, PRN Blood Glucose Results, Start date: 11/25/18 11:45:00 CDT, Duration: 30 day, Stop date: 12/25/18 10:44:00 FIELDWORK COORDINATOR, 0 Insulin 2018-02 No Notes: Memoria regular [...] s with feeding tube less than 14 [place]ian (Dobhoff, J-tube etc) and pediatric and patients. [...] No Notes: Memoria additive 0-18 [place] [address] unit 16:35: Concentrat H ermann [18 00 [...] Duration: 30 day, Stop date: 12/25/18 10:29:00 FIELDWORK COORDINATOR Dextrose 2018-02 No 12.5 gm, Memor ia 50% Syringe 0-18 25 mL, l 15:52: Route: Cy 00 IVP, Drug Form: INJ, Dosing Weight 66.392, kg, PRN, PRN Blood Glucose Results, Start date: 11/25/18 10:52:00 CDT, Duration: 30 day, Stop date: 12/25/18 9:51:00 FIELDWORK COORDINATOR, 0 Glucagon 2018-02 No 1 mg, Memoria 0-18 Route: IM, l 15:52: Drug form: [place] 00 PDR/INJ, PRN, Dosing Weight 66.392, kg, PRN Blood Glucose Results, Start date: 11/25/18 10:52:00 CDT, Duration: 30 day, Stop date: 12/25/18 9:51:00 FIELDWORK COORDINATOR, 0 heparin 2018-02 No 2,200 unit Albino [...] Albino juan 0-18 (Same l 06:14: as:Remeron [place] 00 ) Mirtazapine 2018-02 Yes 7.5 mg [...] 11/24/18 17:00:00 CDT, Stop date: 12/25/18 3:06:00 FIELDWORK COORDINATOR, 1.56, m2, 0 Heparin 80 2018-02 No Route: Memor ia unit/kg 0-17 IVP, PRN, l Bolus 14:53: 4,400 [place] (Heparin 00 unit, 4.4 Dosing mL, Drug Weight) form: INJ, PRN, Heparin Protocol, Start date: 11/24/18 9:53:00 CDT Stop date: 12/24/18 8:52:00 FIELDWORK COORDINATOR, 30 day, 0 Heparin 40 2018-02 No Route: Memor ia unit/kg 0-17 IVP, PRN, l Bolus 14:53: 2,200 Cy (Heparin 00 unit, 2.2 Dosing mL, Drug Weight) form: INJ, PRN, Heparin Protocol, Start date: 11/24/18 9:53:00 CDT Stop date: 12/24/18 8:52:00 FIELDWORK COORDINATOR, 30 day, 0 heparin 2018-02 No 500 mL, Memoria additive 0-17 Rate: 23.9 l 25,000 unit 14:53: ml/hr, Herm dea [18 00 Infuse unit/kg/hr] over: 20.9 + Premix hr, Route: Diluent IV, Dosing Dextrose 5% Weight 500 mL 66.392 kg, Total Volume: 500 mL, Start date: 11/24/18 9:53:00 CDT, Stop date: 12/24/18 17:00:00 FIELDWORK COORDINATOR, 1.71, m2 Sodium 2018-02 No 1,000 mL, Memori a Chloride 0-17 Infuse l 0.9% 14:00: Over: 1 [place] (Bolus) IV 00 hr, Route: IV, PRE [...] Memoria 0-17 (Same as: l 14:00: Xarelto) [place] Sertraline 2018-02 No Notes: Memor ia 0-17 (Same as: l 14:00: Zoloft) Cy 00 Zofran 2018-02 No Notes: Memoria 0-17 (Same as: l 05:10: Zofran) [place] MEDICATION WASTE Product Size: 4 mg Product Wasted: ___ mg Morphine 2018-02 No 2 mg, 1 Memori a 0-17 mL, Route: l 03:31: IVP, Drug Cy form: SOLN, ONCE, Dosing Weight 66.392, kg, Start date: 11/23/18 22:31:00 CDT, Stop date: 11/23/18 22:31:00 CDT, 0 atorvastati 2018-02 No Notes: Albino juan n 0-17 (Same as: l 02:00: Lipitor) [place] 00 metoprolol 2018-02 No 50 mg, Memor ia tartrate 0-17 Route: PO, l 02:00: Drug form: Cy 00 TAB, Q12H, Dosing Weight 66.392, kg, Start date: 11/23/18 21:00:00 CDT, Duration: 30 day, Stop date: 12/23/18 9:00:00 FIELDWORK COORDINATOR Xarelto 2018-02 No Notes: Memoria 0-16 (Same as: l 22:15: Xarelto) Cy 00 Protonix 2018-02 No Notes: Memoria 0-16 Tablet l 22:00: should not [place] 00 be chewed or crushed. (Same as: Protonix) magnesium 2018-02 No Notes: Memori a citrate 0-16 (Same as: l 58.2 MG/ML 17:08: Citrate of H ermann Oral 00 Magnesia) Solution Concentrat ion: 1.745 gm / 30 mL Golytely 2018-02 No Notes: Memoria 0-16 (Same as: l 17:07: Nulytely) [place] 00 Dulcolax 2018-02 No Notes: Memoria Laxative 0-16 (Same As: l 17:07: Dulcolax, Cy 00 Correctol) (Do Not Crush) "Do Not Crush" Sodium 2018-02 No 250 mL, Memoria Chloride 0-16 Rate: To l 0.9% 13:24: prime line [place] (titrate) 00 and flush 250 mL remaining [...] Duration: 30 day, Stop date: 12/22/18 13:15:00 FIELDWORK COORDINATOR, 1.78, m2, 0 Dextrose 2018-02 No 12.5 gm, Memor ia 50% Syringe 0-15 25 mL, l 18:11: Route: IVP, Drug Form: INJ, Dosing Weight 71.318, kg, PRN, PRN Blood Glucose Results, Start date: 11/22/18 13:11:00 CDT, Duration: 30 day, Stop date: 12/22/18 12:10:00 FIELDWORK COORDINATOR, 0 Glucagon 2018-02 No 1 mg, Memoria 015 Route: IM, l 18:11: Drug form: PDR/INJ, PRN, Dosing Weight 71.318, kg, PRN Blood Glucose Results, Start date: 11/22/18 13:11:00 CDT, Duration: 30 day, Stop date: 12/22/18 12:10:00 [employer], 0 thrombin No Notes: Memoria topical 10-18 [...] PO, l oral tablet 17:10: Bedtime, # [place] 00 30 tab, 0 Refill(s), Pharmacy: [facility] [id number] clopidogrel Yes 75 mg = 1 M emoria 75 mg oral 07 tab, PO, l tablet 17:10: Daily, # Cy 00 30 tab, 0 Refill(s), Pharmacy: [facility] [id number] metoprolol Yes 12.5 mg = Me moria tartrate 25 07 0.5 tab, l mg oral 17:10: PO, Q12H, Taya nn tablet 00 # 30 tab, 0 Refill(s), Pharmacy: [facility] [id number] Plavix No Notes: Memoria 10-15 [...] 10-14 250 ml/hr, l 0.9% 15:00: Infuse [place] (Bolus) IV 00 Over: 1 hr, Route: [...] 0.9% 10-14 (Same as: l 14:42: BD [place] Posiflush) Aspirin 81 No Notes: Do Me moria MG Enteric 10-14 not crush l Coated 14:00: or chew. [place] Tablet (Same As: Ecotrin) Sertraline No Notes: Memor ia 10-14 (Same as: l 14:00: Zoloft) Cy gabapentin No Notes: Memor ia 300 MG Oral 10-14 (Same as: l Capsule 14:00: Neurontin) Herm dea 00 Saline No Notes: Memoria Flush 0.9% 10-14 (Same as: l 14:00: BD [place] Posiflush) Amlodipine No Notes: Memor ia 10-14 (Same as: l 14:00: Norvasc) Cy 00 Enoxaparin No Notes: Memor ia 10-14 Nurse to l 10:00: ensure [facility] 00 documentat ion of patient education per [...] 10-14 Route: IM, l 09:39: Drug form: [place] PDR/INJ, PRN, Dosing Weight 70.938, kg, PRN [...] 10-14 not exceed l 09:38: 4 gm/day. [place] (Same as: Tylenol) Morphine No 2 mg, [...] tab, PO, l tablet 08:39: Daily, # [place] 00 30 tab, 0 Refill(s) Sodium 2017-02 [...] Weight 75.2, kg, Start date: 01/21/18 9:00:00 FIELDWORK COORDINATOR, Duration: 30 day, Stop date: 02/19/18 17:00:00 FIELDWORK COORDINATOR Benadryl 2017-02 No 25 mg, 1 Memor ia 2-14 tab, l 02:22: Route: PO, Cy 00 Drug form: TAB, ONCE, Dosing Weight 75.2, kg, Start date: 01/20/18 20:22:00 FIELDWORK COORDINATOR, Stop date: 01/20/18 20:22:00 FIELDWORK COORDINATOR Artificial 2017-02 No Notes: Memor ia Tears [...] Weight 75.2, kg, Start date: 01/20/18 0:00:00 FIELDWORK COORDINATOR, Duration: 30 day, Stop date: 02/18/18 16:00:00 FIELDWORK COORDINATOR Insulin 2017-02 No Notes: Memoria Lispro 2-13 [...] Blood Glucose Results, Start date: 01/19/18 20:10:00 FIELDWORK COORDINATOR, Duration: 30 day, Stop date: 02/18/18 20:09:00 FIELDWORK COORDINATOR Dextrose 2017-02 No 12.5 gm, Memor ia 50% Syringe 2-13 25 mL, l 02:10: Route: [place] IVP, Drug Form: INJ, Dosing Weight 75.2, kg, PRN, PRN Blood Glucose Results, Start date: 01/19/18 20:10:00 FIELDWORK COORDINATOR, Duration: 30 day, Stop date: 02/18/18 20:09:00 FIELDWORK COORDINATOR D5W 300 mL 2017- No 300 mL, Albino juan 2-12 Rate: 300 l 14:13: ml/hr, [place] Infuse over: 1 hr, Route: IV, Dosing Weight 75.2 kg, Total Volume: 300, Start date: 01/19/18 8:13:00 FIELDWORK COORDINATOR, Duration: 1 doses or times, Stop date: 01/19/18 9:12:00 FIELDWORK COORDINATOR, 1.83, m2 D50W 2017- No 150 gm, Memoria (bolus) IV 2-12 300 mL, l 14:01: Route: IV, Cy 00 Drug Form: INJ, Dosing Weight 75.2, kg, ONCE, NOW, Start date: 01/19/18 8:01:00 FIELDWORK COORDINATOR, Stop date: 01/19/18 8:01:00 FIELDWORK COORDINATOR sodium 2017- No 2 gm, 2 Memoria chloride 1 2-12 tab, l gm oral 03:00: Route: PO, Herm dea tablet 00 Drug form: TAB, Q6H, Dosing Weight 75.2, kg, Start date: 01/18/18 21:00:00 FIELDWORK COORDINATOR, Duration: 30 day, Stop date: 02/17/18 21:00:00 FIELDWORK COORDINATOR Benzocaine 2017-02 No Notes: Memor ia 15 MG / 2-12 Same as: l Menthol 3.6 00:13: Cepacol Her alanis MG Lozenge 00 [Cepacol Sore Throat Pain Relief 15/3.6] Sodium 2017-02 No 2 gm, 2 Memoria Chloride 2-11 tab, l 1000 MG 18:00: Route: PO, Herm dea Oral Tablet 00 Drug form: TAB, Q6H, Dosing Weight 75.2, kg, Start date: 01/18/18 12:00:00 FIELDWORK COORDINATOR, Duration: 30 day, Stop date: 02/17/18 6:00:00 FIELDWORK COORDINATOR Sodium 2018- No Notes: Memoria Chloride 3% [...] 23:30: ml/hr, ONCE, Start date: 01/17/18 17:30:00 FIELDWORK COORDINATOR, 100 ml Sodium 2017-02 No Notes: Memoria [...] kg, Priority: NOW, Start date: 01/17/18 12:24:00 FIELDWORK COORDINATOR, Duration: 30 day, Stop date: 02/16/18 8:00:00 FIELDWORK COORDINATOR Sodium 2017-02 No 2 gm, 2 Memoria Chloride 2-10 tab, l 1000 MG 16:00: Route: PO, Herm dea Oral Tablet 00 Drug form: TAB, Q8H, Dosing Weight 75.2, kg, Priority: NOW, Start date: 01/17/18 10:00:00 FIELDWORK COORDINATOR, Duration: 30 day, Stop date: 02/16/18 8:00:00 FIELDWORK COORDINATOR normal 2017-02 No 1,000 mL, Memori a saline 0.9% 2-10 Rate: 100 l IV 1,000 mL 07:29: ml/hr, Herm dea 00 Infuse over: 10 hr, Route: IV, Dosing Weight 75.2 kg, Total Volume: 1,000, Start date: 01/17/18 1:29:00 FIELDWORK COORDINATOR, Duration: 30 day, Stop date: 02/16/18 1:29:00 FIELDWORK COORDINATOR, 1.83, m2 Hydrochloro 2017-02 No 1 tab, PO, Memoria thiazide 25 2-10 Daily, # l MG / 05:29: 30 tab, 0 [place] Losartan 00 Refill(s) Potassium 100 MG Oral [...] tab, PO, l tablet 05:29: Daily, # [place] 00 30 tab, 0 Refill(s) omeprazole 2017-02 [...] 0.9% 2-10 (Same as: l 03:00: BD [place] 00 Posiflush) Calcium 2017-02 No Notes: Memoria Carbonate 2-10 (Same As: l 500 MG 01:42: Tums) Cy Chewable 00 Calcium Tablet Carbonate 500 mg = 200 mg elemental calcium Dose = mg calcium carbonate ( mg elemental calcium) Calcium 2017-02 No Notes: Memoria Gluconate 2-10 WASTE: F/P l :42: - Sink; E Cy 00 - [facility] Trash Bin Potassium 2017-02 No Notes: Memori [...] s with feeding tube less than 14 Ghanaian (Dobhoff, J-tube etc) and pediatric and patients. sodium 2017-02 No Notes: Memoria phosphate 2-10 Infuse l 01:42: over 4 [place] 00 hour. Do not infuse phosphorou s concurrent ly in the same line as TPN or IVF that contains calcium. For double lumen central lines, phosphorou s may be infused in a separate lumen from TPN. potassium 2017-02 No Notes: Memori a phosphate 2-10 (Same as: l :42: K [place] 00 Phosphate. ) Do not infuse phosphorou s concurrent ly in the same line as TPN or IVF that contains calcium. For double lumen central lines, phosphorou s may be infused in a separate lumen from TPN. 1 mMol phoshate has 1.47 mEq potassium Infuse over 4 hours Magnesium 2017-02 No Notes: Memori a Oxide 2-10 (Same as: l :42: Mag-Ox [facility] 00 400) Magnesium oxide 227im=438m g elemental magnesium Dose=____m g magnesium oxide (___mg elemental magnesium) potassium 2017-02 No Notes: Memori a phosphate-s 2-10 (Same as: l odium 01:42: Phos-NaK) [place] phosphate 00 Each 1.5 250 mg-280 gm pkt has mg-160 mg 250mg oral powder phosphorou for s. Mix reconstitut w/2.5oz ion water and stir. Magnesium 2017-02 No Notes: Memori a Sulfate 2-10 WASTE: F/P l 01:42: - Sink; E [facility] 00 - Municipal Trash Bin Saline 2017-02 No Notes: Memoria Flush 0.9% 2-10 (Same as: l 01:42: BD [place] Posiflush) Nystatin 2017-02 No Notes: Memoria 100 UNT/MG 2-10 (Same l Topical 01:42: as:Mycosta Herm dea Powder 00 tin, Nilstat) For external use only. Ativan 2017-02 No 0.5 mg, Memoria 2-10 Route: PO, l 00:20: Drug form: [place] 00 TAB, ONCE, Dosing Weight 74.545, kg, Start date: 01/16/18 18:20:00 FIELDWORK COORDINATOR, Stop date: 01/16/18 18:20:00 FIELDWORK COORDINATOR Ativan 2017-02 No 1 mg, Memoria 2-10 Route: PO, l 00:19: Drug form: [place] 00 TAB, ONCE, Dosing Weight 74.545, kg, Priority: STAT, Start date: 01/16/18 18:19:00 FIELDWORK COORDINATOR, Stop date: 01/16/18 18:19:00 FIELDWORK COORDINATOR Saline 2017-02 No Notes: Memoria Flush 0.9% 2-10 (Same as: l 00:01: BD [place] Posiflush) Sodium 2017-02 No 1,000 mL, Memori a Chloride 2-10 1000 l 0.9% 00:01: ml/hr, [place] (Bolus) IV 00 Infuse Over: 1 hr, Route: IV, 1,000, Drug form: INJ, ONCE, Priority: STAT, kg, Start date: 01/16/18 18:01:00 FIELDWORK COORDINATOR, Stop date: 01/16/18 18:01:00 FIELDWORK COORDINATOR Atorvastati Atorvastati Yes M.A. U nivers n Calcium n Calcium ity o f 10 MG Oral 10 MG Oral Michael as Tablet Tablet Physici ans Aspirin EC Aspirin EC Yes M.A. Uni vers 81 MG Oral 81 MG Oral ity of Tablet Tablet [place] Delayed Delayed Physici Release Release ans Lisinopril Lisinopril Yes M.A. Uni vers 10 MG Oral 10 MG Oral ity of Tablet Tablet [place] Physici ans metFORMIN metFORMIN Yes M.A. Unive [...] Comments Source Temperature Oral 2019-12-26 98.7 F [facility] rmann (F) 18:30:00 Heart Rate 2019-12-26 [facility]00 Systolic (mm Hg) 2019-12-26 [facility] rmann 18:30:00 Diastolic (mm Hg) 2019-12-26 [facility] ermann 18:30:00 Temperature Oral 2019-12-26 98.4 F [facility] rmann (F) 14:42:00 Heart Rate 2019-12-26 [facility] 14:42:00 Systolic (mm Hg) 2019-12-26 [facility] rmann 14:42:00 Diastolic (mm Hg) 2019-12-26 [facility] ermann 14:42:00 Temperature Oral 2019-12-26 98.8 F [facility] rmann (F) 10:28:00 Systolic (mm Hg) 2019-12-26 [facility] rmann 10:28:00 Diastolic (mm Hg) 2019-12-26 [facility] ermann 10:28:00 Respitory Rate 2019-12-26 [facility] dea 03:00:00 Respitory Rate 2019-12-26 [facility] dea 02:00:00 Respitory Rate 2019-12-26 [facility] dea 01:00:00 Height 2019-12-24 154.94 cm [...] (mm Hg) 2019-10-30 [facility] 08:56:00 Temperature Oral 2019-10-30 98.8 F [facility] (F) 05:52:00 Systolic (mm Hg) 2019-10-30 [facility] 05:52:00 Diastolic (mm Hg) 2019-10-30 [facility] ermann 05:52:00 Respitory Rate 2019-10-30 [facility] dea 05:52:00 Heart Rate 2019-10-30 [facility] Yoel n 05:52:00 Systolic (mm Hg) 2019-10-30 [facility] [...] 02:40:00 BP Systolic 2019-01-13 173 mm[Hg] Location: [facility] 11:23:00 Position: [place] [facility] BP Diastolic 2019-01-13 90 mm[Hg] Location: [facility] 11:23:00 Position: [place] [facility] Height 2019-01-13 61 [in_us] [facility] 11:23:00 [place] [facility] Weight 2019-01-13 148 [lb_av] [facility] 11:23:00 [place] [facility] Body Mass Index 2019-01-13 27.96 kg/m2 [facility] f Calculated 11:23:00 [place] [facility] Heart Rate 2019-01-13 64 /min University 11:23:00 [place] [facility] Temperature 2019-01-13 98.2 [degF] Method: Oral [facility] of 11:23:00 [place] [facility] BP Systolic 2018-12-16 148 mm[Hg] Location: [facility] 09:26:00 Position: [place] [facility] Sitting BP Diastolic 2018-12-16 86 mm[Hg] Location: [facility] 09:26:00 Position: [place] [facility] Sitting Height [...] dea 02:12:00 BP Systolic 2018-11-14 94 mm[Hg] [facility] 12:11:00 [place] [facility] BP Diastolic 2018-11-14 68 mm[Hg] [facility] 12:11:00 [place] [facility] Height 2018-11-14 61 [in_us] [facility] 12:11:00 [place] [facility] Temperature Oral 2018-10-19 [...] - PAP 2018-12-16 00:00:00 [facility] [place] [facility] US Pelvis with Pelvis 2018-12-16 00:00:00 [facility] Transvaginal [id number] Physicians CABG x 4 - Coronary [facility] artery bypass grafts x 4 Tubal ligation [facility] Coronary [facility] [place] artery bypass graft Physicians Encounters Start End Encounter Admission Attending Care Care Encounter Source Date/Time Date/Time Type Type Clinicians Facility Department ID 2019-12-24 Inpatient E [facility]SE MED [id number] MH 05:27:[address] [facility] 2018-11-25 Inpatient U MHHH MED [id number] MHH H 09:35:00 2018-10-31 Inpatient U [facility]SE MED [id number] MH 11:41:[address] [facility] [address] [facility] 2018-10-14 Inpatient U MHFB MED [id number] MHF B 03:17:00 2018-01-16 Inpatient E MHBL MED [id number] MHB L 19:08:00 2019-12-24 2019-12-26 Outpatient Jose Daniel Sarabiaun MHSE MHSE [id number] 05:27:00 17:36:00 [place]al[place]ulath 20 u 2019-11-16 2019-11-16 Outpatient Meerasahib, MHSE MHSE [id number] 12:39:00 23:59:00 Filippo 2019-11-16 2019-11-16 Outpatient MHSE MHSE [id number] MH 12:39:00 12:39:00 [facility] 2019-10-28 2019-10-30 Outpatient Sajja, MHPL MHPL [id number] 21:35:26 14:23:00 [place] 2019-10-28 2019-10-28 Outpatient Sajja, MHPL MHPL [id number] 21:35:26 21:35:26 [place] 2019-01-13 2019-01-13 [facility] [id number] [facility] 11:15:00 11:15:00 tALIZA CURIEL M.D. [facility] Nicki ABRAMS M.D. [facility] ans 2018-12-28 2018-12-28 Outpatient Aliza Gama MHOIP MHOIP [id number] 13:07:00 23:59:00 [place] 2018-12-16 2018-12-16 [facility] [id number] Univers 09:45:00 09:45:00 t; ALIZA GAMA M.D. Center - ity of ALIZA [facility] 2018-11-25 2018-12-08 Outpatient Quinn [facility] [id number] 09:35:00 12:30:00 Nakia 91 W 2018-11-22 2018-11-25 Outpatient LILLIE Santos MHPL [id number] 08:29:00 07:30:00 Ar [facility] 2018-11-22 2018-11-22 Inpatient U MHBL MED [id number] MHBL 08:29:00 20:46:00 2018-11-18 2018-11-18 Outpatient WENCESLAO SantosOIP MHOIP [id number] 14:21:00 23:59:00 Ar 00 [facility] 2018-11-14 2018[facility]11-[facility]OND DELONG [place] [id number] [facility] 11:30:00 11:30:00 t; MALIKA DELONG M.D. cic & ity of MALIKA [facility] 2018-10-14 2018-10-19 Outpatient NAKUL Salazar [facility] [id number] 03:17:00 17:59:00 Bk Faustinqaan 2018-01-16 2018-01-[address] [id number] 17:47:00 13:38:00 Peter 00 Results Test [...] code = PTT) 75.3 s 22.9-35.8 [facility] PxzjvekFGUGBDKRFQ8773-09-11 11:22:009.5[facility]ann[facility]MATOLOGY 2019-12-25 11:22:003.80[facility] LoxkfrgURTFAMDFHR9571-30-61 11:22:009.6[facility] WtmjxmtYRVNTAVSDG1434-65-78 11:22:0029.8[facility] YpkvsqmOHOWQHQOXX9400-25-82 11:22:0078.4[facility] YmxxhkmYPUJTLPACV8717-39-60 11:22:00 Test Item Value Reference Range Interpretation Comments MCH (test code = MCH) 25.2 pg 27.0-31.0 [facility] PjoxcgjBWXVBDMNVD0153-67-54 11:22:0032.1[facility] HermannHEMATOLOGY 2019-12-25 11:22:0027.5[facility] RtnxpqvUWINOKVPTM7231-81-03 11:22:90252Xdrvejjr ZvuernqURKXOEAGVF5064-22-83 11:22:009.2[facility] LhbhpqoOKEAIAOODD3460-05-84 11:22:0061.2[facility] GvdjzquHANBYWKJVX1813-88-63 11:22:0031.7[facility] Cy VBSVHDWKDA1382-92-91 11:22:005.9[facility] AlttbcvWIVCOGTWZB5048-26-77 11:22:000.7 [facility] EqpnffbXJWDCUHNXX1250-56-84 11:22:000.5[facility] HermannHEMATOLOGY 2019-12-25 11:22:005.8[facility] DrglxobNRAKFTAUEL2160-73-36 11:22:003.0[facility] IhlebfaNDUXYLTDWM7634-39-44 11:22:000.6[facility] XfsnypgLQCVWBXAYY5696-94-78 11:22:000.1[facility] SxcydbaEWUMBQMQPA1098-07-23 11:22:001+ *ABN*(12/25/19 5:22 AM)[facility] YwqvzkyLUFJGXGCTK5402-03-65 04:46:00 Test Item Value Reference Range Interpretation Comments PTT (test code = PTT) 87.7 s 22.9-35.8 [facility] KhsvgcdRDNPYTDIYV0342-67-54 21:07:00 Test Item Value Reference Range Interpretation Comments PTT (test code = PTT) 39.5 s 22.9-35.8 [facility] HermannCARDIAC TEABIZY9864-92-75 18:27:007.40[facility] HermannCARDIAC EXKJXWE0044-41-67 12:08:51711Juwuzfty HermannCARDIAC GFNLZBG7991-45-64 12:08:00 5.80[facility] HermannCHEM TSMZW3772-97-18 12:08:27290Cddqcuft HermannCHEM PANEL 2019-12-24 12:08:0013[facility] HermannCHEM IBOSU2825-13-97 12:08:000.96[facility] HermannCHEM ZRMVF9545-80-46 12:08:75016Yjeezzzh HermannCHEM PAKFZ7171-83-08 12:08:003.8[facility] HermannCHEM USUAP0803-75-41 12:08:60811Yzdqxvzm HermannCHEM QEBMB5594-27-09 12:08:0027[facility] HermannCHEM IUQBW2305-45-64 12:08:009.4 [facility] HermannCHEM WBFZK4190-54-33 12:08:0010.8[facility] HermannCHEM PANEL 2019-12-24 12:08:0068[facility] MigffzlAVQQQENNEZ3364-74-22 12:08:00 Test Item Value Reference Range Interpretation Comments PT (test code = PT) 13.3 s 12.0-14.7 Memorial ZdrtwevNBMBNMOUPF6177-89-20 12:08:00 Test Item Value Reference Range Interpretation Comments INR (test code = INR) 1.01 1 0.85-1.17 [facility] LgshomsMLJOAEABHH2064-80-15 12:08:005.7[facility] HermannHEMATOLOGY 2019-12-24 12:08:003.36[facility] WdnuaucJLNTMNZQCG1783-18-13 12:08:008.5[facility] HgtbmoxSLCVTLAUMM9293-52-22 12:08:0026.5[facility] BviecacBFKWGSESAD5436-52-01 12:08:0079.0[facility] RntmrruOVRQDXSNVI0531-35-65 12:08:00 Test Item Value Reference Range Interpretation Comments MCH (test code = MCH) 25.3 pg 27.0-31.0 [facility] LkvvdbeFHUPIQDPZQ8047-59-15 12:08:0032.1[facility] HermannHEMATOLOGY 2019-12-24 12:08:0026.9[facility] OlqufzjYKDLKSGLPM6965-45-09 12:08:20497Romemcsh VielgpgBVWNMNQFQQ3899-44-07 12:08:008.9[facility] PhsqqcfHRZMZOAKCO6460-09-42 12:08:00Normal (12/24/19 6:08 AM)[facility] ZwqiollXVEPGUGWBX8901-35-93 12:08:00 56.6[facility] BdgnvskKLZECKEOUO1582-58-35 12:08:0031.4[facility] HermannHEMATOLOGY 2019-12-24 12:08:008.3[facility] YmswlquXMECCEHUZF4285-20-36 12:08:002.8[facility] LmdejhxQGHYIOCZTB1215-94-24 12:08:000.9[facility] FbljksiSPBGBMICOR3821-14-20 12:08:003.2[facility] SwmyimdYTKUDKBRJQ0425-31-26 12:08:001.8[facility] Cy DBVSQFNZFW2232-91-33 12:08:000.5[facility] NfupugwDJFRRBXLVT8357-61-22 12:08:000.2 [facility] BszjdftMVEEXSPKMU6478-81-71 12:08:000.1[facility] HermannHEMATOLOGY 2019-12-24 12:08:001+ *ABN*(12/24/19 6:08 AM)[facility] [...] LARGE PLATELETS code = PLTMORPH) CBC W/MANUAL [id number] 16:56:00 Test Item Value Reference Range Interpretation [...] code = THOUSAND ADEQUATE PLTEST) CBC W/MANUAL [id number] 16:54:00 Test Item Value Reference Range Interpretation [...] ESTIMATE (test code = THOUSAND ADEQUATE PLTEST) LKCWGUSJCC0842-45-34 18:44:006.3[facility] AwtyyzsCOYWYFQBVW7759-50-67 18:44:00 3.43[facility] ZxqxlncDRPYVQSLXO5461-41-57 18:44:008.6[facility] HermannHEMATOLOGY 2019-11-16 18:44:0026.4[facility] GvmgqeuDUWMQPVSBY0177-72-09 18:44:0076.9[facility] EtqupuqQZUVMAUOCU9974-32-02 18:44:00 Test Item Value Reference Range Interpretation Comments MCH (test code = MCH) 25.1 pg 27.0-31.0 [facility] JjqffoxDEGXVVITVA6244-04-91 18:44:0032.6[facility] HermannHEMATOLOGY 2019-11-16 18:44:0029.2[facility] ZuogyogAAJSLWYJWV7135-49-77 18:44:24939Gktvsual EchlvemCVKVJYRAKJ3407-56-83 18:44:008.4[facility] EoipclmCHXFQGGXKF9345-60-72 18:44:001+ *ABN*(11/16/19 1:44 PM)[facility] IshisftDLRBVHAOID7286-88-70 18:44:00 Normal (11/16/19 1:44 PM)[facility] SwnqynzOSPOXKMYBF9945-53-69 18:44:0064.0 [facility] TfwrpxgYYMOZPMPMT7007-42-48 18:44:0026.0[facility] HermannHEMATOLOGY 2019-11-16 18:44:009.0[facility] BorpgfcVNXISBUZAN5545-29-35 18:44:001.0[facility] LgxjwpgVOVZYLRQWE8778-36-99 18:44:004.0[facility] LmdtmvnVJKMIXAYZY6805-81-33 18:44:001.6[facility] GqmxggbCQCQHSRRQB3764-13-19 18:44:000.6[facility] Cy YZXRUOZKNP0477-12-46 18:44:000.1[facility] NyhlfluGNMPMIAPCE7006-90-07 18:44:004 [facility] NvfxozaABDCHLIZVP5997-70-06 18:44:00 Test Item Value Reference Range Interpretation Comments Tot Cell Ct (test code = Tot Cell Ct) 100 1 [facility] AptzckdEUXNZKEYGU5108-34-19 18:44:002+ *ABN*(11/16/19 1:44 PM)[facility]wjtRBROSNCDDR2518-87-23 18:44:001+ (11/16/19 1:44 PM)[facility]2020-10-08 18:44:001-3 per HPF (11/16/19 1:44 PM)[facility]2020-10-08 18:44:00Moderate *ABN*(11/16/19 1:44 PM)[place] 800580-10-08 18:44:00Moderate *ABN*(11/16/19 1:44 PM)[place] 800580-10-08 18:44:002.5[facility] Center[facility]CBC [facility]/MANUAL [id number] 18:55:00 Test Item Value Reference Range Interpretation [...] THOUSAND ADEQUATE code = PLTEST) CBC W/MANUAL [id number] 16:38:00 Test Item Value Reference Range Interpretation [...] (test code = THOUSAND ADEQUATE PLTEST) CHEM [id number] 18:12:003.1[facility] HafdztkOCGYUKMJQX1942-18-83 15:25:00 Test Item Value Reference Range Interpretation Comments PT (test code = PT) 13.6 s 12.0-14.7 [facility] AswrxpdMABVUVMSKE5856-61-48 15:25:00 Test Item Value Reference Range Interpretation Comments INR (test code = INR) 1.04 1 0.85-1.17 [facility] UruetfqRUZFIDFDGT2837-69-39 15:25:00 Test Item Value Reference Range Interpretation Comments PTT (test code = PTT) 26.8 s 22.9-35.8 [facility] EolmbfyEYHWTNIEZZ5625-64-69 00:31:00Not Detected (10/29/19 7:31 PM) [facility] HermannANEMIA KDQQK3933-94-66 23:22:73623Inkqewgb HermannANEMIA STUDY 2019-10-29 23:22:0019.3[facility] HermannCHEM RHWOE8193-15-96 23:22:19964Cswvwgsd HermannCHEM HDQGD9103-60-86 23:22:0075[facility] BjwriiaUMDUHYNYUR4713-17-34 23:22:008[facility] QvpfzmyGWGSZBRGTZ2211-81-62 23:22:00<1[facility] LXUGBLRSDK3685-96-45 23:22:0057.1[facility] QtmntpuNPBFSSQQYD5052-33-28 23:22:00 5.0[facility] YqgcjtuGBFNFWGUVF9832-94-47 23:22:007.9[facility] HermannIMMUNOLOGY 2019-10-29 23:22:009.1[facility] XweolglZNIGIRFUIY1408-18-98 23:22:0020.9[facility] WiypnotGCWVKMRVJG7690-11-66 23:22:004.23[facility] XazjlrzJMQOGACTEH1906-46-43 23:22:000.37[facility] QtibvbaWVXMNUMSIA6914-51-27 23:22:000.58[facility] Cy LKGRXOUZDO6806-67-94 23:22:000.67[facility] JcmismnCBAFDGGYKO7664-23-30 23:22:00 1.55[facility] EpijgudIUBVWBDJJN0943-86-15 23:22:007.4[facility] HermannIMMUNOLOGY 2019-10-29 23:22:00Negative *NA*(10/29/19 6:22 PM)[facility] HermannIMMUNOLOGY 2019-10-29 23:22:00 Test Item Value Reference Range Interpretation Comments Hep Signal to Cut-Off (test code = Hep 0.03 1 Signal to Cut-Off) [facility] HermannTUMOR UQTNRYN5482-80-87 23:22:001.1[facility] HermannANEMIA STUDY 2019-10-29 17:30:54756Zycomwgh HermannANEMIA MUJMU8964-99-44 17:30:42400Cxnowuhj HermannANEMIA XHZWY7808-23-73 17:30:0096[facility] HermannANEMIA TYZRX7387-94-01 17:30:18387Eeenwhfz HermannANEMIA QNDTV0035-08-39 17:30:06900Uvpeesma Cy CHEM MJAOL2012-35-20 10:44:0092[facility]annCHEM FUAVU7025-86-47 10:44:0014 [facility]annCHEM QTZJW3895-49-53 10:44:000.82[facility]annCHEM PANEL 2019-10-29 10:44:20891Wcnkxgrk HermannCHEM NTEGK5208-21-31 10:44:003.9[facility]annCHEM GYCMT4657-75-44 10:44:05200Dfslvtzi HermannCHEM LNJTA4081-82-05 10:44:0028[facility]annCHEM XAQZY4665-57-87 10:44:008.8[facility]annCHEM MLGUR6334-67-95 10:44:008.9[facility]annCHEM LDKWW5659-49-43 10:44:0083 [facility] RxscrxhNPJWBAQFNO1381-63-38 10:44:0055.4[facility]annHEMATOLOGY 2019-10-29 10:44:0028.9[facility] KnmemedEVULSSXGBS7358-55-03 10:44:0011.9[facility] ZfscccsOWZWLBCPOU0329-79-58 10:44:003.2[facility] IkwijuiLTPEULIGVY6046-84-83 10:44:000.6[facility] DsahwryBPBCMMXTHD1560-42-83 10:44:004.4[facility] DJKMLAUDVN0065-05-69 10:44:002.3[facility] FklzodyZBMMUZPCCN2721-33-44 10:44:000.9 [facility] FrwcvwvFUPDNLMQJP6916-75-05 10:44:000.3[facility]annHEMATOLOGY 2019-10-29 10:44:002+ *ABN*(10/29/19 5:44 AM)[facility] NglyginCCIUXYQZIT7362-50-60 10:44:007.9[facility] OkethdiFNXYDXWOVN1657-64-28 10:44:003.22[facility] UVJAZRXYBJ8196-50-36 10:44:008.0[facility] GmxjwcmJFMKZYNWEQ0402-37-15 10:44:00 23.3[facility] YmecnrnIWKVDFZAQY2532-33-87 10:44:0072.2[facility]annHEMATOLOGY 2019-10-29 10:44:00 Test Item Value Reference Range Interpretation Comments MCH (test code = MCH) 24.7 pg 27.0-31.0 [facility] DmnidecIPCUTXZPNY7790-76-67 10:44:0034.2[facility]annHEMATOLOGY 2019-10-29 10:44:0028.5[facility] IrhrsrnTTBGIRRCNO0061-06-31 10:44:27184Jmtrawuu DnmgrmlBFYXFHZNDF9229-40-29 10:44:008.3[facility]annBLOOD BANK RESULTS 2019-10-29 04:25:00Negative (10/28/19 11:25 PM)[facility]annCHEM PANEL 2019-10-29 04:25:001.0[facility]annBLOOD BANK DSBWHQK3523-94-05 03:45:00 Product available (10/28/19 10:45 PM)[facility]annCARDIAC EXKJQUM6985-34-22 03:23:000.04[facility] HermannCHEM QMEIV9474-72-82 03:23:32866Ghtfapyp HermannCHEM ISGVN4762-37-20 03:23:0016[facility]annCHEM DPSCB7728-68-04 03:23:001.02 [facility]annCHEM YGRVS8495-82-86 03:23:84452Bkepkveb HermannCHEM PANEL 2019-10-29 03:23:004.0[facility]annCHEM ICBTS3443-09-79 03:23:23332Gufymlog HermannCHEM SGRBL7090-23-20 03:23:0028[facility]annCHEM RVKRP5333-78-02 03:23:009.3[facility]annCHEM EQWYP8693-43-77 03:23:007.4[facility]annCHEM MDIVD0027-68-37 03:23:003.6[facility]annCHEM PWFZB2848-10-57 03:23:0012 [facility]annCHEM XZNFL2808-79-31 03:23:0037[facility]annCHEM PANEL 2019-10-29 03:23:0082[facility] HermannCHEM IXPUE7262-29-92 03:23:000.7[facility]annCHEM PMFQU9549-37-14 03:23:007.0[facility]annCHEM QVMHA3870-09-50 03:23:00 Test Item Value Reference Range Interpretation Comments B/C Ratio (test code = B/C Ratio) 16 1 6-25 [facility]annCHEM KJGKA7929-50-40 03:23:003.8[facility]annCHEM PANEL 2019-10-29 03:23:00 Test Item Value Reference Range Interpretation Comments A/G Ratio (test code = A/G Ratio) 0.9 1 0.7-1.6 [facility]annCHEM IPYSK8789-81-25 03:23:0064[facility]annHEMATOLOGY 2019-10-29 03:23:008.2[facility] EqqqxuzBIANEDSRYQ1905-26-82 03:23:002.94[facility] OvwfzswQMTEDJUNCH3108-16-97 03:23:007.2[facility] PbckhohHZKTMKIPKT2738-94-47 03:23:0020.7[facility] MdyriouMTYYTCIQRK9597-14-59 03:23:0070.3[facility] Cy VNCTJNGPIZ6646-45-06 03:23:00 Test Item Value Reference Range Interpretation Comments MCH (test code = MCH) 24.5 pg 27.0-31.0 [facility] OjtaffcQYDFKZQCHT1720-36-04 03:23:0034.8[facility]annHEMATOLOGY 2019-10-29 03:23:0029.8[facility] ThatcnjYBLRKLEFHL5001-74-55 03:23:69393Nuczykgc CyrsxczILWMMIIBRY2507-56-15 03:23:008.2[facility] QawvmgyMSBBHYSNMB5265-99-60 03:23:00Normal (10/28/19 10:23 PM)[facility] BnjtifjEVJMZVCCEQ5994-32-62 03:23:00 59.5[facility] UvydpbxDUVEMNCDPU1530-27-40 03:23:0025.6[facility]annHEMATOLOGY 2019-10-29 03:23:0011.3[facility] OpnjqinBDVWKWOLVF3275-04-50 03:23:002.7[facility] GuclfpfCLVLRKQXSI9304-62-82 03:23:000.9[facility] KgtyuleWASAUCDDIQ8781-49-18 03:23:004.9[facility] NaepxzzPQKPJTPWDF2307-05-08 03:23:002.1[facility] NVXITUQSNP9913-06-01 03:23:000.9[facility] XlboiphJBVWYABRWX2488-57-83 03:23:000.2 [facility] HnwsakiCEAJJGBMGU8551-40-05 03:23:000.1[facility]annHEMATOLOGY 2019-10-29 03:23:002+ *ABN*(10/28/19 10:23 PM)[facility]annHE[facility]OLOGY 2019-10-29 03:23:002+ *ABN*(10/28/19 10:23 PM)[facility]annHEMATOLOGY 2019-10-29 03:23:001+ (10/28/19 10:23 PM)[facility] StdigijCATHXKRDFK8527-03-76 03:23:001-3 per HPF (10/28/19 10:23 PM)[facility] BtyxfsyUGGQPNOLMM0810-10-08 03:23:00Moderate *ABN*(10/28/19 10:23 PM)[facility] 2019-10-29 03:23:00Yellow *NA*(10/28/19 10:23 PM)[facility] 2019-10-29 03:23:00Clear (10/28/19 10:23 PM)[facility] 2019-10-29 03:23:00 Test Item Value Reference Range Interpretation Comments UA Spec Grav (test code = UA Spec 1.016 1 Grav) [facility] QKMXZ3843-62-26 03:23:00 Test Item Value Reference Range Interpretation Comments UA pH (test code = UA pH) 5.0 1 5.0-8.0 [facility] QPHHQ5800-15-20 03:23:00Negative *NA*(10/28/19 10:23 PM)[facility] PCYFV3618-68-32 03:23:00Negative (10/28/19 10:23 PM) [facility] TGOSY4177-15-70 03:23:002.0[facility] UIIBI8364-41-95 03:23:00Negative (10/28/19 10:23 PM)[facility] KNKKE5468-55-22 03:23:00Large *ABN*(10/28/19 10:23 PM)[facility] MWKOC8933-24-91 03:23:0019[facility] OIDCA3344-47-02 03:23:003 [facility] OMOCD4503-35-51 03:23:005[facility]annUS Pelvis with Pelvis Transvaginal [id number] 14:00:00PROCEDURE INFORMATION:Exam: US Pelvis Complete, Transabdominal and [...] histologic sampling.Mk Fiore MD On 12/28/2018 18:10:20; VR-[id number]--Eady by: Mk Fiore MDDictated Date/time: 12/28/18 18:10Electronically Signed by: Mk Fiore MD 1 02/27/1917:10FINAL REPORTUn[facility] PhysiciansCHEM HCVMN7341-84-10 06:24:002.0[facility]annCHEM HXHND2313-55-35 06:24:003.3[facility] NWSAEPGCPZKG7923-17-11 06:24:009.7[facility] BvecixzFRNHMFSDQXNY9783-42-21 06:24:09618Uvnoenae GldaldpRUFQFFQVKLNX7517-68-73 06:24:009[facility] JZOTQUHFLSOX6040-99-78 06:24:000.78[facility] MwnwfglFAXYBHLRZPPU3997-55-22 06:24:98624Trdmccos JvyromnPZVSETNCIHLW7104-22-27 06:24:003.7[facility] GJCOVWQCXERK3997-29-20 06:24:36107Twalwbmh MviinmsSSWDZQALZCZX1668-21-35 06:24:0025[facility] NufrxlfWOEEPXXFAWEF3821-81-79 06:24:009.1[facility] PFTZLWSZQYPK2058-54-91 06:24:0089[facility] EhxesoxKODPMEZTUT4662-81-15 06:24:00 42.3[facility] RwdcnwmYBRLCNFFQQ9631-89-91 06:24:0027.0[facility]annHEMATOLOGY 2018-12-08 06:24:0010.6[facility] EpaejfcAHBRKIMCEY3548-75-81 06:24:0019.6[facility] AbdlqdsRJHCOCNQQY2710-30-03 06:24:000.5[facility] YngghvdWFNVOQDQXP4955-23-85 06:24:002.9[facility] WbggmukVPBVCBIEUP4351-30-20 06:24:001.9[facility] USSHMEUSFX9001-42-48 06:24:000.7[facility] DyhjzkbAXDSMPGNGL3197-79-02 06:24:001.4 [facility] SvpmlprWKGATHCMPQ0931-96-85 06:24:006.9[facility]annHEMATOLOGY 2018-12-08 06:24:003.34[facility] EuuwapyVCSQFWFTPJ5461-37-30 06:24:009.7[facility] PwxxgwsDAPLFSNLCJ4828 06:24:0029.1[facility] CocrkjoUCTYTSSYER5728-60-77 06:24:0087.0[facility] GcgfhydJHIDVHVLCK9043-51-06 06:24:00 Test Item Value Reference Range Interpretation Comments MCH (test code = MCH) 28.9 pg 27.0-31.0 [facility] CkxiveiFURDGUZOAZ6297-47-41 06:24:0033.2[facility]annHEMATOLOGY 2018-12-08 06:24:0019.[facility] SbinpioEGAADSFGFL8360-31-37 06:24:41122Izaztmsr RgrxewkOFOLAQDGTK8925-91-33 06:24:007.9[facility] HermannPARATHYROID PROFILE 2018-12-08 06:24:001.22[facility] HermannPARATHYROID IMFKZMC2125-48-17 06:24:00 1.24[facility] HermannCHEM FYYMY4054-78-27 10:14:003.6[facility] HermannCHEM PANEL 2018-12-07 10:14:002.1[facility] HermannCHEM RUTER0345-45-89 10:14:0092[facility] HermannCHEM MIWGU5083-96-78 10:14:007[facility] HermannCHEM RNECQ6918-86-80 10:14:000.69[facility] HermannCHEM RRASO1985-74-12 10:14:10372Bljkwxfn HermannCHEM TVFWA9640-02-54 10:14:003.5[facility] HermannCHEM KWXTY5950-49-28 10:14:64624 [facility]annCHEM VKNBM9764-07-41 10:14:0026[facility] HermannCHEM PANEL 2018-12-07 10:14:009.1[facility] HermannCHEM YLOAC0900-14-90 10:14:0010.5[facility] HermannCHEM WEVLK3947-92-18 10:14:48983Oxdvgjou FdphajmBBCUTGCEYV8859-39-90 10:14:0042.9[facility] PgnxlwrGWJNLTMJNN3604-89-39 10:14:0028.7[facility] FHLBHPDPGH9237-31-22 10:14:009.8[facility] CyyxqosZAXAWOWGOA6478-68-35 10:14:00 18.3[facility] MecdcihLAGMGFAQKW4790-55-23 10:14:000.3[facility]annHEMATOLOGY 2018-12-07 10:14:002.6[facility] VaoznnjBABNOZAYPP8257-81-17 10:14:001.8[facility] DymfnruQQUPRIXYNC8122-31-85 10:14:000.6[facility] RtjslakOIXVDHRCWB4852-05-69 10:14:001.1[facility] DvqtxzmAHWBQJJORU0499-14-90 10:14:006.2[facility] ZEMMHKDNIL6996-36-93 10:14:003.36[facility] BxxixjpIYDFAAOMWT5450-89-17 10:14:00 9.8[facility] QrsomocXMAQACOSMX1528-17-62 10:14:0029.5[facility]annHEMATOLOGY 2018-12-07 10:14:0087.8[facility] NlixhxpCNOOYVTLZB9836-85-86 10:14:00 Test Item Value Reference Range Interpretation Comments MCH (test code = MCH) 29.1 pg 27.0-31.0 [facility] YngvnzdSWZJOAJCEB1589-47-90 10:14:0033.1[facility]annHEMATOLOGY 2018-12-07 10:14:0019.9[facility] VnqcnygZCEBUKZPGH2115-57-77 10:14:44816Plxeiqyv FgbqtnqFBOMWOLBES9193-53-88 10:14:008.0[facility] HermannPARATHYROID PROFILE 2018-12-07 10:14:001.23[facility] HermannPARATHYROID BFPLPVE1440-67-58 10:14:00 1.22[facility] VdzfusfKLSQWNUNLB2200-18-03 03:49:00 Test Item Value Reference Range Interpretation Comments PT (test code = PT) 13.3 s 12.0-14.7 [facility] OpdyefyTEYSIWJQVB8191-50-22 03:49:00 Test Item Value Reference Range Interpretation Comments INR (test code = INR) 1.03 1 0.85-1.17 [facility] GhftntrTWBIHILVOL3498-77-68 01:08:0010.3[facility]annHEMATOLOGY 2018-12-07 01:08:0031.4[facility] HermannCHEM RSHCA1534-59-42 08:54:002.0[facility] HermannCHEM LZKRZ9397-56-62 08:54:004.2[facility] FnljmenVAAHSKYNWOLM5232-68-93 08:54:0010.6[facility] HfqjxjcCTGUBOKNBCJW3017-84-27 08:54:16594Uwoyowwj [facility] FEFICXAOWKVQ6646-55-43 08:54:0011[facility] PxvxpnhISUFSDNKBFPT3447-82-86 08:54:00 0.70[facility] HokzdzoWHKHXHOBTETF2791-68-45 08:54:79133Axlqallf Cy DCYIFUNXGVRJ6720-83-48 08:54:003.6[facility] BxodkmpSMIDNYVDNNGB9221-24-26 08:54:53225Ehbhfjss IzrsxoxHPXCKTWIRUPB4713-14-85 08:54:0025[facility] BUXJGPOVAEYC1416-83-66 08:54:009.2[facility] LbdxsfrWNHFJYIIWVHJ8509-53-40 08:54:10761Dcujsdse BysdoknZUQIQXIMOK4601-97-45 08:54:0047.0[facility] EMEXGSMZRW9698-48-52 08:54:0026.3[facility] PxmmqrzCLNLMNWZGR0380-79-39 08:54:00 10.2[facility] DgqduqiVEVZUNHLMF2770-71-18 08:54:0016.2[facility]annHEMATOLOGY 2018-12-06 08:54:000.3[facility] NlzngkkTFBXYOTCAO5908-15-88 08:54:003.2[facility] JnfgfakSYIKMMNFIE1292-10-09 08:54:001.8[facility] RajzccrYXJVPOFNDD9319-31-83 08:54:000.7[facility] HjnpprtUFMGUIIUTG0717-22-02 08:54:001.1[facility] Cy JVWIMLGWGW4204-57-91 08:54:006.8[facility] RhiinrmJLBLKJMLBW8309-51-67 08:54:00 3.36[facility] AeefukdNTVYGDDWNT6733-14-02 08:54:0087.8[facility]annHEMATOLOGY 2018-12-06 08:54:00 Test Item Value Reference Range Interpretation Comments MCH (test code = MCH) 29.1 pg 27.0-31.0 [facility] DjsafqxTZRBSYZYOK2807-15-61 08:54:0033.1[facility]annHEMATOLOGY 2018-12-06 08:54:0020.1[facility] IigjjhxVLCZTRPVHF1961-79-56 08:54:55157Pughittk GnildyoAECXDWXAEX3634-67-00 08:54:007.9[facility]annPARATHYROID PROFILE 2018-12-06 08:54:001.17[facility] HermannPARATHYROID GTAOXTS3778-57-85 08:54:00 1.18[facility] KwkuvpuXKYAFABPFV7283-09-58 10:16:00Normal (12/04/18 5:16 AM) [facility] UvodjkrOICETEJRLM1942-11-55 10:16:001+ *ABN*(12/04/18 5:16 AM)[facility] GbkavxgMXQTKKJPDG7201-58-11 10:16:00 Test Item Value Reference Range Interpretation Comments PT (test code = PT) 13.4 s 12.0-14.7 [facility] JzzyjpoQSPKGOVIJD2782-35-05 10:16:00 Test Item Value Reference Range Interpretation Comments INR (test code = INR) 1.04 1 0.85-1.17 [facility] LstwublERDZMFGFPF9692-29-06 09:51:00 Test Item Value Reference Range Interpretation Comments PT (test code = PT) 13.5 s 12.0-14.7 [facility] SoebsddWHCPZQRBYN7124-37-83 09:51:00 Test Item Value Reference Range Interpretation Comments INR (test code = INR) 1.05 1 0.85-1.17 [facility]annBODY NKKQLW5096-79-95 23:31:002.7[facility] HermannBODY FLUIDS 2018-12-02 23:31:00Pleural *NA*(12/02/18 6:31 PM)[facility]annBODY FLUIDS 2018-12-02 23:31:76026Rlxuxoqt HermannBODY ZKVAIC3308-61-02 23:31:00Pleural *NA*(12/02/18 6:31 PM)[facility] HermannBODY CIFNIB5821-87-15 23:31:04543Rsywogqv HermannBODY HTANSB6821-48-76 23:31:00Pleural *NA*(12/02/18 6:31 PM)[facility]annBODY YQFXHZ1016-58-33 23:31:00Pleural (12/02/18 6:31 PM)[facility] BODY VFNUAM7337-35-83 23:31:00 Test Item Value Reference Range Interpretation Comments pH BF (test code = pH BF) 8.00 1 [facility]annBODY RVMRIN5754-06-06 23:31:004.4[facility]annBODY FLUIDS 2018-12-02 23:31:00Pleural *NA*(12/02/18 6:31 PM)[facility]annBODY FLUIDS 2018-12-02 23:31:0021[facility]annBODY NSEXRG3531-08-99 23:31:00Pleural *NA*(12/02/18 6:31 PM)[facility] HermannCHEM VDJCS6168-81-97 23:31:006.7[facility] HermannCHEM CKGSF3119-13-60 23:31:49908Wxjebanx RtobksjMQMISSSLBS7168-30-28 23:31:00Normal (12/02/18 6:31 PM)[facility] EdcczhdNUHRWEQCXJ2704-06-15 23:31:001+ *ABN*(12/02/18 6:31 PM)[facility]annBODY SZENID4030-20-66 22:23:00Red *ABN*(12/02/18 5:23 PM)[facility]annB[facility] FUMSBL9664-47-26 22:23:00Marked *ABN*(12/02/18 5:23 PM)[facility] RHCQVS1719-77-04 22:23:00Red *ABN*(12/02/18 5:23 PM)[facility]annB[facility] KXWTFS4217-90-83 22:23:10960Pqkcwkka HermannBODY TEKSSV4317-24-28 22:23:96161000Etrqfhva HermannBODY FLUIDS 2018-12-02 22:23:002[facility]annB[facility] BAOMZT5032-08-75 22:23:0073[facility]annB[facility] WOXAOQ4874-45-66 22:23:0024[facility]annB[facility] TJOVLZ2144-20-37 22:23:001[facility]annBODY UPECHZ5374-00-38 22:23:00Pleural (12/02/18 5:23 PM)[facility] HospitalPlmlfwnSOWENKWPOR5074-66-00 17:38:00 Test Item Value Reference Range Interpretation Comments PTT (test code = PTT) 87.6 s 22.9-35.8 [facility]CewpebfPQROWMGTOE3034-39-97 08:56:00Normal (12/01/18 3:56 AM)[facility] HospitalYaroowhEGFDWREMXK4510-95-55 08:56:001+ *ABN*(12/01/18 3:56 AM)[facility] NPGQZYIYVI1059-39-88 08:56:00Moderate *ABN*(12/01/18 3:56 AM)[facility] OGXQDGGZFY7203-63-85 08:56:00 Test Item Value Reference Range Interpretation Comments PTT (test code = PTT) 88.2 s 22.9-35.8 [facility] HospitalRmdczfeZTGOVZIOYY6729-02-52 10:30:00 Test Item Value Reference Range Interpretation Comments PTT (test code = PTT) 89.8 s 22.9-35.8 [facility] CenterJxlqloeWJAEBIUISI2099-28-41 10:30:001+ *ABN*(11/30/18 5:30 AM)[facility] FynwunoSYDGOYZGVD7563-48-46 10:30:001-3 per HPF (11/30/18 5:30 AM)[facility]annSPECIAL BCDJTTZGV5483-50-84 06:06:004.9[facility]URINE AND STOOL 2018-11-25 18:08:00<1[facility] AND DNKJW0399-93-11 18:08:00<1 [facility] JKMXT5285-66-03 18:08:001[facility] AND MIDUU8456-18-41 18:08:00Yellow *NA*(11/25/18 1:08 PM)[facility] BFEVQ1921-16-49 18:08:00Clear (11/25/18 1:08 PM)[facility] STOOL 2018-11-25 18:08:00 Test Item Value Reference Range Interpretation Comments UA Spec Grav (test code = UA Spec 1.010 1 Grav) [facility] YNVNC5486-41-52 18:08:00 Test Item Value Reference Range Interpretation Comments UA pH (test code = UA pH) 6.5 1 5.0-8.0 [facility] SJMNT3260-41-97 18:08:00Negative (11/25/18 1:08 PM) [facility] EQYCG0278-32-01 18:08:00Negative (11/25/18 1:08 PM) [facility] BRZPM3200-80-53 18:08:00Negative *NA*(11/25/18 1:08 PM)[facility] VQZEF0109-51-86 18:08:00Negative *NA*(11/25/18 1:08 PM)[facility] BZMDP6613-08-55 18:08:00Trace *ABN*(11/25/18 1:08 PM)[facility] AUVTH0855-02-30 18:08:000.2[facility] AND GOKHK6029-95-49 18:08:00Negative (11/25/18 1:08 PM)[facility] KZSXO2156-69-13 18:08:00Negative (11/25/18 1:08 PM)[facility] EPMBG4456-73-50 18:08:00Performed (11/25/18 1:08 PM)[facility]annHEMATOLOGY 2018-11-25 11:57:00 Test Item Value Reference Range Interpretation Comments PT (test code = PT) 14.0 s 12.0-14.7 [facility] PpuqflwISXQSDKFMN9389-62-13 11:57:00 Test Item Value Reference Range Interpretation Comments INR (test code = INR) 1.10 1 0.85-1.17 [facility] DwbfdevKKKALQLDJP1074-81-84 11:57:00 Test Item Value Reference Range Interpretation Comments PTT (test code = PTT) 125.0 s 22.9-35.8 [facility] YpevuchJCOSPTDOFHRF8611-86-10 10:49:0010.4[facility] HermannELECTROLYTES 2018-11-25 10:49:25657Fdnsfagv HgvxbkcEKKMTVKUCAGK7997-13-33 10:49:006[facility] CnrrxthAXPJJDMSXKLR8294-30-25 10:49:000.70[facility] SlpdpheORZZVGEAPPVR1218-45-98 10:49:91951Drztvmwu LdjpfgiNMSBRWUZGDTO4576-93-78 10:49:003.4[facility] JGURUQQITQRQ9577-28-37 10:49:18436Jauimauc YgejfmjECJIIOPHHALJ5594-60-29 10:49:0027[facility] UlsfeubBBACONVPSFRI1014-94-22 10:49:008.6[facility] GEKEFAMPWAOH7327-68-42 10:49:66505Swbiogla QckapmrWIFEPQIAXT6188-94-27 10:49:00 62.7[facility] SgcstbkGEAKJBDOVF7310-90-49 10:49:0020.8[facility]annHEMATOLOGY 2018-11-25 10:49:009.1[facility] BrarsemATIODLXLDZ6961-92-56 10:49:006.8[facility] WddgaceLYEUKZZXBG5931-79-06 10:49:000.6[facility] QflhjsjAAZGOOKPBU3725-62-68 10:49:005.4[facility] LwuklkkHMUHQKQDAM4382-85-83 10:49:001.8[facility] LSTOPCLKEZ5090-64-56 10:49:000.8[facility] YwuencsSFKEIHJGTE2899-07-11 10:49:000.6 [facility] LlgyssyLVXWDENCMF7758-92-54 10:49:000.1[facility]annHEMATOLOGY 2018-11-25 10:49:00 Test Item Value Reference Range Interpretation Comments PTT (test code = PTT) 145.0 s 22.9-35.8 [facility] RjlglbqPGLCFEYHUA5029-96-91 10:49:008.5[facility]annHEMATOLOGY 2018-11-25 10:49:003.01[facility] QwyguotDKUPJJFHDU6361-67-60 10:49:008.8[facility] PqhrnvnLLMEDEWNXK0978-82-73 10:49:0025.5[facility] AfcqcsbTBVHTABXMF9568-55-93 10:49:0084.7[facility] IzrrfxcBYCUNIHEOD8374-83-40 10:49:00 Test Item Value Reference Range Interpretation Comments MCH (test code = MCH) 29.3 pg 27.0-31.0 [facility] DtytxznMBUHSOBKZI5755-10-24 10:49:0034.5[facility]annHEMATOLOGY 2018-11-25 10:49:0018.9[facility] UcfksnwZMKSASQFKU0138-10-84 10:49:98432Jbzcnjsi SfcmztxJUIZIUHEXK9865-24-27 10:49:006.8[facility] WkhgludTLYHVQOIEA6034-41-59 02:55:00 Test Item Value Reference Range Interpretation Comments PTT (test code = PTT) 58.3 s 22.9-35.8 [facility] HospitalIdnijwnVKGFNJQQKX3235-51-59 15:14:00 Test Item Value Reference Range Interpretation Comments PT (test code = PT) 18.6 s 12.0-14.7 [facility] HospitalCjqvwhoZYQFHVALYM9892-62-52 15:14:00 Test Item Value Reference Range Interpretation Comments INR (test code = INR) 1.59 1 0.85-1.17 [facility] HospitalSqizqntMSSVIBSUPR8898-54-10 15:14:006.9[facility]annHEMATOLOGY 2018-11-24 15:14:002.86[facility] QpyusbrYPNYEAPGSY9003-03-15 15:14:008.4[facility] XtxfwczKNSXELZCYQ8012-16-45 15:14:0024.3[facility] QjajezvJHQGNVYXAS4882-39-60 15:14:0085.0[facility] HatbgrzULNEOIDPJF0990-78-90 15:14:00 Test Item Value Reference Range Interpretation Comments MCH (test code = MCH) 29.2 pg 27.0-31.0 [facility] QmqlotkXOMDSNYCTG6162-38-89 15:14:0034.4[facility]annHEMATOLOGY 2018-11-24 15:14:0018.9[facility] GkseoqhBZLAAATYEM3905-49-93 15:14:85804Mlrhdcvu JnqdvjkBZSRJJJVFY2406-02-28 15:14:006.7[facility] MzalxziOJHWGBGWJK2582-80-90 15:14:00Normal (11/24/18 10:14 AM)[facility] QpflojfVQNHVMFWOH5441-56-79 15:14:00 67.7[facility] YoajqqyRKYXCYIKWD8233-90-10 15:14:0018.5[facility]annHEMATOLOGY 2018-11-24 15:14:008.4[facility] SlxxclmVAYUZFHBQS9080-67-46 15:14:004.9[facility] RqtnnpmFPXRVDPISS5146-98-10 15:14:000.5[facility] GdltoafDMPJBGTXSV6624-15-63 15:14:004.6[facility] GvjyzrqQJYQXZUCLK3183-66-74 15:14:001.3[facility] SOECOBHMJV7721-34-20 15:14:000.6[facility] AikcnziSKSLDKUGSO7996-73-86 15:14:000.3 [facility] LlukyqmVGPWWBIWDX1025-55-53 15:14:00Moderate *ABN*(11/24/18 10:14 AM) [facility] SbgpsnjBASYHNJDYX0533-06-85 15:14:001-3 per HPF (11/24/18 10:14 AM) [facility] GzvhwpcJWTTBLXEDR3886-79-04 08:45:0010.9[facility]annHEMATOLOGY 2018-11-24 08:45:003.21[facility] VabcfpxFNRAWPPVZT2115-47-81 08:45:009.4[facility] RzbhabeOZFEPFUXCU1995-44-49 08:45:0027.8[facility] DpmibjlBCQOUAAFSN6652-17-56 08:45:0086.6[facility] IlpzkylNPWIPUTHJY0839-19-20 08:45:00 Test Item Value Reference Range Interpretation Comments MCH (test code = MCH) 29.2 pg 27.0-31.0 [facility] IaovlujKJGMDIFMQZ6051-33-69 08:45:0033.7[facility]annHEMATOLOGY 2018-11-24 08:45:0018.1[facility] AtjpvquPQWROLJDXP7431-45-80 08:45:54253Forhdbhb CsygxsgBJTDVRAOGN9486-26-18 08:45:007.2[facility]annURINE AND ECLMM2354-08-75 23:33:00Positive *ABN*(11/23/18 6:33 PM)[facility] HermannANEMIA ZUNYY7853-47-05 23:28:16808Tpkdcbty HermannANEMIA PBLEF0011-77-17 23:28:0014.9[facility] ANEMIA RFMUY2879-85-74 23:28:22806Kjmsihre HermannCHEM JNPQH0536-87-31 23:28:00 0.6[facility] HermannCHEM VPXZK8674-53-71 23:28:000.2[facility] HermannCHEM PANEL 2018-11-23 23:28:000.4[facility]annBLOOD BANK CERCXQU6173-37-11 13:39:00 Negative (11/23/18 8:39 AM)[facility]BL[facility] DKDPIVA8364-10-18 13:29:00 Product available 3(11/23/18 8:29 AM)[facility] RESULTS 2018-11-23 13:26:00Product available 4(11/23/18 8:26 AM)[facility]annCHEM QSWNO4283-29-88 02:17:61819Oacspvvh KyeijgxQQMJPMJPHGLT7865-07-76 02:17:0010.6 [facility] AgrrhpsENBMWPCGNGAK2520-94-06 02:17:98762Ifjbgeaq HermannELECTROLYTES 2018-11-23 02:17:0028[facility] GsxnhdoJFMAJOOMMFNR4879-34-89 02:17:001.05[facility] VpuhfweXKDNNVMLTFRN1190-15-67 02:17:33586Ylgjxxyd KbbctlmFGTTWCGJQZJU4020-45-91 02:17:003.6[facility] MlvjsrgOBNECTSFUNLV5613-27-17 02:17:75571Zjkwgwrg [place] JTRYUSRPNXNE9095-56-89 02:17:0025[facility] XrprqswNNZLKZIWJDTI7438-56-25 02:17:00 9.0[facility] OljintyFYTTXJXAASHB8712-33-11 02:17:0062[facility] HermannHEMATOLOGY 2018-11-23 02:17:0063.6[facility] VklahgaFVGBDDZJMQ3279-50-85 02:17:0022.3[facility] OrkxypnDAWDMWBOST8897-99-43 02:17:0010.3[facility] OvomuraLVRPFVGGJD9813-42-86 02:17:003.4[facility] OtdtdolUOFUODANSC5237-84-55 02:17:000.4[facility] XOIGFYSHHL2301-20-74 02:17:007.1[facility] HmaigxtZYGGYBXZWU6129-13-95 02:17:002.5 [facility] LyglefyXMSIWIRQGP9486-89-48 02:17:001.2[facility] HermannHEMATOLOGY 2018-11-23 02:17:000.4[facility] IygljisEYRXRASNTS5394-00-69 02:17:007.2[facility] HermannCARDIAC GCDJRKY9305-23-11 16:00:000.08[facility] HermannCHEM PANEL 2018-10-18 10:31:83762Bzfptflm HermannCHEM IADUX6379-28-78 10:31:0011[facility] HermannCHEM NDKDB9985-62-54 10:31:000.74[facility] HermannCHEM ODZDT6689-31-67 10:31:31203Azvpvcie HermannCHEM XVJZZ9730-02-03 10:31:003.9[facility] HermannCHEM FGIMQ7382-36-42 10:31:67708Asenmtaq HermannCHEM RUWVP2295-55-29 10:31:0026 [facility]annCHEM PHFDV9666-58-05 10:31:008.8[facility] HermannCHEM PANEL 2018-10-18 10:31:0094[facility] HermannCHEM YDECZ5670-45-36 10:31:0010.9[facility] QmtnjfgZTOUOVPWKQ1770-32-39 10:31:0060.8[facility] GehpfnqIGMBIOMESD7730-91-41 10:31:0023.1[facility] ByojlokRFZGNNGOFB9068-30-69 10:31:0011.9[facility] UMZMEQVGOZ7444-35-69 10:31:003.6[facility] LwkclofDLMWACUXSM6699-59-78 10:31:000.6 [facility] FflfobiADXLLWPYSI5010-30-55 10:31:003.5[facility] HermannHEMATOLOGY 2018-10-18 10:31:001.3[facility] RzvzlsvYBRVPPGUUG8340-00-20 10:31:000.7[facility] HorgorwGNKUSGMUZG9762-10-94 10:31:000.2[facility] MbsdbhdCNXRZABJKL8536-64-06 10:31:005.8[facility] McbberjEJMGGRVSUC9122-56-23 10:31:003.21[facility] [place] SWWPPJGJMG6640-02-36 10:31:009.0[facility] RtcbiyaKZPEQVKXUF7285-15-51 10:31:00 26.5[facility] SjfbfiqWBWHTWTKPO7256-23-45 10:31:0082.7[facility] HermannHEMATOLOGY 2018-10-18 10:31:00 Test Item Value Reference Range Interpretation Comments MCH (test code = MCH) 28.1 pg 27.0-31.0 [facility] AklnblbLIJDERNQMM8476-18-36 10:31:0034.0[facility] HermannHEMATOLOGY 2018-10-18 10:31:0019.2[facility] IwwogmvZQWUIXPDQG2413-09-70 10:31:84518Ymvcqkle CeuamdbBXKKEXNAYW6709-82-09 10:31:008.0[facility] AifygkoYHVDGKKBPMQJ4301-97-57 17:47:0010.2[facility] XxiuvvsEWCWAAGPOXNH2820-47-21 17:47:51327Gdhpatqk [place] IEAJBTIXLMZK4003-36-66 17:47:0010[facility] IdlrchpZMULFSCJUOED7422-04-49 17:47:00 0.78[facility] OgcdfecPPMMHBNFWKVL3861-03-71 17:47:36489Acjkkobd Cy JLTGPDUHKXSC1226-32-07 17:47:004.2[facility] GnmsjtjVDZTEAIDPRNO9709-34-43 17:47:95553Jasyzxsx LallipsOJCQGVAITSGV3308-67-35 17:47:0027[facility] ZSGOCSJPBRES7875-82-22 17:47:009.2[facility] NlwcabhHFWASUPSGMPM2855-83-12 17:47:0088[facility] CytraqbJCEGBKUNNB7825-84-73 17:47:006.7[facility] XHDZXKOKOQ5833-36-54 17:47:003.33[facility] EnaxgjoXCSIMCMJAU7154-25-68 17:47:00 9.4[facility] KemnmzbMEDNHDHDEL1613-79-96 17:47:0028.0[facility] HermannHEMATOLOGY 2018-10-17 17:47:0084.1[facility] LuowhsmNVNIFNQPXX1386-90-33 17:47:00 Test Item Value Reference Range Interpretation Comments MCH (test code = MCH) 28.1 pg 27.0-31.0 [facility] OiujxkmZJPCPFXLYE2760-05-87 17:47:0033.5[facility] HermannHEMATOLOGY 2018-10-17 17:47:0019.0[facility] JsvybipOFFXDWAFUN7786-39-30 17:47:55959Wwlboeev ZaiftxlAYHCFJEEUZ2296-88-09 17:47:008.1[facility] KsqpeoqXIHYQAKECU3549-21-01 17:47:0068.8[facility] FdtelsnEPYAAMWAEU0238-11-35 17:47:0017.8[facility] [place] KDJFTEGHNQ4327-05-64 17:47:0010.4[facility] BftjkkaETHWTEDLNN7466-42-47 17:47:00 2.6[facility] NkfvdjgGKQJELLNFE4166-53-73 17:47:000.4[facility] HermannHEMATOLOGY 2018-10-17 17:47:004.6[facility] WrblqshINLRHGROLZ8343-09-84 17:47:001.2[facility] ZkjebiuAZYHHUPPTP1841-26-69 17:47:000.7[facility] FacxovdAJWYLINNNM6257-72-61 17:47:000.2[facility] SjqskdsBMOWITBXUC1933-66-38 03:10:009.6[facility] BVHKIJSVBV6290-75-83 03:10:0028.6[facility] MvelgytYAYXQKYLONBE7464-54-07 11:39:00 11.8[facility] AsdlcteEBFFSRAWYNXC8560-91-66 11:39:0094[facility] [place] IBXHRVZKYDHG5611-51-31 11:39:0010[facility] JnalxrsQGTIUOBMDTDB3728-84-99 11:39:00 0.90[facility] BmlzunhDHRRJVBPBNFI2529-83-89 11:39:22656Vhawlcvj [place] SKKIHTJTKSXF6620-73-77 11:39:003.8[facility] YlhvndeJIZCAZJNGBPN8945-67-62 11:39:86933Owrztwlb LzlkdrdIMTWCRFXTZVQ6666-91-15 11:39:0023[facility] [place] KUHUACRPOIQQ1595-18-41 11:39:008.6[facility] HretsnlLQOHGVWPTMBN2340-39-40 11:39:0075[facility] TaovjmiVMPLDSGBPY7502-75-73 11:39:0059.7[facility] CWQITIPXWI8885-60-94 11:39:0025.7[facility] MtabzdgLTFMHWIYFX0276-01-84 11:39:00 11.3[facility] QyqgalpYPZSZPGMTI4134-40-34 11:39:002.7[facility] HermannHEMATOLOGY 2018-10-15 11:39:000.6[facility] FbpgzvyCQSWTGWXAZ6877-85-44 11:39:003.5[facility] JuszgpdFODPXVKXUB4946-79-22 11:39:001.5[facility] XxiadpfLHFPCTTWHZ1789-25-75 11:39:000.7[facility] WssbzbfVLSVRZFSIT1062-08-39 11:39:000.2[facility] QCXVUCYLCW1033-79-41 11:39:005.9[facility] EtdmxioXZIKVVVEWR3313-87-92 11:39:00 3.72[facility] UofrbiwXZFKMYEOVL4440-89-74 11:39:0082.8[facility] HermannHEMATOLOGY 2018-10-15 11:39:00 Test Item Value Reference Range Interpretation Comments MCH (test code = MCH) 27.6 pg 27.0-31.0 [facility] OtwnofeKWMRDGEHJW1842-07-15 11:39:0033.3[facility] HermannHEMATOLOGY 2018-10-15 11:39:0019.6[facility] BljgfdrUTVKCZEMTN6577-16-18 11:39:32913Wxjbyggh MmwajwyZEFGRHOSXP2896-78-03 11:39:007.8[facility] HermannCARDIAC NHHOYEO2191-95-79 18:24:00 Test Item Value Reference Range Interpretation Comments CK MB Index (test 1.1 1 See_Comment [Automate d message] The code = CK MB Index) system w [facility] generated this result transmit ashanti reference range : <=2.5. The reference range was not used to interpr et this result as will l/abnormal. [facility] DEMDCBR5574-96-45 18:24:000.13[facility]ann[facility]ARD[facility]AC JIDQJDC8292-88-65 18:24:55185Oikwmcvl HermannCARDIAC ULCTSGK2764-40-40 18:24:00 1.9[facility]ARD[facility]AC AMJGSAB1207-37-60 14:32:000.13[facility]AC WFFXBCQ3344-55-48 14:32:41943Czeerlsu HermannCARDIAC VCJHOXX0966-17-60 14:32:00 1.9[facility]ann[facility]ARD[facility]AC EYQRYAJ3860-09-24 14:32:00 Test Item Value Reference Range Interpretation Comments CK MB Index (test 1.1 1 See_Comment [Automate d message] The code = CK MB Index) [facility] result transmit ashanti reference range : <=2.5. The reference range was not used to interpr et this result as will l/abnormal. [facility] WARHWCZ0674-20-94 09:44:53804Leonlmli HermannCARDIAC YJUHCGO7566-88-14 09:44:001.9[facility] ZFVVYCB7649-18-46 09:44:00 Test Item Value Reference Range Interpretation Comments CK MB Index (test 1.0 1 See_Comment [Automate d message] The code = CK MB Index) system [employer] generated this result transmit ashanti reference range : <=2.5. The reference range was not used to interpr et this result as will l/abnormal. [facility]annCHEM ZPQBK2984-70-42 09:44:007.0[facility]annCHEM PANEL 2018-10-14 09:44:003.4[facility]annCHEM PANDD8454-58-78 09:44:003.6[facility]annCHEM OCRQL1284-04-68 09:44:00 Test Item Value Reference Range Interpretation Comments A/G Ratio (test code = A/G Ratio) 0.9 1 0.7-1.6 [facility]annCHEM MCPOC8829-90-32 09:44:0014[facility]annCHEM PANEL 2018-10-14 09:44:0016[facility]annCHEM CZYAP0890-00-61 09:44:0094[facility]annCHEM CTBUS0458-43-12 09:44:000.2[facility]annCHEM KMIBL8856-88-42 09:44:00<0.1[facility]annCHEM QZPDZ9780-04-11 09:44:002.3[facility] CHEM MUFYX5888-51-17 09:44:003.7[facility] RtuajeiCXZXAXMMIE5539-87-55 09:44:00 Test Item Value Reference Range Interpretation Comments INR (test code = INR) 0.94 1 0.85-1.17 [facility] GmdbkbsRNSLFXAOJZ2442-12-43 09:44:00 Test Item Value Reference Range Interpretation Comments PT (test code = PT) 12.4 s 12.0-14.7 [facility] NblhxdiOECVPHXANZ0068-96-77 09:44:00 Test Item Value Reference Range Interpretation Comments PTT (test code = PTT) 30.7 s 22.9-35.8 [facility] XjvxgrjQKFOOS0441-08-44 09:44:00 Test Item Value Reference Range Interpretation Comments CHD Risk (test code = CHD Risk) 3.67 1 3.90-5.80 [facility] QpbczfeEAELOG1135-10-60 09:44:0061[facility] LtunoqpSYCMTB4171-85-59 09:44:03169Emfrirxq YpphetcLDPMZG0760-21-03 09:44:0070[facility] HermannLIPIDS 2018-10-14 09:44:16912Lwbbwqtw FvflxfoBOAUYW0264-63-98 09:44:00 Test Item Value Reference Range Interpretation Comments VLDL (test code = VLDL) 12 1 [facility] HermannSPECIAL JJISOJYHU8567-18-25 09:44:006.1[facility]annCHEM WAMKG1025-44-65 10:00:008.8[facility]annCHEM UMSHO0641-99-58 10:00:0012.3 [facility]annCHE[facility] ZPQIQ7300-43-63 10:00:0095[facility]annCHEM PANEL 2018-01-21 10:00:0026[facility]annCHEM YOHIS6734-70-06 10:00:0095[facility]annCHEM FRSJX7313-34-57 10:00:000.74[facility]annCHEM KUPXA1940-92-74 10:00:21448Cuvhjpih HermannCHEM HDNGD2340-24-37 10:00:0096[facility]annCHEM SZDRN7922-71-86 10:00:009[facility]annCHEM YHVME8028-22-71 10:00:004.3 [facility]annCHE[facility] IBECK4256-98-21 00:26:0011[facility]annCHEM PANEL 2018-01-21 00:26:13300Mnptdqme HermannCHEM XRNGY4386-67-23 00:26:000.74[facility]annCHEM JNNPV6296-98-01 00:26:17132Fkejujyw HermannCHEM HZXMF7968-29-97 00:26:004.3[facility]annCHEM YCPKY8827-38-46 00:26:0096[facility]annCHEM MLSRO1205-64-94 00:26:0025[facility]annCHEM ZJLJR3274-31-29 00:26:008.7 [facility]annCHE[facility] YIUIG6277-69-76 00:26:0012.3[facility]annCHEM PANEL 2018-01-21 00:26:0095[facility]annCHEM ZHDXV6217-03-95 18:35:61093Gwvqgeou HermannCHEM WONJH2929-08-15 18:35:71208Kqavvfvy HermannCHEM EXVUE9278-53-89 18:35:0011[facility]annCHEM YERPW0473-58-11 18:35:000.65[facility]annCHEM VRDWM2280-84-16 18:35:0012.3[facility]annCHEM QAJGQ4031-75-61 18:35:004.3 [facility]annCHEM ZFUIO7156-71-92 18:35:0095[facility]annCHEM PANEL 2018-01-20 18:35:70931Bfmhpwcn HermannCHEM IPBGB5061-73-37 18:35:0026[facility]annCHEM AQUMP9355-54-14 18:35:008.7[facility]annURINE TMKW4792-33-60 17:02:0087[facility]annURINE BSFD7939-14-32 17:02:0064[facility]annURINE GOCA6679-70-66 17:02:0040.0[facility]annURINE SIGA1815-23-42 17:02:10892 [facility] FWCI1493-85-10 16:48:47504Ypkvynwv HermannHEMATOLOGY 2018-01-19 06:36:001.7[facility] OmpobdaUWAFQTFSLQ8124-80-92 06:36:000.9[facility] MfuacxxXEEQTSTMYH5143-45-31 06:36:001.9[facility] GlzjnpjOOTCKOLFMT0315-96-16 06:36:000.6[facility] WssemzbKNXOQXTYZW8475-18-51 06:36:000.1[facility] Cy HHXKQEEFBC2734-59-67 06:36:0019.0[facility] HneweamSTHGWIHWBR9915-47-90 06:36:00 1.1[facility] RfvgwtdSSTIUMQXWZ2176-81-85 06:36:0041.5[facility] HermannHEMATOLOGY 2018-01-19 06:36:0037.8[facility] YjytvrlABAFNVAYAW6312-32-26 06:36:0085.7[facility] TyqysndGQDWMTKYEM6020-50-72 06:36:0029.8[facility] CpcytydIRSEYZJXZX4169-25-62 06:36:00 Test Item Value Reference Range Interpretation Comments MCH (test code = MCH) 30.5 pg 27.0-31.0 [facility] HqhxdrvXTCWNIMXDR1882-06-59 06:36:0010.6[facility] HermannHEMATOLOGY 2018-01-19 06:36:003.47[facility] NgnqtbiVBCVEDKKFI4817-86-22 06:36:004.5[facility] CzewsohWNBLUFHYAO6490-87-18 06:36:007.5[facility] GhydbvrBIYNXFZIHZ8576-60-11 06:36:94749Nrbohoig XkptwzlMPTXLHFYOO2235-83-31 06:36:0014.1[facility] Cy SDIBSAHYSW9489-19-10 06:36:0035.6[facility]annURINE RLPV6141-49-65 06:29:00 331[facility]annURINE VNFO6757-76-56 06:29:0036[facility] CHEM 2018-01-19 06:29:0030[facility]annURINE OUWT4301-95-75 06:29:0028.5[facility]annURINE LITD3085-00-16 22:03:0060.8[facility]annURINE KGWB5397-30-61 22:03:97950Jjrvfkon HermannURINE VRXQ5527-55-10 22:03:0071[facility] HermannCHEM OSFAH1506-49-79 03:01:001.8[facility]annCHEM EJAOQ9714-20-82 03:01:001.5 [facility] MdojhtsAKXSMW6851-81-00 02:56:0075[facility] AkwzzujYWNEQO8679-51-62 02:56:24391Eyfgzqwp DnuzboxRVGVBP6914-44-17 02:56:76492Qpsfftmc HermannLIPIDS 2018-01-17 02:56:0037[facility] BtprbrnJNQVVB6455-61-61 02:56:00 Test Item Value Reference Range Interpretation Comments CHD Risk (test code = CHD Risk) 3.57 1 3.90-5.80 [facility] AND JQCXK9560-47-55 02:56:00Trace *ABN*(01/16/18 8:56 PM) [facility] HAKVF9702-01-04 02:56:00Negative *NA*(01/16/18 8:56 PM) [facility] JDJFC7148-09-16 02:56:00Negative *NA*(01/16/18 8:56 PM) [facility] ECNYJ0991-98-71 02:56:00Negative (01/16/18 8:56 PM) [facility] PVWWK5596-10-77 02:56:00Negative (01/16/18 8:56 PM) [facility] TTPUX6055-75-73 02:56:001.0[facility] AND DGDZI0978-05-89 02:56:00Negative (01/16/18 8:56 PM)[facility] AND ROSDT1073-96-69 02:56:00Negative (01/16/18 8:56 PM)[facility] AND AFYZB8820-85-41 02:56:00Clear (01/16/18 8:56 PM)[facility] AND STOOL 2018-01-17 02:56:00 Test Item Value Reference Range Interpretation Comments UA Spec Grav (test code = UA Spec 1.015 1 Grav) [facility] ROQOL7529-99-51 02:56:00 Test Item Value Reference Range Interpretation Comments UA pH (test code = UA pH) 6.5 1 5.0-8.0 [facility] AND UWEVT4898-68-94 02:56:00Yellow *NA*(01/16/18 8:56 PM) [facility] URXRB7767-23-81 02:56:001[facility] AND JFFHN3548-19-28 02:56:00<1[facility] UZAW5393-07-96 02:56:00None Seen (01/16/18 8:56 PM)[facility] HDCE6770-53-68 02:56:0019.8[facility] EXRC5855-00-70 02:56:00 Test Item Value Reference Range Interpretation Comments U Prot/Creat (test code = U 0.34 1 Prot/Creat) [facility] FQHS8921-20-74 02:56:0058.90[facility] HermannBACTERIAL - CMXCGOTG9636-89-84 02:56:00Negative (01/16/18 8:56 PM)[facility] HermannLIPIDS 2018-01-17 02:56:00 Test Item Value Reference Range Interpretation Comments VLDL (test code = VLDL) 20 1 [facility]annCARDIAC DQRYOMQ9784-55-20 00:21:80741Dojtfehl HermannCARDIAC BCYYVOV1746-01-16 00:21:000.32[facility] HermannCHEM CKCWE4170-10-73 00:21:007.1 [facility]annCHEM EHOLJ7417-58-78 00:21:00 Test Item Value Reference Range Interpretation Comments A/G Ratio (test code = A/G Ratio) 1.0 1 0.7-1.6 [facility]annCHEM RWVYO7154-43-09 00:21:003.6[facility] HermannCHEM PANEL 2018-01-17 00:21:003.5[facility] HermannCHEM TZSFG1996-34-06 00:21:00 Test Item Value Reference Range Interpretation Comments B/C Ratio (test code = B/C Ratio) 10 1 6-25 [facility]annCHEM DIYZE2778-75-07 00:21:0069[facility]annCHEM PANEL 2018-01-17 00:21:000.4[facility]annCHEM QPAVR1613-94-21 00:21:0058[facility]annCHEM VXJYU1059-28-59 00:21:0052[facility] BmzlfmaVTKIQCPKXS2529-00-22 00:21:79948Rmexwenr TgffmrrHTWAOKPYYO9787-53-27 00:21:007.9[facility] MTSDOJEKOU2569-19-21 00:21:00 Test Item Value Reference Range Interpretation Comments MCH (test code = MCH) 30.0 pg 27.0-31.0 [facility] UahtwgmKKUBDYTUIS7719-71-02 00:21:0085.4[facility] HermannHEMATOLOGY 2018-01-17 00:21:0035.4[facility] JqzarbeYTFQTEDOUQ3791-21-08 00:21:0013.9[facility] FgidylkXNSZGZLOUM2190-54-01 00:21:0035.1[facility] ElrunooAPLYPOAJBZ3396-28-14 00:21:004.2[facility] BnmbezjLNRHTNTYRM0006-01-70 00:21:004.15[facility] UCUOFHPOHS4624-19-60 00:21:0012.4[facility] RwuwqatWLANARSBSY3346-22-96 00:21:00 0.2[facility] GghnqotMSCZJHSSBR3356-19-05 00:21:000.8[facility] HermannHEMATOLOGY 2018-01-17 00:21:001.6[facility] FnwvpaxZEZDOIZWBF2271-43-97 00:21:001.0[facility] XcvdvgcTSNTAMVHMV9687-96-48 00:21:003.6[facility] AlpppuhNHEDTDVVVV5510-55-70 00:21:001.6[facility] CkktgsgFESPHOJUIV9555-19-57 00:21:0018.9[facility] Cy VFTOBQCACB6728-73-17 00:21:0038.4[facility] VpbwmcnPEEHRVVEIY6080-75-11 00:21:00 38.1[facility]
--- NOTE | 2020-07-16 16:48 | RAD REPORT ---
EXAM DESCRIPTION: RAD - Lumbar Spine 3 Views - 07/16/2020 4:32 pm CLINICAL HISTORY: Back pain FINDINGS: Mild anterior subluxation L4 on L5. Bones are osteoporotic. No fracture or dislocation is seen. Mild spondylosis involves the lumbar spine. Osteoarthritis involves the facet joints of lower lumbar spine
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
[2020-07-16 17:27] VITALS: TEMP 97.8
[2020-07-16 17:28] VITALS: BP 145/75; O2SAT 100
== END 2020-07-16 17:22 | disposition home or self-care (01) ==
LOC: ER 14:47
DX: M54.5 Low back pain (principal); V49.40XD Driver injured in collision with unspecified motor vehicles in traffic accident, subsequent encounter
CPT/HCPCS: 72100; 99283